=== PATIENT | male | born 1960 | race Caucasian/White ===

== ENCOUNTER 2020-05-13 15:20 | Outpatient (REF) | payer OTHER, SELFPAY ==
--- NOTE | 2020-05-13 | US_ITS ---
EXAMINATION: US RETROPERITONEAL LIMITED (RENAL ONLY) CLINICAL INFORMATION: Chronic kidney disease stage III. COMPARISON: None TECHNIQUE: Routine grayscale imaging of kidneys was performed. FINDINGS: RIGHT KIDNEY: 10.4 x 5.6 x 6.5 cm (SAG x AP x TRV). The kidney is normal in size, contour, and echogenicity. Renal cortical thickness is normal. No calculi or focal parenchymal lesions. No hydronephrosis. LEFT KIDNEY: 10.2 x 5.5 x 5.9 cm (SAG x AP x TRV). The kidney is normal in size, contour, and echogenicity. Renal cortical thickness is normal. No calculi or focal parenchymal lesions. No hydronephrosis. IMPRESSION: Unremarkable renal ultrasound exam.
== END 2020-05-13 15:21 | disposition home or self-care (01) ==
LOC: HO.US 15:20
PROVIDERS: PCP Nurse Practitioner Family; Visit Provider Internal Medicine
DX: N18.30 Chronic kidney disease, stage 3 unspecified (principal)
CPT/HCPCS: 76775

== ENCOUNTER → 2020-07-08 10:16 | Outpatient (BNVA) | payer OTHER, SELFPAY | PROVIDERS: PCP Nurse Practitioner Family; Visit Provider Internal Medicine | DX: Z13.89 Encounter for screening for other disorder (principal) ==

== ENCOUNTER → 2020-09-17 08:53 | Outpatient (BNVA) | payer OTHER, SELFPAY | PROVIDERS: PCP Nurse Practitioner Family; Visit Provider Internal Medicine Pulmonary Disease | DX: I51.89 Other ill-defined heart diseases (principal); R94.2 Abnormal results of pulmonary function studies | CPT/HCPCS: 99212 ==

== ENCOUNTER 2020-12-02 09:16 | Outpatient (REF) | payer OTHER, SELFPAY ==
[2020-12-02 10:13] LABS: Hematocrit 42.7 % (42-52); Hemoglobin 14.7 g/dl (14.0-18.0); Mean Corpuscular HGB Conc 34.4 g/dl (31.0-36.0); Mean Corpuscular Hemoglobin 31.6 pg (27.0-33.0); Mean Corpuscular Volume 91.8 fL (80-98); Mean Platelet Volume 10.4 fL (9.4-12.4); Platelet Count 164 X10*3/uL (160-400); Red Blood Count 4.65 X10*6/uL (4.60-5.80); Red Cell Distribution Width 12.9 % (11.0-16.0); White Blood Count 6.5 X10*3/uL (4.8-10.8)
[2020-12-02 10:35] LABS: Alanine Aminotransferase 24 U/L (0-40); Albumin Level 4.2 g/dL (3.5-5.0); Alkaline Phosphatase 105 U/L (39-117); Anion Gap 13 (12-20); Aspartate Amino Transferase 23 U/L (5-37); Bilirubin Direct 0.4 mg/dL (0.0-0.5); Bilirubin Total 1.3 mg/dL (0.0-1.0); Blood Urea Nitrogen 19 mg/dL (9-16); Calcium 9.3 mg/dL (8.4-10.2); Carbon Dioxide 23 mmol/L (22-29); Chloride 109 mmol/L (96-108); Estimated Glomerular Filt Rate 52; Glucose Random 120 mg/dL (60-115); Potassium 4.3 mmol/L (3.3-5.1); Sodium 141 mmol/L (135-145); Total Protein 6.6 g/dL (6.5-8.0)
[2020-12-03 08:05] LABS: ~HepC Num1 0.07 S/CO (0.00-0.79); ~Hepatitis C Antibody Nonreactive (Nonreactive)
[2020-12-03 13:38] LABS: Absolute CD3 Count 1540 cells/uL (840-3060); Absolute CD4 Count 1201 cells/uL (490-1740); Absolute CD8 Count 419 cells/uL (180-1170); Absolute Lymphocytes 2074 cells/uL (850-3900); CD4 CD8 Ratio 2.86 (0.86-5.00); Percent CD3 Cells 74 % (57-85); Percent CD4 Cells 58 % (30-61); Percent CD8 Cells 20 % (12-42)
[2020-12-04 12:57] LABS: HIV RNA PCR Qn Copies <20 NOT DETECTED copies/mL (NOT DETECTED); HIV RNA PCR Qn Log Copies <1.30 NOT DETECTED (NOT DETECTED)
== END 2020-12-02 09:17 | disposition home or self-care (01) ==
LOC: HO.LAB 09:16
PROVIDERS: PCP Nurse Practitioner Family; Visit Provider Internal Medicine
DX: B20 Human immunodeficiency virus [HIV] disease (principal)
CPT/HCPCS: 36415; 80048; 80076; 85027; 86359; 86360; 86803; 87536

== ENCOUNTER 2020-12-10 09:53 | Outpatient (REF) | payer OTHER, SELFPAY ==
[2020-12-19 18:57] LABS: Kappa, Serum 253 mg/dL (176-443); Kappa/Lambda Ratio, Serum 1.98 (1.29-2.55); Lambda, Serum 128 mg/dL (91-240)
== END 2020-12-10 09:54 | disposition home or self-care (01) ==
LOC: HO.LAB 09:53
PROVIDERS: PCP Nurse Practitioner Family; Visit Provider Internal Medicine
DX: N18.31 Chronic kidney disease, stage 3a (principal)
CPT/HCPCS: 36415; 83883

== ENCOUNTER → 2020-12-30 14:19 | Outpatient (BNVA) | payer OTHER, SELFPAY | PROVIDERS: Visit Provider Internal Medicine | DX: B20 Human immunodeficiency virus [HIV] disease (principal) ==

== ENCOUNTER 2021-05-26 08:40 | Outpatient (REF) | payer OTHER, SELFPAY ==
[2021-05-26 09:02] LABS: MANUAL DIFF FLAG NO
[2021-05-26 09:28] LABS: Basophils Absolute Auto 0.1 X10*3/uL (0.0-0.2); Basophils Percent Auto 0.8 % (0-2); Eosinophils Absolute Auto 0.2 X10*3/uL (0.0-0.4); Hematocrit 42.9 % (42.0-52.0); Imm Gran Abs Auto 0.04 X10*3/uL (0.00-0.03); Imm Gran Pct Auto 0.6 % (0.0-0.4); Lymphocytes Absolute Auto 1.6 X10*3/uL (1.2-4.9); Lymphocytes Percent Auto 24.7 % (20-40); Mean Corpuscular Hemoglobin 32.2 pg (27.0-33.0); Mean Corpuscular Volume 92.1 fL (80.0-98.0); Mean Platelet Volume 10.4 fL (9.4-12.4); Monocytes Absolute Auto 0.5 X10*3/uL (0.1-1.2); Monocytes Percent Auto 7.7 % (2-11); Neutrophils Absolute Auto 4.01 x10*3/uL (2.0-8.3); Neutrophils Percent Auto 63.2 % (45-73); Platelet Count 146 X10*3/uL (160-400); Red Blood Count 4.66 X10*6/uL (4.60-5.80); Red Cell Distribution Width 13.2 % (11.0-16.0); White Blood Count 6.4 X10*3/uL (4.8-10.8)
[2021-05-26 09:53] LABS: Appearance Urine CLEAR; Color Urine YELLOW; Glucose Urine UA NEG (NEG); Leukocyte Esterase Urine NEG (NEG); Nitrite Urine NEG (NEG); PH 6.5 (5.0-8.0); Urine Blood NEG (NEG); Urine Ketones NEG (NEG); Urine Protein NEG (NEG-TRACE)
[2021-05-26 09:58] LABS: Alanine Aminotransferase 23 U/L (0-40); Albumin Level 4.4 g/dL (3.5-5.0); Alkaline Phosphatase 116 U/L (39-117); Anion Gap 10 (12-20); Aspartate Amino Transferase 21 U/L (5-37); Bilirubin Total 1.3 mg/dL (0.0-1.0); Blood Urea Nitrogen 16 mg/dL (9-16); Calcium 9.4 mg/dL (8.4-10.2); Carbon Dioxide 28 mmol/L (22-29); Chloride 109 mmol/L (96-108); Estimated Glomerular Filt Rate 54; Glucose Random 114 mg/dL (60-115); Magnesium 2.2 mg/dL (1.6-2.6); Phosphorus 4.2 mg/dL (2.7-4.5); Potassium 4.4 mmol/L (3.3-5.1); Sodium 143 mmol/L (135-145); Total Protein 6.8 g/dL (6.5-8.0)
[2021-05-26 10:06] LABS: Creatinine Urine 91.13 mg/dL; Microalbum/Creatinine Ratio Ur 7.6 ug/mg cr
[2021-05-26 10:16] LABS: Uric Acid 4.4 mg/dL (3.4-7.0)
[2021-05-26 10:23] LABS: Vitamin D 25-OH Total 44.8 ng/mL (>30)
[2021-05-26 10:27] LABS: Mucus Urine 1+ /LPF; RBC Urine 0 /HPF (0); Squamous Epithelial Cell Urine 1+ /LPF; WBC Urine 0 /HPF (0-4)
== END 2021-05-26 08:41 | disposition home or self-care (01) ==
LOC: HO.LAB 08:40
PROVIDERS: PCP Nurse Practitioner Family; Visit Provider Internal Medicine
DX: N18.31 Chronic kidney disease, stage 3a (principal)
CPT/HCPCS: 36415; 80053; 81001; 82043; 82306; 83735; 84100; 84550; 85025

== ENCOUNTER 2021-06-22 08:10 | Outpatient (REF) | payer OTHER, SELFPAY ==
[2021-06-22 09:40] LABS: Syphilis Screen Nonreactive (Nonreactive)
[2021-06-22 10:05] LABS: CT PCR NOT DETECTED (Not Detect.); NG PCR NOT DETECTED (Not Detect.)
[2021-06-23 11:42] LABS: Absolute CD3 Count 1496 cells/uL (840-3060); Absolute CD4 Count 1187 cells/uL (490-1740); Absolute CD8 Count 378 cells/uL (180-1170); Absolute Lymphocytes 2015 cells/uL (850-3900); CD4 CD8 Ratio 3.14 (0.86-5.00); Percent CD3 Cells 74 % (57-85); Percent CD4 Cells 59 % (30-61); Percent CD8 Cells 19 % (12-42)
[2021-06-24 09:31] LABS: HIV RNA PCR Qn Copies <20 NOT DETECTED copies/mL (NOT DETECTED); HIV RNA PCR Qn Log Copies <1.30 NOT DETECTED (NOT DETECTED)
== END 2021-06-22 08:11 | disposition home or self-care (01) ==
LOC: HO.LAB 08:10
PROVIDERS: Visit Provider Internal Medicine
DX: B20 Human immunodeficiency virus [HIV] disease (principal)
CPT/HCPCS: 36415; 86359; 86360; 86780; 87491; 87536; 87591

== ENCOUNTER → 2021-06-30 13:13 | Outpatient (BNVA) | payer OTHER, SELFPAY | PROVIDERS: Visit Provider Internal Medicine | DX: B20 Human immunodeficiency virus [HIV] disease (principal); Z87.891 Personal history of nicotine dependence | CPT/HCPCS: 99212 ==

== ENCOUNTER → 2021-09-30 07:55 | Outpatient (REF) | payer OTHER, SELFPAY ==
--- NOTE | 2021-09-30 07:58 | CA_ITS ---
Transthoracic Echocardiogram Patient (Last, First, Middle): Bhupinder Rai F Gender: Male Date of : 1960 Age: 61 Procedure Date: 09/30/2021 Procedure Type: Transthoracic Echocardiogram Location: OP Height: 172.72 cm Weight: 70.31 kg BSA: 1.83 m2 Heart Rate: bpm BP: 132 / 78 mmHg Or Manager: SUZE Otero MD: Surinder Diaz MD Skate Shop Attendant: Ye Suresh MD Symptoms: I51.89 - Other ill-defined heart diseases Study Quality: Good ECG Rhythm: Sinus Conclusions: - 1. Normal LV systolic function with impaired relaxation abnormality 2. Normal cardiac valvular Dopplers 3. Normal RVSP 4. No pericardial effusion Findings Left Ventricle Normal left ventricular size, thickness, and systolic function. The visually estimated ejection fraction is between 55-60%. Spectral Doppler is indicative of an impaired relaxation filling pattern. E/E prime ratio is between 8 and 15 consistent with indeterminate filling pressures. Right Ventricle Normal right ventricular cavity size and systolic function. Atria Both atria are normal in size. There is lipomatous hypertrophy of the interatrial septum. There is no evidence of interatrial shunt. Aortic Valve There is mild calcification of the aortic valve. There is mild thickening of the aortic valve. There is no aortic valve stenosis. There is no aortic valve regurgitation. Mitral Valve There is mild anterior and posterior mitral leaflet thickening. There is mild mitral annular calcification. There is trace mitral valve regurgitation. There is no mitral valve stenosis. Pulmonic Valve The pulmonic valve was not well visualized. Tricuspid Valve Likely normal tricuspid valve structure and function. There is trace tricuspid valve regurgitation. The right ventricular systolic pressure is normal. The right ventricular systolic pressure is 18 mmHg. Normal right atrial pressure. There is no evidence of pulmonary hypertension. Great Vessels All visible segments of the aorta are normal in size. Venous The inferior vena cava is normal in size and collapses greater than 50% with inspiration. Pericardium/Pleural There is no evidence of pericardial effusion. Prior Study Comparison No significant change compared to prior study dated: 03/13/2020. Measurements 2D Linear Measurements IVSd: 0.99 0.6-0.9/0.6-1.0 cm LVIDd: 3.65 3.9-5.3/4.2-5.9 cm LVIDd Index: 1.99 2.4-3.2/2.2-3.1 cm/m2 LVIDs: 2.44 2.0-3.6 cm LVPWd: 0.94 0.7-1.1 cm LA Diam: 3.10 2.7-3.8/3.0-4.0 cm LAIDs Index: 1.69 1.5-2.3 cm/m2 LV Mass: 129.15 67-162/88-224 g LV Mass Index: 70.57 43-95/49-115 g/m2 LVOT Diam: 2.00 3.0+(-)1.3 cm 2D Systolic Function EF 4C: 56.00 >55% EF 2C: 60.00 >55% EF BiP: 57.40 >55% Mitral Valve MV Pk E: 0.66 MV PK A: 0.78 MV Decel Time: 218.00 E/A: 0.80 E'Lateral: 7.18 E'Medial: 5.87 E/E' Med: 11.20 E/E' Lat: 9.10 PHT: 64.00 MVA PHT: 3.44 Decel [place]: 3.00 Aortic Valve AoV Pk Rony: 1.26 AoV Mn Rony: 0.90 AoV VTI: 0.25 AoV Pk Grad: 6.00 Aov Mn Grad: 4.00 REYES Cont.VTI: 2.21 LVOT LVOT Pk Rony: 0.95 LVOT Mn Rony: 0.58 LVOT VTI: 0.18 LVOT Pk Grad: 4.00 LVOT Mn Grad: 2.00 LVOT Diam: 2.00 LVOT Area: 3.14 Diastolic Function MV Pk E: 0.66 MV Pk A: 0.78 E/A: 0.80 E'Medial: 5.87 E/E' Med: 11.20 E' Laterial: 7.18 E/E' Lat: 9.10 Right Ventricle TAPSE (mm): 20.30 TVS' Rony: 11.00 Tricuspid Valve TR Pk Rony: 1.94 TR Pk Grad: 15.00 RA Press: 3.00 RVSP: 18.00 Great Vessels Aorta Sinus of Valsalva: 3.37 2.0-3.[address] [place]: 2.93 1.7-3.4 cm Ao Asc: 3.00 2.1-3.4 cm Ao Arch: 2.80 Updated in Other Vendor System with Status of Final Ye Suresh MD electronically signed on 09/30/2021 9:07:49 PM with status of Final
== END ==
LOC: HO.CARD 07:55
PROVIDERS: PCP Nurse Practitioner Family; Visit Provider Internal Medicine Pulmonary Disease
DX: I51.89 Other ill-defined heart diseases (principal)
CPT/HCPCS: 93306

== ENCOUNTER 2022-01-26 12:37 | Outpatient (REF) | payer OTHER, SELFPAY ==
--- NOTE | ~2022-01-26 | XR_ITS ---
EXAMINATION: XR FOOT, LEFT CLINICAL INFORMATION: Pain left foot COMPARISON: None TECHNIQUE: AP, lateral, and oblique views of the left foot. FINDINGS: No fracture, dislocation or destructive lesion. Joint spaces appear well preserved. No erosive change. Incidental note is made of a moderate plantar spur. Subtle lucency through the base of the spur is noted. XR/XR foot LT min 3V IMPRESSION: Prominent plantar spur. If there is concern for plantar fasciitis, MRI could be done.
== END 2022-01-26 12:38 | disposition home or self-care (01) ==
LOC: HO.XRAY 12:37
PROVIDERS: PCP Nurse Practitioner Family; Visit Provider Physician Assistant
DX: M79.672 Pain in left foot (principal)
CPT/HCPCS: 73630

== ENCOUNTER 2022-06-28 06:39 | Outpatient (REF) | payer OTHER, SELFPAY ==
[2022-06-28 07:57] LABS: ~HepC Num1 0.09 S/CO (0.00-0.79); ~Hepatitis C Antibody Nonreactive (Nonreactive)
[2022-06-28 07:59] LABS: Syphilis Screen Nonreactive (Nonreactive)
[2022-06-29 15:18] LABS: Absolute CD3 Count 2060 cells/uL (840-3060); Absolute CD4 Count 1606 cells/uL (490-1740); Absolute CD8 Count 551 cells/uL (180-1170); Absolute Lymphocytes 2769 cells/uL (850-3900); CD4 CD8 Ratio 2.91 (0.86-5.00); Percent CD3 Cells 74 % (57-85); Percent CD4 Cells 58 % (30-61); Percent CD8 Cells 20 % (12-42)
[2022-06-29 16:03] LABS: HIV RNA PCR Qn Copies NOT DETECTED copies/mL (NOT DETECTED); HIV RNA PCR Qn Log Copies NOT DETECTED (NOT DETECTED)
== END 2022-06-28 06:40 | disposition home or self-care (01) ==
LOC: HO.LAB 06:39
PROVIDERS: PCP Nurse Practitioner Family; Visit Provider Internal Medicine
DX: B20 Human immunodeficiency virus [HIV] disease (principal)
CPT/HCPCS: 36415; 86359; 86360; 86780; 86803; 87536

== ENCOUNTER 2022-06-29 08:45 | Outpatient (REF) | payer OTHER, SELFPAY ==
--- NOTE | ~2022-06-29 | XR_ITS ---
EXAMINATION: XR CHEST CLINICAL INFORMATION: Cough. COMPARISON: 02/27/2020 chest radiographs. TECHNIQUE: 2 views of the chest were obtained. FINDINGS: No significant abnormality is noted involving the heart, lungs, mediastinum, bony thorax or soft tissues. XR/XR chest 2V IMPRESSION: No acute cardiopulmonary process.
== END 2022-06-29 08:46 | disposition home or self-care (01) ==
LOC: HO.HMGCX 08:45
PROVIDERS: PCP Nurse Practitioner Family; Visit Provider Nurse Practitioner Family
DX: R05.9 Cough, unspecified (principal)
CPT/HCPCS: 71046

== ENCOUNTER 2022-07-08 11:56 | Outpatient (REF) | payer OTHER, SELFPAY ==
[2022-07-08 12:58] LABS: Influenza A PCR POSITIVE (Negative); Influenza B PCR NEGATIVE (Negative); Resp Syncy Virus RNA Qual PCR NEGATIVE (Negative); SARS COV2 PCR INHOUSE NEGATIVE (Negative)
== END 2022-07-08 11:57 | disposition home or self-care (01) ==
LOC: HO.LNP 11:56
PROVIDERS: Visit Provider Internal Medicine
DX: Z20.822 Contact with and (suspected) exposure to COVID-19 (principal); R09.89 Other specified symptoms and signs involving the circulatory and respiratory systems
CPT/HCPCS: 0241U

== ENCOUNTER → 2022-07-14 11:34 | Outpatient (BNVA) | payer OTHER, SELFPAY | PROVIDERS: PCP Nurse Practitioner Family; Visit Provider Internal Medicine | DX: Z21 Asymptomatic human immunodeficiency virus [HIV] infection status (principal) ==

== ENCOUNTER 2022-10-06 01:41 | Emergency (ER) | payer OTHER, SELFPAY ==
[2022-10-06 01:52] VITALS: BP 126/83; PULSE 99; RESP 16; TEMP 36.7; O2SAT 98; BMI 23.6
--- NOTE | 2022-10-06 02:21 | ED_ITS ---
HPI - Back Pain/Injury General Chief Complaint: Back Pain/Injury Stated Complaint: Back pain Time Seen by Provider: 10/06/22 02:15 Source: patient Mode of arrival: ambulatory Limitations: no limitations History of Present Illness HPI Narrative: Patient comes to the emergency room complaining of right back spasms that started after shoveling snow. Patient states that today he shoveled his entire driveway, shortly after, patient started having back spasms. Patient tried ibuprofen, topical medication/patches. Patient states that the pain will not stop. Patient denies hematuria or dysuria, no flank pain. Related Data Home Medications Medication Instructions Recorded Confirmed allopurinol 300 mg tablet 300 mg PO DAILY 10/14/20 07/08/22 Previous Rx's Medication Instructions Recorded omeprazole 20 mg capsule,delayed 20 mg PO QAM #90 caps 03/29/22 release cholecalciferol (vitamin D3) 50 50 mcg PO DAILY #90 caps 04/16/22 mcg (2,000 unit) capsule benzonatate 100 mg capsule 100 mg PO BID PRN cough 10 days 06/29/22 #20 caps azithromycin 250 mg tablet 250 mg PO ONCE 5 days #6 tabs 07/08/22 oseltamivir 75 mg capsule (Tamiflu) 75 mg PO BID 5 days #10 caps 07/08/22 prednisone 20 mg tablet 60 mg PO DAILY #9 tabs 07/12/22 bictegravir 50 mg-emtricitabine 1 tab PO DAILY 30 days #30 tabs 07/19/22 200 mg-tenofovir alafenam 25 mg tablet (Biktarvy) atorvastatin 20 mg tablet 20 mg PO DAILY 90 days #90 tabs 08/17/22 baclofen 10 mg tablet 10 mg PO TID #10 tabs 10/06/22 ketorolac 10 mg tablet 10 mg PO BID PRN pain 5 days #7 10/06/22 tabs Allergies Allergy/AdvReac Type Severity Reaction Status Date / Time sulfacetamide Allergy Unknown Rash Verified 08/20/22 12:55 [From Sulfacet-R] sulfur [From Sulfacet-R] Allergy Unknown Rash Verified 08/20/22 12:55 Review of Systems Review of Systems: Constitutional : No Weight loss, No Fever, No Chills, No Night Sweats, No Fatigue, No Malaise ENT/Mouth : No Hearing loss, No Ear Pain, No Nasal Congestion, No Sinus Pain, No Hoarseness, No sore throat, No Rhinorrhea, No Swallowing Difficulty Eyes: No Eye Pain, No Swelling, No Redness, No Foreign Body, No Discharge, No Vision Changes Cardiovascular : No Chest Pain, No SOB, No Dyspnea on Exertion, No Orthopnea, No Edema, No Palpitations Respiratory : No Cough, No Sputum, No Wheezing, No Smoke Exposure, No Dyspnea Gastrointestinal : No Nausea, No Vomiting, No Diarrhea, No Constipation, No abdominal Pain, No Hematochezia, No Melena Genitourinary : no irregular bleeding, No Dysuria, No Urinary Frequency, No Hematuria, No Urinary Incontinence, No Urgency, No Flank Pain, No Urinary Flow Changes, No Hesitancy Musculoskeletal : Complaining of right middle and lower back pain with no radiation, No joint pain, No Myalgias, No Joint Swelling Skin : No Skin Lesions, No rash Neuro : No Weakness, No Numbness, No Paresthesias, No Loss of Consciousness, No Dizziness, No Headache Psych : No Anxiety/Panic, No Depression, No SI/HI/AH/VH, No Social Issues, Heme/Lymph: No Bruising, No Bleeding,No Lymphadenopathy Endocrine : No Polyuria, No Polydipsia, No Temperature Intolerance PMFSH Past Medical History Medical History HIV infection Social History Social History Housing: House Alcohol intake: former Patient Tobacco Use Status: Former Tobacco user Quit Date: quit 1995 e-Cigarette/Vaping Use: Never Used Second Hand Smoke Exposure: No Advance Directives: No Advance Directives Information Provided: No service: Yes Current occupational status: employed Current occupation: [employer] Current occupational exposures/hazards: No Cognitive needs: No Hearing needs: No Vision needs: No Physical Exam Vital Signs: Vital Signs: Last Vital Signs Temp 98.1 F 10/06/22 01:52 Pulse 99 10/06/22 01:52 Resp 16 10/06/22 01:52 BP 126/83 10/06/22 01:52 Pulse Ox 98 10/06/22 01:52 O2 Del Method 10/06/22 01:52 BMI result Body Mass Index 23.6 Const: Other: Appearance: Alert. Oriented X3. No acute distress. Eyes: Pupils equal, round and reactive to light. ENT: Pharynx normal. Neck: Normal inspection. Neck supple. No lymph nodes noted. No crepitus CVS: Normal heart rate and rhythm. Pulses normal. Normal S1 and S2 Respiratory: No respiratory distress. Breath sounds normal. No Wheezing. No rales Abdomen: Soft and nontender. No rigidity. No distention. Back: No CVA tenderness, present back spasms over the paraspinal muscles on the right side Skin: Skin warm and dry. Normal skin color. Normal skin turgor. Extremities: No lower extremity edema. No Lacerations. No Rash Neuro: Oriented X 3. No motor deficit. No sensory deficit. Moving all extremities. No slurred speech. CN 2 through 12 grossly intact Psych: calm, cooperative, normal affect Course Course Course Narrative: -patient actively having muscle spasms over the right paraspinal muscles. -urinalysis pending to rule out UTI/pyelonephritis, but it is unlikely -patient given 1 dose of IM Toradol and p.o. diazepam 2 mg Medications Administered Discontinued Medications Generic Name Dose Route Start Last Admin Trade Name Betoq PRN Reason Stop Dose Admin Diazepam 2 mg 10/06/22 02:21 10/06/22 02:34 Diazepam 2 Mg Tablet PO 10/06/22 02:22 2 mg ONCE ONE Administration Hydromorphone HCl 1 mg 10/06/22 04:31 10/06/22 04:44 Hydromorphone Hcl 1 Mg/Ml Syringe IM 10/06/22 04:32 1 mg ONCE ONE Administration Protocol Ketorolac Tromethamine 60 mg 10/06/22 02:21 10/06/22 02:34 Ketorolac Tromethamine 60 Mg/2 Ml Vial IM 10/06/22 02:22 60 mg ONCE ONE Administration Oxycodone HCl 5 mg 10/06/22 03:10 10/06/22 03:41 Oxycodone Hcl Immed Release 5 Mg Tablet PO 10/06/22 03:11 5 mg ONCE ONE Administration Medical Decision Making Medical Decision Making MDM Narrative: -patient's urinalysis negative for UTI, pain likely musculoskeletal, as it is worsened with movement. Kidney stones not suspected, there is no blood in the urine -patient received 1 dose of ketorolac, p.o. oxycodone, 1 dose of Dilaudid, p.o. diazepam -discussed with the patient he will need some muscle relaxants and pain medication. If the pain does not improve in the next 3-4 days, he will likely need physical therapy Differential Diagnosis Differential Diagnoses: The differential diagnosis associated with the presentation includes (Pulled muscle, muscle spasm, kidney stone) Lab Data Labs: Lab Results 10/06/22 Range/Units 02:29 Urine Color Yellow Urine Appearance Clear Urine pH 5.5 (5.0-9.0) Ur Specific [place] 1.020 (1.005-1.025) Urine Protein Trace (Neg-Trace) mg/dL Urine Glucose (UA) Negative (Negative) mg/dL Urine Ketones Negative (Negative) mg/dL Urine Blood Negative (Negative) Urine Nitrite Negative (Negative) Ur Leukocyte Esterase Negative (Negative) Discharge Plan Discharge Clinical Impression: Back strain Patient Disposition: Home, Self-Care Instructions: Low Back Strain (ED), Core Strengthening Exercises (ED) Additional Instructions: If you continue having back pain after 3-4 days, please call your primary care physician, you may need physical therapy. Please follow-up with your primary care physician tomorrow. If you have any worsening or new symptoms, please return to the emergency room or call 911 Prescriptions: New baclofen 10 mg tablet 10 mg PO TID Qty: 10 0RF ketorolac 10 mg tablet 10 mg PO BID PRN (Reason: pain) 5 Days Qty: 7 0RF Rx Instructions: Do not use this medication with ibuprofen, naproxen or any NSAIDs. If needed, use Tylenol No Action omeprazole 20 mg capsule,delayed release(DR/EC) 20 mg PO QAM Qty: 90 0RF cholecalciferol (vitamin D3) 50 mcg (2,000 unit) capsule 50 mcg PO DAILY Qty: 90 1RF oseltamivir [Tamiflu] 75 mg capsule 75 mg PO BID 5 Days Qty: 10 0RF atorvastatin 20 mg tablet 20 mg PO DAILY 90 Days Qty: 90 0RF allopurinol 300 mg tablet 300 mg PO DAILY azithromycin 250 mg tablet 250 mg PO ONCE 5 Days Qty: 6 0RF Rx Instructions: Take 2 tablets today then 1 daily benzonatate 100 mg capsule 100 mg PO BID PRN (Reason: cough) 10 Days Qty: 20 0RF prednisone 20 mg tablet 60 mg PO DAILY Qty: 9 0RF Biktarvy 50-200-25 mg tablet 1 tab PO DAILY 30 Days Qty: 30 11RF
[2022-10-06] MEDS: Ketorolac Tromethamine 60 MG/2 ML VIAL IM (02:34)
[2022-10-06] MEDS: diazePAM 2 MG TABLET PO (02:34)
[2022-10-06 02:35] LABS: Appearance Urine Clear; Color Urine Yellow; Glucose Urine UA Negative (Negative); Leukocyte Esterase Urine Negative (Negative); Nitrite Urine Negative (Negative); PH 5.5 (5.0-9.0); Urine Blood Negative (Negative); Urine Ketones Negative (Negative); Urine Protein Trace mg/dL (Neg-Trace)
[2022-10-06] MEDS: oxyCODONE HCl Immed Release 5 MG TABLET PO (03:41)
[2022-10-06] MEDS: HYDROmorphone HCl 1 MG/ML SYRINGE IM (04:44)
[2022-10-06 04:51] VITALS: BP 97/62; PULSE 76; RESP 16; TEMP 36.4; O2SAT 95
== END 2022-10-06 05:15 | disposition home or self-care (01) ==
PROVIDERS: Emergency Provider Emergency Medicine; PCP Nurse Practitioner Family
DX: M54.50 Low back pain, unspecified (principal); Z79.899 Other long term (current) drug therapy
CPT/HCPCS: 81003; 96372; 99283; 99284; J1170; J1885

== ENCOUNTER 2022-10-06 14:03 | Emergency (ER) | payer OTHER, SELFPAY ==
--- NOTE | ~2022-10-06 | XR_ITS ---
EXAMINATION: XR LUMBOSACRAL SPINE CLINICAL INFORMATION: Pain COMPARISON: 01/22/2025 TECHNIQUE: Three views of the lumbosacral spine. FINDINGS: No acute fracture or subluxation. Bilateral L5 pars defects. Grade 1 anterolisthesis of L5 on S1. Small endplate osteophytes of L1-L2. The sacroiliac joints are symmetric. The visualized sacrum is intact. Normal bowel gas pattern. XR/XR lumbar spine 2-3V IMPRESSION: Bilateral L5 pars defects with grade 1 anterolisthesis of L5 on S1. Mild degenerative change at the upper lumbar spine.
--- NOTE | 2022-10-06 14:25 | ED_ITS ---
HPI - Back Pain/Injury General Chief Complaint: Back Pain/Injury <SUSI Gardner - Last Filed: 10/06/22 14:44> Stated Complaint: Lower back pain <SUSI Gardner - Last Filed: 10/06/22 14:44> Time Seen by Provider: 10/06/22 15:02 <SUSI Gardner - Last Filed: 10/06/22 14:44> History of Present Illness HPI Narrative: Patient complains of right-sided low back pain which is intermittently shooting down his right leg, this began after shoveling snow yesterday, he did come to the emergency department last night and was given a prescription for baclofen and Toradol, he says these have not provided any relief of his pain He denies any muscle weakness no difficulty walking no changes to bowel or bladder no loss of sensation He does say the pain intermittently radiates down the back of his right leg, he does not have diabetes he does not use any IV drugs <SUSI Brown - Last Filed: 10/08/22 14:01> Related Data Home Medications: Home Medications Medication Instructions Recorded Confirmed allopurinol 300 mg tablet 300 mg PO DAILY 10/14/20 07/08/22 Previous Rx's Medication Instructions Recorded benzonatate 100 mg capsule 100 mg PO BID PRN cough 10 days 06/29/22 #20 caps azithromycin 250 mg tablet 250 mg PO ONCE 5 days #6 tabs 07/08/22 oseltamivir 75 mg capsule (Tamiflu) 75 mg PO BID 5 days #10 caps 07/08/22 prednisone 20 mg tablet 60 mg PO DAILY #9 tabs 07/12/22 bictegravir 50 mg-emtricitabine 1 tab PO DAILY 30 days #30 tabs 07/19/22 200 mg-tenofovir alafenam 25 mg tablet (Biktarvy) atorvastatin 20 mg tablet 20 mg PO DAILY 90 days #90 tabs 08/17/22 acetaminophen 500 mg capsule 1,000 mg PO Q8H PRN pain #30 caps 10/06/22 baclofen 10 mg tablet 10 mg PO TID #10 tabs 10/06/22 ketorolac 10 mg tablet 10 mg PO BID PRN pain 5 days #7 10/06/22 tabs naproxen 500 mg tablet (Naprosyn) 500 mg PO BID PRN pain #14 tabs 10/06/22 oxycodone 5 mg tablet 5 mg PO Q6H PRN pain #12 tabs 10/06/22 prednisone 20 mg tablet 60 mg PO DAILY 3 days #9 tabs 10/06/22 cholecalciferol (vitamin D3) 50 50 mcg PO DAILY #90 caps 10/08/22 mcg (2,000 unit) capsule omeprazole 20 mg capsule,delayed 20 mg PO QAM #90 caps 10/08/22 release <SUSI Gardner - Last Filed: 10/06/22 14:44> Allergies/Adverse Reactions: Allergies Allergy/AdvReac Type Severity Reaction Status Date / Time sulfacetamide Allergy Unknown Rash Verified 10/06/22 14:25 [From Sulfacet-R] sulfur [From Sulfacet-R] Allergy Unknown Rash Verified 10/06/22 14:25 <SUSI Gardner - Last Filed: 10/06/22 14:44> [facility] Past Medical History Source: nursing notes reviewed <SUSI Brown - Last Filed: 10/08/22 14:01> Medical History: Medical History HIV infection <SUSI Gardner - Last Filed: 10/06/22 14:44> Social History Social History: Social History Housing: House Alcohol intake: former Patient Tobacco Use Status: Former Tobacco user Quit Date: quit 1995 e-Cigarette/Vaping Use: Never Used Second Hand Smoke Exposure: No Advance Directives: No Advance Directives Information Provided: Yes service: Yes Current occupational status: employed Current occupation: [employer] Current occupational exposures/hazards: No Cognitive needs: No Hearing needs: No Vision needs: No <SUSI Gardner - Last Filed: 10/06/22 14:44> Physical Exam Vital Signs: Vital Signs: Last Vital Signs Temp 98.2 F 10/06/22 14:30 Pulse 68 10/06/22 14:30 Resp 16 10/06/22 14:30 BP 150/75 H 10/06/22 14:30 Pulse Ox 98 10/06/22 14:30 O2 Del Method 10/06/22 14:30 BMI result Body Mass Index 24.2 <SUSI Gardner - Last Filed: 10/06/22 14:44> Vital Signs: Last Vital Signs Temp 98.2 F 10/06/22 14:30 Pulse 68 10/06/22 14:30 Resp 16 10/06/22 14:30 BP 150/75 H 10/06/22 14:30 Pulse Ox 98 10/06/22 14:30 O2 Del Method 10/06/22 14:30 BMI result Body Mass Index 24.2 <SUSI Borwn - Last Filed: 10/08/22 14:01> General appearance no acute distress, calm and cooperative Head is normocephalic atraumatic Neck is supple Respiratory no distress Chest clear to auscultation bilateral Heart no murmur Abdomen soft nontender The back had right sided paraspinal soft tissue lower lumbar tenderness, there was no focal bony tenderness, skin of the back was normal, pain is easily reproduced with movement Extremities full range of motion x4 Neuro gait and balance are normal, patient can walk on toes walk on heels motor is 5/5 x4, sensation is intact and symmetrical <SUSI Brown - Last Filed: 10/08/22 14:01> Course Course Course Narrative: RME--62-year-old male presenting to ED complaining of continued back pain s/p shoveling yesterday. Patient was evaluated in our ED early this morning, discharge around 05:00AM, reports no symptomatic improvement. Requesting MRI Denies red flag symptoms Full eval will be performed by ED provider <SUSI Gardner - Last Filed: 10/06/22 14:44> RME--62-year-old male presenting to ED complaining of continued back pain s/p shoveling yesterday. Patient was evaluated in our ED early this morning, discharge around 05:00AM, reports no symptomatic improvement. Requesting MRI Denies red flag symptoms Full eval will be performed by ED provider Patient with no neurologic deficit no IV drug use no fever no changes to bowel or bladder with reproducible musculoskeletal back pain after shoveling is prescribed analgesics A lumbar spine x-ray was done which did not show any compression fracture, it did show arthritis but no acute injuries Well-appearing patient ambulated easily from the department, he is started on a course of several days of steroid to see if it helps with pain radiating down the right leg <SUSI Brown - Last Filed: 10/08/22 14:01> Medications Administered Discontinued Medications Generic Name Dose Route Start Last Admin Trade Name Freq PRN Reason Stop Dose Admin Acetaminophen 975 mg 10/06/22 17:11 10/06/22 17:20 Acetaminophen 325 Mg Tablet PO 10/06/22 17:12 975 mg ONCE ONE Administration Naproxen 500 mg 10/06/22 17:11 10/06/22 17:20 Naproxen 500 Mg Tablet PO 10/06/22 17:12 500 mg ONCE ONE Administration Prednisone 60 mg 10/06/22 17:11 10/06/22 17:20 Prednisone 20 Mg Tablet PO 10/06/22 17:12 60 mg ONCE ONE Administration <SUSI Gardner - Last Filed: 10/06/22 14:44> Medications Administered Discontinued Medications Generic Name Dose Route Start Last Admin Trade Name Freq PRN Reason Stop Dose Admin Acetaminophen 975 mg 10/06/22 17:11 10/06/22 17:20 Acetaminophen 325 Mg Tablet PO 10/06/22 17:12 975 mg ONCE ONE Administration Naproxen 500 mg 10/06/22 17:11 10/06/22 17:20 Naproxen 500 Mg Tablet PO 10/06/22 17:12 500 mg ONCE ONE Administration Prednisone 60 mg 10/06/22 17:11 10/06/22 17:20 Prednisone 20 Mg Tablet PO 10/06/22 17:12 60 mg ONCE ONE Administration <SUSI Brown - Last Filed: 10/08/22 14:01> Discharge Plan Discharge Clinical Impression: Back strain <SUSI Gardner - Last Filed: 10/06/22 14:44> Patient Disposition: Home, Self-Care <SUSI Gardner - Last Filed: 10/06/22 14:44> Additional Instructions: X-ray did not show any stress fracture or bony injury Use Naprosyn or Tylenol as needed, they do not sedate you If needed you can use the muscle relaxer baclofen or oxycodone at home only, they take 6-8 hours to wear off Follow with her doctor Return any time any worse condition or any concerns <SUSI Gardner - Last Filed: 10/06/22 14:44> Prescriptions: New naproxen [Naprosyn] 500 mg tablet 500 mg PO BID PRN (Reason: pain) Qty: 14 0RF acetaminophen 500 mg capsule 1,000 mg PO Q8H PRN (Reason: pain) Qty: 30 0RF prednisone 20 mg tablet 60 mg PO DAILY 3 Days Qty: 9 0RF oxycodone 5 mg tablet 5 mg PO Q6H PRN (Reason: pain) Qty: 12 0RF Rx Instructions: Partial Fill upon patient request. No Action oseltamivir [Tamiflu] 75 mg capsule 75 mg PO BID 5 Days Qty: 10 0RF atorvastatin 20 mg tablet 20 mg PO DAILY 90 Days Qty: 90 0RF cholecalciferol (vitamin D3) 50 mcg (2,000 unit) capsule 50 mcg PO DAILY Qty: 90 1RF omeprazole 20 mg capsule,delayed release(DR/EC) 20 mg PO QAM Qty: 90 0RF baclofen 10 mg tablet 10 mg PO TID Qty: 10 0RF ketorolac 10 mg tablet 10 mg PO BID PRN (Reason: pain) 5 Days Qty: 7 0RF Rx Instructions: Do not use this medication with ibuprofen, naproxen or any NSAIDs. If needed, use Tylenol allopurinol 300 mg tablet 300 mg PO DAILY azithromycin 250 mg tablet 250 mg PO ONCE 5 Days Qty: 6 0RF Rx Instructions: Take 2 tablets today then 1 daily benzonatate 100 mg capsule 100 mg PO BID PRN (Reason: cough) 10 Days Qty: 20 0RF prednisone 20 mg tablet 60 mg PO DAILY Qty: 9 0RF Biktarvy 50-200-25 mg tablet 1 tab PO DAILY 30 Days Qty: 30 11RF <SUSI Gardner - Last Filed: 10/06/22 14:44> Stand Alone Forms: Work/School Release <SUSI Gardner - Last Filed: 10/06/22 14:44> Interventions: ED Discharge Assessment Last Done: 10/06/22 17:26 <SUSI Gardner - Last Filed: 10/06/22 14:44> Discharge Date/Time: 10/06/22 17:27 <SUSI Gardner - Last Filed: 10/06/22 14:44>
[2022-10-06 14:30] VITALS: BP 150/75; PULSE 68; RESP 16; TEMP 36.8; O2SAT 98; BMI 24.2
[2022-10-06] MEDS: predniSONE 20 MG TABLET 60 MG PO (17:20)
[2022-10-06] MEDS: Acetaminophen 325 MG TABLET 975 MG PO (17:20)
[2022-10-06] MEDS: NaPROXEN 500 MG TABLET PO (17:20)
== END 2022-10-06 17:27 | disposition home or self-care (01) ==
PROVIDERS: Emergency Provider Internal Medicine; PCP Nurse Practitioner Family
DX: M54.50 Low back pain, unspecified (principal); M79.604 Pain in right leg; Z79.899 Other long term (current) drug therapy
CPT/HCPCS: 72100; 99283

== ENCOUNTER 2023-03-04 08:06 | Outpatient (AMB) | payer OTHER, SELFPAY ==
[2023-03-04 08:12] VITALS: BP 130/74; PULSE 92; TEMP 36.8; O2SAT 97
--- NOTE | 2023-03-04 08:14 | MHC.OFFWIV ---
Intake Vital Signs 03/04/23 08:12 Height 5 ft 6 in BP 130/74 Blood Pressure Location Lt brachial Position Sitting Pulse 92 Pulse Source Pulse Oximeter Temp 98.3 F Temp Source Oral Pulse Oximetry (%) 97 Oxygen Delivery Method Room Air Intake Visit Reasons: EP Wax Removal Intake Note: Pt is here for ear wax removal in both ears Patient Tobacco Use Status: Former Tobacco user Quit Date: quit 1995 Allergies sulfacetamide [From Sulfacet-R] Allergy (Unknown, Verified 03/04/23 08:15) Rash sulfur [From Sulfacet-R] Allergy (Unknown, Verified 03/04/23 08:15) Rash Do you need a note to return to daycare/school/sports/work: Yes HPI HPI Comments History of Present Illness Details 63-year-old male presents for bilateral ear cerumen impaction. No other concerns at this. [facility] Medical History HIV infection Social History Housing: House Alcohol intake: former Patient Tobacco Use Status: Former Tobacco user Quit Date: quit 1995 e-Cigarette/Vaping Use: Never Used Second Hand Smoke Exposure: No service: Yes Current occupational status: employed Current occupation: [employer] Current occupational exposures/hazards: No Cognitive needs: No Hearing needs: No Vision needs: No Review of Systems Const Details: Constitutional: No Fever, No Chills ENT/Mouth: Positive bilateral cerumen impaction, No Hoarseness, No sore throat Cardiovascular: No Chest Pain, No SOB Respiratory: No Cough, No Dyspnea Gastrointestinal: No Nausea, No Vomiting, No Diarrhea, No abdominal Pain Neuro: No Weakness, No Dizziness, No Headache All systems reviewed & are unremarkable except as noted in HPI and below Physical Exam Vital Signs: Last Vital Signs Temp 98.3 F 03/04/23 08:12 Pulse 92 03/04/23 08:12 BP 130/74 03/04/23 08:12 Pulse Ox 97 03/04/23 08:12 Oxygen Delivery Method Room Air 03/04/23 08:12 Appearance: Alert. Oriented X3. No acute distress. Eyes: Pupils equal, round and reactive to light. ENT: Positive bilateral cerumen impaction. Neck: Normal inspection. Neck supple. CVS: Normal heart rate and rhythm. Pulses normal. Respiratory: No respiratory distress. Breath sounds normal. Skin: Skin warm and dry. Normal skin color. Normal skin turgor. Extremities: Gait well balanced well coordinated Neuro: No motor deficit. No sensory deficit. Cranial nerves 2-12 intact Assessment & Plan Assessment & Plan (1) Impacted cerumen: Code(s): H61.20 - Impacted cerumen, unspecified ear Qualifiers: Laterality: bilateral Qualified Code(s): H61.23 - Impacted cerumen, bilateral Plan 63-year-old male presents for bilateral cerumen impaction. Patient is requesting lavage. Patient has no other concerns at this time. Physical exam indicates bilateral cerumen impactions. MA will irrigate both canals. Both canals irrigated successfully by MA. Tympanic membranes intact, canals intact. No further action required. Will recommend Debrox drops. Patient verbalized understanding of and agrees to plan of care discharge home. Verbalized understanding signs symptoms indicating need for emergent intervention. Patient Instructions: You were evaluated for bilateral cerumen impaction. We were able to disimpact the cerumen in your ears. Consider using Debrox drops [id number] as directed on the package to help reduce cerumen buildup. Thank you for choosing this urgent care for evaluation. Please follow-up with primary care physician as needed. Return to the emergency department for any new, concerning, or worsening symptoms. Coding Level of Care Code Est Pt Level 3 (52409) Diagnoses Impacted cerumen H61.23 Laterality: bilateral
== END 2023-03-04 09:43 | disposition home or self-care (01) ==
PROVIDERS: PCP Nurse Practitioner Family; Visit Provider Nurse Practitioner Family
DX: H61.23 Impacted cerumen, bilateral (principal)
CPT/HCPCS: 99213

== ENCOUNTER 2023-04-27 08:11 | Outpatient (AMB) | payer OTHER, SELFPAY ==
--- NOTE | 2023-04-27 08:21 | AM.OFFWIN_ITS ---
Intake Vital Signs 04/27/23 08:22 Height 5 ft 6 in Weight 75.863 kg BMI 27.0 BP 122/76 Blood Pressure Location Lt brachial Position Sitting Pulse 84 Pulse Source Pulse Oximeter Temp 97.6 F Temp Source Temporal Artery Scan Pulse Oximetry (%) 98 Intake Visit Reasons: [id number] Intake Note: pt s here for c/o cough, congestion Patient Tobacco Use Status: Former Tobacco user Quit Date: quit 1995 Allergies sulfacetamide [From Sulfacet-R] Allergy (Unknown, Verified 04/27/23 08:22) Rash sulfur [From Sulfacet-R] Allergy (Unknown, Verified 04/27/23 08:22) Rash Do you need a note to return to daycare/school/sports/work: Yes HPI HPI Comments History of Present Illness Details [id number] 63-year-old male history of HIV presents with cough x2 weeks, nonproductive, reports he is having coughing hacks, not improving. No recent sick contacts. Denies chest pain, shortness of breath, nausea, vomiting, headache, vision changes, dizziness, weakness. No history of PE or DVT. No sedentary lifestyle, not a smoker. Physical exam with faint crackles to bilateral lower lobes History and physical exam consistent with bronchitis versus viral illness. Unlikely pneumonia, ACS, no signs of acute respiratory distress Plan will discharge home doxycycline, albuterol, prednisone. [facility] Medical History HIV infection Social History Housing: House Alcohol intake: former Patient Tobacco Use Status: Former Tobacco user Quit Date: quit 1995 e-Cigarette/Vaping Use: Never Used Second Hand Smoke Exposure: No service: Yes Current occupational status: employed Current occupation: [employer] Current occupational exposures/hazards: No Cognitive needs: No Hearing needs: No Vision needs: No Review of Systems Const Details: Constitutional : No Weight loss, No Fever, No Chills, + Fatigue, + Malaise ENT/Mouth : No sore throat, No Rhinorrhea Eyes: No Eye Pain, No Swelling, No Redness Cardiovascular : No Chest Pain, No SOB, No Dyspnea on Exertion, No Orthopnea, No Edema, No Palpitations Respiratory : + Cough, + Sputum, No Wheezing Gastrointestinal : No Nausea, No Vomiting, No Diarrhea, No Constipation, No abdominal Pain, No Hematochezia, No Melena Genitourinary : No Dysuria, No Urinary Frequency, No Hematuria, Musculoskeletal : No joint pain, No Myalgias, No Joint Swelling Skin : No Skin Lesions, No rash Neuro : No Weakness, No Numbness, No Dizziness, No Headache Psych : No Anxiety/Panic, No Depression All other systems reviewed and are negative All systems reviewed & are unremarkable except as noted in HPI and below Physical Exam Vital Signs: Last Vital Signs Temp 97.6 F 04/27/23 08:22 Pulse 84 04/27/23 08:22 BP 122/76 04/27/23 08:22 Pulse Ox 98 04/27/23 08:22 BMI result Body Mass Index 27.0 Vital signs stable Appearance: Alert.? Oriented X3.? No acute distress.? Head: Normocephalic, atraumatic, no step-offs or deformities Eyes: Pupils equal, round and reactive to light.? Neck: Normal inspection.? Neck supple.? CVS: Normal heart rate and rhythm.? Pulses normal.? Respiratory: No respiratory distress.? Breath sounds crackles to bilateral lower lobes.? Abdomen: Soft and nontender.? Skin: Skin warm and dry.? Normal skin color.? Normal skin turgor.? Extremities: No lower extremity edema.? No calf ttp. 5/5 strength to bilateral upper and lower extremities Neuro: Oriented X 3.? No motor deficit.? No sensory deficit. CN 2-12 intact Assessment & Plan Assessment & Plan (1) Bronchitis: Code(s): J40 - Bronchitis, not specified as acute or chronic Plan Take your medications as prescribed. If you were prescribed antibiotics today, it is important that you take your medication to their entirety, do not skip any doses, do not finish them early. Follow-up with your primary care provider this week. Return to the emergency department with new or worsening symptoms. Such as fevers, chills, chest pain, shortness of breath, nausea, vomiting, dizziness, headache, vision changes, lethargy In case of emergency call 911 Medications: New prednisone 40 mg (2 x 20 mg) PO DAILY 10 tabs 0RF 5 days albuterol sulfate 90 mcg/actuation 2 puffs inhalation Q6H PRN 6.7 grams 0RF shortness of breath or wheezing doxycycline hyclate 100 mg PO BID 14 caps 0RF 7 days Coding Level of Care Code Est Pt Level 3 (11213) Diagnoses Bronchitis J40
[2023-04-27 08:22] VITALS: BP 122/76; PULSE 84; TEMP 36.4; O2SAT 98; BMI 27.0
== END 2023-04-27 08:46 | disposition home or self-care (01) ==
PROVIDERS: PCP Nurse Practitioner Family; Visit Provider Physician Assistant
DX: J40 Bronchitis, not specified as acute or chronic (principal)
CPT/HCPCS: 99213

== ENCOUNTER 2023-05-09 08:13 | Outpatient (AMB) | payer OTHER, SELFPAY ==
--- NOTE | 2023-05-09 08:18 | MHC.OFFWIV ---
Intake Vital Signs 05/09/23 08:29 Height 5 ft 6 in Weight 167 lb BMI 27.0 BP 116/78 Blood Pressure Location Rt brachial Position Sitting Pulse 90 Pulse Source Pulse Oximeter Temp 97.8 F Temp Source Temporal Artery Scan Pulse Oximetry (%) 98 Intake Visit Reasons: EP, cough ([phone]) Intake Note: patient is here today for cough Patient Tobacco Use Status: Former Tobacco user Quit Date: quit 1995 Allergies sulfacetamide [From Sulfacet-R] Allergy (Unknown, Verified 05/09/23 09:02) Rash sulfur [From Sulfacet-R] Allergy (Unknown, Verified 05/09/23 09:02) Rash Medication List - Last Reconciled 05/09/23 by Brandon Benitez MD albuterol sulfate 90 mcg/actuation 2 puffs inhalation Q6H PRN allopurinol 300 mg PO DAILY atorvastatin 20 mg PO DAILY 90 days dgmhcerae-lyduatwx-hsgmgki ala 50-200-25 mg (Biktarvy) 1 tab PO DAILY 30 days cholecalciferol (vitamin D3) 50 mcg PO DAILY doxycycline hyclate 100 mg PO BID 7 days omeprazole 20 mg PO QAM prednisone 40 mg (2 x 20 mg) PO DAILY 5 days Do you need a note to return to daycare/school/sports/work: No HPI EP, cough ([phone]) HPI Details 63-year-old male presents to the office for a sick visit. Patient was seen recently for a cough. He was started on antibiotics, prednisone and inhaler. Patient reports that he is feeling better but continues to a nonproductive cough. No fevers or chills. Able to function and do all activities of daily living. [facility] Medical History HIV infection Social History Housing: House Alcohol intake: former Patient Tobacco Use Status: Former Tobacco user Quit Date: quit 1995 e-Cigarette/Vaping Use: Never Used Second Hand Smoke Exposure: No service: Yes Current occupational status: employed Current occupation: [employer] Current occupational exposures/hazards: No Cognitive needs: No Hearing needs: No Vision needs: No Physical Exam Vital Signs: Last Vital Signs Temp 97.8 F 05/09/23 08:29 Pulse 90 05/09/23 08:29 BP 116/78 05/09/23 08:29 Pulse Ox 98 05/09/23 08:29 BMI result Body Mass Index 27.0 Const General: cooperative and healthy appearing Nutritional Appearance: well nourished Orientation/consciousness: patient oriented x3 Limitations: no limitations HEENT Head: Yes normal to inspection Eyes General: appearance normal, both eyes and all related structures Neck Neck: Yes normal visual inspection Chest Chest palpation & inspection: normal palpation of entire chest wall Resp Effort & Inspection: normal respiratory effort Neuro General: patient oriented x3 Assessment & Plan Assessment & Plan (1) Cough: Code(s): R05.9 - Cough, unspecified Qualifiers: Cough type: acute Qualified Code(s): R05.1 - Acute cough Plan: Chest x-ray images reviewed by me. No visible infiltrates. No abx needed. Cough medicine with codeine prescribed Orders: Orders XR chest 2V Today R05.9 - Cough, unspecified Coding Level of Care Code Est Pt Level 4 (70240) Diagnoses Acute cough R05.1 Cough type: acute
[2023-05-09 08:29] VITALS: BP 116/78; PULSE 90; TEMP 36.6; O2SAT 98; BMI 27.0
== END 2023-05-09 09:40 | disposition home or self-care (01) ==
PROVIDERS: PCP Nurse Practitioner Family; Visit Provider Internal Medicine
DX: R05.1 Acute cough (principal)
CPT/HCPCS: 99214

== ENCOUNTER 2023-05-09 08:59 | Outpatient (REF) | payer OTHER, SELFPAY ==
--- NOTE | ~2023-05-09 | XR_ITS ---
EXAMINATION: XR CHEST CLINICAL INFORMATION: Cough, unspecified COMPARISON: Chest 02/27/2020, 05/05/2017 TECHNIQUE: 2 views of the chest were obtained. FINDINGS: No significant abnormality is noted involving the heart, lungs, mediastinum or soft tissues. No change in mild anterior wedge compression of the T12 vertebral body. XR/XR chest 2V IMPRESSION: No acute cardiopulmonary disease.
== END 2023-05-09 09:00 | disposition home or self-care (01) ==
LOC: HO.HMGCX 08:59
PROVIDERS: PCP Nurse Practitioner Family; Visit Provider Internal Medicine
DX: R05.9 Cough, unspecified (principal)
CPT/HCPCS: 71046

== ENCOUNTER 2023-05-24 10:53 | Outpatient (REF) | payer OTHER, SELFPAY ==
[2023-05-24 11:12] LABS: MANUAL DIFF FLAG NO
[2023-05-24 11:54] LABS: Basophils Absolute Auto 0.1 X10*3/uL (0.0-0.2); Basophils Percent Auto 0.6 % (0-2); Eosinophils Absolute Auto 0.2 X10*3/uL (0.0-0.4); Eosinophils Percent Auto 1.7 % (0-4); Hematocrit 43.7 % (42.0-52.0); Imm Gran Abs Auto 0.03 X10*3/uL (0.00-0.03); Imm Gran Pct Auto 0.3 % (0.0-0.4); Lymphocytes Absolute Auto 1.9 X10*3/uL (1.2-4.9); Lymphocytes Percent Auto 21.4 % (20-40); Mean Corpuscular HGB Conc 34.3 g/dl (31.0-36.0); Mean Corpuscular Hemoglobin 31.6 pg (27.0-33.0); Mean Platelet Volume 10.5 fL (9.4-12.4); Monocytes Absolute Auto 0.6 X10*3/uL (0.1-1.2); Monocytes Percent Auto 7.2 % (2-11); Neutrophils Percent Auto 68.8 % (45-73); Platelet Count 155 X10*3/uL (160-400); Red Blood Count 4.75 X10*6/uL (4.60-5.80); Red Cell Distribution Width 13.6 % (11.0-16.0); White Blood Count 8.7 X10*3/uL (4.8-10.8)
[2023-05-24 11:59] LABS: Appearance Urine Clear; Color Urine Yellow; Glucose Urine UA Negative (Negative); Leukocyte Esterase Urine Negative (Negative); Nitrite Urine Negative (Negative); PH 5.5 (5.0-9.0); Urine Blood Negative (Negative); Urine Ketones Negative (Negative); Urine Protein Negative (Neg-Trace)
[2023-05-24 12:05] LABS: Bacteria Urine None Seen (None Seen); Hyaline Casts Urine 0-2 /LPF (0-2); RBC Urine 0-2 /HPF (0-2); Squamous Epithelial Cell Urine 0-2 /HPF (0-2); WBC Urine 0-5 /HPF (0-5)
[2023-05-24 12:32] LABS: Anion Gap 14 (12-20); Blood Urea Nitrogen 12 mg/dL (9-16); Calcium 9.6 mg/dL (8.4-10.2); Carbon Dioxide 22 mmol/L (22-29); Chloride 112 mmol/L (96-108); Estimated Glomerular Filt Rate 60; Potassium 3.6 mmol/L (3.3-5.1); Sodium 144 mmol/L (135-145); Uric Acid 4.8 mg/dL (3.4-7.0)
[2023-05-24 12:38] LABS: Creatinine Urine 152.43 mg/dL; Microalbum/Creatinine Ratio Ur 3.9 ug/mg cr (<30)
[2023-05-24 12:53] LABS: Vitamin D 25-OH Total 52.6 ng/mL (>30)
[2023-05-25 16:39] LABS: Calcium (PTHI) 9.2 mg/dL (8.6-10.3); PTHI 42 pg/mL (16-77)
== END 2023-05-24 10:54 | disposition home or self-care (01) ==
LOC: HO.LAB 10:53
PROVIDERS: PCP Nurse Practitioner Family; Visit Provider Internal Medicine
DX: N18.9 Chronic kidney disease, unspecified (principal); E55.9 Vitamin D deficiency, unspecified
CPT/HCPCS: 36415; 80051; 81001; 82043; 82306; 82310; 82565; 82570; 83970; 84520; 84550; 85025

== ENCOUNTER 2023-06-22 08:08 | Outpatient (REF) | payer OTHER, SELFPAY ==
[2023-06-22 08:34] LABS: MANUAL DIFF FLAG NO
[2023-06-22 08:47] LABS: Basophils Absolute Auto 0.1 X10*3/uL (0.0-0.2); Basophils Percent Auto 0.8 % (0-2); Eosinophils Absolute Auto 0.2 X10*3/uL (0.0-0.4); Eosinophils Percent Auto 3.4 % (0-4); Hematocrit 45.1 % (42.0-52.0); Hemoglobin 15.7 g/dl (14.0-18.0); Imm Gran Abs Auto 0.02 X10*3/uL (0.00-0.03); Imm Gran Pct Auto 0.3 % (0.0-0.4); Lymphocytes Absolute Auto 2.3 X10*3/uL (1.2-4.9); Lymphocytes Percent Auto 32.2 % (20-40); Mean Corpuscular HGB Conc 34.8 g/dl (31.0-36.0); Mean Corpuscular Volume 91.9 fL (80.0-98.0); Mean Platelet Volume 10.2 fL (9.4-12.4); Monocytes Absolute Auto 0.5 X10*3/uL (0.1-1.2); Monocytes Percent Auto 7.4 % (2-11); Neutrophils Percent Auto 55.9 % (45-73); Platelet Count 150 X10*3/uL (160-400); Red Blood Count 4.91 X10*6/uL (4.60-5.80); White Blood Count 7.1 X10*3/uL (4.8-10.8)
[2023-06-22 09:25] LABS: Alanine Aminotransferase 19 U/L (0-40); Albumin Level 4.3 g/dL (3.5-5.0); Alkaline Phosphatase 117 U/L (39-117); Anion Gap 11 (12-20); Aspartate Amino Transferase 20 U/L (5-37); Bilirubin Direct 0.3 mg/dL (0.0-0.5); Blood Urea Nitrogen 13 mg/dL (9-16); Calcium 9.6 mg/dL (8.4-10.2); Carbon Dioxide 24 mmol/L (22-29); Chloride 111 mmol/L (96-108); Estimated Glomerular Filt Rate 51; Glucose Random 118 mg/dL (60-115); Sodium 142 mmol/L (135-145)
[2023-06-22 09:36] LABS: Syphilis Screen Nonreactive (Nonreactive)
[2023-06-22 09:37] LABS: ~HepC Num1 0.12 S/CO (0.00-0.79); ~Hepatitis C Antibody Nonreactive (Nonreactive)
[2023-06-23 13:18] LABS: Absolute CD3 Count 1699 cells/uL (840-3060); Absolute CD4 Count 1303 cells/uL (490-1740); Absolute CD8 Count 468 cells/uL (180-1170); Absolute Lymphocytes 2324 cells/uL (850-3900); CD4 CD8 Ratio 2.78 (0.86-5.00); Percent CD3 Cells 73 % (57-85); Percent CD4 Cells 56 % (30-61); Percent CD8 Cells 20 % (12-42)
[2023-06-23 15:13] LABS: HIV RNA PCR Qn Copies <20 DETECTED copies/mL (NOT DETECTED); HIV RNA PCR Qn Log Copies <1.30 DETECTED (NOT DETECTED)
== END 2023-06-22 08:09 | disposition home or self-care (01) ==
LOC: HO.LAB 08:08
PROVIDERS: PCP Nurse Practitioner Family; Visit Provider Internal Medicine
DX: Z21 Asymptomatic human immunodeficiency virus [HIV] infection status (principal)
CPT/HCPCS: 36415; 80048; 80076; 85025; 86359; 86360; 86780; 86803; 87536

== ENCOUNTER 2023-06-29 07:15 | Day surgery (SDC) | payer OTHER, SELFPAY ==
[2023-06-27 14:24] VITALS: BMI 26.8
--- NOTE | 2023-06-28 10:13 | HO.ANESPROP2 ---
HPI - Anesthesia Eval Consult details Narrative: 63yo M for Colonoscopy [facility] Active Problems Active Problems: All Active Problems (Updated 06/27/23 @ 14:16 by Izabel Lopez RN) Low back pain radiating to both legs (Acute) Upper respiratory tract infection (Acute) Influenza A (Acute) Feeling sick (Acute) HIV positive (Acute) Nausea (Acute) Diarrhea (Acute) Acute bronchitis (Acute) Skin lesion (Acute) Cough (Acute) Screening PSA (prostate specific antigen) (Acute) Screening for colon cancer (Acute) Physical exam (Acute) Intractable left heel pain (Acute) Allergic reaction (Acute) Atopic dermatitis (Acute) Decreased diffusion capacity (Acute) Diastolic dysfunction (Acute) Impacted cerumen (Acute) HIV infection (Acute) Past Medical History Medical History (Updated 06/27/23 @ 14:16 by Izabel Lopez RN) Elevated cholesterol Gout Diverticulosis GERD (gastroesophageal reflux disease) CKD (chronic kidney disease) HIV infection Surgical History Surgical History (Updated 06/27/23 @ 14:17 by Izabel Lopez RN) History of rectal surgery History of dental surgery H/O colonoscopy Social History Social History Housing: House Alcohol intake: former Patient Tobacco Use Status: Former Tobacco user Quit Date: 1995 e-Cigarette/Vaping Use: Never Used Second Hand Smoke Exposure: No service: Yes Current occupational status: employed Current occupation: [employer] Current occupational exposures/hazards: No Cognitive needs: No Hearing needs: No Vision needs: No Meds Allergies Allergy/AdvReac Type Severity Reaction Status Date / Time sulfacetamide Allergy Unknown Rash Verified 05/09/23 09:02 [From Sulfacet-R] sulfur [From Sulfacet-R] Allergy Unknown Rash Verified 05/09/23 09:02 Home Medications Medication Instructions Recorded Confirmed Last Taken Type allopurinol 300 mg tablet 300 mg PO DAILY 10/14/20 06/27/23 Unknown History Exam Height,Weight and Vital Signs: Height 5 ft 7 in Weight 77.564 kg Pertinent Lab Results Pertinent Lab Results: Laboratory Tests 06/22/23 08:32 WBC 7.1 Hgb 15.7 Hct 45.1 Plt Count 150 L Sodium 142 Potassium 4.0 Chloride 111 H Carbon Dioxide 24 BUN 13 Creatinine 1.40 Narrative Narrative: ECHO 09/2021 Conclusions: - 1. Normal LV systolic function with impaired relaxation abnormality 2. Normal cardiac valvular Dopplers 3. Normal RVSP 4. No pericardial effusion Assessment and Plan Assessment Anesthesia Assessment: Chart Reviewed
--- NOTE | 2023-06-29 07:23 | HO.ANESPROP2 ---
[facility] Active Problems Active Problems: All Active Problems (Updated 06/27/23 @ 14:16 by Izabel Lopez RN) Low back pain radiating to both legs (Acute) Upper respiratory tract infection (Acute) Influenza A (Acute) Feeling sick (Acute) HIV positive (Acute) Nausea (Acute) Diarrhea (Acute) Acute bronchitis (Acute) Skin lesion (Acute) Cough (Acute) Screening PSA (prostate specific antigen) (Acute) Screening for colon cancer (Acute) Physical exam (Acute) Intractable left heel pain (Acute) Allergic reaction (Acute) Atopic dermatitis (Acute) Decreased diffusion capacity (Acute) Diastolic dysfunction (Acute) Impacted cerumen (Acute) HIV infection (Acute) Past Medical History Medical History Elevated cholesterol Gout Diverticulosis GERD (gastroesophageal reflux disease) CKD (chronic kidney disease) HIV infection Functional capacity: independent ambulation Family History Family history of problems with anesthesia: No Surgical History Surgical History History of rectal surgery History of dental surgery H/O colonoscopy History of Problems with Anesthesia: No Social History Social History Housing: House Alcohol intake: former Patient Tobacco Use Status: Former Tobacco user Quit Date: 1995 e-Cigarette/Vaping Use: Never Used Second Hand Smoke Exposure: No Advance Directives: No Advance Directives Information Provided: Yes service: Yes Current occupational status: employed Current occupation: [employer] Current occupational exposures/hazards: No Cognitive needs: No Hearing needs: No Vision needs: No Meds Allergies Allergy/AdvReac Type Severity Reaction Status Date / Time sulfacetamide Allergy Unknown Rash Verified 05/09/23 09:02 [From Sulfacet-R] sulfur [From Sulfacet-R] Allergy Unknown Rash Verified 05/09/23 09:02 Active Medications: Current Medications Lactated Ringer's (Lr) 1,000 mls @ 100 mls/hr IVCONT .Q10H NENA Sodium Biphosphate/Sodium Phosphate (Sodium Phosphate,Navarro-Dibasic 133 Ml Enema) 133 ml CA ONCE PRN PRN Reason: Poor Colonoscopy Prep Results Home Medications Medication Instructions Recorded Confirmed Last Taken Type allopurinol 300 mg tablet 300 mg PO DAILY 10/14/20 06/27/23 Unknown History Exam Height,Weight and Vital Signs: Height 5 ft 7 in Weight 77.564 kg Assessment and Plan Final Anesthetic Review Family History of Problems with Anesthesia: No History of Problems with Anesthesia: No
[2023-06-29 07:46] VITALS: BMI 25.7
[2023-06-29 07:53] VITALS: BP 133/76; PULSE 92; RESP 19; TEMP 36.6; O2SAT 97
[2023-06-29] MEDS: Lactated Ringers 1,000 ML 100 ML IVCONT (08:06)
[2023-06-29 09:38] VITALS: BP 91/54; PULSE 82; RESP 16; TEMP 36.3; O2SAT 96
--- NOTE | 2023-06-29 09:40 | PM.OP ---
Brief Operative Note Date of Service: 06/29/23 Pre-op diagnosis: Screening Post-op diagnosis: other (Polyp) Procedure: Colonoscopy to the cecum with bx/removal of polyp Surgeon: Kolby Benson MD Anesthesia: MAC Was an Registered Public Surveyor used for this Procedure?: No Estimated blood loss (mL): 2.0 Pathology: other (A. Cecal polyp) Condition: stable Disposition: PACU
[2023-06-29 09:53] VITALS: BP 93/65; PULSE 80; RESP 16; O2SAT 98
--- NOTE | 2023-06-29 10:04 | OP_ITS ---
DATE OF SERVICE: 06/29/2023 SURGEON: Kolby Benson MD INDICATIONS: The patient presents for evaluation of personal history of tubular adenoma of the colon, family history of colon cancer, and colorectal cancer screening. Full consent was obtained from him for this, including risks of bleeding and perforation. PREOPERATIVE DIAGNOSIS: POSTOPERATIVE DIAGNOSIS: PROCEDURE PERFORMED: Colonoscopy to the cecum with biopsy and removal of polyp. ESTIMATED BLOOD LOSS: COMPLICATIONS: ANESTHESIA: Monitored anesthesia care. ASSISTANTS: SPECIMENS: PREOPERATIVE DIAGNOSES: Colorectal cancer screening, personal history of tubular adenoma of the colon, and family history of colon cancer. POSTOPERATIVE DIAGNOSES: Colorectal cancer screening, personal history of tubular adenoma of the colon and family history of colon cancer, colon polyp, mild diverticulosis, internal hemorrhoids. DESCRIPTION OF PROCEDURE: The patient was placed in the left lateral decubitus position. The digital rectal exam revealed some external hemorrhoidal tissue. The Olympus video pediatric colonoscope was entered into the rectum and advanced easily to the cecum. Once in the cecum, I did identify cecal pouch with appendiceal orifice and a normal-appearing ileocecal valve. In the cecum, there was a flat, approximately 4 mm probable hyperplastic polyp, which was biopsied and completely removed with cold biopsy forceps. The remainder of the cecum and ileocecal valve appeared normal. There was transillumination of light deep in the lower quadrant. Scope was slowly withdrawn, assessing all mucosal surfaces carefully. Preparation was excellent. I did not visualize any other polyps, colitis, nor angiodysplasia. There was a mild amount of sigmoid diverticulosis. In the rectum, scope was retroflexed, visualizing internal hemorrhoids, but no other pathology. The rectal mucosa appeared normal. The scope was straightened and withdrawn from the patient. He tolerated the procedure well and was returned to the recovery area in stable condition. IMPRESSION: 1. Colon polyp. 2. Diverticulosis. 3. Internal and external hemorrhoids. PLAN: The results of the biopsy will be checked. I would recommend a repeat colonoscopy in 5 years for further screening. He will, otherwise, see me on a p.r.n. basis. MD RADHA Florez/ARIANNE / [phone]
[2023-06-29 10:08] VITALS: BP 114/78; PULSE 79; RESP 16; TEMP 36.6; O2SAT 98
--- NOTE | 2023-06-29 10:36 | HO.POSTANES ---
Post Anesthesia Evaluation Post Anesthesia Evaluation Date of Service: 06/29/23 Vital Signs: Vital Signs Temp Pulse Resp BP Pulse Ox O2 Del Method 06/29/23 10:08 97.8 F 79 16 114/78 98 Room Air 06/29/23 09:53 80 16 93/65 98 Room Air 06/29/23 09:38 97.4 F 82 16 91/54 L 96 Room Air 06/29/23 07:53 98 F 92 19 133/76 97 Room Air Anesthesia: Monitored Mental Status: Awake Pain Control: Satisfactory Nausea/Vomiting: None Hydration: Adequate Anesthesia-Related Issues: No Anes. Related Issues
== END 2023-06-29 10:27 | disposition home or self-care (01) ==
PROVIDERS: PCP Nurse Practitioner Family; Visit Provider Internal Medicine
PROC: 0DJD8ZZ Inspection of Lower Intestinal Tract, Via Natural or Artificial Opening Endoscopic (ICD-10-PCS; CPT 45378; principal; 2023-06-29 08:40)
DX: Z12.11 Encounter for screening for malignant neoplasm of colon (principal); K57.30 Diverticulosis of large intestine without perforation or abscess without bleeding; K64.8 Other hemorrhoids; Z86.010 Personal history of colon polyps; Z80.0 Family history of malignant neoplasm of digestive organs; B20 Human immunodeficiency virus [HIV] disease; N18.9 Chronic kidney disease, unspecified; E78.00 Pure hypercholesterolemia, unspecified; K21.9 Gastro-esophageal reflux disease without esophagitis; Z87.891 Personal history of nicotine dependence; Z79.02 Long term (current) use of antithrombotics/antiplatelets; Z79.899 Other long term (current) drug therapy
CPT/HCPCS: 45378; 88305; J2704

== ENCOUNTER 2023-07-05 10:40 | Outpatient (AMB) | payer OTHER, SELFPAY ==
--- NOTE | 2023-07-05 10:45 | A.OFFPC_ITS ---
Vital Signs 07/05/23 10:52 Weight 162 lb BP 118/76 Blood Pressure Location Rt brachial Position Sitting Pulse 84 Pulse Source Pulse Oximeter Pulse Oximetry (%) 98 Oxygen Delivery Method Room Air Intake Visit Reasons: Annual PE Intake Note: Patient here for physical exam. last colonoscopy: 06/29/23 w/. Allergies sulfacetamide [From Sulfacet-R] Allergy (Unknown, Verified 07/05/23 10:54) Rash sulfur [From Sulfacet-R] Allergy (Unknown, Verified 07/05/23 10:54) Rash Tobacco use date assessed: 12/08/22 Dental Screening Dental Screen Date: 07/05/23 Did you have a dental visit in the last 12 months?: Yes Did you have a dental problem in the last 6 months where you did not have access to dental care?: No Was dental information given to patient?: Patient has dentist HPI Annual PE HPI Details Pt is here for a PE. Will order labs. Colon screen is up to date. Due for PSA, will order. Denies dribbling with urination, weak stream, and frequent nocturia. [facility] Medical History Elevated cholesterol Gout Diverticulosis GERD (gastroesophageal reflux disease) CKD (chronic kidney disease) HIV infection Surgical History History of rectal surgery History of dental surgery H/O colonoscopy Social History Housing: House Alcohol intake: former Patient Tobacco Use Status: Former Tobacco user Quit Date: 1995 e-Cigarette/Vaping Use: Never Used Second Hand Smoke Exposure: No service: Yes Current occupational status: employed Current occupation: [employer] Current occupational exposures/hazards: No Cognitive needs: No Hearing needs: No Vision needs: No Questionnaire PHQ-9 Over the last 2 weeks, how often have you been bothered by any of the following problems? 1. Little interest or pleasure in doing things: not at all 2. Feeling down, depressed, or hopeless: not at all 3. Trouble falling or staying asleep, or sleeping too much: not at all 4. Feeling tired or having little energy: not at all 5. Poor appetite or overeating: not at all 6. Feeling bad about yourself - or that you are a failure or have let yourself or your family down: not at all 7. Trouble concentrating on things, such as reading the newspaper or watching television: not at all 8. Moving or speaking so slowly that other people could have noticed. Or the opposite - being so fidgety or restless that you have been moving around a lot more than usual: not at all 9. Thoughts that you would be better off or of hurting yourself in some way: not at all Total score: 0 Depression Screening Interpretation: Negative Depression Screening Done: Yes 50553 - PHQ-9 Billing: Yes Source: Developed by Drs. Kolby Castillo, Shanthi Hicks, Reece Kwan and colleagues, with an educational shashi from [employer]. Thrive Questionnaire Date Thrive assessed: 07/05/23 I am a: Patient What is your living situation today?: I have a steady place to live Within the past 12 months, did the food you bought not last and you didn't have the money to get more?: Never true Within the past 12 months, did you worry whether your food would run out before you got money to buy more?: Never true Do you have trouble paying for medicines?: No Do you have trouble getting transportation to medical appointments?: No Do you have trouble paying your heating and electricity bill?: No Do you have trouble taking care of your child, family member or friend?: No Do you have trouble with day-to-day activities such as bathing, preparing meals, shopping, managing finances, etc.?: No Are you currently unemployed and looking for a job?: No Are you interested in more education?: No AUDIT C Alcohol Use Questionnaire (AUDIT-C) 1. How often do you have a drink containing alcohol?: Monthly or less 2. How many drinks containing alcohol do you have on a typical day when you are drinking?: 1 or 2 3. How often do you have six or more drinks on one occasion?: Never Total Score: 1 Score Reviewed/Action Taken: No PAPITO-7 AMB Questionnaire PAPITO-7 Date PAPITO - 7 assessed: 07/05/23 Feeling nervous, anxious, or on edge: 0 = Not at all Not being able to stop or control worryin = Not at all Worrying too much about different things: 0 = Not at all Trouble relaxin = Not at all Being so restless that it is hard to sit still: 0 = Not at all Becoming easily annoyed or irritable: 0 = Not at all Feeling afraid as if something awful might happen: 0 = Not at all Total PAPITO-7 score (0-4 normal; 5-9 mild; 10-14 moderate; 15-21 severe): 0 Source: Developed by Drs. Kolby Castillo, Shanthi Hicks, Reece Kwan and colleagues, with an educational shashi from [employer]. PAPITO-7 Assessment Billing PAPITO-7 Assessment Tool: PAPITO-7 Assessment 59365 Review of Systems Const Denies chills and Denies fever(s) Eyes Denies blurry vision ENT Denies vertigo, Denies dizziness and Denies sore throat Card Denies chest pain at rest, Denies chest pain with activity, Denies diaphoresis, Denies dyspnea and Denies dyspnea on exertion Resp Denies cough, Denies dyspnea, Denies dyspnea on exertion and Denies wheezing GI Denies abdominal pain, Denies melena, Denies hematochezia, Denies constipation, Denies diarrhea and Denies loose stools Denies hematuria Musc Denies numbness and Denies tingling Skin/Breast Denies lesions Neuro Denies vertigo, Denies dizziness, Denies numbness and Denies tingling Psych Denies anxiety, Denies depression, Denies homicidal ideation, Denies suicidal ideation and Denies other (substance abuse) Aller/Immun Denies wheezing Physical exam (Primary Care) Vital Signs: Last Vital Signs Pulse 84 07/05/23 10:52 BP 118/76 07/05/23 10:52 Pulse Ox 98 07/05/23 10:52 Oxygen Delivery Method Room Air 07/05/23 10:52 Tobacco/Smoking Status: Tobacco use Status Tobacco use date assessed 12/08/22 07/05/23 10:47 Patient Tobacco Use Status Former Tobacco user 07/05/23 10:47 e-Cigarette/Vaping Use Never Used 07/05/23 10:47 PHQ-9: PHQ-9 Score PHQ-9: Total score 0 07/05/23 12:02 Depression Screening Interpretation: Negative Thrive Assessment: Date of Thrive Assessment Date Thrive assessed 07/05/23 07/05/23 12:02 Const General: cooperative Nutritional Appearance: well nourished Orientation/consciousness: patient oriented x3 HENMT Other: cerumen noted to right ear, after ear lavage Head: Yes normal to inspection, Yes normocephalic and Yes atraumatic Ears: TM normal on the left Eyes General: appearance normal, both eyes and all related structures Alignment and Position: alignment normal and position normal Neck Neck: Yes normal visual inspection and Yes no lymphadenopathy Thyroid: Thyroid normal Resp Effort & Inspection: normal respiratory effort Auscultation: clear to auscultation bilaterally Cardio Rate: regular rate Rhythm: regular rhythm Heart sounds: S1 normal heart sound present, S2 normal heart sound present and no murmurs GI Palpation (GI): Soft to palpation and nontender Auscultation: normal bowel sounds Male General Exam: Yes normal external exam Penis: normal penis Scrotum: scrotum normal, testes descended bilaterally and no inguinal hernias Testes: no testicular mass Skin Rashes: no rashes Neuro General: patient oriented x3, moves all extremities, no focal motor deficits and deep tendon reflexes 2+ bilaterally Romberg Test: Negative Psych Appearance: grossly normal Mental Status: mental status grossly normal Speech and movement: Normal speech and movement present Affect: normal affect Attitude: cooperative Thought process: Normal thought process present Thought content: Normal thought content present Insight: Good insight present (Psych) Judgement: Good judgement present (Psych) Office Procedures Cerumen Removal From which ear canal was the cerumen removed: right Removal: irrigation Notes: patient tolerated procedure well and no complications 32035-Klg Irrigation/Lavage Immunizations pneumoc 20-soniya conj-dip cr(PF) 0.5 mL IM syringe Performing Provider: MESHA Badillo Performing Location: [facility] [place] [facility] Administered by: ELTON Mann on 07/05/23 11:57 Dose Route Admin Location Dispensed Lot Number Expiration Date NDC Drapery Installer 0.5 mL IM Left Deltoid 0.5 mL [id number] 02/21/24 0670-6180-45 WYETH/PFIZER VIS Given Date VIS Provided VIS Publication Date 07/05/23 Single Vaccine 21 Eligibility Eligibility Date Funding Source Not [facility] Eligible 12/12/23 Private Assessment and Plan Assessment & Plan (1) Physical exam: Code(s): Z00.00 - Encounter for general adult medical examination without abnormal findings Plan: Labs ordered (2) Screening PSA (prostate specific antigen): Code(s): Z12.5 - Encounter for screening for malignant neoplasm of prostate Plan: PSA ordered Plan The patient agreed to the use of a medical grade shoemaker for this encounter. Scribed for MESHA Hartley by Olga Watkins medical grade shoemaker, on 07/05/2023 at 11:25 EST. Orders: Orders Complete Blood Count Auto Diff Today Z00.00 - Encounter for general adult medical examination without abnormal findings Comprehensive [place]. Panel Fast Today Z00.00 - Encounter for general adult medical examination without abnormal findings TSH reflex Free T4 Today Z00.00 - Encounter for general adult medical examination without abnormal findings Lipid Panel Today Z00.00 - Encounter for general adult medical examination without abnormal findings Prostate Specific Antigen Scr Today Z12.5 - Encounter for screening for maligna nt neoplasm of prostate UA CC w/rflx Micro + Cult Today Z00.00 - Encounter for general adult medical examination without abnormal findings Pneumococcal 20 Immunization Today Z23 - Encounter for immunization Coding Level of Care Code Est Pt Prev Care 40-64y(81426) Diagnoses Physical exam Z00.00 Screening PSA (prostate specific antigen) Z12.5 CPT Codes Office Procedure - CPT: 11030-Xcv Irrigation/Lavage ([id number]) Additional Codes PAPITO-7 Assessment Billing - PAPITO-7 Assessment Tool: PAPITO-7 Assessment 86002 ([id number])
[2023-07-05 10:52] VITALS: BP 118/76; PULSE 84; O2SAT 98
== END 2023-07-05 11:59 | disposition home or self-care (01) ==
PROVIDERS: Visit Provider Nurse Practitioner Family
DX: Z00.00 Encounter for general adult medical examination without abnormal findings (principal); Z12.5 Encounter for screening for malignant neoplasm of prostate; Z23 Encounter for immunization; H61.21 Impacted cerumen, right ear
CPT/HCPCS: 69209; 90471; 90677; 99396

== ENCOUNTER 2023-07-06 11:21 | Outpatient (AMB) | payer OTHER, SELFPAY ==
--- NOTE | 2023-07-06 11:16 | A.OFFVIS_ITS ---
Intake Vital Signs 07/06/23 11:17 Weight 166 lb BP 118/71 Blood Pressure Location Lt brachial Position Sitting Pulse 91 Pulse Source Pulse Oximeter Temp 97.4 F Temp Source Oral Pulse Oximetry (%) 98 Intake Visit Reasons: f/u 1 yr. Allergies sulfacetamide [From Sulfacet-R] Allergy (Unknown, Verified 07/06/23 11:18) Rash sulfur [From Sulfacet-R] Allergy (Unknown, Verified 07/06/23 11:18) Rash HPI f/u 1 yr. HPI Details He has CD4 count of 1303 and viral load undetectable on 06/22. He feels well and has no concerns. He is still working for [employer] and likes it very much. [facility] Medical History Elevated cholesterol Gout Diverticulosis GERD (gastroesophageal reflux disease) CKD (chronic kidney disease) HIV infection Surgical History History of rectal surgery History of dental surgery H/O colonoscopy Social History Housing: House Alcohol intake: former Patient Tobacco Use Status: Former Tobacco user Quit Date: quit 1995 e-Cigarette/Vaping Use: Never Used Second Hand Smoke Exposure: No service: Yes Current occupational status: employed Current occupation: [employer] Current occupational exposures/hazards: No Cognitive needs: No Hearing needs: No Vision needs: No Review of Systems Const All systems reviewed & are unremarkable except as noted in HPI and below Physical Exam Vital Signs: Last Vital Signs Temp 97.4 F 07/06/23 11:17 Pulse 91 07/06/23 11:17 BP 118/71 07/06/23 11:17 Pulse Ox 98 07/06/23 11:17 Const General: cooperative Orientation/consciousness: patient oriented x3 HEENT Head: Yes normal to inspection Mouth: Normal oral and palatal mucosa present Eyes General: appearance normal, both eyes and all related structures Pupils: Equal, round and reactive pupils present Resp Effort & Inspection: normal respiratory effort Cardio Rate: regular rate Rhythm: regular rhythm GI Palpation (GI): Soft to palpation and nontender General: Yes no CVA tenderness Back/Spine/Pelvis Back: no CVA tenderness Skin General skin exam: no rashes or lesions noted Neuro General: patient oriented x3 Cranial nerves: Yes CN's II-XII intact bilaterally and Yes Equal, round and reactive pupils present Extrem General: Yes normal to inspection Psych Appearance: grossly normal Assessment & Plan Assessment & Plan (1) HIV positive: Comment: He is doing well and has no concerns. He has CD4 count in great range and is undetectable viral load Code(s): Z21 - Asymptomatic human immunodeficiency virus [HIV] infection status Plan: Continue Biktarvy. See in one year. Labs put in for next year and medication as well. Orders: Orders HIV-1 RNA QN PCR Expanded 11 Months Z21 - Asymptomatic human immunodeficiency virus [HIV] infection status Basic Metabolic Panel 11 Months Z21 - Asymptomatic human immunodeficiency virus [HIV] infection status Lymphocyte Subset Panel 3 11 Months Z21 - Asymptomatic human immunodeficiency virus [HIV] infection status Liver Panel 11 Months Z21 - Asymptomatic human immunodeficiency virus [HIV] infection status Syphilis Screen 11 Months Z21 - Asymptomatic human immunodeficiency virus [HIV] infection status Hepatitis C Antibody 11 Months Z21 - Asymptomatic human immunodeficiency virus [HIV] infection status Medications: Refilled werepioij-tyjoqcuo-xtlqszj ala 50-200-25 mg (Biktarvy) 1 tab PO DAILY 30 tabs 11RF 30 days Coding Level of Care Code Est Pt Level 3 (20337) Diagnoses HIV positive Z21
[2023-07-06 11:17] VITALS: BP 118/71; PULSE 91; TEMP 36.3; O2SAT 98
== END 2023-07-06 12:06 | disposition home or self-care (01) ==
LOC: HO.HID 11:21
PROVIDERS: PCP Nurse Practitioner Family; Visit Provider Internal Medicine
DX: Z21 Asymptomatic human immunodeficiency virus [HIV] infection status (principal)
CPT/HCPCS: 99213

== ENCOUNTER → 2023-07-06 11:21 | Outpatient (BNVA) | payer OTHER, SELFPAY | PROVIDERS: PCP Nurse Practitioner Family; Visit Provider Internal Medicine | DX: Z21 Asymptomatic human immunodeficiency virus [HIV] infection status (principal) | CPT/HCPCS: 99212 ==

== ENCOUNTER 2023-08-10 09:25 | Outpatient (REF) | payer OTHER, SELFPAY ==
[2023-08-10 09:55] LABS: MANUAL DIFF FLAG NO
[2023-08-10 10:16] LABS: Appearance Urine Clear; Color Urine Yellow; Glucose Urine UA Negative (Negative); Leukocyte Esterase Urine Negative (Negative); Nitrite Urine Negative (Negative); PH 5.5 (5.0-9.0); Specific Gravity - Urine 1.025 (1.005-1.025); Urine Blood Negative (Negative); Urine Ketones Negative (Negative); Urine Protein Trace mg/dL (Neg-Trace)
[2023-08-10 10:20] LABS: Basophils Absolute Auto 0.1 X10*3/uL (0.0-0.2); Basophils Percent Auto 0.7 % (0-2); Eosinophils Absolute Auto 0.2 X10*3/uL (0.0-0.4); Eosinophils Percent Auto 2.1 % (0-4); Hematocrit 44.4 % (42.0-52.0); Hemoglobin 15.7 g/dl (14.0-18.0); Imm Gran Abs Auto 0.04 X10*3/uL (0.00-0.03); Imm Gran Pct Auto 0.5 % (0.0-0.4); Lymphocytes Absolute Auto 2.4 X10*3/uL (1.2-4.9); Lymphocytes Percent Auto 29.4 % (20-40); Mean Corpuscular HGB Conc 35.4 g/dl (31.0-36.0); Mean Corpuscular Hemoglobin 32.4 pg (27.0-33.0); Mean Corpuscular Volume 91.5 fL (80.0-98.0); Mean Platelet Volume 10.6 fL (9.4-12.4); Monocytes Absolute Auto 0.6 X10*3/uL (0.1-1.2); Monocytes Percent Auto 7.4 % (2-11); Neutrophils Absolute Auto 4.9 x10*3/uL (2.0-8.3); Neutrophils Percent Auto 59.9 % (45-73); Platelet Count 143 X10*3/uL (160-400); Red Blood Count 4.85 X10*6/uL (4.60-5.80); Red Cell Distribution Width 13.2 % (11.0-16.0); White Blood Count 8.1 X10*3/uL (4.8-10.8)
[2023-08-10 11:29] LABS: Alanine Aminotransferase 19 U/L (0-40); Albumin Level 4.2 g/dL (3.5-5.0); Alkaline Phosphatase 129 U/L (39-117); Anion Gap 12 (12-20); Aspartate Amino Transferase 20 U/L (5-37); Bilirubin Total 1.2 mg/dL (0.0-1.0); Blood Urea Nitrogen 12 mg/dL (9-16); Calcium 9.7 mg/dL (8.4-10.2); Carbon Dioxide 26 mmol/L (22-29); Chloride 107 mmol/L (96-108); Cholesterol 151 mg/dL (<200); Estimated Glomerular Filt Rate 50; Glucose Fasting 118 mg/dL (60-99); HDL Cholesterol 29 mg/dL (>40); LDL Cholesterol Calculated 88 mg/dL (<100); Sodium 141 mmol/L (135-145); Triglycerides 174 mg/dL (<150)
[2023-08-10 11:46] LABS: Prostate Specific Antigen Scr 2.48 ng/mL (<0.05-4.0)
[2023-08-10 11:50] LABS: TSH reflex Free T4 1.43 uIU/mL (0.32-4.0)
== END 2023-08-10 09:26 | disposition home or self-care (01) ==
LOC: HO.LAB 09:25
PROVIDERS: PCP Nurse Practitioner Family; Visit Provider Nurse Practitioner Family
DX: Z00.00 Encounter for general adult medical examination without abnormal findings (principal); Z20.2 Contact with and (suspected) exposure to infections with a predominantly sexual mode of transmission; Z12.5 Encounter for screening for malignant neoplasm of prostate
CPT/HCPCS: 36415; 80053; 80061; 81003; 84153; 84443; 85025

== ENCOUNTER 2023-08-20 08:30 | Outpatient (REF) | payer OTHER, SELFPAY ==
[2023-08-20 10:35] LABS: Alanine Aminotransferase 23 U/L (0-40); Albumin Level 4.1 g/dL (3.5-5.0); Alkaline Phosphatase 110 U/L (39-117); Anion Gap 14 (12-20); Aspartate Amino Transferase 25 U/L (5-37); Blood Urea Nitrogen 14 mg/dL (9-16); Calcium 9.2 mg/dL (8.4-10.2); Carbon Dioxide 22 mmol/L (22-29); Chloride 109 mmol/L (96-108); Estimated Glomerular Filt Rate 49; Glucose Random 111 mg/dL (60-115); Potassium 4.1 mmol/L (3.3-5.1); Sodium 141 mmol/L (135-145); Total Protein 6.8 g/dL (6.5-8.0)
[2023-08-20 10:54] LABS: Gamma Glutamyl Transpeptidase 32 U/L (11-51)
[2023-08-25 05:59] LABS: Alk.Phos Iso. Macrohepatic 0 % (<=0); Alk.Phos Isoenzymes Bone 35 % (28-66); Alk.Phos Isoenzymes Intest 0 % (1-24); Alk.Phos Isoenzymes Liver 65 % (25-69); Alk.Phos Isoenzymes Placental 0 % (<=0); Alk.Phos Isoenzymes Total 104 U/L (35-144)
== END 2023-08-20 08:31 | disposition home or self-care (01) ==
LOC: HO.LAB 08:30
PROVIDERS: PCP Nurse Practitioner Family; Visit Provider Nurse Practitioner Family
DX: R74.8 Abnormal levels of other serum enzymes (principal); R79.89 Other specified abnormal findings of blood chemistry
CPT/HCPCS: 36415; 80053; 82977; 84080

== ENCOUNTER 2023-10-15 09:03 | Outpatient (AMB) | payer OTHER, SELFPAY ==
[2023-10-15 09:06] VITALS: BP 126/80; PULSE 88; TEMP 37; O2SAT 98; BMI 26.3
--- NOTE | 2023-10-15 09:06 | AM.OFFWIN_ITS ---
Intake Vital Signs 10/15/23 09:06 Height 5 ft 7 in Weight 168 lb BMI 26.3 BP 126/80 Blood Pressure Location Lt brachial Position Sitting Pulse 88 Pulse Source Pulse Oximeter Temp 98.6 F Temp Source Oral Pulse Oximetry (%) 98 Oxygen Delivery Method Room Air Intake Visit Reasons: RT ear blocked Intake Note: Pt is here today c/o Rt blocked ear Patient Tobacco Use Status: Former Tobacco user Quit Date: quit 1995 Allergies sulfacetamide [From Sulfacet-R] Allergy (Unknown, Verified 10/15/23 09:07) Rash sulfur [From Sulfacet-R] Allergy (Unknown, Verified 10/15/23 09:07) Rash HPI RT ear blocked HPI Details Patient is a 63-year-old male comes to the walk-in clinic complaining of feeling blockage to the right ear for quite some time now. He states that there was some associated decreased hearing, but reports no URI symptoms, leakage from the ear, ear pressure or pain, dizziness or vertigo or tinnitus, or other associated symptoms. [facility] Medical History Elevated cholesterol Gout Diverticulosis GERD (gastroesophageal reflux disease) CKD (chronic kidney disease) HIV infection Surgical History History of rectal surgery History of dental surgery H/O colonoscopy Social History Housing: House Alcohol intake: former Patient Tobacco Use Status: Former Tobacco user Quit Date: quit 1995 e-Cigarette/Vaping Use: Never Used Second Hand Smoke Exposure: No service: Yes Current occupational status: employed Current occupation: [employer] Current occupational exposures/hazards: No Cognitive needs: No Hearing needs: No Vision needs: No Review of Systems Const All systems reviewed & are unremarkable except as noted in HPI and below Physical Exam Vital Signs: Last Vital Signs Temp 98.6 F 10/15/23 09:06 Pulse 88 10/15/23 09:06 BP 126/80 10/15/23 09:06 Pulse Ox 98 10/15/23 09:06 Oxygen Delivery Method Room Air 10/15/23 09:06 BMI result Body Mass Index 26.3 HEENT Ears: TM abnormal (Right TM with small perf at the 11 o'clock position, erythematous overall) Office Procedures Cerumen Removal From which ear canal was the cerumen removed: right Removal: irrigation Notes: patient tolerated procedure well [id number] Irrigation/Lavage Assessment & Plan Assessment & Plan (1) Tympanic membrane perforation, nontraumatic: Code(s): H72.90 - Unspecified perforation of tympanic membrane, unspecified ear Qualifiers: Laterality: right Qualified Code(s): H72.91 - Unspecified perforation of tympanic membrane, right ear Plan: Patient had routine ear lavage done by an MA, and had no pain or pressure or dizziness during the procedure, however upon evaluation by provider, he complained of feeling hissing sound in the right ear, and was found to have a small perforation at the 11 o'clock position in his tympanic membrane. He reports there had been no recent upper respiratory infection, allergies, or other symptoms leading up to this, and he had no pain as far as he could remember. He denies knowing about a perforation from an ear infection in the past, or chronic ear infections or hearing loss issues, however it is possible that this is the case, and that this is not a new perforation, but that the cerumen evacuation might have caused a shift in pressure that is allowing the ear to equilibrate, and that he might be temporarily hearing this until the pressure is equal on both sides. We discussed that he should come back in a few weeks to have the ear re-evaluated, and see if the perforation is closed and or the wheezing sensation is resolved. If not, he will need referral to an ENT at that time. In the meantime, we discussed that he should use appropriate water precautions to the ear, including no swimming or diving, and avoiding getting water in the ear when bathing or showering. I told him about using wax ball to cover the area, or using a cotton ball covered with petroleum jelly to create a barrier. He knows to follow up sooner if symptoms are worsening. Medications: New ciprofloxacin-dexamethasone 0.3-0.1 % 4 drps otic (ear) right Q12H 7.5 mL 0RF 7 days Coding Level of Care Code Est Pt Level 4 (95098) Diagnoses Nontraumatic perforation of tympanic membrane of right ear H72.91 Laterality: right CPT Codes Office Procedure - CPT: 55542-Xuv Irrigation/Lavage ([id number])
== END 2023-10-15 10:46 | disposition home or self-care (01) ==
PROVIDERS: PCP Nurse Practitioner Family; Visit Provider Physician Assistant Medical
DX: H72.91 Unspecified perforation of tympanic membrane, right ear (principal); H61.21 Impacted cerumen, right ear
CPT/HCPCS: 69209; 99051; 99214

== ENCOUNTER 2024-01-10 08:16 | Outpatient (AMB) | payer OTHER, SELFPAY ==
--- NOTE | 2024-01-10 08:19 | A.OFFPC_ITS ---
Vital Signs 01/10/24 08:21 Height 5 ft 7 in Weight 176 lb 2 oz BMI 27.6 BP 130/88 Blood Pressure Location Lt brachial Position Sitting Pulse 82 Pulse Source Pulse Oximeter Pulse Oximetry (%) 98 Oxygen Delivery Method Room Air Intake Visit Reasons: 6 month fu Intake Note: Patient here to discuss sciatica that has been very bothersome lately and would like an MRI. Allergies sulfacetamide [From Sulfacet-R] Allergy (Unknown, Verified 01/10/24 08:22) Rash sulfur [From Sulfacet-R] Allergy (Unknown, Verified 01/10/24 08:22) Rash Medication List - Last Reconciled 01/10/24 by BRUNO BadilloP- allopurinol 300 mg PO DAILY atorvastatin 20 mg PO DAILY 90 days zretqfiny-huzmigao-wplkrsk ala 50-200-25 mg (Biktarvy) 1 tab PO DAILY 30 days cholecalciferol (vitamin D3) 50 mcg PO DAILY ciprofloxacin-dexamethasone 0.3-0.1 % 4 drps otic (ear) right Q12H 7 days omeprazole 20 mg PO QAM prednisone 50 mg PO DAILY 7 days Tobacco use date assessed: 01/10/24 Dental Screening Dental Screen Date: 01/10/24 Did you have a dental visit in the last 12 months?: Yes Did you have a dental problem in the last 6 months where you did not have access to dental care?: No Was dental information given to patient?: Patient has dentist HPI 6 month fu HPI Details Pt c/o lower back pain since August of 2022. He reports radicular symptoms down his RLE. [facility] which showed [facility]. He has been to PT twice. Pt has seen a chiropractor as well. Will order MRI, at this point, and send prednisone. Denies any signs of cauda equina. [facility] Medical History Elevated cholesterol Gout Diverticulosis GERD (gastroesophageal reflux disease) CKD (chronic kidney disease) HIV infection Surgical History History of rectal surgery History of dental surgery H/O colonoscopy Social History Housing: House Alcohol intake: former Patient Tobacco Use Status: Former Tobacco user e-Cigarette/Vaping Use: Never Used Second Hand Smoke Exposure: No service: Yes Current occupational status: employed Current occupation: [employer] (formerly [employer]) Current occupational exposures/hazards: No Cognitive needs: No Hearing needs: No Vision needs: No Questionnaire Thrive Questionnaire Date Thrive assessed: 07/05/23 PAPITO-7 AMB Questionnaire PAPITO-7 Date PAPITO - 7 assessed: 07/05/23 Source: Developed by Drs. Kolby Castillo, Shanthi Hicks, Reece Kwan and colleagues, with an educational shashi from [employer]. Review of Systems Const Reports as per HPI Physical exam (Primary Care) Vital Signs: Last Vital Signs Pulse 82 01/10/24 08:21 BP 130/88 01/10/24 08:21 Pulse Ox 98 01/10/24 08:21 Oxygen Delivery Method Room Air 01/10/24 08:21 BMI result Body Mass Index 27.6 Tobacco/Smoking Status: Tobacco use Status Tobacco use date assessed 01/10/24 01/10/24 08:27 Patient Tobacco Use Status Former Tobacco user 01/10/24 08:19 e-Cigarette/Vaping Use Never Used 01/10/24 08:19 Thrive Assessment: Date of Thrive Assessment Date Thrive assessed 07/05/23 01/10/24 08:19 Const General: cooperative Orientation/consciousness: patient oriented x3 Resp Effort & Inspection: normal respiratory effort Auscultation: clear to auscultation bilaterally Cardio Rate: regular rate Rhythm: regular rhythm Heart sounds: S1 normal heart sound present and S2 normal heart sound present Back/Spine/Pelvis Other: lower back pain with radicular symptoms down RLE with right knee to chest raises and entire RLE raises, no pain with heel and toe walking Neuro General: patient oriented x3 Psych Appearance: grossly normal Mental Status: mental status grossly normal Speech and movement: Normal speech and movement present Affect: normal affect Attitude: cooperative Thought process: Normal thought process present Thought content: Normal thought content present Insight: Good insight present (Psych) Judgement: Good judgement present (Psych) Assessment and Plan Assessment & Plan (1) Lumbar back pain with radiculopathy affecting right lower extremity: Code(s): M54.16 - Radiculopathy, lumbar region Plan: MRI ordered, prednisone sent Plan The patient agreed to the use of a medical insurance biller for this encounter. Scribed for MESHA Hartley by Olga Watkins medical insurance biller, on 01/10/2024 at 08:35 EST. Orders: Orders MR lumbar spine wo con Today M54.16 - Radiculopathy, lumbar region Medications: New prednisone 50 mg PO DAILY 7 tabs 0RF 7 days Coding Level of Care Code Est Pt Level 3 (94922) Diagnoses Lumbar back pain with radiculopathy affecting right lower extremity M54.16
[2024-01-10 08:21] VITALS: BP 130/88; PULSE 82; O2SAT 98; BMI 27.6
== END 2024-01-10 08:57 | disposition home or self-care (01) ==
PROVIDERS: PCP Nurse Practitioner Family; Visit Provider Nurse Practitioner Family
DX: M54.16 Radiculopathy, lumbar region (principal)
CPT/HCPCS: 99213

== ENCOUNTER 2024-03-08 08:07 | Outpatient (AMB) | payer OTHER, SELFPAY ==
--- NOTE | 2024-03-08 08:07 | MHC.OFFWIV ---
Intake Vital Signs 03/08/24 08:09 Height 5 ft 7 in Weight 175 lb BMI 27.4 BP 130/80 Blood Pressure Location Lt brachial Position Sitting Pulse 101 H Pulse Source Pulse Oximeter Pulse Oximetry (%) 97 Oxygen Delivery Method Room Air Intake Visit Reasons: EP- Remove ear wax in both ears Intake Note: Patient here for bilat ear wax removal. Patient Tobacco Use Status: Former Tobacco user Allergies sulfacetamide [From Sulfacet-R] Allergy (Unknown, Verified 03/08/24 08:10) Rash sulfur [From Sulfacet-R] Allergy (Unknown, Verified 03/08/24 08:10) Rash Do you need a note to return to daycare/school/sports/work: No HPI HPI Comments History of Present Illness Details 64 y/o male patient who presents to the walk in clinic with c/o hearing issues due to wax build-up. Denies pain, ringing or discharge from ears. [facility]LY [facility] Medical History Elevated cholesterol Gout Diverticulosis GERD (gastroesophageal reflux disease) CKD (chronic kidney disease) HIV infection Surgical History History of rectal surgery History of dental surgery H/O colonoscopy Social History Housing: House Alcohol intake: former Patient Tobacco Use Status: Former Tobacco user e-Cigarette/Vaping Use: Never Used Second Hand Smoke Exposure: No service: Yes Current occupational status: employed Current occupation: [employer] Current occupational exposures/hazards: No Cognitive needs: No Hearing needs: No Vision needs: No Review of Systems Const All systems reviewed & are unremarkable except as noted in HPI and below Physical Exam Vital Signs: Last Vital Signs Pulse 101 H 03/08/24 08:09 BP 130/80 03/08/24 08:09 Pulse Ox 97 03/08/24 08:09 Oxygen Delivery Method Room Air 03/08/24 08:09 BMI result Body Mass Index 27.4 Const General: comfortable and no acute distress Orientation/consciousness: patient oriented x3 HEENT Head: Yes normocephalic Ears: external ears normal and TM abnormal with fluid behind the TM on the right and obstructed by cerumen on the left General nose exam: Normal external nose present Skin General skin exam: no rashes or lesions noted Neuro General: patient oriented x3, gait normal and moves all extremities Psych Speech and movement: Normal speech and movement present Office Procedures Cerumen Removal From which ear canal was the cerumen removed: bilateral Removal: irrigation Notes: patient tolerated procedure well 23736-[id number] Irrigation/Lavage Assessment & Plan Assessment & Plan (1) Impacted cerumen: Code(s): H61.20 - Impacted cerumen, unspecified ear Qualifiers: Laterality: bilateral Qualified Code(s): H61.23 - Impacted cerumen, bilateral Plan: Ear Lavage Ordered TM clear 80% after lavage Debrox Drops prescribed. Plan Advised Pt that he might benefit with hearing Testing due to Aging. Hearing loss is common after age 60. Medications: New carbamide peroxide 6.5% (Debrox) 5 drps otic (ears) BID 15 mL 1RF 7 days H61.23 - Impacted cerumen, bilateral Coding Level of Care Code Est Pt Level 3 (79585) Diagnoses Bilateral impacted cerumen H61.23 Laterality: bilateral CPT Codes Office Procedure - CPT: 68807-Aqs Irrigation/Lavage ([id number]) Time Spent (min) 20
[2024-03-08 08:09] VITALS: BP 130/80; PULSE 101; O2SAT 97; BMI 27.4
== END 2024-03-08 09:06 | disposition home or self-care (01) ==
PROVIDERS: PCP Nurse Practitioner Family; Visit Provider Nurse Practitioner Family
DX: H61.23 Impacted cerumen, bilateral (principal)
CPT/HCPCS: 69209; 99213

== ENCOUNTER 2024-06-12 08:37 | Outpatient (REF) | payer OTHER, SELFPAY ==
[2024-06-12 09:08] LABS: MANUAL DIFF FLAG NO
[2024-06-12 09:23] LABS: Basophils Absolute Auto 0.1 X10*3/uL (0.0-0.2); Basophils Percent Auto 0.7 % (0-2); Eosinophils Absolute Auto 0.2 X10*3/uL (0.0-0.4); Eosinophils Percent Auto 2.7 % (0-4); Hematocrit 44.1 % (42.0-52.0); Hemoglobin 15.9 g/dl (14.0-18.0); Imm Gran Abs Auto 0.04 X10*3/uL (0.00-0.03); Imm Gran Pct Auto 0.6 % (0.0-0.4); Lymphocytes Absolute Auto 2.2 X10*3/uL (1.2-4.9); Lymphocytes Percent Auto 32.4 % (20-40); Mean Corpuscular HGB Conc 36.1 g/dl (31.0-36.0); Mean Corpuscular Hemoglobin 32.9 pg (27.0-33.0); Mean Corpuscular Volume 91.1 fL (80.0-98.0); Mean Platelet Volume 10.3 fL (9.4-12.4); Monocytes Absolute Auto 0.5 X10*3/uL (0.1-1.2); Monocytes Percent Auto 7.6 % (2-11); Neutrophils Absolute Auto 3.8 x10*3/uL (2.0-8.3); Platelet Count 155 X10*3/uL (160-400); Red Blood Count 4.84 X10*6/uL (4.60-5.80); Red Cell Distribution Width 13.2 % (11.0-16.0); White Blood Count 6.7 X10*3/uL (4.8-10.8)
[2024-06-12 09:26] LABS: Appearance Urine Clear; Color Urine Yellow; Glucose Urine UA Negative (Negative); Leukocyte Esterase Urine Negative (Negative); Nitrite Urine Negative (Negative); Specific Gravity - Urine 1.015 (1.005-1.025); Urine Blood Negative (Negative); Urine Ketones Negative (Negative); Urine Protein Negative (Neg-Trace)
[2024-06-12 10:54] LABS: Alanine Aminotransferase 22 U/L (0-40); Albumin Level 4.1 g/dL (3.5-5.0); Alkaline Phosphatase 126 U/L (39-117); Anion Gap 10 (12-20); Aspartate Amino Transferase 27 U/L (5-37); Bilirubin Total 1.3 mg/dL (0.0-1.0); Blood Urea Nitrogen 13 mg/dL (9-16); Calcium 9.3 mg/dL (8.4-10.2); Carbon Dioxide 25 mmol/L (22-29); Chloride 110 mmol/L (96-108); Estimated Glomerular Filt Rate 55; Glucose Random 123 mg/dL (60-115); Iron 96 mcg/dL (45-160); Magnesium 2.2 mg/dL (1.6-2.6); Parathyroid Hormone Intact 102.3 pg/mL (8.7-77.1); Percent Iron Saturation 36 % (15-50); Phosphorus 2.8 mg/dL (2.7-4.5); Potassium 4.1 mmol/L (3.3-5.1); Sodium 141 mmol/L (135-145); Total Iron Binding Capacity 269 mcg/dL (228-428); Total Protein 6.7 g/dL (6.5-8.0); Unsaturated Iron Binding 173 ug/dL
[2024-06-12 10:55] LABS: Ferritin 195 ng/mL (20-250); Vitamin D 25-OH Total 43.9 ng/mL (>30)
[2024-06-12 11:26] LABS: Uric Acid 5.5 mg/dL (3.4-7.0)
[2024-06-12 11:26] LABS: Creatinine Urine 76.83 mg/dL; Microalbumin Urine < 5.0 mg/L
== END 2024-06-12 08:38 | disposition home or self-care (01) ==
LOC: HO.LAB 08:37
PROVIDERS: Absent Provider Internal Medicine; PCP Nurse Practitioner Family; Visit Provider Internal Medicine
DX: N18.31 Chronic kidney disease, stage 3a (principal)
CPT/HCPCS: 36415; 80053; 81003; 82043; 82306; 82570; 82728; 83540; 83735; 83970; 84100; 84550; 85025

== ENCOUNTER 2024-07-04 13:58 | Outpatient (REF) | payer OTHER, SELFPAY ==
[2024-07-04 17:12] LABS: Alanine Aminotransferase 24 U/L (0-40); Albumin Level 4.1 g/dL (3.5-5.0); Alkaline Phosphatase 120 U/L (39-117); Anion Gap 12 (12-20); Aspartate Amino Transferase 25 U/L (5-37); Bilirubin Direct 0.3 mg/dL (0.0-0.5); Blood Urea Nitrogen 12 mg/dL (9-16); Calcium 9.7 mg/dL (8.4-10.2); Carbon Dioxide 21 mmol/L (22-29); Chloride 115 mmol/L (96-108); Estimated Glomerular Filt Rate 56; Glucose Random 79 mg/dL (60-115); Potassium 3.9 mmol/L (3.3-5.1); Sodium 144 mmol/L (135-145); Total Protein 6.8 g/dL (6.5-8.0)
--- OUTSIDE RECORDS SUMMARY | 2024-07-05 02:56 | XMS_ITS ---
Author Name [facility] [place] Address [address] [place] [id number] Care Team Providers Care Dry Curer Name Role Phone IRAM KRISHNAMURTHY Primary Care Provider Unava ilable Insurance Providers: All historical and current Section Date Range: From patient's date of to the date document was created. This section includes the names of all active insurance providers for the patient. Insurance Provider Type of Coverage Plan Name Start of Policy Coverage End of Policy Coverage Group Number Member ID Insurance Provider's Telephone Number Policy Tran's Name Patient's Relationship to Policy Tran [facility] HIGH DEDUCTIBL E HEALTH PLAN [employer] Apr 24, 2021 PPO [id number] KIRBY DAMON [facility] PREFERRED PROVIDER ORGANIZAT ION (PPO) HNE Apr 24, 2022 [id number] KIRBY DAMON [facility] PREFERRED PROVIDER ORGANIZAT ION (PPO) [employer] Apr 24, 2022 [id number] KIRBY DAMON [facility] HIGH DEDUCTIBL E HEALTH PLAN W/HEALTH REIMBURSE MENT ARRANGEME NT [employer] AND HDHP HRA Apr 24, 2022 [id number] KIRBY DAMON [facility] HIGH DEDUCTIBL E HEALTH PLAN [employer] [facility] [employer] Apr 24, 2020 [id number] KIRBY DAMON [facility] PREFERRED PROVIDER ORGANIZAT ION (PPO) [facility] ACT[facility] E EMPLO SABRINA Jul 25, 2016 [id number] ALMAZ DAMON,JERRY [facility] PREFERRED PROVIDER ORGANIZAT ION (PPO) [place] Apr 24, 2016 [id number] KIRBY DAMON PETER PATIENT [facility] HIGH DEDUCTIBL E HEALTH PLAN [facility] Apr 24, 2016 [id number] NELSONKIRBY GREEN PATIENT MEDMETRICS PRESCRIPT ION [facility] Oct 30, 2019 [facility] [id number] [phone] NELSONKIRBY PATIENT [facility] [employer] [facility] E [facility] Apr 24, 2020 [id number] [phone] NELSONKIRBY GREEN PATIENT [facility] [employer] [facility] Apr 24, 2016 [id number] NELSONKIRBY GREEN PATIENT [employer] RX PRESCRIPT ION [address] PILGR IM [facility] Apr 24, 2021 N/A [id number] NELSONKIRBY PATIENT [employer] RX MENTAL HEALTH [facility] Apr 24, 2021 [id number] [id number] NELSONKIRBY GREEN PATIENT [employer] RX PRESCRIPT ION HEALT H [facility] HRA Oct 30, 2019 [facility] [id number] NELSONKIRBY GREEN PATIENT [employer] RX PRESCRIPT ION HEALT H [facility] HRA Oct 30, 2019 [facility] [id number] KIRBY DAMON PETER PATIENT [employer] RX PRESCRIPT ION HEALT H [facility] HRA Oct 30, 2019 [facility] [id number] NELSONKIRBY GREEN PATIENT [employer] RX PRESCRIPT ION HEALT H [facility] Apr 24, 2016 [facility] [id number] KIRBY DAMON PATIENT Selected Encounter This section includes the information on record at [place] for the Encounter. Date/Time Encounter Type Encounter Description Reason Pro vider Source Dec 26, 2023 01:23 PM Outpatient Encounter COMMUNITY CARE CONSULT IHE Encounter Template Text not used by [place] Plan of Treatment: Future Appointments (+ 6 months) and Future Tests (+/- 45 days) The Plan of Treatment section includes future care activities for the patient from all [place] treatmentfacilities. This section includes future appointments and future orders which are active, pending or scheduled. Future Appointments This section includes appointments that were scheduled to occur 6 months from the date of the Encounter, up to a maximum of 20 appointments. The data comes from all [place] treatment facilities. Appointment Date/Time Appointment Type Appointme nt Facility Name Jan 18, 2024 09:30 AM [facility]ORY [facility]ICINE [facility] Jun 06, 2024 01:30 PM AMBULATORY - MEDICINE [facility] Jun 20, 2024 09:30 AM [facility] Active, Pending, and Scheduled Orders This section includes a listing of several types of active, pending, and scheduled orders, including clinic medications orders, diagnostic test orders, procedure orders and consult orders; where the start date of the order is 45 days before the date of the Encounter or 45 days after the date of theEncounter. The data comes from all [facility]. Test Date/Time Test Type Test Details Facility Name Dec 26, 2023 09:10 PM Consult Order COMMUNITY CARE-NEPHROLOGY Cons [facility] Encounter Notes: All associated encounter notes This section contains the clinical notes associated to the Encounter. Date/Time Encounter Note(s) Provider Source Dec 26, 2023 01:23 PM ADMINISTRATIVE NOT E: LOCAL TITLE: ADMINISTRATIVE NOTE STANDARD TITLE: ADMINISTRATIVE NOTE DATE OF NOTE: DEC 26, 2023@13:23 ENTRY DATE: DEC 26, 2023@13:23:42 AUTHOR: ROBSON BUI EXP COSIGNER: URGENCY: STATUS: COMPLETED ADMINISTRATIVE NOTE Has ADDENDA Phoenix came to [facility] requesting a new consult for Nephrology, consult has in November and he is scheduled for 06/06/2204 @ 1:30. Please enter a new consult if acceptable [facility] [place] [phone] [facility]-[phone] TAX ID #[id number] /stef/ ROBSON BUI Signed: 12/26/2023 13:25 Receipt Acknowledged By: 12/26/2023 21:34 /es/ HARINI BLACKMON MD Primary Care Physician for IRAM YESSY 12/26/2023 14:08 /es/ QUINTON CASTRO 01/03/2024 11:35 /es/ KENNY BURCH LPN LPN 12/26/2023 18:25 /es/ EVELIN RAMOS,RN-BC REGISTERED NURSE (RN) 12/26/2023 ADDENDUM STATUS: COMPLETED Consult has been placed and held for provider to review and sign if appropriate. /stef/ EVELIN RAMOS,RN-BC REGISTERED NURSE (RN) Signed: 12/26/2023 18:25 ROBSON BUI CNTRL [facility]
--- OUTSIDE RECORDS SUMMARY | 2024-07-05 02:56 | XMS_ITS | Encounter Summary ---
Author Name [facility] [place] Address [address] [place] [id number] Care Team Providers Care Medical Records Secretary Name Role Phone IRAM KRISHNAMURTHY Primary Care [...] Tran's Name Patient's Relationship to Policy Tran [facility] HIGH DEDUCTIBL E HEALTH PLAN [employer] Apr 24, 2021 PPO [id number] KIRBY DAMON [facility] PREFERRED PROVIDER ORGANIZAT ION (PPO) HNE Apr 24, 2022 [id number] KIRBY DAMON [facility] PREFERRED PROVIDER ORGANIZAT ION (PPO) [employer] Apr 24, 2022 [id number] KIRBY DAMON [facility] HIGH DEDUCTIBL E HEALTH PLAN W/HEALTH REIMBURSE MENT ARRANGEME NT [employer] HRA Apr 24, 2022 [id number] KIRBY DAMON [facility] HIGH DEDUCTIBL E HEALTH PLAN [facility] [facility] Apr 24, 2020 [id number] KIRBY DAMON [facility] PREFERRED PROVIDER ORGANIZAT ION (PPO) [facility] ACTIV E EMPLO SABRINA Jul 25, 2016 [id number] ALMAZ DAMON,JERRY [facility] PREFERRED PROVIDER ORGANIZAT ION (PPO) [place] Apr 24, 2016 [id number] KIRBY DAMON PETER PATIENT [facility] HIGH DEDUCTIBL E HEALTH PLAN KRING LE CANDL E [facility] Apr 24, 2016 [id number] NELSONKIRBY GREEN PATIENT MEDMETRICS PRESCRIPT ION [facility] Oct 30, 2019 [facility] [id number] [phone] NELSONKIRBY PATIENT [facility] [employer]UR[employer] KRING LE CANDL E [facility] Apr 24, 2020 [id number] NELSONKIRBY GREEN PATIENT [facility] [employer]UR[employer] [facility] E [facility] Apr 24, 2016 [id number] NELSONKIRBY GREEN PATIENT [employer] RX PRESCRIPT ION [address] PILGR IM [facility] Apr 24, 2021 N/A [id number] NELSONKIRBY PATIENT [employer] RX MENTAL HEALTH [facility] Apr 24, 2021 [id number] NELSONKIRBY GREEN PATIENT [employer] RX PRESCRIPT ION HEALT H [facility] HRA Oct 30, 2019 [facility] [id number] NELSONKIRBY GREEN PATIENT [employer] RX PRESCRIPT ION HEALT H [facility] HRA Oct 30, 2019 [facility] [id number] KIRBY DAMON PETER PATIENT [employer] RX PRESCRIPT ION HEALT H [facility] HRA Oct 30, 2019 [facility] [id number] NELSONKIRBY GREEN PATIENT [employer] RX PRESCRIPT ION HEALT H [facility] Apr 24, 2016 [facility] [id number] [phone] KIRBY DAMON PATIENT Selected Encounter This section includes the information on record at [place] for the Encounter. Date/Time Encounter Type Encounter Description Reason Pro vider Source Jul 22, 2023 02:07 PM Outpatient Encounter PODIATRY IHE Encounter Template Text not used by [place] Plan of Treatment: Future Appointments (+ 6 months) and Future Tests (+/- 45 days) The Plan of Treatment section includes future care activities for the patient from all [place] treatmentfacilities. This section includes future appointments and future orders which are active, pending or scheduled. Future Appointments This section includes appointments that were scheduled to occur 6 months from the date of the Encounter, up to a maximum of 20 appointments. The data comes from all [place] treatment facilities. Appointment Date/Time Appointment Type Appointme nt Facility Name Aug 03, 2023 10:00 AM AM[facility]ULATORY - MEDICINE [facility] Oct 26, 2023 09:30 AM [facility]ORY - MEDICINE [facility] December 06, 2023 08:30 AM AM[place]ULATORY [place]ICINE [place] C [facility] Jan 18, 2024 09:30 AM [facility] Encounter Notes: All associated encounter notes This section contains the clinical notes associated to the Encounter. Date/Time Encounter Note(s) Provider Source Jul 22, 2023 02:07 PM ADMINISTRATIVE NOT E: LOCAL TITLE: ADMINISTRATIVE NOTE STANDARD TITLE: ADMINISTRATIVE NOTE DATE OF NOTE: JUL 22, 2023@14:07 ENTRY DATE: JUL 22, 2023@14:07:12 AUTHOR: MARIELY MIXON EXP COSIGNER: URGENCY: STATUS: COMPLETED MSA LVM for Reminding of Podiatry appt on 08/03/2023 10am. asked if unable to keep appt to call and Reschedule- [phone] Ext: [id number]- location given /stef/ MARIELY MIXON SUPERVISOR PRESS ROOM Signed: 07/22/2023 14:07 MARIELY MIXON HIMROD
--- OUTSIDE RECORDS SUMMARY | 2024-07-05 02:56 | XMS_ITS | Encounter Summary ---
Author Name [facility] [place] Address [address] [place] [address] Care Team Providers Care Material Liaison Name Role Phone IRAM KRISHNAMURTHY Primary Care [...] Tran's Name Patient's Relationship to Policy Tran [facility] HIGH DEDUCTIBL E HEALTH PLAN [employer] HDHP Apr 24, 2021 PPO [id number] KIRBY DAMON [facility] PREFERRED PROVIDER ORGANIZAT ION (PPO) HNE Apr 24, 2022 [id number] KIRBY DAMON [facility] PREFERRED PROVIDER ORGANIZAT ION (PPO) [facility] [place] Apr 24, 2022 [id number] KIRBY DAMON [facility] HIGH DEDUCTIBL E HEALTH PLAN W/HEALTH REIMBURSE MENT ARRANGEME NT KRING LE AND HDHP HRA Apr 24, 2022 [id number] KIRBY DAMON [facility] HIGH DEDUCTIBL E HEALTH PLAN KRING LE CANDL E HDHP Apr 24, 2020 [id number] KIRBY DAMON [facility] PREFERRED PROVIDER ORGANIZAT ION (PPO) C ACTIV E EMPLO SABRINA Jul 25, 2016 [id number] ALMAZ DAMON,JERRY [facility] PREFERRED PROVIDER ORGANIZAT ION (PPO) KRING LE [place]ANDL E [place] Apr 24, 2016 [id number] NELSONKIRBY GREEN PATIENT [facility] HIGH DEDUCTIBL E HEALTH PLAN KRING LE CANDL E [facility] Apr 24, 2016 [id number] NELSONKIRBY PATIENT MEDMETRICS PRESCRIPT ION [facility] Oct 30, 2019 [facility] [id number] [phone] [id number] NELSONKIRBY PATIENT [facility] KRING LE CANDL E [facility] Apr 24, 2020 [id number] NELSONKIRBY PATIENT [facility] KRING LE CANDL E [facility] Apr 24, 2016 [id number] 003-[facility] [id number] [phone] NELSONKIRBY PATIENT [facility] RX PRESCRIPT ION [address] PILGR IM [facility] Apr 24, 2021 N/A [id number] NELSONKIRBY PATIENT [facility] RX MENTAL HEALTH [facility] Apr 24, 2021 [id number] NELSONKIRBY PATIENT [facility] RX PRESCRIPT [facility]ON [facility] Oct 30, 2019 [facility] [id number] NELSONKIRBY GREEN PATIENT [facility] RX PRESCRIPT ION HEALT H NEW [facility] HRA Oct 30, 2019 [facility] [id number] NELSONKIRBY GREEN PATIENT [facility] RX PRESCRIPT ION HEALT H NEW [facility] HRA Oct 30, 2019 [facility] [id number] NELSONKIRBY PATIENT [facility] RX PRESCRIPT ION HEALT H [place] [facility] Apr 24, 2016 [facility] [id number] [phone] NELSONKIRBY PATIENT Selected Encounter This section includes the information on record at [place] for the Encounter. Date/Time Encounter Type Encounter Description Reason Provider Source Aug 03, 2023 10:00 AM OFFICE O/P EST LOW 20 MIN PODIATRY ICD-10-CM L60.3 Nail dystrophy VADIM PARRA [facility] Encounter Template Text not used by [place] Assessments - Encounter Diagnoses This section includes the primary and secondary diagnoses documented for the Encounter. Date/Time Primary/Secondary Diagnosis Diagnosis Name Provider Source Aug 03, 2023 10:27 AM PRIMARY Nail dystrophy VADIM PARRA [place] Aug 03, 2023 10:27 AM SECONDARY Pain in left toe(s) VADIM PARRA [place] Aug 03, 2023 10:27 AM SECONDARY Pain in right toe(s) VADIM PARRA [place] Aug 03, 2023 10:27 AM SECONDARY Plantar fascial fibromatosis VADIM PARAR [place] Plan of Treatment: Future Appointments (+ 6 months) and Future Tests (+/- 45 days) The Plan of Treatment section includes future care activities for the patient from all [place] treatmentfacilities. This section includes future appointments and future orders which are active, pending or scheduled. Future Appointments This section includes appointments that were scheduled to occur 6 months from the date of the Encounter, up to a maximum of 20 appointments. The data comes from all [place] treatment facilities. Appointment Date/Time Appointment Type Appointme nt Facility Name Oct 26, 2023 09:30 AM AMBULATORY - MEDICINE [facility] December 06, 2023 08:30 AM AMBULATORY - MEDICINE [facility] N[facility] Jan 18, 2024 09:30 AM AMBULATORY - MEDICINE [facility] Social History: Smoking Status (Most current) and Tobacco Use (All prior to encounter date) This section includes the most current, and the historical, smoking and tobacco- related health factors from the [place] facility where the Encounter took place. Current Smoking Status This section includes the most current smoking, or tobacco-related health factor, from the [place] facility where the Encounter took place. Date/Time Current Smoking Status Comment Facil ity Jun 07, 2023 09:30 AM VA-TOBACCO FORMER USER [place] Tobacco Use History This section includes a history of the smoking, or tobacco-related health factors, that were collected on or before the date of the Encounter. The data comes from the [place] facility where the Encounter took place. Date/Time Smoking Status/Tobacco Use Comment F acility Jun 07, 2023 09:30 AM MS-TOBACCO QUIT 15 YRS OR MORE [place] Jun 09, 2022 09:00 AM VA-TOBACCO FORMER USER [place] Jun 09, 2022 09:00 AM VA-TOBACCO QUIT 5 TO < 15 YRS [place] Jun 03, 2021 12:30 PM VA-TOBACCO FORMER USER [place] Jun 03, 2021 12:30 PM VA-TOBACCO QUIT 15 YRS OR MORE [place] Mar 12, 2020 10:30 AM VA-TOBACCO FORMER USER [place] Mar 12, 2020 10:30 AM VA-TOBACCO QUIT 15 YRS OR MORE [place] Jan 03, 2018 10:14 AM VA-TOBACCO FORMER USER [place] Jan 03, 2018 10:14 AM VA-TOBACCO QUIT 15 YRS OR MORE [place] Jul 05, 2017 10:47 AM QUIT TOBACCO USE > 7 YEARS AGO reports quitting in 1995 [place] Encounter Notes: All associated encounter notes This section contains the clinical notes associated to the Encounter. Date/Time Encounter Note(s) Provider Source Aug 03, 2023 07:44 AM PODIATRY NOTE: LOCAL TITLE: PODIATRY NOTE STANDARD TITLE: PODIATRY NOTE DATE OF NOTE: AUG 03, 2023@07:44 ENTRY DATE: AUG 03, 2023@07:44:13 AUTHOR: VADIM PARRA COSIGNER: URGENCY: STATUS: COMPLETED NOTE: HAS RECEIVED BOTH COVID VACCINE DOSES AT [facility] LAST SEEN FOR TREATMENT: 05/11/2023 S: Pt. is a 32 yo alert [facility]N [facility] MALE who presents for COPNTINUED podiatric examination & CARE for treatment of a presenting complaint of painful ingrown fungus toenails. Patient has been attempting self care and been unsuccessful. Patient has been referred by: DR. KRISHNAMURTHY Location of symptoms are: NAILS 1-2-3-4-5 BILATERAL Onset of symptoms has been several MONTHS due to this being a recurrent condition that has been exacerbating over the past few WEEKS AND HAS NOT BEEN RESPONSIVE TO A TOPICAL MEDICATION SO HE HAS CEASED USING PER PREVIOUS CONFERSATION. Duration of symptoms is daily with periods of exacerbation and remission. Description of symptoms is of an aching nature. Contributing factors are: shoes and increased activity. PMH: Active problems - Computerized Problem List is the source for the following: *NOTE: REVIEWED ABOVE NOTING Non-contributory TO THE CC *NOTE: PLEASE SEE PROBLEM LIST TEMPLATE FOR COMPLETE LIST NEEDED. Family History: Non-contributory Social History: N/A *NOTE: DENIES ANY RECENT CHANGES IN MEDS UPON QUESTIONING TODAY-SEE RECONCILIATION PERFORMED THIS DATE BELOW TOBACCO USE = NONE Allergies:SULFACETAMIDE-SULFUR Previous Surgery/Hospitalization: N/A TO CC . HEIGHT:157.9 lb [71.62 kg] (12/01/2021 09:18) WEIGHT:67 in [170.2 cm] (07/05/2017 10:56) REVIEW OF SYSTEMS: DEFERRED BEING NON-CONTRIBUTORY TO THE CC & I HAVE REVIEWED THE PCP NOTES & PMH WELL. O: DERMATOLOGICAL: Exam reveals skin color & text to be WNL. Temp is diminished warm to cool proximal to distal. There is normal distribution of hair noted. Nails are thickened yellow-brown discolored and displaying flakiness, crumbling, sub-ungual debris and rubor in the affected nail grooves. The affected nails are 1-2-3-4-5 bilat. There are no superficial painful hyperkeratotic lesions noted at this time. There are no rashes, ulcers, indurations or nodules noted. VASCULAR: Exam reveals DP & PT pulses to be +2 equal & symmetrical bilateral. CFT is <3 sec x 10. There are no superficial varices noted and there is no edema noted. MUSCULOSKELETAL: Exam reveals muscle strength and tone to be equal & symmetricalbilaterally & WNL for an individual of this age and present physical- medical condition. There is pain free ROM at all joints distal to and including the ankle. THERE ARE NO APPARENT BONY ABNORMALITIES NOTED AT THIS TIME AND HIS PLANTAR FASCIITIS IS UNDER CONTROL HE CONTINUES TO BE EXTREMELY PLEASED WITH CUSTOM ORTHOSES. NEUROLOGICAL: Exam reveals S/D, vibratory, light touch & proprioception sensations to be equal & symmetrical bilaterally & WNL for an individual of this age and present physical-medical status. Protective sensation utilizing a Corinne-Kianna lOg monofilament is 10/10 bilateral. BIOMECHANICAL: Exam is deferred at this time as BEING non-contributory to the cc . patient relates recurrent rt heel pain and i added 1/8 foam to rt heel and he may add some to the arch which may require return to community health systems for arch elevation in the future. A: Clinical Impression is painful onychocryptic clinically mycotic dystrophic nails 1-2-3-4-5 BILATERAL IN THE PRESENCE OF PAIN. P: Treatment consists of debridement-reduction of all nails via manual & electric means with excision of the offending nail borders and thinning of the nail plates to the point of imminent bleeding. All care rendered without complications & the patient is progressing well after podiatric care this date and will be scheduled for periodic podiatric care in an attempt to prevent future complications. Treatment by a non-professional could be extremely hazardous to the patient's wellbeing RTC: 12Weeks(10/25 & 01/17 @ 9:30) RECEIVED SHOES *DISCUSSED NEW PROTOCOLS AND CALLED ENIO FOR RESCHEDULING TODAY I DISCUSSED THE FINDINGS & PLAN WITH PATIENT (UNCHANGED SINCE PREVIOUS VISIT) & PATIENT AGREES AND UNDERSTANDS PLAN Medication Reconciliation: PERFORMED TODAY - SEE BELOW. Outpatient: Has the patient been taking medications as documented in the EMLR? YES: The patient has been taking medications as documented in the EMLR. Essential Medication List for Review used to complete this medication reconciliation. INCLUDED IN THIS LIST: Alphabetical list of active outpatient prescriptions dispensed from this MS (local) and dispensed from another [place] or [facility] facility (remote) as well as inpatient orders (local, pending and active), local clinic medications, locally documented non-VA medications, and local prescriptions that have or been discontinued in the past 90 days. - All changes in medications, including all non-VA/Herbal/OTC medications were entered into CPRS. - If there were any medications the patient should no longer take, they were discontinued. - The patient/caregiver was instructed to update this list, discard old lists, and take this list to the next appointment, whether with a VA or non-VA provider. JLV Link Data on this list may not be complete. Please check JLV. Allergies/ADRs (Tool #5) FACILITY ALLERGY/ADR -------- No Remote Allergy/ADR Data available for this patient [place] [facility] [place] [facility] SULFACETAMIDE/SULFUR Med Recon NoGlossary (Tool #1) INCLUDED IN THIS LIST: Alphabetical list of active outpatient prescriptions dispensed from this VA (local) and dispensed from another [place] or [facility] facility (remote) as well as inpatient orders (local pending and active), local clinic medications, locally documented non-VA medications, and local prescriptions that have or been discontinued in the past 90 days. Non-VA Meds Last Documented On: Jun 03, 2021 NOTE The display of VA prescriptions dispensed from another MS or [facility] facility (remote) is limited to active outpatient prescription entries matched to National Drug File at the originating site and may not include some items such as investigational drugs, compounds, etc. NOT INCLUDED IN THIS LIST: Medications self-entered by the patient into personal health records (i.e. [employer]) are NOT included in this list. Non-VA medications documented outside this [place], remote inpatient orders (regardless of status) and remote clinic medications are NOT included in this list. The patient and provider must always discuss medications the patient is taking, regardless of where the medication was dispensed or obtained. Non-VA ALLOPURINOL TAB TAKE BY MOUTH Patient wants to buy from Non-VA pharmacy. Non-VA ATORVASTATIN CALCIUM 40MG TAB TAKE ONE-HALF TABLET BY MOUTH EVERY DAY Patient wants to buy from Non-VA pharmacy. Medication prescribed by Non-VA provider. OUTPT BISACODYL 5MG EC TAB (Status = ) TAKE FOUR TABLETS BY MOUTH ONE TIME FOR PREP FOR BOWELS - LAXATIVE Rx# [id number] Last Released: 06/07/23 Qty/Days Supply: 10/23 Rx Expiration Date: 07/07/23 Refills Remainin Indication: FOR PREP Non-VA CHOLECALCIF 50MCG (D3-2,000UNIT) TAB TAKE ONE TABLET BY MOUTH EVERY DAY Medication prescribed by Non-VA provider. Non-VA EFAVIRENZ/EMTRICITABINE/TENOFOVIRP A-F* TAB TAKE ONE TABLET BY MOUTH EVERY DAY Patient wants to buy from Non-VA pharmacy. Medication prescribed by Non-VA provider. OUTPT GUAIFENESIN 100MG/5ML (ALC-F/SF) LIQUID (Status = Discontinued) TAKE 2 TEASPOONFULS BY MOUTH THREE TIMES DAILY NEEDED FOR COUGH Rx# [id number] Last Released: Qty/Days Supply: 240/8 Rx Expiration Date: 07/07/23 Refills Remainin Indication: FOR COUGH OUTPT GUAIFENESIN 100MG/5ML (ALC-F/SF) LIQUID (Status = ) TAKE 2 TEASPOONFULS BY MOUTH THREE TIMES DAILY NEEDED FOR COUGH Rx# [id number] Last Released: 06/08/23 Qty/Days Supply: 473/8 Rx Expiration Date: 07/08/23 Refills Remainin Indication: FOR COUGH Non-VA OMEPRAZOLE 20MG EC CAP TAKE 1 CAPSULE BY MOUTH EVERY MORNING 30 MINUTES BEFORE BREAKFAST Patient wants to buy from Non-VA pharmacy. Medication prescribed by Non-VA provider. OUTPT POLYETHYLENE GLYCOL 3350 ORAL PWDR (Status = ) TAKE CONTENTS OF BOTTLE BY MOUTH ONE TIME FOR EMPTYING OF THE BOWEL DIRECTED MIX WITH GATORADE Rx# [id number] Last Released: 06/07/23 Qty/Days Supply: 238/1 Rx Expiration Date: 07/07/23 Refills Remainin Indication: FOR EMPTYING OF THE BOWEL SUPPLIES /stef/ VADIM PARRA DPM PERSONAL ASSISTANT Signed: 08/03/2023 10:28 VADIM PARRA [place]
--- OUTSIDE RECORDS SUMMARY | 2024-07-05 02:56 | XMS_ITS | Encounter Summary ---
Author Name [facility] [place] Address [address] [place] [address] Care Team Providers Care Chalk Machine Operator Name Role Phone IRAM KRISHNAMURTHY Primary Care [...] Tran's Name Patient's Relationship to Policy Tran [facility] HIGH DEDUCTIBL E HEALTH PLAN [employer] HDHP Apr 24, 2021 PPO [id number] KIRBY DAMON [facility] PREFERRED PROVIDER ORGANIZAT ION (PPO) HNE Apr 24, 2022 [id number] KIRBY DAMON [facility] PREFERRED PROVIDER ORGANIZAT ION (PPO) [place] [place] Apr 24, 2022 [id number] KIRBY DAMON [facility] HIGH DEDUCTIBL E HEALTH PLAN W/HEALTH REIMBURSE MENT ARRANGEME NT KRING LE AND HDHP HRA Apr 24, 2022 [id number] KIRBY DAMON [facility] HIGH DEDUCTIBL E HEALTH PLAN KRING LE CANDL E [facility] Apr 24, 2020 [id number] KIRBY DAMON [facility] PREFERRED PROVIDER ORGANIZAT ION (PPO) [facility] ACTIV E EMPLO SABRINA Jul 25, 2016 [id number] ALMAZ DAMON,JERRY [facility] PREFERRED PROVIDER ORGANIZAT ION (PPO) KRING LE CANDL E [place] Apr 24, 2016 [id number] NELSONKIRBY GREEN PATIENT [facility] HIGH DEDUCTIBL E HEALTH PLAN KRING LE CANDL E [facility] Apr 24, 2016 [id number] NELSONKIRBY PATIENT MEDMETRICS PRESCRIPT ION [facility] Oct 30, 2019 [facility] [id number] NELSONKIRBY PATIENT [facility] KRING LE CANDL E [facility] Apr 24, 2020 [id number] NELSONKIRBY PATIENT [facility] KRING LE CANDL E [facility] Apr 24, 2016 [id number] 003-[facility] [id number] NELSONKIRBY PATIENT [facility] RX PRESCRIPT ION [address] PILGR IM [facility] Apr 24, 2021 N/A [id number] NELSONKIRBY PATIENT [facility] RX MENTAL HEALTH [facility] Apr 24, 2021 [id number] NELSONKIRBY PATIENT [facility] RX PRESCRIPT ION [facility] Oct 30, 2019 [facility] [id number] NELSONKIRBY GREEN PATIENT [facility] RX PRESCRIPT ION HEALT H NEW [facility] HRA Oct 30, 2019 [facility] [id number] NELSONKIRBY GREEN PATIENT [facility] RX PRESCRIPT ION HEALT H NEW [facility] HRA Oct 30, 2019 [facility] [id number] NELSONKIRBY PATIENT [facility] RX PRESCRIPT ION HEALT H [place] [facility] Apr 24, 2016 [facility] [id number] [phone] NELSONKIRBY PATIENT Selected Encounter This section includes the information on record at [place] for the Encounter. Date/Time Encounter Type Encounter Description Reason Provider Source Jan 18, 2024 09:30 AM OFFICE O/P EST LOW 20 MIN PODIATRY ICD-10-CM L60.3 Nail dystrophy VADIM PARRA [facility] Encounter Template Text not used by [place] Assessments - Encounter Diagnoses This section includes the primary and secondary diagnoses documented for the Encounter. Date/Time Primary/Secondary Diagnosis Diagnosis Name Provider Source Jan 18, 2024 09:56 AM PRIMARY Nail dystrophy VADIM PARRA [place] Jan 18, 2024 09:56 AM SECONDARY Pain in left toe(s) VADIM PARRA [place] Jan 18, 2024 09:56 AM SECONDARY Pain in right toe(s) VADIM PARRA [place] Plan of Treatment: Future Appointments (+ 6 months) and Future Tests (+/- 45 days) The Plan of Treatment section includes future care activities for the patient from all [place] [facility]. This section includes future appointments and future orders which are active, pending or scheduled. Future Appointments This section includes appointments that were scheduled to occur 6 months from the date of the Encounter, up to a maximum of 20 appointments. The data comes from all [place] treatment facilities. Appointment Date/Time Appointment Type Appointme nt Facility Name Jun 06, 2024 01:30 PM AM[place]ULATORY [place] [facility] Jun 20, 2024 09:30 AM AMBULATORY - MEDICINE [place] Active, Pending, and Scheduled Orders This section includes a listing of several types of active, pending, and scheduled orders, including clinic medications orders, diagnostic test orders, procedure orders and consult orders; where the start date of the order is 45 days before the date of the Encounter or 45 days after the date of theEncounter. The data comes from all [place] treatment facilities. Test Date/Time Test Type Test Details Facility Name Dec 26, 2023 09:10 PM Consult Order COMMUNITY CARE-NEPHROLOGY Cons Marketing Mgr's Choice [place] [facility] [place] [facility] Social History: Smoking Status (Most current) and Tobacco Use (All prior to encounter date) This section includes the most current, and the historical, smoking and tobacco- related health factors from the [place] facility where the Encounter took place. Current Smoking Status This section includes the most current smoking, or tobacco-related health factor, from the [place] facility where the Encounter took place. Date/Time Current Smoking Status Felipe hui Jun 07, 2023 09:30 AM VA-TOBACCO FORMER USER [place] Tobacco Use History This section includes a history of the smoking, or tobacco-related health factors, that were collected on or before the date of the Encounter. The data comes from the [place] facility where the Encounter took place. Date/Time Smoking Status/Tobacco Use Comment F acility Jun 07, 2023 09:30 AM VA-TOBACCO QUIT 15 YRS OR MORE [facility] Jun 09, 2022 09:00 AM VA-TOBACCO FORMER USER [facility] Jun 09, 2022 09:00 AM VA-TOBACCO QUIT 5 TO < 15 YRS [facility] Jun 03, 2021 12:30 PM VA-TOBACCO FORMER USER [facility] Jun 03, 2021 12:30 PM VA-TOBACCO QUIT 15 YRS OR MORE [place] Mar 12, 2020 10:30 AM VA-TOBACCO FORMER USER [facility] Mar 12, 2020 10:30 AM VA-TOBACCO QUIT 15 YRS OR MORE [facility] Jan 03, 2018 10:14 AM VA-TOBACCO FORMER USER [facility] Jan 03, 2018 10:14 AM VA-TOBACCO QUIT 15 YRS OR MORE [place] Jul 05, 2017 10:47 AM QUIT TOBACCO USE > 7 YEARS AGO reports quitting in 1995 [facility] Encounter Notes: All associated encounter notes This section contains the clinical notes associated to the Encounter. Date/Time Encounter Note(s) Provider Source Jan 18, 2024 07:31 AM PODIATRY NOTE: LOCAL TITLE: PODIATRY NOTE STANDARD TITLE: PODIATRY NOTE DATE OF NOTE: JAN 18, 2024@07:31 ENTRY DATE: JAN 18, 2024@07:31:14 AUTHOR: VADIM PARRA COSIGNER: URGENCY: STATUS: COMPLETED NOTE: HAS RECEIVED BOTH COVID VACCINE DOSES AT [facility] LAST SEEN FOR TREATMENT: 10/26/2023 S: Pt. is a 63 yo alert [facility]N [facility] MALE who presents for COPNTINUED podiatric [...] present physical-medical status. Protective sensation utilizing a Humphreys-Kianna lOg monofilament is 10/10 bilateral. BIOMECHANICAL: Exam is deferred at this time as BEING non-contributory to the cc . A: Clinical Impression is painful onychocryptic clinically [...] extremely hazardous to the patient's wellbeing RTC: 12Weeks(06/20 @ 9:30)-cannot do august 2024 yet. *DISCUSSED NEW PROTOCOLS AND CALLED ENIO FOR [...] of active outpatient prescriptions dispensed from this [place] (local) and dispensed from another [place] or [facility] facility (remote) as well as [...] Remote Allergy/ADR Data available for this patient [place] [facility] [place] [facility] SULFACETAMIDE/SULFUR Med Recon NoGlossary (Tool #1) INCLUDED IN THIS LIST: Alphabetical list of active outpatient prescriptions dispensed from this [place] (local) and dispensed from another [place] or [facility] facility (remote) as well as inpatient orders (local pending and active), local clinic medications, locally documented non-VA medications, and local prescriptions that have or been discontinued in the past 90 days. Non-VA Meds Last Documented On: Jun 03, 2021 NOTE The display of VA prescriptions dispensed from another [place] or [facility]D facility (remote) is limited to active outpatient prescription entries matched to National Drug File at the originating site and may not include some items such as investigational drugs, compounds, etc. NOT INCLUDED IN THIS LIST: Medications self-entered by the patient into personal health records (i.e. [employer]) are NOT included in this list. Non-VA medications documented outside this [place], remote inpatient orders (regardless of status) and [...] Non-VA pharmacy. Medication prescribed by Non-VA provider. Non-VA CHOLECALCIF 50MCG (D3-2,000UNIT) TAB TAKE ONE TABLET BY MOUTH EVERY DAY Medication prescribed by Non-VA provider. Non-VA EFAVIRENZ/EMTRICITABINE/TENOFOVIRP A-F* TAB TAKE ONE TABLET BY MOUTH EVERY DAY Patient wants to buy from Non-VA pharmacy. Medication prescribed by Non-VA provider. Non-VA OMEPRAZOLE 20MG EC CAP TAKE 1 CAPSULE BY MOUTH EVERY MORNING 30 MINUTES BEFORE BREAKFAST Patient wants to buy from Non-[place] pharmacy. Medication prescribed by Non-VA provider. SUPPLIES /stef/ VADIM PARRA DPM MANAGER EMPLOYMENT Signed: 01/18/2024 09:58 VADIM PARRA [place]
--- OUTSIDE RECORDS SUMMARY | 2024-07-05 02:56 | XMS_ITS | Encounter Summary ---
Author Name [facility] Organization [facility] [place] Address [address] [place] [address] Care Team Providers Care Lieutenant Colonel Name Role Phone IRAM KRISHNAMURTHY Primary Care [...] Tran's Name Patient's Relationship to Policy Tran [facility] HIGH DEDUCTIBL E HEALTH PLAN [employer] Apr 24, 2021 PPO [id number] KIRBY DAMON [facility] PREFERRED PROVIDER ORGANIZAT ION (PPO) [facility] [place] Apr 24, 2022 [id number] KIRBY DAMON [facility] PREFERRED PROVIDER ORGANIZAT ION (PPO) HNE Apr 24, 2022 [id number] KIRBY DAMON [facility] HIGH DEDUCTIBL E HEALTH PLAN W/HEALTH REIMBURSE MENT ARRANGEME NT KRING LE AND HDHP HRA Apr 24, 2022 [id number] KIRBY DAMON [facility] HIGH DEDUCTIBL E HEALTH PLAN KRING LE CANDL E [facility] Apr 24, 2020 [id number] KIRBY DAMON [facility] PREFERRED PROVIDER ORGANIZAT ION (PPO) [facility] ACTIV E EMPLO SABRINA Jul 25, 2016 [id number] ALMAZ DAMON,JERRY [facility] PREFERRED PROVIDER ORGANIZAT ION (PPO) KRING LE CANDL E [place] Apr 24, 2016 [id number] NELSONKIRBY GREEN PATIENT [facility] HIGH DEDUCTIBL E HEALTH PLAN KRING LE CANDL E [facility] Apr 24, 2016 [id number] NELSONKIRBY PATIENT MEDMETRICS PRESCRIPT ION [facility] Oct 30, 2019 [facility] [id number] [phone] NELSONKIRBY PATIENT [facility] KRING LE CANDL E [facility] Apr 24, 2020 [id number] NELSONKIRBY PATIENT [facility] KRING LE CANDL E [facility] Apr 24, 2016 [id number] [facility] [id number] [phone] NELSONKIRBY PATIENT [employer] RX PRESCRIPT ION [address] PILGR IM [facility] Apr 24, 2021 N/A [id number] NELSONKIRBY PATIENT [facility] RX MENTAL HEALTH [facility] Apr 24, 2021 [id number] NELSONKIRBY PATIENT [employer] RX PRESCRIPT ION HEALT H [facility] Oct 30, 2019 [facility] [id number] NELSONKIRBY GREEN PATIENT [employer] RX PRESCRIPT ION HEALT H NEW [facility] HRA Oct 30, 2019 [facility] [id number] NELSONKIRBY GREEN PATIENT [employer] RX PRESCRIPT ION HEALT H NEW [facility] HRA Oct 30, 2019 [facility] [id number] NELSONKIRBY PATIENT [employer] RX PRESCRIPT ION HEALT H NEW ENGL [facility] Apr 24, 2016 [facility] [id number] NELSONKIRBY PATIENT Selected Encounter This section includes the information on record at [place] for the Encounter. Date/Time Encounter Type Encounter Description Reason Provider Source December 06, 2023 08:30 AM OFFICE O/P EST MOD 30 MIN PRIMARY CARE/MEDICINE ICD-10-CM Z00.00 Encntr for general adult medical exam w/o abnormal findings CHEL KRISHNAMURTHY Jess Encounter Template Text not used by [place] Assessments - Encounter Diagnoses This section includes the primary and secondary diagnoses documented for the Encounter. Date/Time Primary/Secondary Diagnosis Diagnosis Name Provider Source December 06, 2023 09:09 AM PRIMARY Encntr for general adult medical exam w/o abnormal findings MILADY KRISHNAMURTHY [place] Plan of Treatment: Future Appointments (+ 6 months) and Future Tests (+/- 45 days) The Plan of Treatment section includes future care activities for the patient from all [place] [facility]. This section includes future appointments and future orders which are active, pending or scheduled. Future Appointments This section includes appointments that were scheduled to occur 6 months from the date of the Encounter, up to a maximum of 20 appointments. The data comes from all [place] treatment facilities. Appointment Date/Time Appointment Type Appointme nt Facility Name Jan 18, 2024 09:30 AM AMBULATORY - MEDICINE [facility] Jun 06, 2024 01:30 PM AM[facility]ATORY - MEDICINE [facility] Active, Pending, and Scheduled Orders This section includes a listing of several types of active, pending, and scheduled orders, including clinic medications orders, diagnostic test orders, procedure orders and consult orders; where the start date of the order is 45 days before the date of the Encounter or 45 days after the date of theEncounter. The data comes from all [place] treatment facilities. Test Date/Time Test Type Test Details Facility Name Dec 26, 2023 09:10 PM Consult Order COMMUNITY CARE-NEPHROLOGY Cons Radiagraph Operator's Choice [facility] [place] [facility] Social History: Smoking Status (Most current) and Tobacco Use (All prior to encounter date) This section includes the most current, and the historical, smoking and tobacco- related health factors from the [place] facility where the Encounter took place. Current Smoking Status This section includes the most current smoking, or tobacco-related health factor, from the [place] facility where the Encounter took place. Date/Time Current Smoking Status Felipe hui Jun 07, 2023 09:30 [facility] [place] Tobacco Use History This section includes a history of the smoking, or tobacco-related health factors, that were collected on or before the date of the Encounter. The data comes from the [place] facility where the Encounter took place. Date/Time Smoking Status/Tobacco Use Comment F acility Jun 07, 2023 09:30 AM VA-TOBACCO QUIT 15 YRS OR MORE [place] Jun 09, 2022 09:00 AM VA-TOBACCO FORMER USER [place] Jun 09, 2022 09:00 AM VA-TOBACCO QUIT 5 TO < 15 YRS [place] Jun 03, 2021 12:30 PM VA-TOBACCO FORMER USER [place] Jun 03, 2021 12:30 PM VA-TOBACCO QUIT 15 YRS OR MORE [place] Mar 12, 2020 10:30 AM VA-TOBACCO FORMER USER [place] Mar 12, 2020 10:30 AM VA-TOBACCO QUIT 15 YRS OR MORE [place] Jan 03, 2018 10:14 AM VA-TOBACCO FORMER USER [place] Jan 03, 2018 10:14 AM VA-TOBACCO QUIT 15 YRS OR MORE [place] Jul 05, 2017 10:47 AM QUIT TOBACCO USE > 7 YEARS AGO reports quitting in 1995 [place] Encounter Notes: All associated encounter notes This section contains the clinical notes associated to the Encounter. Date/Time Encounter Note(s) Provider Source December 06, 2023 08:56 AM PREVENTIVE MEDICIN E NURSING NOTE: LOCAL TITLE: CLINICAL REMINDERS/NURSING STANDARD TITLE: PREVENTIVE MEDICINE NURSING NOTE DATE OF NOTE: DECEMBER 06, 2023@08:56 ENTRY DATE: DECEMBER 06, 2023@08:56:51 AUTHOR: KENNY BURCH EXP COSIGNER: URGENCY: STATUS: COMPLETED Suicide Screen: C-SSRS Screening [place] Suicide Severity Rating Scale (C-SSRS) screener 1. Over the past month, have you wished you were or wished you could go to sleep and not wake up? No 2. Over the past month, have you had any actual thoughts of killing yourself? No 3. Over the past month, have you been thinking about how you might do this? Response not required due to responses to other questions. 4. Over the past month, have you had these thoughts and had some intention of acting on them? Response not required due to responses to other questions. 5. Over the past month, have you started to work out or worked out the details of how to kill yourself? Response not required due to responses to other questions. 6. If yes, at any time in the past month did you intend to carry out this plan? Response not required due to responses to other questions. 7. In your lifetime, have you ever done anything, started to do anything, or prepared to do anything to end your life (for example, collected pills, obtained a gun, gave away valuables, went to the roof but didn't jump)? No 8. If YES, was this within the past 3 months? Response not required due to responses to other questions. BMI>30/>24.99 High Risk: Patient declines to discuss weight management. Patient declined weight discussion. Discussed revisiting at a future visit. Depression Screening: Perform PHQ-2 A PHQ-2 screen was performed. The score was 0 which is a negative screen for depression. Over the past two weeks, how often have you been bothered by the following problems? 1. Little interest or pleasure in doing things Not at all 2. Feeling down, depressed, or hopeless Not at all Pneumococcal PPSV23 (Pneumovax): The patient declines to receive the recommended dose of PPSV23 vaccine. Immunization: PNEUMOCOCCAL POLYSACCHARIDE PPV23 Refusal Reason: PATIENT DECISION Patient refuses the PNEUMOCOCCAL POLYSACCHARIDE PPV23 immunization Date Documented: 12/06/23 08:58 Influenza Immunization: The patient declines to receive the recommended dose of seasonal influenza vaccine. Immunization: INFLUENZA, UNSPECIFIED FORMULATION Refusal Reason: PATIENT DECISION Patient refuses all immunization(s) in the FLU group Date Documented: 12/06/23 08:58 Alcohol Use Screen (AUDIT-C): Alcohol Screen: SCREEN FOR ALCOHOL (AUDIT-C) An alcohol screening test (AUDIT-C) was negative (score=0). 1. How often did you have a drink containing alcohol in the past year? Consider a drink to be a 12 ounce can or bottle of regular beer, 8 ounces of malt liquor, a 5 ounce glass of table wine, or a 1.5 ounce shot of liquor (like scotch, gin, or vodka). Never 2. How many drinks containing alcohol did you have on a typical day when you were drinking in the past year? Response not required due to responses to other questions. 3. How often did you have six or more drinks on one occasion in the past year? Response not required due to responses to other questions. COVID-19 Immunization: Refused Moderna Monovalent COVID-19 vaccine Immunization: COVID-19 (MODERNA), MRNA, LNP-S, PF, 50 MCG/0.5 ML (AGES 12+ YEARS) Refusal Reason: PATIENT DECISION Patient refuses all immunization(s) in the COVID-19 group Date Documented: 12/06/23 08:58 Sexual Orientation: The patient thinks of their sexual orientation as: Lesbian or Valdez RHS Screen: RHS Screen Session Format: Face to Face Environmental Check Upon inquiry, the individual reports that the environment is safe to proceed. Informed Consent to Screen and Document The individual consents to proceed with screening. The individual consents to documentation of responses. PRIMARY SCREEN: In the past 12 months, how often did a current or former intimate partner (e.g., boyfriend, girlfriend, , , sexual partner): 1. Scream or curse at you Never 2. Insult or talk down to you Never 3. Threaten you with harm Never 4. Physically hurt you Never 5. Force or pressure you to have sexual contact against your will, or when you were unable to say no Never ?? The HITS tool (items 1-4 above) is [place] copyright protected by Bhupinder Marte MD, and the user has full rights to use it throughout the [place] system. PRIMARY SCREEN RESULT: The Primary Screen is NEGATIVE. The individual answered never to all forms of IPV above (i.e., answered never to all 5 items) The individual accepts education and/or resources: No EDUCATION: The individual indicated readiness to learn. Education offered during this session as noted above. The individual indicated understanding by asking relevant questions and making appropriate comments. No barriers to learning were observed or identified. Hepatitis A Vaccine for High Risk: Patient declines/refuses Hepatitis A immunization Immunization: HEP A, UNSPECIFIED FORMULATION Refusal Reason: PATIENT DECISION Patient refuses all immunization(s) in the HepA group Date Documented: 12/06/23 08:59 MED REC COMPLETED BY PROVIDER DURING VISIT. /stef/ KENNY BURCH LPN LPN Signed: 12/06/2023 09:00 KENNY BURCH December 06, 2023 07:52 AM PHYSICIAN NOTE: LOCAL TITLE: NOTE STANDARD TITLE: PHYSICIAN NOTE DATE OF NOTE: DECEMBER 06, 2023@07:52 ENTRY DATE: DECEMBER 06, 2023@07:52:59 AUTHOR: YESSY,IRAM EXP COSIGNER: URGENCY: STATUS: COMPLETED CC: 63 year old WHITE MALE SERVICE CONNECTED % - NONE FOUND HPI: Patient is seeing outside PCP in one month. Folowed by [facility] Nephrology, ID Podiatry every 6mo Lives alone, home, no pets. No smoking/alcohol. No rec drugs. No partner/celibate. Adopted a family - helping out including a 6yo gandchild Exercises regularly per patient but does not do any regular cardio Homosexual sexual orientation Problem list and medications reviewed. Last Labs: May 2023 Active problems - Computerized Problem List is the source for the followin. Nephrolithiasis on allopurinol followed by Dr. Barnes 2. Non-[place] Providers Primary Care--Buddy Jennings and with [facility] 3. HIV positive (SNOMED CT [id number]) non detectable viral load, asymptomatic ID: Dr. Joanie Sanchez 4. Hyperlipidemia 5. Plantar fasciitis used to receive injections, now treated by OTC insoles 6. Meralgia paresthetica 7. Impaired fasting glycaemia 8. History of polyp of colon Colonoscopy done 04/2017, f/u recomm for [address] Chaudhry PHYSICAL EXAMINATION/DIRECTED EXAM: BP:128/83 (12/06/2023 08:52) Resp:20 (12/06/2023 08:52) Temp:97.1 F [36.2 C] (12/06/2023 08:52) Pulse:91 (12/06/2023 08:52) WEIGHT 12/06/2023 08:52 170(77.11)[26] 06/07/2023 09:57 159(72.12)[25] 11/30/2022 13:45 172(78.02)[27] Comfortable S1S2 RRR lungs CTA Benign abdomen No edema ASSESSMENT & PLAN: 63 year old MALE SERVICE CONNECTED % - NONE FOUND presents for annual VA. Doing well at this point. Recommend annual visits moving forward. HIV Plan of care discussed with patient who articulates understanding. Chronic issues reviewed briefly; no changes to management unless specified above. RTC annually as needed TIME ATTESTATION: Time spent directly with the patient was ( x ) 30 minutes More than 50% of the time spent with the patient included counselling regarding the admission Medical Review, History and Physical Examination, discussion of the findings, both remote and local data in the medical record, management, and patient education for the annotated medical conditions above. Discussed with patient and agrees to plan. VA and Non VA meds were reconciled. Today's documentation was made using voice recognition software. This note may contain spelling/grammatical errors secondary to this software. Patient provided copies of labs/studies and medication list. Upcoming Appointments: 12/06/2023 08:30 CWM/SO/PACT 9 01/18/2024 09:30 CWM/SO/PODIATRY/ROSS 06/20/2024 09:30 CWM/SO/PODIATRY/ROSS Med Reconciliation: Active Outpatient Medications (including Supplies): Active Non-VA Medications Status 1) Non-VA ALLOPURINOL TAB BY MOUTH ACTIVE 2) Non-VA ATORVASTATIN CALCIUM 40MG TAB 20MG BY MOUTH ACTIVE EVERY DAY 3) Non-VA CHOLECALCIF 50MCG (D3-2,000UNIT) TAB 2000UNIT ACTIVE BY MOUTH EVERY DAY 4) Non-VA EFAVIRENZ/EMTRICITABINE/TENOFOV IRPA-F* TAB 1 ACTIVE TABLET BY MOUTH EVERY DAY 5) Non-VA OMEPRAZOLE 20MG EC CAP 20MG BY MOUTH EVERY ACTIVE MORNING 30 MINUTES BEFORE BREAKFAST Medication (Local) Status No local medications found. Medication (Remote) Status No remote medications found. /stef/ IRAM KRISHNAMURTHY MD PHYSICIAN Signed: 12/06/2023 09:11 IRAM KRISHNAMURTHY [place]
--- OUTSIDE RECORDS SUMMARY | 2024-07-05 02:56 | XMS_ITS | Encounter Summary ---
Author Name [facility] [place] [facility] [place] [facility] [facility] [place] Address [address] [place] [address] Care Team Providers Care Program Officer Name Role Phone IRAM KRISHNAMURTHY Primary Care [...] [employer] Apr 24, 2021 PPO [id number] KIRBY DAMON [facility] PREFERRED PROVIDER ORGANIZAT ION (PPO) HNE Apr 24, 2022 [id number] KIRBY DAMON [facility] PREFERRED PROVIDER ORGANIZAT ION (PPO) [place] Apr 24, 2022 [id number] KIRBY DAMON [facility] HIGH DEDUCTIBL E HEALTH PLAN W/HEALTH REIMBURSE MENT ARRANGEME NT KRING LE AND HDHP HRA Apr 24, 2022 [id number] KIRBY DAMON [facility] HIGH DEDUCTIBL E HEALTH PLAN KRING LE CANDL E [facility] Apr 24, 2020 [id number] KIRBY DAMON [facility] PREFERRED PROVIDER ORGANIZAT ION (PPO) [facility] [place] Jul 25, 2016 [id number] ALMAZ DAMON,JERRY [facility] PREFERRED PROVIDER ORGANIZAT ION (PPO) [place] Apr 24, 2016 [id number] NELSONKIRBY GREEN PATIENT [facility] HIGH DEDUCTIBL E HEALTH PLAN KRING LE CANDL E [facility] Apr 24, 2016 [id number] NELSONKIRBY PATIENT MEDMETRICS PRESCRIPT ION [facility] Oct 30, 2019 [facility] [id number] NELSONKIRBY PATIENT [facility] KRING LE CANDL E [facility] Apr 24, 2020 [id number] [phone] NELSONKIRBY PATIENT [facility] KRING LE CANDL E [facility] Apr 24, 2016 [id number] [id number] NELSONKIRBY PATIENT [employer] RX PRESCRIPT ION [address] PILGR IM [facility] Apr 24, 2021 N/A [id number] NELSONKIRBY PATIENT [facility] RX MENTAL HEALTH [facility] Apr 24, 2021 [id number] NELSONKIRBY PATIENT [facility] RX PRESCRIPT ION [facility] Oct 30, 2019 [facility] [id number] [id number] NELSONKIRBY GREEN PATIENT [employer] RX PRESCRIPT ION HEALT H NEW [facility] HRA Oct 30, 2019 [facility] [id number] NELSONKIRBY GREEN PATIENT [employer] RX PRESCRIPT ION HEALT H NEW [facility] HRA Oct 30, 2019 [facility] [id number] NELSONKIRBY PATIENT [employer] RX PRESCRIPT ION HEALT H NEW [facility] Apr 24, 2016 [facility] [id number] [phone] NELSONKIRBY PATIENT Selected Encounter This section includes the information on record at CT for the Encounter. Date/Time Encounter Type Encounter Description Reason Provider Source Jun 20, 2024 09:30 AM OFFICE O/P EST LOW 20 MIN PODIATRY ICD-10-CM L60.3 Nail dystrophy VADIM PARRA [facility] Encounter Template Text not used by [facility] Assessments - Encounter Diagnoses This section includes the primary and secondary diagnoses documented for the Encounter. Date/Time Primary/Secondary Diagnosis Diagnosis Name Provider Source Jun 20, 2024 10:02 AM PRIMARY Nail dystrophy VADIM PARRA [facility] Jun 20, 2024 10:02 AM SECONDARY Corns and callosities VADIM PARRA [facility] Jun 20, 2024 10:02 AM SECONDARY Pain in left foot VADIM PARRA [facility] Jun 20, 2024 10:02 AM SECONDARY Pain in left toe(s) VADIM PARRA [facility] Jun 20, 2024 10:02 AM SECONDARY Pain in right foot VADIM PARRA [facility] Jun 20, 2024 10:02 AM SECONDARY Pain in right toe(s) VADIM PARRA [place] Plan of Treatment: Future Appointments (+ 6 months) and Future Tests (+/- 45 days) The Plan of Treatment section includes future care activities for the patient from all CT treatmentfacilities. This section includes future appointments and future orders which are active, pending or scheduled. Future Appointments This section includes appointments that were scheduled to occur 6 months from the date of the Encounter, up to a maximum of 20 appointments. The data comes from all [place] treatment facilities. Appointment Date/Time Appointment Type Appointme nt Facility Name Oct 17, 2024 08:30 AM AMBULATORY - MEDICINE [facility] December 05, 2024 08:30 AM [facility] Social History: Smoking Status (Most current) and Tobacco Use (All prior to encounter date) This section includes the most current, and the historical, smoking and tobacco- related health factors from the CT facility where the Encounter took place. Current Smoking Status This section includes the most current smoking, or tobacco-related health factor, from the [place] facility where the Encounter took place. Date/Time Current Smoking Status Comment Facil [facility] Jun 07, 2023 09:30 AM VA-TOBACCO FORMER USER [facility] Tobacco Use History This section includes a history of the smoking, or tobacco-related health factors, that were collected on or before the date of the Encounter. The data comes from the [place] facility where the Encounter took place. Date/Time Smoking Status/Tobacco Use Comment F acility Jun 07, 2023 09:30 AM VA-TOBACCO QUIT 15 YRS OR MORE [facility] Jun 09, 2022 09:00 AM VA-TOBACCO FORMER USER [facility] Jun 09, 2022 09:00 AM VA-TOBACCO QUIT 5 TO < 15 YRS [facility] Jun 03, 2021 12:30 PM VA-TOBACCO FORMER USER [facility] Jun 03, 2021 12:30 PM VA-TOBACCO QUIT 15 YRS OR MORE [facility] Mar 12, 2020 10:30 AM VA-TOBACCO FORMER USER [facility] Mar 12, 2020 10:30 AM VA-TOBACCO QUIT 15 YRS OR MORE [facility] Jan 03, 2018 10:14 AM VA-TOBACCO FORMER USER [facility] Jan 03, 2018 10:14 AM VA-TOBACCO QUIT 15 YRS OR MORE [facility] Jul 05, 2017 10:47 AM QUIT TOBACCO USE > 7 YEARS AGO reports quitting in 1995 [facility] Encounter Notes: All associated encounter notes This section contains the clinical notes associated to the Encounter. Date/Time Encounter Note(s) Provider Source Jun 20, 2024 07:33 AM PODIATRY NOTE: LOCAL TITLE: PODIATRY NOTE STANDARD TITLE: PODIATRY NOTE DATE OF NOTE: JUN 20, 2024@07:33 ENTRY DATE: JUN 20, 2024@07:33:07 AUTHOR: VADIM PARRA EXP COSIGNER: URGENCY: STATUS: COMPLETED NOTE: HAS RECEIVED BOTH COVID VACCINE DOSES AT [facility] LAST SEEN FOR TREATMENT: 01/18/2024 S: Pt. is a 64 yo alert WDWN CAUC MALE who presents for COPNTINUED podiatric examination [...] affected nails are 1-2-3-4-5 bilat. There are MULTIPLE PLANTAR HYPERKERATOSIS-IPK'S (17) superficial painful hyperkeratotic lesions noted at this [...] present physical-medical status. Protective sensation utilizing a [place] lOg monofilament is 10/10 bilateral. BIOMECHANICAL: Exam is deferred at this time as BEING non-contributory to the cc . A: Clinical Impression is painful onychocryptic clinically mycotic dystrophic nails 1-2-3-4-5 BILATERAL IN THE PRESENCE OF PAIN AND PLANTAR HYPERKERATOSIS. P: Treatment consists of debridement-reduction of all nails via manual & electric means with excision of the offending nail borders and thinning of the nail plates to the point of imminent bleeding. ADITIONAL TREATMENT CONSIST OF PARING-DEBRIDEMENT OF MULTIPLE HYPERKERATOSIS PLANTAR BILATERAL (17 LESIONS). All care rendered without complications & the patient is progressing well after podiatric care this date and will be scheduled for periodic podiatric care in an attempt to prevent future complications. Treatment by a non-professional could be extremely hazardous to the patient's wellbeing RTC: 20Weeks(10/17 @ 8:30)- *DISCUSSED NEW PROTOCOLS AND CALLED ENIO FOR [...] of active outpatient prescriptions dispensed from this CT (local) and dispensed from another CT or [facility] facility (remote) as well as [...] Remote Allergy/ADR Data available for this patient [facility] SULFACETAMIDE/SULFUR Med Recon NoGlossary (Tool #1) INCLUDED IN THIS LIST: Alphabetical list of active outpatient prescriptions dispensed from this CT (local) and dispensed from another [place] or [facility] facility (remote) as well as inpatient orders (local pending and active), local clinic medications, locally documented non-VA medications, and local prescriptions that have or been discontinued in the past 90 days. Non-VA Meds Last Documented On: Jun 03, 2021 NOTE The display of VA prescriptions dispensed from another [place] or [facility] facility (remote) is limited to active outpatient prescription entries matched to National Drug File at the originating site and may not include some items such as investigational drugs, compounds, etc. NOT INCLUDED IN THIS LIST: Medications self-entered by the patient into personal health records (i.e. [employer]) are NOT included in this list. Non-VA medications documented outside this CT, remote inpatient orders (regardless of status) and [...] Non-VA pharmacy. Medication prescribed by Non-VA provider. SUPPLIES /stef/ VADIM PARRA DPM HABITAT MANAGEMENT COORDINATOR Signed: 06/20/2024 10:03 VADIM PARRA
--- OUTSIDE RECORDS SUMMARY | 2024-07-05 02:56 | XMS_ITS | Continuity of Care Document ---
Author Name [facility] Organization [facility] Care Team Providers Care Air Conditioning Service Technician Name Role Phone [facility] Unavailable Unavailable Problems Combined list of problems from Department of Defense and Veterans Affairs facilities. It does not include entries that were removed or entered in error. Problem Status Onset Date Problem Type Date of Resolution Comments Source History of polyp of colon Active Condition Jul 05, 2017 Entered By: KEELEY WESTFALL Comment: Colonoscopy done 04/2017, f/u recomm for 2020 Entered By: VASHTI KRISHNAMURTHY Comment: followed by Dr. Chaudhry [facility] HIV positive (SNOMED CT [id number]) Active Condition Jul 05, 2017 Entered By: KEELEY WESTFALL Comment: non detectable viral load, asymptomaticDec 2016 Entered By: KEELEY WESTFALL Comment: ID: Dr. Joanie Sanchez [facility] Hyperlipidemia Active Condition [facility] Impaired fasting glycaemia Active Condition [facility] Meralgia paresthetica Active Condition [facility] Nephrolithiasis Active Condition Jun 03, 2021 Entered By: VASHTI KRISHNAMURTHY Comment: on allopurinolNov 2020 Entered By: VASHTI KRISHNAMURTHY Comment: followed by Dr. Barnes [facility] Non-[facility] Providers Active Condition Aug 06, 2020 Entered By: VASHTI KRISHNAMURTHY Comment: Primary Care--Buddy Jennings and with [facility] Plantar fasciitis Active Condition De c 2016 Entered By: KEELEY WESTFALL Comment: used to receive injections, now treated 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 [place] Diagnosis: ICD-10-CM M54.9 Dorsalgia, unspecified Active Diagnosis [facility] Diagnosis: ICD-10-CM M47.816 Spondylosis w/o myelopathy or radiculopathy, lumbar region Active Diagnosis [facility] Medications Combined list of outpatient medications from Department of Defense and Veterans Affairs facilities.Medications provided include 1) outpatient medications from the last 15 months, and 2) patient-reported medications. Medication Details Route Status Patient Instructions Prescription Expires Prescription Number Last Dispense Date Ordering Provider Order Date Order Qty Source ALLOPURINOL TAB TAKE BY MOUTH ORAL ACTIVE YESSY, APOLINARI O 2020 [facility] [place] [facility] [facility] ATORVASTATI N CA 40MG TAB TAKE ONE-HALF TABLET BY MOUTH EVERY DAY ORAL ACTIVE KARLEY -KEELEY EMERY M 2016 [facility] [employer] [facility] BISACODYL 5MG TAB,EC TAKE FOUR TABLETS BY MOUTH ONE TIME FOR PREP FOR BOWELS - LAXATIVE ORAL 07/07/2023 [id number] YESSY APOLINARI O 2022 4 [place] CHOLECALCIF CONNOR 50MCG (2,000UNIT) TAB TAKE ONE TABLET BY MOUTH EVERY DAY ORAL ACTIVE KARLEY -KEELEY EMERY M 2016 [facility] [employer] EFAVIRENZ/E MTRICITABIN E/TENOFOVIR PA-F* TAB TAKE ONE TABLET BY MOUTH EVERY DAY ORAL ACTIVE KARLEY -KEELEY EMERY M 2016 [facility] [employer] GUAIFENESIN 100MG/5ML (SF & AF) LIQUID TAKE 2 TEASPOON FULS BY MOUTH THREE TIMES DAILY NEEDED FOR COUGH ORAL DISCONT INUED 07/07/2023 [id number] YESSYJUVENALLINARI O 2022 240 [place] GUAIFENESIN 100MG/5ML (SF & AF) LIQUID TAKE 2 TEASPOON FULS BY MOUTH THREE TIMES DAILY NEEDED FOR COUGH ORAL 07/08/2023 [id number] 3 YESSY, APOLINARI O 2022 [address] [place] OMEPRAZOLE 20MG CAP,EC TAKE 1 CAPSULE BY MOUTH EVERY MORNING 30 MINUTES BEFORE BREAKFAS T ORAL ACTIVE KARLEY -KEELEY EMERY 2016 [facility] POLYETHYLEN E GLYCOL 3350 PWDR,ORAL TAKE CONTENTS OF BOTTLE BY MOUTH ONE TIME FOR EMPTYING OF THE BOWEL DIRECTED MIX WITH GATORADE ORAL 07/07/2023 [id number] 3 YESSYJUVENALLINARI O 2022 238 [place] Allergies, Adverse Reactions, Alerts Combined list of allergies from Department of Defense and Veterans Affairs facilities. It does not include entries that were removed or entered in error. Substance Category Reaction Severity Reaction type Status Date Reported Comments Source SULFACETAM ELVIRA/SULFUR Propensity to adverse reactions to drug (finding) Urticaria active 7 [facility] [place] [facility] Immunizations Combined list of available immunizations from the Department of Defense and Veterans Affairs facilities. Immunization Series Date Given Administered By Site Reaction Lot Number CVX Code Drug Maint Mechanic Status Comments Source COVID-19 (Lexplique), MRNA, LNP-S, PF, 30 MCG/0.3 ML DOSE 2 2020 208 complet ed PFR; [id number]; 1 [facility] [employer] COVID-19 (PFIZER), MRNA, LNP-S, PF, 30 MCG/0.3 ML DOSE 1 2020 208 complet ed PFR; [id number]; 1 [facility] TDAP 2019 115 complet ed Site: Left Deltoid [place] INFLUENZA, SEASONAL, INJECTABLE 2018 141 [phone] ZOSTER RECOMBINANT 2 2018 187 complet ed [facility] ZOSTER RECOMBINANT 1 2018 187 complet ed [facility] INFLUENZA, INJECTABLE, QUADRIVALENT 2017 158 complet ed Site: Left Deltoid [place] PNEUMOCOCCAL CONJUGATE PCV 13 2017 133 complet ed PATIENT PORTAL [facility] ZOSTER RECOMBINANT 2 2017 187 complet ed pATIENT PORT[facility] ZOSTER RECOMBINANT 1 2017 187 complet ed PATIENT [facility] PNEUMOCOCCAL POLYSACCHARID E PPV23 2016 33 complet ed [facility] INFLUENZA, SEASONAL, INJECTABLE 2016 141 complet ed [facility] TDAP 2011 115 complet ed [facility] [place] Results Combined list of recent chemistry, hematology and other laboratory results from Department of Defense and Veterans Affairs, ranging from 15 months to all on record, depending upon the facility. Order Name Results Value Reference Range Date Interpretation Specimen Comments Source MICROALBU MIN CREATININ E RATIO PANEL MICROALBUMI N/CREATININ E [MASS RATIO] IN URINE cancmg /g 0 - 29.9 05/31 Specimen Type: URINE No comment entered. Ordering Provider: DENILSON KRISHNAMURTHY Report Released Date/Time: May 26, 2023 02:37 PM Reporting Lab: [facility] [facility] [address] [address] Performing Lab: [place] [facility] [facility] [address] [phone] [facility] [place] [facility] MICROALBU MIN CREATININ E RATIO PANEL MICROALBUMI N [MASS/VOLUM E] IN URINE < 0.5mg/ dL 05/31 Specimen Type: URINE No comment entered. Ordering Provider: DENILSON KRISHNAMURTHY Report Released Date/Time: May 26, 2023 02:37 PM Reporting Lab: [facility] [place] [facility] [address] [address] Performing Lab: [facility] [place] [facility] [address] [address] [facility] [place] [facility] MICROALBU MIN CREATININ E RATIO PANEL CREATININE [MASS/VOLUM E] IN URINE 113.52 mg/dL 05/31 Specimen Type: URINE No comment entered. Ordering Provider: DENILSON KRISHNAMURTHY Report Released Date/Time: May 26, 2023 02:37 PM Reporting Lab: [facility] [place] [facility] [address] [address] Performing Lab: [place] [facility] [place] [address] [address] [facility] [facility] BASIC METABOLIC PANEL (fasting) UREA NITROGEN [MASS/VOLUM E] IN SERUM OR PLASMA 14 mg/dL 7 - 25 05/31 Specimen Type: SERUM No comment entered. Ordering Provider: DENILSON KRISHNAMURTHY Report Released Date/Time: Jun 09, 2022 09:39 AM Reporting Lab: [facility] [place] [facility] [address] [address] Performing Lab: [place] [facility] [place] [place] [address] [address] [address] [place] [facility] BASIC METABOLIC PANEL (fasting) GLUCOSE [MASS/VOLUM E] IN SERUM OR PLASMA 110 mg/dL 65 - 100 05/31 H Specimen Type: SERUM No comment entered. Ordering Provider: DENILSON KRISHNAMURTHY Report Released Date/Time: Jun 09, 2022 09:39 AM Reporting Lab: [facility] [place] [facility] [address] [address] Performing Lab: [place] [facility] [place] [place] [address] [address] [address] [facility] [place] [facility] BASIC METABOLIC PANEL (fasting) SODIUM [MOLES/VOLU ME] IN SERUM OR PLASMA 139 mmol/L 135 - 145 05/31 Specimen Type: SERUM No comment entered. Ordering Provider: DENILSON KRISHNAMURTHY Report Released Date/Time: Jun 09, 2022 09:39 AM Reporting Lab: [facility] [place] [facility] [address] [address] Performing Lab: [facility] [address] [address] [facility]PITALRRIVERVIEW REGIONAL MEDICAL CENTERTRN [facility] BASIC METABOLIC PANEL (fasting) POTASSIUM [MOLES/VOLU ME] IN SERUM OR PLASMA 3.8 mmol/L 3.5 - 5.0 05/31 Specimen Type: SERUM No comment entered. Ordering Provider: DENILSON KRISHNAMURTHY Report Released Date/Time: Jun 09, 2022 09:39 AM Reporting Lab: [facility]ITALRRIVERVIEW REGION[facility] MEDICAL CENTERTRN [facility]ITALUSE[address] [address] Performing Lab: [facility]ITALRL TRN [facility]ITALUSETS [address] [address] [facility]PITALRSHOALS HOSPITALN [facility] BASIC METABOLIC PANEL (fasting) CHLORIDE [MOLES/VOLU ME] IN SERUM OR PLASMA 109 mmol/L 100 - 110 05/31 Specimen Type: SERUM No comment entered. Ordering Provider: DENILSON KRISHNAMURTHY Report Released Date/Time: Jun 09, 2022 09:39 AM Reporting Lab: [facility]ITALRRIVERVIEW REGION[facility] MEDICAL CENTERTRN [facility]USE[address] [address] Performing Lab: [facility]ITALRL W[facility]ITALUSETS [address] [address] [facility]PITALRRIVERVIEW REGIONAL MEDICAL CENTERTRN [facility] BASIC METABOLIC PANEL (fasting) CARBON DIOXIDE, TOTAL [MOLES/VOLU ME] IN SERUM OR PLASMA 22 meq/L 20 - 30 05/31 Specimen Type: SERUM No comment entered. Ordering Provider: DENILSON KRISHNAMURTHY Report Released Date/Time: Jun 09, 2022 09:39 AM Reporting Lab: [facility]PITALRRIVERVIEW REGIONAL MEDICAL CENTERTRN [facility]USE[address] [address] Performing Lab: [facility]ITALRL [facility]N [place] [address] [place] [address] [facility] BASIC METABOLIC PANEL (fasting) CREATININE [MASS/VOLUM E] IN SERUM OR PLASMA 1.37 mg/dL 0.50 - 1.40 05/31 Specimen Type: SERUM No comment entered. Ordering Provider: DENILSON KRISHNAMURTHY Report Released Date/Time: Jun 09, 2022 09:39 AM Reporting Lab: [facility] [address] [address] Performing Lab: [facility]PITALRSHOALS HOSPITALN [address] [address] [facility] BASIC METABOLIC PANEL (fasting) GLOMERULAR FILTRATION RATE/1.73 SQ M.PREDICTED [VOLUME RATE/AREA] IN SERUM, PLASMA OR BLOOD BY CREATININE- BASED FORMULA (CKD-EPI 2020) 58 mL/min 60 05/31 L Specimen Type: SERUM No comment entered. Ordering Provider: DENILSON KRISHNAMURTHY Report Released Date/Time: Jun 09, 2022 09:39 AM Reporting Lab: [facility] [address] [address] Performing Lab: [address] [address] [facility] CBC AND DIFF (AUTO) LEUKOCYTES [#/VOLUME] IN BLOOD BY AUTOMATED COUNT 7.59 10*3/u L 4.50 - 11.00 05/31 Specimen Type: BLOOD No comment entered. Ordering Provider: DENILSON KRISHNAMURTHY Report Released Date/Time: Jun 09, 2022 09:39 AM Reporting Lab: [address] [address] Performing Lab: [address] [address] [facility] CBC AND DIFF (AUTO) ERYTHROCYTE S [#/VOLUME] IN BLOOD BY AUTOMATED COUNT 4.73 10*6/u L 4.23 - 5.66 05/31 Specimen Type: BLOOD No comment entered. Ordering Provider: DENILSON KRISHNAMURTHY Report Released Date/Time: Jun 09, 2022 09:39 AM Reporting Lab: [facility] [place] [facility] [address] [address] Performing Lab: [facility] [facility] [address] [address] [facility] [place] [facility] CBC AND DIFF (AUTO) HEMOGLOBIN [MASS/VOLUM E] IN BLOOD 14.8 g/dL 12.8 - 17 05/31 Specimen Type: BLOOD No comment entered. Ordering Provider: DENILSON KRISHNAMURTHY Report Released Date/Time: Jun 09, 2022 09:39 AM Reporting Lab: [facility] [place] [facility] [address] [address] Performing Lab: [facility] [place] [facility] [address] [address] [facility] [place] [facility] CBC AND DIFF (AUTO) HEMATOCRIT [VOLUME FRACTION] OF BLOOD BY AUTOMATED COUNT 43.1 39.2 - 50.4 05/31 Specimen Type: BLOOD No comment entered. Ordering Provider: DENILSON KRISHNAMURTHY Report Released Date/Time: Jun 09, 2022 09:39 AM Reporting Lab: [facility] [place] [facility] [address] [address] Performing Lab: [facility] [place] [facility] [address] [address] [facility] [place] [facility] CBC AND DIFF (AUTO) MCV [ENTITIC VOLUME] BY AUTOMATED COUNT 91.1 fL 82 - 99 05/31 Specimen Type: BLOOD No comment entered. Ordering Provider: DENILSON KRISHNAMURTHY Report Released Date/Time: Jun 09, 2022 09:39 AM Reporting Lab: [facility] [place] [facility] [address] [address] Performing Lab: [facility] [place] [facility] [address] [address] [facility] [place] [facility] CBC AND DIFF (AUTO) MCHC [MASS/VOLUM E] BY AUTOMATED COUNT 34.3 g/dL 30.8 - 35.1 05/31 Specimen Type: BLOOD No comment entered. Ordering Provider: DENILSON KRISHNAMURTHY Report Released Date/Time: Jun 09, 2022 09:39 AM Reporting Lab: [facility] [place] [facility] [address] [address] Performing Lab: [place] [facility] [place] [facility] [address] [address] [facility] [place] [facility] CBC AND DIFF (AUTO) PLATELETS [#/VOLUME] IN BLOOD BY AUTOMATED COUNT 174 10*3/u L 140 - 360 05/31 Specimen Type: BLOOD No comment entered. Ordering Provider: DENILSON KRISHNAMURTHY Report Released Date/Time: Jun 09, 2022 09:39 AM Reporting Lab: [facility] [place] [address] [address] Performing Lab: [place] [facility] [place] [address] [address] [facility] [place] [facility] CBC AND DIFF (AUTO) ERYTHROCYTE DISTRIBUTIO N WIDTH [RATIO] BY AUTOMATED COUNT 13.2 12.0 - 16.0 05/31 Specimen Type: BLOOD No comment entered. Ordering Provider: DENILSON KRISHNAMURTHY Report Released Date/Time: Jun 09, 2022 09:39 AM Reporting Lab: [facility] [place] [address] [address] Performing Lab: [facility] [place] [address] [address] [facility] [place] [facility] CBC AND DIFF (AUTO) MONOCYTES [#/VOLUME] IN BLOOD BY AUTOMATED COUNT 0.57 10*3/u L 0.30 - 1.10 05/31 Specimen Type: BLOOD No comment entered. Ordering Provider: DENILSON KRISHNAMURTHY Report Released Date/Time: Jun 09, 2022 09:39 AM Reporting Lab: [facility] [place] [address] [address] Performing Lab: [facility] [place] [facility] [address] [address] [facility] [place] [facility] CBC AND DIFF (AUTO) MCH [ENTITIC MASS] BY AUTOMATED COUNT 31.3 pg 26.2 - 32.6 05/31 Specimen Type: BLOOD No comment entered. Ordering Provider: DENILSON KRISHNAMURTHY Report Released Date/Time: Jun 09, 2022 09:39 AM Reporting Lab: [facility] [place] [facility] [address] [address] Performing Lab: [facility] [place] [facility] [address] [address] [facility] [place] [facility] CBC AND DIFF (AUTO) NEUTROPHILS /100 LEUKOCYTES IN BLOOD BY AUTOMATED COUNT 62.5 43.7 - 75.8 05/31 Specimen Type: BLOOD No comment entered. Ordering Provider: DENILSON KRISHNAMURTHY Report Released Date/Time: Jun 09, 2022 09:39 AM Reporting Lab: [facility] [place] [facility] [address] [place] [address] Performing Lab: [facility] [place] [facility] [address] [place] [address] [facility] [place] [facility] CBC AND DIFF (AUTO) LYMPHOCYTES /100 LEUKOCYTES IN BLOOD BY AUTOMATED COUNT 26.4 14.0 - 42.3 05/31 Specimen Type: BLOOD No comment entered. Ordering Provider: DENILSON KRISHNAMURTHY Report Released Date/Time: Jun 09, 2022 09:39 AM Reporting Lab: [facility] [place] [facility] [address] [address] Performing Lab: [facility] [place] [facility] [address] [place] [address] [facility] [place] [facility] CBC AND DIFF (AUTO) MONOCYTES/1 00 LEUKOCYTES IN BLOOD BY AUTOMATED COUNT 7.5 5.1 - 13.7 05/31 Specimen Type: BLOOD No comment entered. Ordering Provider: DENILSON KRISHNAMURTHY Report Released Date/Time: Jun 09, 2022 09:39 AM Reporting Lab: [facility] [place] [facility] [address] [address] Performing Lab: [facility] [place] [facility] [address] [address] [facility] [place] [facility] CBC AND DIFF (AUTO) EOSINOPHILS /100 LEUKOCYTES IN BLOOD BY AUTOMATED COUNT 2.4 0.4 - 6.8 05/31 Specimen Type: BLOOD No comment entered. Ordering Provider: DENILSON KRISHNAMURTHY Report Released Date/Time: Jun 09, 2022 09:39 AM Reporting Lab: [facility] [place] [facility] [address] [address] Performing Lab: [place] [facility] [place] [facility] [address] [address] [place] [facility] [place] [facility] CBC AND DIFF (AUTO) BASOPHILS/1 00 LEUKOCYTES IN BLOOD BY AUTOMATED COUNT 0.8 0.1 - 2.0 05/31 Specimen Type: BLOOD No comment entered. Ordering Provider: DENILSON KRISHNAMURTHY Report Released Date/Time: Jun 09, 2022 09:39 AM Reporting Lab: [facility] [place] [facility] [address] [address] Performing Lab: [facility] [place] [facility] [address] [address] [facility] [place] [facility] CBC AND DIFF (AUTO) NEUTROPHILS [#/VOLUME] IN BLOOD BY AUTOMATED COUNT 4.75 10*3/u L 2.20 - 7.60 05/31 Specimen Type: BLOOD No comment entered. Ordering Provider: DENILSON KRISHNAMURTHY Report Released Date/Time: Jun 09, 2022 09:39 AM Reporting Lab: [facility] [place] [facility] [address] [address] Performing Lab: [facility] [place] [facility] [address] [address] [place] [facility] [place] [facility] CBC AND DIFF (AUTO) LYMPHOCYTES [#/VOLUME] IN BLOOD BY AUTOMATED COUNT 2.00 10*3/u L 1.00 - 3.20 05/31 Specimen Type: BLOOD No comment entered. Ordering Provider: DENILSON KRISHNAMURTHY Report Released Date/Time: Jun 09, 2022 09:39 AM Reporting Lab: [facility] [place] [facility] [address] [address] Performing Lab: [facility] [place] [facility] [address] [address] [facility] [place] [facility] CBC AND DIFF (AUTO) EOSINOPHILS [#/VOLUME] IN BLOOD BY AUTOMATED COUNT 0.18 10*3/u L 0.03 - 0.44 05/31 Specimen Type: BLOOD No comment entered. Ordering Provider: DENILSON KRISHNAMURTHY Report Released Date/Time: Jun 09, 2022 09:39 AM Reporting Lab: [facility] [place] [facility] [address] [address] Performing Lab: [facility] [place] [facility] [address] [address] [facility] [place] [facility] CBC AND DIFF (AUTO) BASOPHILS [#/VOLUME] IN BLOOD BY AUTOMATED COUNT 0.06 10*3/u L 0.01 - 0.13 05/31 Specimen Type: BLOOD No comment entered. Ordering Provider: DENILSON KRISHNAMURTHY Report Released Date/Time: Jun 09, 2022 09:39 AM Reporting Lab: [facility] [place] [facility] [address] [address] Performing Lab: [facility] [place] [facility] [address] [address] [facility] [place] [facility] CBC AND DIFF (AUTO) IMMATURE GRANULOCYTE S/100 LEUKOCYTES IN BLOOD BY AUTOMATED COUNT 0.4 0.0 - 0.7 05/31 Specimen Type: BLOOD No comment entered. Ordering Provider: DENILSON KRISHNAMURTHY Report Released Date/Time: Jun 09, 2022 09:39 AM Reporting Lab: [facility] [place] [facility] [address] [address] Performing Lab: [facility] [place] [facility] [address] [address] [facility] [place] [facility] CBC AND DIFF (AUTO) IMMATURE GRANULOCYTE S [#/VOLUME] IN BLOOD 0.03 10*3/u L 0.00 - 0.06 05/31 Specimen Type: BLOOD No comment entered. Ordering Provider: DENILSON KRISHNAMURTHY Report Released Date/Time: Jun 09, 2022 09:39 AM Reporting Lab: [facility] [address] [address] Performing Lab: [address] [address] [facility] HEMOGLOBI N A1C PANEL HEMOGLOBIN A1C/HEMOGLO BIN.TOTAL IN BLOOD BY HPLC 5.1 4.0 - 5.6 05/31 Specimen Type: BLOOD Comment: Values obtained from A1C measurement s can vary. For atypical A1C assays, a reported value of 7.0 could actually be between 6.72 and 7.28 if measured by a reference method. A reported value of 9.0 could actually be between 8.73 and 9.27. Ref: http://www. ngsp.org/[place] Pdata.asp Ordering Provider: DENILSON KRISHNAMURTHY Report Released Date/Time: Jun 09, 2022 09:39 AM Reporting Lab: [address] [address] Performing Lab: [address] [address] [facility] LIPID PANEL FASTING CHOLESTEROL [MASS/VOLUM E] IN SERUM OR PLASMA 139 mg/dL 05/31 Specimen Type: SERUM No comment entered. Ordering Provider: DENILSON KRISHNAMURTHY Report Released Date/Time: Jun 09, 2022 09:39 AM Reporting Lab: [facility] [address] [address] Performing Lab: [address] [address] [facility] LIPID PANEL FASTING TRIGLYCERID E [MASS/VOLUM E] IN SERUM OR PLASMA 124 mg/dL 0 - 150 05/31 Specimen Type: SERUM No comment entered. Ordering Provider: DENILSON KRISHNAMURTHY Report Released Date/Time: Jun 09, 2022 09:39 AM Reporting Lab: [facility] [place] [facility] [address] [address] Performing Lab: [facility] [place] [facility] [address] [phone] [facility] [place] [facility] LIPID PANEL FASTING CHOLESTEROL IN LDL [MASS/VOLUM E] IN SERUM OR PLASMA BY CALCULATION 87 mg/dL 0 - 129 05/31 Specimen Type: SERUM No comment entered. Ordering Provider: DENILSON KRISHNAMURTHY Report Released Date/Time: Jun 09, 2022 09:39 AM Reporting Lab: [facility] [place] [facility] [address] [address] Performing Lab: [facility] [place] [facility] [address] [address] [address] [facility] [place] [facility] LIPID PANEL FASTING CHOLESTEROL .TOTAL/CHOL ESTEROL IN HDL [MASS RATIO] IN SERUM OR PLASMA 5.1 05/31 Specimen Type: SERUM No comment entered. Ordering Provider: DENILSON KRISHNAMURTHY Report Released Date/Time: Jun 09, 2022 09:39 AM Reporting Lab: [facility] [place] [facility] [address] [address] Performing Lab: [facility] [facility] [address] [address] [address] [facility] [place] [facility] LIPID PANEL FASTING CHOLESTEROL IN HDL [MASS/VOLUM E] IN SERUM OR PLASMA 27 mg/dL 40 - 60 05/31 L Specimen Type: SERUM No comment entered. Ordering Provider: DENILSON KRISHNAMURTHY Report Released Date/Time: Jun 09, 2022 09:39 AM Reporting Lab: [facility] [place] [facility] [address] [address] Performing Lab: [facility] [place] [facility] [address] [address] [facility] [place] [facility] LIVER FUNCTION PROTEIN [MASS/VOLUM E] IN SERUM OR PLASMA 6.7 g/dL 6.0 - 8.3 05/31 Specimen Type: SERUM No comment entered. Ordering Provider: DENILSON KRISHNAMURTHY Report Released Date/Time: Jun 09, 2022 09:39 AM Reporting Lab: [facility] [place] [facility] [address] [address] Performing Lab: [facility] [address] [address] [facility] LIVER FUNCTION ALBUMIN [MASS/VOLUM E] IN SERUM OR PLASMA 4.0 g/dL 3.5 - 5.0 05/31 Specimen Type: SERUM No comment entered. Ordering Provider: DENILSON KRISHNAMURTHY Report Released Date/Time: Jun 09, 2022 09:39 AM Reporting Lab: [facility] [address] Performing Lab: [facility] [address] [address] [facility] LIVER FUNCTION ALKALINE PHOSPHATASE [ENZYMATIC ACTIVITY/VO LUME] IN SERUM OR PLASMA 118 U/L 40 - 150 05/31 Specimen Type: SERUM No comment entered. Ordering Provider: DENILSON KRISHNAMURTHY Report Released Date/Time: Jun 09, 2022 09:39 AM Reporting Lab: [facility] [place] [address] [address] Performing Lab: [place] [facility] [place] [address] [address] [facility] LIVER FUNCTION ASPARTATE AMINOTRANSF ERASE [ENZYMATIC ACTIVITY/VO LUME] IN SERUM OR PLASMA 17 U/L 5 - 34 05/31 Specimen Type: SERUM No comment entered. Ordering Provider: DENILSON KRISHNAMURTHY Report Released Date/Time: Jun 09, 2022 09:39 AM Reporting Lab: [facility] [address] [address] Performing Lab: [facility] [address] [address] [place] [facility] [place] [facility] LIVER FUNCTION ALANINE AMINOTRANSF ERASE [ENZYMATIC ACTIVITY/VO LUME] IN SERUM OR PLASMA 16 U/L 05/31 Specimen Type: SERUM No comment entered. Ordering Provider: DENILSON KRISHNAMURTHY Report Released Date/Time: Jun 09, 2022 09:39 AM Reporting Lab: [place] [facility] [place] [address] [address] Performing Lab: [facility] [place] [facility] [address] [address] [address] [place] [facility] LIVER FUNCTION BILIRUBIN.T OTAL [MASS/VOLUM E] IN SERUM OR PLASMA 1.2 mg/dL 0.2 - 1.2 05/31 Specimen Type: SERUM No comment entered. Ordering Provider: DENILSON KRISHNAMURTHY Report Released Date/Time: Jun 09, 2022 09:39 AM Reporting Lab: [facility] [place] [address] [address] Performing Lab: [facility] [place] [address] [address] [facility] LIVER FUNCTION BILIRUBIN.D IRECT [MASS/VOLUM E] IN SERUM OR PLASMA 0.4 mg/dL 0 - 0.5 05/31 Specimen Type: SERUM No comment entered. Ordering Provider: DENILSON KRISHNAMURTHY Report Released Date/Time: Jun 09, 2022 09:39 AM Reporting Lab: [facility] [place] [address] [address] Performing Lab: [facility] [place] [address] [address] [address] [facility] [place] [facility] PSA PROSTATE SPECIFIC AG [MASS/VOLUM E] IN SERUM OR PLASMA 2.05 ng/mL 0.00 - 4.00 05/31 Specimen Type: SERUM No comment entered. Ordering Provider: DENILSON KRISHNAMURTHY Report Released Date/Time: Jun 09, 2022 09:39 AM Reporting Lab: [facility] [place] [facility] [address] [address] Performing Lab: [facility] [place] [facility] [address] [address] [facility] TSH THYROTROPIN [UNITS/VOLU ME] IN SERUM OR PLASMA 1.84 u[IU]/ mL 0.35 - 5.00 05/31 Specimen Type: SERUM No comment entered. Ordering Provider: DENILSON KRISHNAMURTHY Report Released Date/Time: Jun 09, 2022 09:39 AM Reporting Lab: [facility] [place] [facility] [address] [address] Performing Lab: [facility] [place] [facility] [address] [address] [facility] [place] [facility] VITAMIN D (25-OH) 25-HYDROXYV ITAMIN D3 [MASS/VOLUM E] IN SERUM OR PLASMA 50 ng/mL 20 - 50 05/31 Specimen Type: SERUM No comment entered. Ordering Provider: DENILSON KRISHNAMURTHY Report Released Date/Time: Jun 09, 2022 09:39 AM Reporting Lab: [facility] [place] [facility] [address] [address] Performing Lab: [facility] [place] [facility] [address] [address] [place] [facility] [place] [facility] Vital Signs Combined list of inpatient and outpatient Vital Signs from Department of Defense and Veterans Affairs, ranging from 12 months to all on record, depending upon the facility. Vital Sign Value Date Comments Source SYSTOLIC BLOOD PRESSURE 128 12/06/19 24 08:52:31 [facility] [place] [facility] DIASTOLIC BLOOD PRESSURE 83 024 08:52:31 [facility] [place] [facility] PULSE OXIMETRY 97 12/06/2023 08:52:31 [facility] [place] [facility] WEIGHT 170 12/06/2023 08:52:31 [facility] [place] [facility] BMI 26kg/m2 12/06/2023 08:52:31 [facility] [place] [facility] PAIN 0 12/06/2023 08:52:31 [facility] [place] [facility] HEIGHT 68 12/06/2023 08:52:31 [facility] [place] [facility] TEMPERATURE 97.1 12/06/2023 08:52:31 [facility] [place] [facility] PULSE 91 12/06/2023 08:52:31 [facility] [place] [facility] RESPIRATION 20 12/06/2023 08:52:31 [facility] [place] [facility] Encounters Combined list of: 1) Encounters from Department of Veterans Affairs facilities going back up to thelast 18 months. 2) Encounters from the Department of Defense facilities going back up to 280 months. Location Location Details Encounter Type Encounter Number Reason For Visit Attending Provider ADM Date DC Date Status Disposition Source [place] [facility]ISES [id number] Diagnos is: ICD-10- CM M54.9 [place], unspeci fied
GREGORY MILLER 01/06 [place] [id number] Diagnos is: ICD-10- CM M54.9 [place], unspeci fied
GREGORY MILLER 01/17 [place] [facility] FOOT LONGITUD/M ETATARSAL SUP [id number] Diagnos is: ICD-10- CM M72.2 Plantar fascial fibroma tosis<b r/> TATA PARRA ES F 01/27 [facility] [place] En[place] [id number] 02/01 [place] TH[place] EXERCISES [id number] Diagnos is: ICD-10- CM M54.9 Dorsalg [place], unspeci fied
GREGORY MILLER 02/14 [place] TH[place]ERCISES [id number] Diagnos is: ICD-10- CM M54.9 Dorsalg ia, unspeci fied
GREGORY MILLER 02/21 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
GREGORY MILLER 03/07 [facility] SELF CARE MNGMENT TRAINING [id number] Diagnos is: ICD-10- CM M54.9 Dorsalg [place], unspeci fied
GREGORY MILLER 03/[address] [facility] [place] [facility] [place] [facility] Outpatient Encounter [id number] 05/02 [facility] [place] [facility] OFFICE O/P EST LOW 20-29 MIN [id number] Diagnos is: ICD-10- CM 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
TATA PARRA F 05/11 [place] [facility] En[facility] [id number] 05/19 [facility] [place] [facility] En[facility] [id number] TATA PARRA F 05/20 [facility] [place] Encounter [id number] TATA PARRA F 05/23 [facility] [place] Encounter [id number] 06/07 [facility] [place] [facility] OFFICE O/P EST MOD 30-39 MIN [id number] Diagnos is: ICD-10- CM Z00.01 Encount er for general adult medical exam w abnorma l finding s
Sandro KRISHNAMURTHY POLINARIO 06/07 [place] [facility] Encounter [id number] 06/08 [facility] [place] Encounter [id number] 06/14 [facility] [place] Encounter [id number] NEGRO PARRAJessa ES F 06/24 [facility] [place] Encounter [id number] 06/29 [facility] [place] [facility] DIABETIC CUSTOM MOLDED SHOE [id number] Diagnos is: ICD-10- CM M72.2 Plantar fascial fibroma tosis<b r/> CHRISSY ASHFORD 07/04 [place] [facility] Out[facility] Encounter [id number] 07/22 [facility] [place] Encounter [id number] 07/27 [facility] [place] Encounter [id number] 07/30 [facility] [place] [facility] [place] [facility] Outpatient Encounter [id number] 07/30 [facility] [place] [facility] [place] OFFICE O/P EST LOW 20 MIN [id number] Diagnos is: ICD-10- CM 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
TATA PARRA ES F 08/03 [place] OFFICE O/P EST LOW 20 MIN [id number] Diagnos is: ICD-10- CM 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
TATA PARRA ES F 10/25 [facility] [place] OFFICE O/P EST MOD 30 MIN [id number] Diagnos is: ICD-10- CM Z00.00 Encntr for general adult medical exam w/o abnorma l finding s
YESSY,A POLINARIO 12/05 [place] [facility] [place] Outpatient Encounter [id number] 12/25 [facility] [place] [facility] [place] OFFICE O/P EST LOW 20 MIN [id number] Diagnos is: ICD-10- CM 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
TATA PARRA ES F 01/17 [place] [facility] [place] [facility] Outpatient Encounter [id number] TATA PARRA ES F 02/09 [facility] [place] [facility] [place] OFFICE O/P EST LOW 20 MIN [id number] Diagnos is: ICD-10- CM 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
TATA PARRA ES F 06/20 [place] [facility] [place] Outpatient Encounter [id number] 07/04 [place] [facility] [place] [facility] Social History Combined list of available smoking, tobacco, and other social history from Department of Defense and Veterans Affairs facilities. Social History Type Response Date Comment Sourc e Tobacco smoking status NHIS VA-TOBACCO QUIT 15 YRS OR MORE 06/07/2023 [place] History of tobacco use VA-TOBACCO FORMER USER 06/07/2023 [facility] History of tobacco use VA-TOBACCO FORMER USER 06/09/2022 [place] History of tobacco use VA-TOBACCO FORMER USER 06/03/2021 [place] History of tobacco use VA-TOBACCO FORMER USER 03/12/2020 [facility] History of tobacco use VA-TOBACCO QUIT 15 YRS OR MORE 01/03/2018 [facility] History of tobacco use QUIT TOBACCO USE > 7 YEARS AGO 07/05/2017 reports quitting in 1996 [facility] Plan of Care List of future care activities from Department of Veterans Affairs facilities. Additional future care activities may be listed in the Assessment and Plan section. Date/Time Care Activity Care Activity Detail Facili ty 10/17/2024 AMBULATORY - MEDICINE AMBULATORY - MEDICI [facility] 12/05/2024 AMBULATORY - MEDICINE AMBULATORY - MEDICI [facility] [place] [place] [facility]
--- OUTSIDE RECORDS SUMMARY | 2024-07-05 02:56 | XMS_ITS | Encounter Summary ---
Author Name [place] Address [address] [place] [address] Care Team Providers Care Lamp Shade Sewer Name Role Phone IRAM KRISHNAMURTHY Primary Care [...] Tran's Name Patient's Relationship to Policy Tran [facility] HIGH DEDUCTIBL E HEALTH PLAN [employer] Apr 24, 2021 PPO [id number] KIRBY DAMON [facility] PREFERRED PROVIDER ORGANIZAT ION (PPO) [facility] Apr 24, 2022 [id number] KIRBY DAMON [facility] PREFERRED PROVIDER ORGANIZAT ION (PPO) HNE Apr 24, 2022 [id number] KIRBY DAMON [facility] HIGH DEDUCTIBL E HEALTH PLAN W/HEALTH REIMBURSE MENT ARRANGEME NT KRING LE AND HDHP HRA Apr 24, 2022 [id number] KIRBY DAMON [facility] HIGH DEDUCTIBL E HEALTH PLAN KRING CONSUELO CANDL E HDHP Apr 24, 2020 [id number] KIRBY DAMON PATIENT [facility] ER PREFERRED PROVIDER ORGANIZAT ION (PPO) [facility] ACTIV E EMPLO SABRINA Jul 25, 2016 [id number] ALMAZ DAMON,JERRY [facility] PREFERRED PROVIDER ORGANIZAT ION (PPO) [place] Apr 24, 2016 [id number] KIRBY DAMON PETER PATIENT [facility] ER HIGH DEDUCTIBL E HEALTH PLAN KRING LE CANDL E [facility] Apr 24, 2016 [id number] KIRBY DAMON PETER PATIENT MEDMETRICS PRESCRIPT ION [facility] Oct 30, [address] [facility] [id number] NELSONKIRBY GREEN PATIENT [facility] KRING LE CANDL E [facility] Apr 24, 2020 [id number] NELSONKIRBY GREEN PATIENT [facility] KRING LE CANDL E [facility] Apr 24, 2016 [id number] [phone] NELSONKIRBY GREEN PATIENT [facility] RX PRESCRIPT ION [address] PILGR IM [facility] Apr 24, 2021 N/A [id number] NELSONKIBRY PATIENT [facility] RX MENTAL HEALTH [facility] Apr 24, 2021 [id number] KIRBY DAMON PETER PATIENT [facility] RX PRESCRIPT ION HEALT H NEW [facility] HRA Oct 30, [address] [facility] [id number] NELSONKIRBY GREEN PATIENT [facility] RX PRESCRIPT ION HEALT H NEW [facility] HRA Oct 30, [address] [facility] [id number] KIRBY DAMON PETER PATIENT [facility] RX PRESCRIPT ION HEALT H NEW [facility] HRA Oct 30, [address] [facility] [id number] NELSONKIRBY GREEN PATIENT [facility] RX PRESCRIPT ION HEALT H NEW ENGL [facility] Apr 24, [address] [facility] [id number] KIRBY DAMON PATIENT Selected Encounter This section includes the information on record at [place] for the Encounter. Date/Time Encounter Type Encounter Description Reason Pro vider Source Jul 30, 2023 02:47 PM Outpatient Encounter PRIMARY CARE/MEDICINE IHE Encounter Template Text not used by [place] Plan of Treatment: Future Appointments (+ 6 months) and Future Tests (+/- 45 days) The Plan of Treatment section includes future care activities for the patient from all [place] treatmentfacilities. This section includes future appointments and future orders which are active, pending or scheduled. Future Appointments This section includes appointments that were scheduled to occur 6 months from the date of the Encounter, up to a maximum of 20 appointments. The data comes from all [place] treatment facilities. Appointment Date/Time Appointment Type Appointme nt Facility Name Aug 03, 2023 10:00 AM AM[facility]ULATORY [facility] MEDICINE [facility] Oct 26, 2023 09:30 AM AMBULATORY - MEDICINE [facility] December 06, 2023 08:30 AM [place] [facility] [place] [facility] Jan 18, 2024 09:30 AM AM[facility]ULATORY - MEDICINE [facility] Encounter Notes: All associated encounter notes This section contains the clinical notes associated to the Encounter. Date/Time Encounter Note(s) Provider Source Jul 30, 2023 02:47 PM PREVENTIVE MEDICIN E NURSING NOTE: LOCAL TITLE: CLINICAL REMINDERS/NURSING STANDARD TITLE: PREVENTIVE MEDICINE NURSING NOTE DATE OF NOTE: JUL 30, 2023@14:47 ENTRY DATE: JUL 30, 2023@14:47:11 AUTHOR: FORREST ESQUIVEL EXP COSIGNER: URGENCY: STATUS: COMPLETED Colonoscopy GAP Reminder: Recommendations are needed in the clinical reminder system following the patient's most recent colorectal cancer screening/surveillance test (Colonoscopy, Sigmoidoscopy or CT Colonography) Colonoscopy reminder set 5 years from JUL 30, 2023. Comments (optional): Due 06/29/2028 [facility] IMPRESSION: I. Colon polyp. 2. Diverticulosis. 3. Internal and external hemorrhoids: PLAN: Ihe results of ihe biopsy will be checked. I would recommend a repeat colonoscopy in 5 years for further screening. He wiH; otherwise, see me on a p.r.n. basis. /stef/ EVELIN RAMOS,RN-BC REGISTERED NURSE (RN) Signed: 07/30/2023 14:49 [facility] ESQUIVEL [facility]
--- OUTSIDE RECORDS SUMMARY | 2024-07-05 02:56 | XMS_ITS | Encounter Summary ---
Author Name [facility] [place] Address [address] [place] [address] Care Team Providers Care Corner Trimmer Operator Name Role Phone IRAM KRISHNAMURTHY Primary [...] Tran's Name Patient's Relationship to Policy Tran [facility] HIGH DEDUCTIBL E HEALTH PLAN [employer] Apr 24, 2021 PPO [id number] KIRBY DAMON [facility] PREFERRED PROVIDER ORGANIZAT ION (PPO) HNE Apr 24, 2022 [id number] KIRBY DAMON [facility] PREFERRED PROVIDER ORGANIZAT ION (PPO) [facility] [place] Apr 24, 2022 [id number] KIRBY DAMON [facility] HIGH DEDUCTIBL E HEALTH PLAN W/HEALTH REIMBURSE MENT ARRANGEME NT KRING LE AND HDHP HRA Apr 24, 2022 [id number] KIRBY DAMON [facility] HIGH DEDUCTIBL E HEALTH PLAN KRING LE CANDL E [facility] Apr 24, 2020 [id number] KIRBY DAMON PATIENT [facility] PREFERRED PROVIDER ORGANIZAT ION (PPO) [facility] ACTIV E EMPLO SABRINA Jul 25, 2016 [id number] ALMAZ DAMON,JERRY [facility] PREFERRED PROVIDER ORGANIZAT ION (PPO) [place] Apr 24, 2016 [id number] KIRBY DAMON PETER PATIENT [facility] HIGH DEDUCTIBL E HEALTH PLAN KRING LE CANDL E [facility] Apr 24, 2016 [id number] KIRBY DAMON PETER PATIENT MEDMETRICS PRESCRIPT ION [facility] Oct 30, 2019 [facility] [id number] NELSONKIRBY GREEN PATIENT [facility] KRING LE CANDL E [facility] Apr 24, 2020 [id number] [phone] NELSONKIRBY GREEN PATIENT [facility] KRING LE CANDL E [facility] Apr 24, 2016 [id number] [phone] KIRBY DAMON PETER PATIENT [facility] RX PRESCRIPT ION [address] PILGR IM [facility] Apr 24, 2021 N/A [id number] NELSONKIRBY PATIENT [facility] RX MENTAL HEALTH [facility] Apr 24, 2021 [id number] KIRBY DAMON PETER PATIENT [facility] RX PRESCRIPT ION HEALT H NEW [facility] HRA Oct 30, 2019 [facility] [id number] [id number] NELSONKIRBY GREEN PATIENT [facility] RX PRESCRIPT ION HEALT H NEW [facility] HRA Oct 30, 2019 [facility] [id number] KIRBY DAMON PETER PATIENT [facility] RX PRESCRIPT ION HEALT H NEW [facility] HRA Oct 30, 2019 [facility] [id number] NELSONKIRBY GREEN PATIENT [facility] RX PRESCRIPT ION HEALT H NEW [place] [facility] Apr 24, 2016 [facility] [id number] KIRBY DAMON PATIENT Selected Encounter This section includes the information on record at [place] for the Encounter. Date/Time Encounter Type Encounter Description Reason Pro vider Source Jul 30, 2023 12:00 AM Outpatient Encounter EVENT (HISTORICAL) IHE Encounter Template Text not used by [place] Plan of Treatment: Future Appointments (+ 6 months) and Future Tests (+/- 45 days) The Plan of Treatment section includes future care activities for the patient from all [place] treatmentfacilities. This section includes future appointments and future orders which are active, pending or scheduled. Future Appointments This section includes appointments that were scheduled to occur 6 months from the date of the Encounter, up to a maximum of 20 appointments. The data comes from all [place] treatment facilities. Appointment Date/Time Appointment Type Appointme nt Facility Name Aug 03, 2023 10:00 AM AMBULATORY - MEDICINE [facility]NOTE 3[facility]I [facility] Oct 26, 2023 09:30 AM AMBULATORY - MEDICINE [facility] December 06, 2023 08:30 AM [place] [facility] Jan 18, 2024 09:30 AM AMBULATORY - MEDICINE [facility]
--- OUTSIDE RECORDS SUMMARY | 2024-07-05 02:56 | XMS_ITS | Encounter Summary ---
Author Name [place] Address [address] [place] [id number] Care Team Providers Care Record Center Coordinator Name Role Phone IRAM KRISHNAMURTHY Primary Care [...] Tran's Name Patient's Relationship to Policy Tran [facility] HIGH DEDUCTIBL E HEALTH PLAN [employer] HD[employer] Apr 24, 2021 PPO [id number] KIRBY DAMON [facility] PREFERRED PROVIDER ORGANIZAT ION (PPO) HNE Apr 24, 2022 [id number] KIRBY DAMON [facility] PREFERRED PROVIDER ORGANIZAT ION (PPO) [facility] [place] Apr 24, 2022 [id number] KIRBY DAMON [facility] HIGH DEDUCTIBL E HEALTH PLAN W/HEALTH REIMBURSE MENT ARRANGEME NT KR[facility] AND HDHP HRA Apr 24, 2022 [id number] KIRBY DAMON [facility] HIGH DEDUCTIBL E HEALTH PLAN [facility] [place] [facility] HDHP Apr 24, 2020 [id number] KIRBY DAMON PATIENT [facility] PREFERRED PROVIDER ORGANIZAT ION (PPO) [facility] EMPLO SABRINA Jul 25, 2016 [id number] ALMAZ DAMON,JERRY [facility] PREFERRED PROVIDER ORGANIZAT ION (PPO) [place] Apr 24, 2016 [id number] KIRBY DAMON PETER PATIENT [facility] HIGH DEDUCTIBL E HEALTH PLAN KR[facility] CAND[facility] E [facility] Apr 24, 2016 [id number] KIRBY DAMON PETER PATIENT MEDMETRICS PRESCRIPT ION [facility] Oct 30, 2019 [facility] [id number] NELSONKIRBY GREEN PATIENT [facility] LE CANDL E [facility] Apr 24, 2020 [id number] NELSONKIRBY GREEN PATIENT [facility] Apr 24, 2016 [id number] NELSONKIRBY GREEN PATIENT [facility] RX PRESCRIPT ION [address] PILGR IM [facility] Apr 24, 2021 N/A [id number] NELSONKIRBY PATIENT [facility] RX MENTAL HEALTH [facility] Apr 24, 2021 [id number] KIRBY DAMON PETER PATIENT [facility] RX PRESCRIPT ION HEALT H NEW [facility] HRA Oct 30, 2019 [facility] [id number] NELSONKIRBY GREEN PATIENT OPTUM RX PRESCRIPT ION HEALT H NEW [facility] HRA Oct 30, 2019 [facility] [id number] KIRBY DAMON PETER PATIENT OPTUM RX PRESCRIPT ION HEALT H NEW [facility] HRA Oct 30, 2019 [facility] [id number] NELSONKIRBY GREEN PATIENT OPTUM RX PRESCRIPT ION HEALT H [facility] Apr 24, 2016 [facility] [id number] KIRBY DAMON PATIENT Selected Encounter This section includes the information on [place] at [place] for the Encounter. Date/Time Encounter Type Encounter Description Reason Pro vider Source Jul 04, 2024 03:45 PM Outpatient Encounter PRIMARY CARE/MEDICINE IHE Encounter [...] 17, 2024 08:30 AM AMBULATORY - MEDICINE [facility] [place] December 05, 2024 08:30 AM [facility] [place] [facility] Encounter Notes: All associated encounter notes This section contains the clinical notes associated to the Encounter. Date/Time Encounter Note(s) Provider Source Jul 04, 2024 03:45 PM PRIMARY CARE NOTE: LOCAL TITLE: WALK-IN NOTE PRIMARY CARE (T) STANDARD TITLE: PRIMARY CARE NOTE DATE OF NOTE: JUL 04, 2024@15:45 ENTRY DATE: JUL 04, 2024@15:46:01 AUTHOR: ANGELES ALFONSO EXP COSIGNER: URGENCY: STATUS: COMPLETED <====Click to Start Advanced Medical Support presents to the Primary Care clinic with the following request: [ ]Medication Renewal/Refill [ ]Consultation with Team RN [ ]Symptoms [ X ]Other The Sarita states they are: [ ]Waiting [ X ]Not Waiting No Walk in visit scheduled with PACT Nurse [ X ] At this encounter the 's demographics were verified. [ X ] At this encounter the 's Insurance information was verified. [ X ] At this encounter the below scheduled visits for the Sarita were discussed and appointment reminder card was offered. Future appointments: 10/17/2024 08:30 CWM/SO/PODIATRY/AIDA 12/05/2024 08:30 CWM/SO/PACT 9 referral renewal request for ID Dr Sanchez [address] [address] P [phone] FAX [phone] NEXT APPT 07/11/24. /stef/ ANGELES CASTRO Signed: 07/04/2024 15:47 Receipt Acknowledged By: * AWAITING SIGNATURE * KENNY BURCH * AWAITING SIGNATURE * FORREST ESQUIVEL CASSANDRA M [place]
--- OUTSIDE RECORDS SUMMARY | 2024-07-05 02:56 | XMS_ITS | Encounter Summary ---
Author Name [place] Address [address] [place] [address] Care Team Providers Care Receiving Associate Name Role Phone IRAM KRISHNAMURTHY Primary Care [...] Tran's Name Patient's Relationship to Policy Tran [facility] HIGH DEDUCTIBL E HEALTH PLAN [employer] HDHP Apr 24, 2021 PPO [id number] KIRBY DAMON [facility] PREFERRED PROVIDER ORGANIZAT ION (PPO) HNE Apr 24, 2022 [id number] KIRBY DAMON [facility] PREFERRED PROVIDER ORGANIZAT ION (PPO) [facility] [place] Apr 24, 2022 [id number] KIRBY DAMON [facility] HIGH DEDUCTIBL E HEALTH PLAN W/HEALTH REIMBURSE MENT ARRANGEME NT KRING LE AND HDHP HRA Apr 24, 2022 [id number] KIRBY DAMON [facility] HIGH DEDUCTIBL E HEALTH PLAN [facility] [facility] Apr 24, 2020 [id number] KIRBY DAMON PETER [facility] PREFERRED PROVIDER ORGANIZAT ION (PPO) [facility] ACTIV E EMPLO YEES Jul 25, 2016 [id number] ALMAZ DAMON,JERRY [facility] PREFERRED PROVIDER ORGANIZAT ION (PPO) [place] Apr 24, 2016 [id number] KIRBY DAMON PETER PATIENT [facility] HIGH DEDUCTIBL E HEALTH PLAN KRING LE CANDL E [facility] Apr 24, 2016 [id number] NELSONKIRBY GREEN PATIENT MEDMETRICS PRESCRIPT ION [facility] Oct 30, 2019 [facility] [id number] [phone] [id number] NELSONKIRBY GREEN PATIENT [facility] LE CAND[facility] E [facility] Apr 24, 2020 [id number] NELSONKIRBY GREEN PATIENT [facility] Apr 24, 2016 [id number] NELSONKIRBY PATIENT [facility] RX PRESCRIPT ION [address] PILGR IM [facility] Apr 24, 2021 N/A [id number] NELSONKIRBY PATIENT [facility] RX MENTAL HEALTH [facility] Apr 24, 2021 [id number] KIRBY DAMON PETER PATIENT [facility] RX PRESCRIPT ION HEALT H NEW [facility] HRA Oct 30, 2019 [facility] [id number] NELSONKIRBY GREEN PATIENT OPTUM RX PRESCRIPT ION HEALT H [facility] HRA Oct 30, 2019 [facility] [id number] KIRBY DAMON PETER PATIENT OPTUM RX PRESCRIPT ION HEALT H NEW [facility] HRA Oct 30, 2019 [facility] [id number] NELSONKIRBY PATIENT [facility] RX PRESCRIPT ION HEALT H [facility] [place] Apr 24, 2016 [facility] [id number] [phone] KIRBY DAMON PATIENT Selected Encounter This section includes the information on record at [place] for the Encounter. Date/Time Encounter Type Encounter Description Reason Provider Source Feb 10, 2024 03:11 PM Outpatient Encounter PROSTHETICS/ORTHOTI VADIM ALVAREZ Encounter Template Text not used by [place] Plan of Treatment: Future Appointments (+ 6 months) and Future Tests (+/- 45 days) The Plan of Treatment section includes future care activities for the patient from all [place] treatmentfacilities. This section includes future appointments and future orders which are active, pending or scheduled. Future Appointments This section includes appointments that were scheduled to occur 6 months from the date of the Encounter, up to a maximum of 20 appointments. The data comes from all [place] treatment facilities. Appointment Date/Time Appointment Type Appointme nt Facility Name Jun 06, 2024 01:30 PM AM[place]ATORY [place]ICINE [place] [facility] Jun 20, 2024 09:30 AM AMBULATORY - MEDICINE [facility] AG[facility]
--- OUTSIDE RECORDS SUMMARY | 2024-07-05 02:56 | XMS_ITS | Encounter Summary ---
Author Name [place] Address [address] [place] [address] Care Team Providers Care Stone Paver Name Role Phone IRAM KRISHNAMURTHY Primary Care [...] Tran's Name Patient's Relationship to Policy Tran [facility] HIGH DEDUCTIBL E HEALTH PLAN [employer] HDHP Apr 24, 2021 PPO [id number] KIRBY DAMON [facility] PREFERRED PROVIDER ORGANIZAT ION (PPO) HNE Apr 24, 2022 [id number] KIRBY DAMON [facility] PREFERRED PROVIDER ORGANIZAT ION (PPO) [facility] [place] Apr 24, 2022 [id number] KIRBY DAMON [facility] HIGH DEDUCTIBL E HEALTH PLAN W/HEALTH REIMBURSE MENT ARRANGEME NT KRING LE AND HDHP HRA Apr 24, 2022 [id number] KIRBY DAMON [facility] HIGH DEDUCTIBL E HEALTH PLAN [facility] Apr 24, 2020 [id number] KIRBY DAMON PATIENT [facility] PREFERRED PROVIDER ORGANIZAT ION (PPO) [facility] ACTIV E EMPLO SABRINA Jul 25, 2016 [id number] ALMAZ DAMON,JERRY [facility] PREFERRED PROVIDER ORGANIZAT ION (PPO) [place] Apr 24, 2016 [id number] KIRBY DAMON PETER PATIENT [facility] HIGH DEDUCTIBL E HEALTH PLAN KRING LE CANDL E [facility] Apr 24, 2016 [id number] KIRBY DAMON PETER PATIENT MEDMETRICS PRESCRIPT ION [facility] Oct 30, [address] [facility] [id number] NELSONKIRBY GREEN PATIENT [facility] KRING LE CANDL E [facility] Apr 24, 2020 [id number] NELSONKIRYB GREEN PATIENT [facility] KR[facility] LE CANDL E [facility] Apr 24, 2016 [id number] NELSONKIRBY GREEN PATIENT [facility] RX PRESCRIPT ION [address] RD PILGR IM [facility] Apr 24, 2021 N/A [id number] NELSONKIRBY PATIENT [facility] RX MENTAL HEALTH [facility] Apr 24, 2021 [id number] KIRBY DAMON PETER PATIENT OPTUM RX PRESCRIPT ION HEALT H NEW [facility] HRA Oct 30, [address] [facility] [id number] NELSONKIRBY GREEN PATIENT OPTUM RX PRESCRIPT ION HEALT H NEW [facility] HRA Oct 30, [address] [facility] [id number] KIRBY DAMON PETER PATIENT OPTUM RX PRESCRIPT ION HEALT H NEW [facility] HRA Oct 30, [address] [facility] [id number] NELSONKIRBY GREEN PATIENT OPTUM RX PRESCRIPT ION HEALT H [place] Apr 24, [address] [facility] [id number] KIRBY DAMON PATIENT Selected Encounter This section includes the information on record at [place] for the Encounter. Date/Time Encounter Type Encounter Description Reason Pro vider Source Jul 27, 2023 01:53 PM Outpatient Encounter PRIMARY CARE/MEDICINE IHE Encounter Template Text not used by [place] Plan of Treatment: Future Appointments (+ 6 months) and Future Tests (+/- 45 days) The Plan of Treatment section includes future care activities for the patient from all [place] treatmentfacilities. This section includes future appointments and future orders which are active, pending or scheduled. Future Appointments This section includes appointments that were scheduled to occur 6 months from the date of the Encounter, up to a maximum of 20 appointments. The data comes from all [place] treatment facilities. Appointment Date/Time Appointment Type Appointme nt Facility Name Aug 03, 2023 10:00 AM [facility]ATORY - MEDICINE [facility] Oct 26, 2023 09:30 AM AMBULATORY - MEDICINE [facility] December 06, 2023 08:30 AM AMBULATORY [place]ICINE [place] [facility] Jan 18, 2024 09:30 AM AMBULATORY - MEDICINE [facility] Encounter Notes: All associated encounter notes This section contains the clinical notes associated to the Encounter. Date/Time Encounter Note(s) Provider Source Jul 27, 2023 01:53 PM ADMINISTRATIVE NOT E: LOCAL TITLE: ADMINISTRATIVE NOTE STANDARD TITLE: ADMINISTRATIVE NOTE DATE OF NOTE: JUL 27, 2023@13:53 ENTRY DATE: JUL 27, 2023@13:53:59 AUTHOR: FORREST ESQUIVEL EXP COSIGNER: URGENCY: STATUS: COMPLETED ADMINISTRATIVE NOTE Has ADDENDA Please request colonoscopy and pathology results from [facility] /stef/ EVELIN RAMOS,RN-BC REGISTERED NURSE (RN) Signed: 07/27/2023 13:54 Receipt Acknowledged By: 07/27/2023 14:17 /katlin CASTRO 07/27/2023 ADDENDUM STATUS: COMPLETED Engineer First Assistant requested colonoscopy & pathology reports from [facility]. /stef/ ULYSSES CASTRO Signed: 07/27/2023 14:17 FORREST ESQUIVEL
--- OUTSIDE RECORDS SUMMARY | 2024-07-05 02:56 | XMS_ITS | Encounter Summary ---
Author Name [place] Address [address] [place] [address] Care Team Providers Care Supervisor Advice Name Role Phone IRAM KRISHNAMURTHY Primary Care [...] Name Patient's Relationship to Policy Tran [facility] HIGH DEDUCTIBL E HEALTH PLAN [employer] HDHP Apr 24, 2021 PPO [id number] KIRBY DAMON [facility] PREFERRED PROVIDER ORGANIZAT ION (PPO) [facility] Apr 24, 2022 [id number] KIRBY DAMON [facility] PREFERRED PROVIDER ORGANIZAT ION (PPO) HNE Apr 24, 2022 [id number] KIRBY DAMON [facility] HIGH DEDUCTIBL E HEALTH PLAN W/HEALTH REIMBURSE MENT ARRANGEME NT KRING LE AND HDHP HRA Apr 24, 2022 [id number] KIRBY DAMON [facility] HIGH DEDUCTIBL E HEALTH PLAN KR[facility] CAND[facility] E [facility] Apr 24, 2020 [id number] KIRBY DAMON [facility] PREFERRED PROVIDER ORGANIZAT ION (PPO) [facility] ACTIV E EMPLO SABRINA Jul 25, 2016 [id number] ALMAZ DAMON,JERRY [facility] PREFERRED PROVIDER ORGANIZAT ION (PPO) [place] Apr 24, 2016 [id number] NELSONKIRBY GREEN PATIENT [facility] HIGH DEDUCTIBL E HEALTH PLAN KRING LE CANDL E [facility] Apr 24, 2016 [id number] NELSONKIRBY PATIENT MEDMETRICS PRESCRIPT ION [facility] Oct 30, 2019 [facility] [id number] NELSONKIRBY PATIENT [facility] KRING LE CANDL E [facility] Apr 24, 2020 [id number] NELSONKIRBY PATIENT [facility]URANCE KRING LE CANDL E [facility] Apr 24, 2016 [id number] [id number] [id number] NELSONKIRBY PATIENT [facility] RX PRESCRIPT ION [address] RD PILGR IM [facility] Apr 24, 2021 N/A [id number] NELSONKIRBY PATIENT OPTUM RX MENTAL HEALTH [facility] Apr 24, 2021 [id number] NELSONKIRBY PATIENT OPTUM RX PRESCRIPT ION [facility] Oct 30, 2019 [facility] [id number] NELSONKIRBY GREEN PATIENT OPTUM RX PRESCRIPT ION HEALT H [facility] HRA Oct 30, 2019 [facility] [id number] NELSONKIRBY GREEN PATIENT OPTUM RX PRESCRIPT ION HEALT H [facility] HRA Oct 30, 2019 [facility] [id number] NELSONKIRBY PATIENT OPTUM RX PRESCRIPT ION HEALT H [place] Apr 24, 2016 [facility] [id number] NELSONKIRBY PATIENT Selected Encounter This section includes the information on record at [place] for the Encounter. Date/Time Encounter Type Encounter Description Reason Provider Source Oct 26, 2023 09:30 AM OFFICE O/P EST LOW 20 MIN PODIATRY ICD-10-CM L60.3 Nail dystrophy VDAIM PARRA [facility] Encounter Template Text not used by [place] Assessments - Encounter Diagnoses This section includes the primary and secondary diagnoses documented for the Encounter. Date/Time Primary/Secondary Diagnosis Diagnosis Name Provider Source Oct 26, 2023 09:50 AM PRIMARY Nail dystrophy VADIM PARRA [facility] Oct 26, 2023 09:50 AM SECONDARY Pain in left toe(s) AIDAVADIM Earnestine ANGELO Oct 26, 2023 09:50 AM SECONDARY Pain in right toe(s) VADIM PARRA Plan of Treatment: Future Appointments (+ 6 months) and Future Tests (+/- 45 days) The Plan of Treatment section includes future care activities for the patient from all [place] treatmentfacilities. This section includes future appointments and future orders which are active, pending or scheduled. Future Appointments This section includes appointments that were scheduled to occur 6 months from the date of the Encounter, up to a maximum of 20 appointments. The data comes from all [place] treatment facilities. Appointment Date/Time Appointment Type Appointme nt Facility Name December 06, 2023 08:30 AM [facility] [place] [facility] Jan 18, 2024 09:30 AM AMBULATORY - MEDICINE [facility] Social History: Smoking Status (Most current) and Tobacco Use (All prior to encounter date) This section includes the most current, and the historical, smoking and tobacco- related health factors from the [place] facility where the Encounter took place. Current Smoking Status This section includes the most current smoking, or tobacco-related health factor, from the [place] facility where the Encounter took place. Date/Time Current Smoking Status Comment Facil ity Jun 07, 2023 09:30 AM [place]-TOBACCO QUIT 15 YRS OR MORE [facility] Tobacco Use History This section includes a history of the smoking, or tobacco-related health factors, that were collected on or before the date of the Encounter. The data comes from the [place] facility where the Encounter took place. Date/Time Smoking Status/Tobacco Use Comment F acility Jun 07, 2023 09:30 AM VA-TOBACCO QUIT 15 YRS OR MORE [facility] Jun 09, 2022 09:00 AM RI-TOBACCO FORMER USER [facility] Jun 09, 2022 09:00 AM RI-TOBACCO QUIT 5 TO < 15 YRS [facility] Jun 03, 2021 12:30 PM VA-TOBACCO FORMER USER [facility] Jun 03, 2021 12:30 PM VA-TOBACCO QUIT 15 YRS OR MORE [facility] Mar 12, 2020 10:30 AM VA-TOBACCO FORMER USER [facility] Mar 12, 2020 10:30 AM VA-TOBACCO QUIT 15 YRS OR MORE [facility] Jan 03, 2018 10:14 AM VA-TOBACCO FORMER USER [facility] Jan 03, 2018 10:14 AM VA-TOBACCO QUIT 15 YRS OR MORE [facility] Jul 05, 2017 10:47 AM QUIT TOBACCO USE > 7 YEARS AGO reports quitting in 1995 [facility] Encounter Notes: All associated encounter notes This section contains the clinical notes associated to the Encounter. Date/Time Encounter Note(s) Provider Source Oct 26, 2023 07:31 AM PODIATRY NOTE: LOCAL TITLE: PODIATRY NOTE STANDARD TITLE: PODIATRY NOTE DATE OF NOTE: OCT 26, 2023@07:31 ENTRY DATE: OCT 26, 2023@07:31:13 AUTHOR: VADIM PARRA COSIGNER: URGENCY: STATUS: COMPLETED NOTE: HAS RECEIVED BOTH COVID VACCINE DOSES AT [facility] LAST SEEN FOR TREATMENT: 08/03/2023 S: Pt. is a 63 yo alert WDWN CAUC MALE who presents [...] present physical-medical status. Protective sensation utilizing a Hulen-Kianna lOg monofilament is 10/10 bilateral. BIOMECHANICAL: Exam [...] extremely hazardous to the patient's wellbeing RTC: 12Weeks(01/17 @ 9:30) *DISCUSSED NEW PROTOCOLS AND CALLED ENIO FOR RESCHEDULING TODAY I DISCUSSED THE FINDINGS & PLAN WITH PATIENT (UNCHANGED SINCE PREVIOUS VISIT) & PATIENT AGREES AND UNDERSTANDS PLAN discussed the women's basketball and he provided a car fresheneer Medication Reconciliation: PERFORMED TODAY - SEE BELOW. Outpatient: Has the patient been taking medications as documented in the EMLR? YES: The patient has been taking medications as documented in the EMLR. Essential Medication List for Review used to complete this medication reconciliation. INCLUDED IN THIS LIST: Alphabetical list of active outpatient prescriptions dispensed from this [facility] (local) and dispensed from another [place] or [facility] facility (remote) as well as [...] list may not be complete. Please check [employer]. Allergies/ADRs (Tool #5) FACILITY ALLERGY/ADR -------- No Remote Allergy/ADR Data available for this patient [place] [facility] SULFACETAMIDE/SULFUR Med Recon NoGlossary (Tool #1) INCLUDED IN THIS LIST: Alphabetical list of active outpatient prescriptions dispensed from this [facility] (local) and dispensed from another [place] or [facility] facility (remote) as well as inpatient orders (local pending and active), local clinic medications, locally documented non-VA medications, and local prescriptions that have or been discontinued in the past 90 days. Non-VA Meds Last Documented On: Jun 03, 2021 NOTE The display of VA prescriptions dispensed from another [place] or [facility] facility (remote) is limited to active outpatient prescription entries matched to National Drug File at the originating site and may not include some items such as investigational drugs, compounds, etc. NOT INCLUDED IN THIS LIST: Medications self-entered by the patient into personal health records (i.e. [employer]) are NOT included in this list. Non-VA medications documented outside this [place], remote inpatient orders (regardless of status) and [...] Non-VA provider. SUPPLIES /stef/ VADIM PARRA DPM PROP CUTTER Signed: 10/26/2023 09:50 VADIM PARRAFIELD
--- OUTSIDE RECORDS SUMMARY | 2024-07-05 02:57 | XMS_ITS ---
Author Organization [facility] Address [address] [place] [phone] Care Team Providers Care Director Insurance Name Role Phone JONRehanFELY Primary Care Provider Kolby Whitman [phone] Encounters Encounter Location Date Provider Diagnosis [facility] [address] [place] [id number] 03/29/2023 Kolby Benson PLAN OF TREATMENT No Information
--- OUTSIDE RECORDS SUMMARY | 2024-07-05 02:57 | XMS_ITS ---
Author Organization [facility] Address [address] [place] [address] Care Team Providers Care Tar Man Name Role Phone FELY CEBALLOS Primary Care Provider Kolby Whitman [phone] REASON FOR VISIT screening,hx polyps,fam hx colon ca PROBLEMS Problem Type ICD Code Onset Dates Problem Status W/U Status Risk SNOMED Code Notes Problem Diverticulosis of large intestine without perforation or abscess without bleeding (K57.30) Active confirmed Diverticul ar disease of colon (180488732) Encounters Encounter Location Date Provider Diagnosis [facility] [facility] [address] [place], [place] [id number] 06/29/2023 Kolby Benson Encounter for scre ening colonoscopy Z12.11 ; Colon polyps K63.5 ; Family history of colon cancer Z80.0 ; Diverticulosis of large intestine without perforation or abscess without bleeding K57.30 and Other hemorrhoids K64.8 ASSESSMENTS Encounter Date Diagnosis Assessment Notes Treatment Notes Treatment Clinical Notes 06/29/2023 Encounter for screening colonoscopy (ICD-10 - Z12.11) 06/29/2023 Colon polyps (ICD-10 - K63.5) 06/29/2023 Family history of colon cancer (ICD-10 - Z80.0) 06/29/2023 Diverticulosis of large intestine without perforation or abscess without bleeding (ICD-10 - K57.30) 06/29/2023 Other hemorrhoids (ICD-10 - K64.8) PLAN OF TREATMENT No Information
--- OUTSIDE RECORDS SUMMARY | 2024-07-05 02:57 | XMS_ITS | Patient Health Record ---
Author Organization [facility] Address [address] [place] [address] Care Team Providers Care Senior Manager Mmcoe Name Role Phone EVERTONRUBENFELY Primary Care Provider Kolby Whitman [phone] ALLERGIES Allergen (clinical drug ingredient) Drug/Non Drug Allergy documented on EMR Reaction Allergy Type Onset Date Status Sulfa Unknown Drug Allergy Active REASON FOR REFERRAL No Information MEDICATIONS Medication SIG (Take, Route, Frequency, Duration) Notes Start Date End Date Status Vitamin D3 50 MCG (1999) TAKE 1 CAPSU LE BY MOUTH EVERY DAY Oral for 90 Active Biktarvy 50-200-25 MG TAKE 1 TABLET BY M OUTH DAILY Oral for 30 Active Allopurinol 300 MG Oral for 30 Active Atorvastatin Calcium 20 MG 1 tablet Oral ly Once a day Active Omeprazole 20 MG 1 capsule Orally Onc e a day Active SOCIAL HISTORY Tobacco Use: Social History Observation Description Date Details (start date - stop date) Former Smoker NA - NA Sex Assigned At : Social History Observation Description Sex Assigned At Unknown Tobacco Use/Smoking Question Answer Notes Patient is a former smoker When did you stop smoking? 1996 How long has it been since you last smoked? > 10 years Alcohol Screen Question Answer Notes Did you have a drink contain ing alcohol in the past year? Yes How often did you have a dri nk containing alcohol in the past year? Monthly or less (1 point) How many drinks did you have on a typical day when you were drinking in the past year? 1 or 2 drinks (0 point) How often did you have 6 or more drinks on one occasion in the past year? Never (0 point) Points 1 Interpretation Negative PROBLEMS Problem Type ICD Code Onset Dates Problem Status W/U Status Risk SNOMED Code Notes Problem History of adenomatous polyp of colon (Z86.010) Active confirmed 893813241 Problem Preprocedural examination (Z01.818) Active confirmed 792198561 Problem Encounter for screening for malignant neoplasm of colon (Z12.11) Active confirmed 815941274 Problem Gastroesophageal reflux disease without esophagitis (K21.9) Active confirmed 714164783 Problem Family history of colon cancer (Z80.0) Active confirmed 491667515 Problem Diverticulosis of large intestine without perforation or abscess without bleeding (K57.30) Active confirmed Diverticul ar disease of colon (349569885) PLAN OF TREATMENT Pending Test Test Name Order Date Pathology 06/29/2023 Future Test Test Name Order Date COLONOSCOPY 01/18/2017 COLONOSCOPY 03/29/2023 Insurance Providers Payer Name Payer Address Payer Phone Subscriber Number Group Number Insured Name Patient Relationship to Insured Coverage Start Date Coverage End Date [facility] [address] [place] [phone] [id number] SHEELA RAI Self - patient is the insured [facility] [address] [place] [phone] [id number] SHEELA RAI Self - patient is the insured MEDICAL (GENERAL) HISTORY Medical History History ICD Code Denies [place],DM,CVA,Lung disease,renal dise ase HIV since 08/1995--Dr. Sanchez GERD--EGD in 07/2010-small HH, no Brewer 's, no esophagitis Screening colonoscopy in 07/26 011--small tubular adenomas, diverticulosis, internal hemorrhoids Colonoscopy in 04/2017 with removal of a tubular adenoma, lipomatous Ileocecal valve Hyperlipidemia Gout Surgical History Surgery Date(Month/Year) Extensive dental surgery Anorectal surgery with Dr. Libra arnold in 2019 for anal conylomata. Path was negative for high grade dysplasia.
--- OUTSIDE RECORDS SUMMARY | 2024-07-05 02:57 | XMS_ITS ---
Author Organization [facility] Address [address] [place] [address] Care Team Providers Care Accounting Lecturer Name Role Phone FELY CEBALLOS Primary Care Provider Kloby Whitman [phone] ALLERGIES Allergen (clinical drug ingredient) Drug/Non Drug Allergy documented on EMR Reaction Allergy Type Onset Date Status Sulfa Unknown Drug Allergy Active REASON FOR VISIT Patient presents today for a COLON SCREENING MEDICATIONS Medication SIG (Take, Route, Frequency, Duration) Notes Start Date End Date Status Vitamin D3 50 MCG (1999) TAKE 1 CAPSU LE BY MOUTH EVERY DAY Oral for 90 Active Allopurinol 300 MG Oral for 30 Active Atorvastatin Calcium 20 MG 1 tablet Oral ly Once a day Active Omeprazole 20 MG 1 capsule Orally Onc e a day Active Biktarvy 50-200-25 MG TAKE 1 TABLET BY M OUTH DAILY Oral for 30 Active SOCIAL HISTORY Tobacco Use: Social History Observation Description Date Details (start date - stop date) Former Smoker NA - NA Sex Assigned At : Social History Observation Description Sex Assigned At Unknown Tobacco Use/Smoking Question Answer Notes Patient is a former smoker When did you stop smoking? 1995 How long has it been since you [...] W/U Status Risk SNOMED Code Notes Problem Family history of colon cancer (Z80.0) Active confirmed [id number] VITAL SIGNS BMI 26.78 kg/m2 03/29/2023 Blood pressure systolic 000 mm Hg 03/29/20 23 Blood pressure diastolic 00 mm Hg 023 Height 67 in 03/29/2023 Weight 171 lbs 03/29/2023 Encounters Encounter Location Date Provider Diagnosis [facility] [address] [place] [address] 03/29/2023 Kolby Benson History of adenomato us polyp of colon Z86.010 ; Preprocedural examination Z01.818 ; Encounter for screening for malignant neoplasm of colon Z12.11 and Family history of colon cancer Z80.0 ASSESSMENTS Encounter Date Diagnosis Assessment Notes Treatment Notes Treatment Clinical Notes 03/29/2023 History of adenomatous polyp of colon (ICD-10 - Z86.010) 03/29/2023 Preprocedural examination (ICD-10 - Z01.818) 03/29/2023 Encounter for screening for malignant neoplasm of colon (ICD-10 - Z12.11) 03/29/2023 Family history of colon cancer (ICD-10 - Z80.0) PLAN OF TREATMENT Future Test Test Name Order Date COLONOSCOPY 03/29/2023 Next Appt Details Follow Up: prn, Reason: Progress Notes * Examination Category Sub-Category Detail Notes General Examination GENERAL APPEARANCE: pleasant , well nourished, well developed, in no acute distress HEAD: EYES: sclera non-icteric EARS: NOSE: THROAT: NECK/THYROID: no cervical lymphade nopathy, neck supple HEART: S1, S2 normal CHEST: LUNGS: clear to auscultatio n bilaterally ABDOMEN: normal bowel sounds, no guarding or rigidity, no guarding or rigidity, no masses palpable, soft, nontender, nondistended NEUROLOGIC: alert and oriented SKIN: nonjaundiced, no spi jay angiomata EXTREMITIES: no edema PERIPHERAL PULSES: BACK: BREASTS: MUSCULOSKELETAL: MALE GENITOURINARY: LYMPH NODES: RECTAL EXAM: FEMALE GENITOURINARY: ORAL CAVITY: mucosa moist
[2024-07-05 08:06] LABS: ~HepC Num1 0.12 S/CO (0.00-0.79); ~Hepatitis C Antibody Nonreactive (Nonreactive)
[2024-07-05 08:31] LABS: Syphilis Screen Nonreactive (Nonreactive)
[2024-07-06 19:14] LABS: HIV RNA PCR Qn Copies NOT DETECTED copies/mL (NOT DETECTED); HIV RNA PCR Qn Log Copies NOT DETECTED (NOT DETECTED)
[2024-07-10 15:27] LABS: Absolute CD3 Count 1583 cells/uL (840-3060); Absolute CD4 Count 1221 cells/uL (490-1740); Absolute CD8 Count 334 cells/uL (180-1170); Absolute Lymphocytes 1997 cells/uL (850-3900); CD4 CD8 Ratio 3.65 (0.86-5.00); Percent CD3 Cells 79 % (57-85); Percent CD4 Cells 61 % (30-61); Percent CD8 Cells 17 % (12-42)
== END 2024-07-04 13:59 | disposition home or self-care (01) ==
LOC: HO.LAB 13:58
PROVIDERS: PCP Nurse Practitioner Family; Visit Provider Internal Medicine
DX: Z21 Asymptomatic human immunodeficiency virus [HIV] infection status (principal)
CPT/HCPCS: 36415; 80048; 80076; 86359; 86360; 86780; 86803; 87491; 87536; 87591

== ENCOUNTER 2024-07-11 13:13 | Outpatient (AMB) | payer OTHER, SELFPAY ==
--- OUTSIDE RECORDS SUMMARY | 2024-07-11 13:16 | XMS_ITS | Continuity of Care Document ---
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 Chaudhry [facility] [place] [facility] HIV positive (SNOMED CT [id number]) Active Condition Jul 05, 2017 Entered By: KEELEY WESTFALL Comment: non detectable viral load, asymptomaticDec 2016 Entered By: KEELEY WESTFALL Comment: ID: Dr. Joanie Sanchez [facility] [place] [facility] Hyperlipidemia Active Condition [facility] Impaired fasting glycaemia Active Condition [facility] Meralgia paresthetica Active Condition [facility] Nephrolithiasis Active Condition Jun 03, 2021 Entered By: VASHTI KRISHNAMURTHY Comment: on allopurinolNov 2020 Entered By: VASHTI KRISHNAMURTHY Comment: followed by Dr. Barnes [facility] [place] [facility] Non-[facility] Providers Active Condition Aug 06, 2020 Entered By: VASHTI KRISHNAMURTHY Comment: Primary Care--Buddy Jennings and with [facility] [place] [facility] Plantar fasciitis Active Condition De c 2016 Entered By: KEELEY WESTFALL Comment: used to receive injections, now treated by OTC insoles [facility] Diagnosis: ICD-10-CM L60.3 Nail dystrophy [facility] Diagnosis: ICD-10-CM Z00.00 Encntr for general adult medical exam w/o abnormal findings Active Diagnosis [facility] Diagnosis: ICD-10-CM M72.2 Plantar fascial fibromatosis Active Diagnosis [facility] Diagnosis: ICD-10-CM Z00.01 Encounter for general adult medical exam w abnormal findings Active Diagnosis [facility] [place] Diagnosis: ICD-10-CM M54.9 Dorsalgia, unspecified Active Diagnosis [facility] Diagnosis: ICD-10-CM M47.816 Spondylosis w/o myelopathy or radiculopathy, lumbar region Active Diagnosis [facility] Medications Combined list of outpatient medications from Department of Defense and Veterans Affairs facilities.Medications provided include 1) outpatient medications from the last 15 months, and 2) patient-reported medications. Medication Details Route Status Patient Instructions Prescription Expires Prescription Number Last Dispense Date Ordering Provider Order Date Order Qty Source ALLOPURINOL TAB TAKE BY MOUTH ORAL ACTIVE YESSY, APOLINARI O 2020 [facility] [place] [facility] ATORVASTATI N CA 40MG TAB TAKE ONE-HALF TABLET BY MOUTH EVERY DAY ORAL ACTIVE KARLEY -KEELEY EMERY M 2016 [facility] [place] [facility] BISACODYL 5MG TAB,EC TAKE FOUR TABLETS BY MOUTH ONE TIME FOR PREP FOR BOWELS - LAXATIVE ORAL 07/07/2023 [id number] YESSY APOLINARI O 2022 4 [place] CHOLECALCIF CONNOR 50MCG (2,000UNIT) TAB TAKE ONE TABLET BY MOUTH EVERY DAY ORAL ACTIVE KARLEY -KEELEY EMERY M [facility] [place] [facility] EFAVIRENZ/E MTRICITABIN E/TENOFOVIR PA-F* TAB TAKE ONE TABLET BY MOUTH EVERY DAY ORAL ACTIVE KARLEY -KEELEY EMERY M 2016 [facility] [place] [facility] GUAIFENESIN 100MG/5ML (SF & AF) LIQUID TAKE 2 TEASPOON FULS BY MOUTH THREE TIMES DAILY NEEDED FOR COUGH ORAL DISCONT INUED 07/07/2023 [id number] YESSYJUVENALLINARI O 2022 [address] [place] GUAIFENESIN 100MG/5ML (SF & AF) LIQUID TAKE 2 TEASPOON FULS BY MOUTH THREE TIMES DAILY NEEDED FOR COUGH ORAL 07/08/2023 [id number] 3 YESSY, APOLINARI O 2022 [address] [place] OMEPRAZOLE 20MG CAP,EC TAKE 1 CAPSULE BY MOUTH EVERY MORNING 30 MINUTES BEFORE BREAKFAS T ORAL ACTIVE KARLEY -KEELEY EMERY 2016 [facility] [facility] POLYETHYLEN E GLYCOL 3350 PWDR,ORAL TAKE CONTENTS OF BOTTLE BY MOUTH ONE TIME FOR EMPTYING OF THE BOWEL DIRECTED MIX WITH GATORADE ORAL 07/07/2023 [id number] YESSYJUVENALLINARI O 2022 [address] [place] Allergies, Adverse Reactions, Alerts Combined list of allergies from Department of Defense and Veterans Affairs facilities. It does not include entries that were removed or entered in error. Substance Category Reaction Severity Reaction type Status Date Reported Comments Source SULFACETAM ELVIRA/SULFUR Propensity to adverse reactions to drug (finding) Urticaria active 7 [facility] [employer] [facility] [place] [facility] Immunizations Combined list of available immunizations from the Department of Defense and Veterans Affairs facilities. Immunization Series Date Given Administered By Site Reaction Lot Number CVX Code Drug Consolidator Status Comments Source COVID-19 (Prixel), MRNA, LNP-S, PF, 30 MCG/0.3 ML DOSE 2 2020 208 complet ed PFR; [id number]; 1 [facility] [employer] [facility] [facility] COVID-19 (PFIZER), MRNA, LNP-S, PF, 30 MCG/0.3 ML DOSE 1 2020 208 complet ed PFR; [id number]; 1 [facility] [employer] [facility] [facility] TDAP 2019 115 complet ed Site: Left Deltoid [place] INFLUENZA, SEASONAL, INJECTABLE 2018 141 complet ed [phone] ZOSTER RECOMBINANT 2 2018 187 complet ed [facility] [place] ZOSTER RECOMBINANT 1 2018 187 complet ed [facility] [place] INFLUENZA, [...] [facility] TDAP 2011 115 complet ed [facility] [place] Results [...] May 26, 2023 02:37 PM Reporting Lab: [facility] [place] [facility] [address] [facility] [address] Performing Lab: [place] [facility] [place] [facility] [address] [facility] [address] [facility] [place] [facility] MICROALBU MIN CREATININ E RATIO PANEL MICROALBUMI N [MASS/VOLUM E] IN URINE < 0.5mg/ dL 05/31 Specimen Type: URINE No comment entered. Ordering Provider: DENILSON KRISHNAMURTHY Report Released Date/Time: May 26, 2023 02:37 PM Reporting Lab: [facility] [place] [facility] [address] [facility] [address] Performing Lab: [facility] [place] [facility] [address] [facility] [address] [facility] [place] [facility] MICROALBU MIN CREATININ E RATIO PANEL CREATININE [MASS/VOLUM E] IN URINE 113.52 mg/dL 05/31 Specimen Type: URINE No comment entered. Ordering Provider: DENILSON KRISHNAMURTHY Report Released Date/Time: May 26, 2023 02:37 PM Reporting Lab: [facility] [place] [facility] [address] [facility] [address] Performing Lab: [facility] [place] [facility] [address] [facility] [address] [facility] [place] [facility] LIPID PANEL FASTING CHOLESTEROL [MASS/VOLUM E] IN SERUM OR PLASMA 139 mg/dL 05/31 Specimen Type: SERUM No comment entered. Ordering Provider: DENILSON KRISHNAMURTHY Report Released Date/Time: Jun 09, 2022 09:39 AM Reporting Lab: [facility] [place] [facility] [address] [facility] [address] Performing Lab: [facility] [place] [facility] [address] [facility] [address] [facility] [place] [facility] LIPID PANEL FASTING TRIGLYCERID E [MASS/VOLUM E] IN SERUM OR PLASMA 124 mg/dL 0 - 150 05/31 Specimen Type: SERUM No comment entered. Ordering Provider: DENILSON KRISHNAMURTHY Report Released Date/Time: Jun 09, 2022 09:39 AM Reporting Lab: [facility] [place] [facility] [address] [facility] [address] Performing Lab: [facility] [place] [address] [address] [facility] [place] [facility] LIPID PANEL FASTING CHOLESTEROL IN LDL [MASS/VOLUM E] IN SERUM OR PLASMA BY CALCULATION 87 mg/dL 0 - 129 05/31 Specimen Type: SERUM No comment entered. Ordering Provider: DENILSON KRISHNAMURTHY Report Released Date/Time: Jun 09, 2022 09:39 AM Reporting Lab: [facility] [place] [facility] [address] [facility] [address] Performing Lab: [facility] [place] [facility] [address] [facility] [address] [facility] [place] [facility] LIPID PANEL FASTING CHOLESTEROL .TOTAL/CHOL ESTEROL IN HDL [MASS RATIO] IN SERUM OR PLASMA 5.1 05/31 Specimen Type: SERUM No comment entered. Ordering Provider: DENILSON KRISHNAMURTHY Report Released Date/Time: Jun 09, 2022 09:39 AM Reporting Lab: [facility] [place] [facility] [address] [facility] [address] Performing Lab: [facility] [place] [address] [address] [facility] W[facility]N [facility] LIPID PANEL FASTING CHOLESTEROL IN HDL [MASS/VOLUM E] IN SERUM OR PLASMA 27 mg/dL 40 - 60 05/31 L Specimen Type: SERUM No comment entered. Ordering Provider: DENILSON KRISHNAMURTHY Report Released Date/Time: Jun 09, 2022 09:39 AM Reporting Lab: [facility] [place] [facility] [address] [facility] [address] Performing Lab: [facility] [place] [address] [address] [facility] [place] [facility] BASIC METABOLIC PANEL (fasting) UREA NITROGEN [MASS/VOLUM E] IN SERUM OR PLASMA 14 mg/dL 7 - 25 05/31 Specimen Type: SERUM No comment entered. Ordering Provider: DENILSON KRISHNAMURTHY Report Released Date/Time: Jun 09, 2022 09:39 AM Reporting Lab: [facility] [place] [facility] [address] [facility] [address] Performing Lab: [facility] [place] [address] [address] [facility] [place] [facility] BASIC METABOLIC PANEL (fasting) GLUCOSE [MASS/VOLUM E] IN SERUM OR PLASMA 110 mg/dL 65 - 100 05/31 H Specimen Type: SERUM No comment entered. Ordering Provider: DENILSON KRISHNAMURTHY Report Released Date/Time: Jun 09, 2022 09:39 AM Reporting Lab: [facility] [address] [facility] [address] Performing Lab: [facility]ITAL[facility] [address] [facility] [address] [facility] BASIC METABOLIC PANEL (fasting) SODIUM [MOLES/VOLU ME] IN SERUM OR PLASMA 139 mmol/L 135 - 145 05/31 Specimen Type: SERUM No comment entered. Ordering Provider: DENILSON KRISHNAMURTHY Report Released Date/Time: Jun 09, 2022 09:39 AM Reporting Lab: [facility] [address] [address] Performing Lab: [facility]PITALRUAB [facility] WESTN [facility]ENTERUSE[address] [address] [facility] BASIC METABOLIC PANEL (fasting) POTASSIUM [MOLES/VOLU ME] IN SERUM OR PLASMA 3.8 mmol/L 3.5 - 5.0 05/31 Specimen Type: SERUM No comment entered. Ordering Provider: DENILSON KRISHNAMURTHY Report Released Date/Time: Jun 09, 2022 09:39 AM Reporting Lab: [facility]ITALRST[facility]TRN [facility]ENTERUSE[address] [address] Performing Lab: [facility]ITALRL TRN [facility]ENTERUSE[address] [address] [facility]ITALRU[facility]STN [facility] BASIC METABOLIC PANEL (fasting) CHLORIDE [MOLES/VOLU ME] IN SERUM OR PLASMA 109 mmol/L 100 - 110 05/31 Specimen Type: SERUM No comment entered. Ordering Provider: DENILSON KRISHNAMURTHY Report Released Date/Time: Jun 09, 2022 09:39 AM Reporting Lab: [facility]ALTHCARETRN [facility]ENTERUSE[address] [address] Performing Lab: [facility]PITALRST. [facility]INC[facility]TRN [facility] [address] [facility] [address] [facility]N [facility]ENTERUSE [facility] BASIC METABOLIC PANEL (fasting) CARBON DIOXIDE, TOTAL [MOLES/VOLU ME] IN SERUM OR PLASMA 22 meq/L 20 - 30 05/31 Specimen Type: SERUM No comment entered. Ordering Provider: DENILSON KRISHNAMURTHY Report Released Date/Time: Jun 09, 2022 09:39 AM Reporting Lab: [facility]PITALRST[facility]TRN [facility] [address] [facility] [address] Performing Lab: [facility]OSPITALRST. VINCENT'[facility] EASTTRN [facility] CENTERUSESAMARITAN [facility]OSP[facility] [address] [facility] [address] [facility] BASIC METABOLIC PANEL (fasting) CREATININE [MASS/VOLUM E] IN SERUM OR PLASMA 1.37 mg/dL 0.50 - 1.40 05/31 Specimen Type: SERUM No comment entered. Ordering Provider: DENILSON KRISHNAMURTHY Report Released Date/Time: Jun 09, 2022 09:39 AM Reporting Lab: [facility]OSPITALRST[facility] VINCENT'[facility] EASTTRN [facility] CENTERUSES[facility] [address] [facility] [address] Performing Lab: [facility]ITALRST[facility]INCENT'[facility] EASTTRN [facility] CENTERUSESAMARITAN [facility] [address] [facility] [address] [facility]N [facility]ENTERUSE [facility] BASIC METABOLIC PANEL (fasting) GLOMERULAR FILTRATION RATE/1.73 SQ M.PREDICTED [VOLUME RATE/AREA] IN SERUM, PLASMA OR BLOOD BY CREATININE- BASED FORMULA (CKD-EPI 2020) 58 mL/min 60 05/31 L Specimen Type: SERUM No comment entered. Ordering Provider: DENILSON KRISHNAMURTHY Report Released Date/Time: Jun 09, 2022 09:39 AM Reporting Lab: [facility]PITALRST[facility] VINCENT'[facility] EASTTRN [facility] CENTERUSESAM[facility]IT[facility] [address] [facility] [address] Performing Lab: [facility]OSPITALRUAB MEDICAL WESTN [facility] CENTERUSE[address] [address] [facility] LIVER FUNCTION PROTEIN [MASS/VOLUM E] IN SERUM OR PLASMA 6.7 g/dL 6.0 - 8.3 05/31 Specimen Type: SERUM No comment entered. Ordering Provider: DENILSON KRISHNAMURTHY Report Released Date/Time: Jun 09, 2022 09:39 AM Reporting Lab: [facility] [place] [facility] [address] [facility] [address] Performing Lab: [facility] [place] [facility] [address] [facility] [address] [facility] [place] [facility] LIVER FUNCTION ALBUMIN [MASS/VOLUM E] IN SERUM OR PLASMA 4.0 g/dL 3.5 - 5.0 05/31 Specimen Type: SERUM No comment entered. Ordering Provider: DENILSON KRISHNAMURTHY Report Released Date/Time: Jun 09, 2022 09:39 AM Reporting Lab: [facility] [place] [facility] [address] [facility] [address] Performing Lab: [facility] [place] [facility] [address] [facility] [address] [facility] [place] [place] [facility] LIVER FUNCTION ALKALINE PHOSPHATASE [ENZYMATIC ACTIVITY/VO LUME] IN SERUM OR PLASMA 118 U/L 40 - 150 05/31 Specimen Type: SERUM No comment entered. Ordering Provider: DENILSON KRISHNAMURTHY Report Released Date/Time: Jun 09, 2022 09:39 AM Reporting Lab: [facility] [place] [facility] [address] [facility] [address] Performing Lab: [facility] [place] [facility] [address] [facility] [address] [facility] [place] [facility] LIVER FUNCTION ASPARTATE AMINOTRANSF ERASE [ENZYMATIC ACTIVITY/VO LUME] IN SERUM OR PLASMA 17 U/L 5 - 34 05/31 Specimen Type: SERUM No comment entered. Ordering Provider: DENILSON KRISHNAMURTHY Report Released Date/Time: Jun 09, 2022 09:39 AM Reporting Lab: [facility] [place] [facility] [address] [facility] [address] Performing Lab: [facility] [place] [facility] [address] [facility] [address] [facility] [place] [facility] LIVER FUNCTION ALANINE AMINOTRANSF ERASE [ENZYMATIC ACTIVITY/VO LUME] IN SERUM OR PLASMA 16 U/L 05/31 Specimen Type: SERUM No comment entered. Ordering Provider: DENILSON KRISHNAMURTHY Report Released Date/Time: Jun 09, 2022 09:39 AM Reporting Lab: [facility] TRN [address] [address] Performing Lab: [facility] [address] [address] [facility] LIVER FUNCTION BILIRUBIN.T OTAL [MASS/VOLUM E] IN SERUM OR PLASMA 1.2 mg/dL 0.2 - 1.2 05/31 Specimen Type: SERUM No comment entered. Ordering Provider: DENILSON KRISHNAMURTHY Report Released Date/Time: Jun 09, 2022 09:39 AM Reporting Lab: [facility] TR[facility] [address] [address] Performing Lab: [facility] TRN [address] [address] [facility] LIVER FUNCTION BILIRUBIN.D IRECT [MASS/VOLUM E] IN SERUM OR PLASMA 0.4 mg/dL 0 - 0.5 05/31 Specimen Type: SERUM No comment entered. Ordering Provider: DENILSON KRISHNAMURTHY Report Released Date/Time: Jun 09, 2022 09:39 AM Reporting Lab: [facility] TR[facility] [address] [address] Performing Lab: [facility] CN[facility] [address] [address] [facility] HEMOGLOBI N A1C PANEL HEMOGLOBIN A1C/HEMOGLO [...] AM Reporting Lab: [facility] [place] [facility] [address] [facility] [address] Performing Lab: [facility] [place] [facility] [address] [facility] [address] [facility] [place] [facility] TSH THYROTROPIN [UNITS/VOLU ME] IN SERUM OR PLASMA 1.84 u[IU]/ mL 0.35 - 5.00 05/31 Specimen Type: SERUM No comment entered. Ordering Provider: DENILSON KRISHNAMURTHY Report Released Date/Time: Jun 09, 2022 09:39 AM Reporting Lab: [facility] [place] [facility] [address] [facility] [address] Performing Lab: [facility] [place] [facility] [address] [facility] [address] [facility] [place] [facility] VITAMIN D (25-OH) 25-HYDROXYV ITAMIN D3 [MASS/VOLUM E] IN SERUM OR PLASMA 50 ng/mL 20 - 50 05/31 Specimen Type: SERUM No comment entered. Ordering Provider: DENILSON KRISHNAMURTHY Report Released Date/Time: Jun 09, 2022 09:39 AM Reporting Lab: [facility] [place] [facility] [address] [facility] [address] Performing Lab: [facility] [place] [facility] [address] [facility] [address] [facility] [place] [place] [facility] PSA PROSTATE SPECIFIC AG [MASS/VOLUM E] IN SERUM OR PLASMA 2.05 ng/mL 0.00 - 4.00 05/31 Specimen Type: SERUM No comment entered. Ordering Provider: DENILSON KRISHNAMURTHY Report Released Date/Time: Jun 09, 2022 09:39 AM Reporting Lab: [facility] [place] [facility] [address] [facility] [address] Performing Lab: [facility] [place] [facility] [address] [facility] [address] [facility] [place] [facility] CBC AND DIFF (AUTO) LEUKOCYTES [#/VOLUME] IN BLOOD BY AUTOMATED COUNT 7.59 10*3/u L 4.50 - 11.00 05/31 Specimen Type: BLOOD No comment entered. Ordering Provider: DENILSON KRISHNAMURTHY Report Released Date/Time: Jun 09, 2022 09:39 AM Reporting Lab: [facility] [place] [address] [address] Performing Lab: [facility] [place] [facility] [address] [facility] [address] [facility] [place] [place] [facility] CBC AND DIFF (AUTO) ERYTHROCYTE S [#/VOLUME] IN BLOOD BY AUTOMATED COUNT 4.73 10*6/u L 4.23 - 5.66 05/31 Specimen Type: BLOOD No comment entered. Ordering Provider: DENILSON KRISHNAMURTHY Report Released Date/Time: Jun 09, 2022 09:39 AM Reporting Lab: [facility] [place] [address] [address] Performing Lab: [facility] [place] [address] [address] [facility]ITALRUAB [facility]STN [place] [facility] CBC AND DIFF (AUTO) HEMOGLOBIN [MASS/VOLUM E] IN BLOOD 14.8 g/dL 12.8 - 17 05/31 Specimen Type: BLOOD No comment entered. Ordering Provider: DENILSON KRISHNAMURTHY Report Released Date/Time: Jun 09, 2022 09:39 AM Reporting Lab: [facility] [place] [address] [address] Performing Lab: [facility] [place] [address] [address] [facility]ITALRUAB [facility]STN [place] [facility] CBC AND DIFF (AUTO) HEMATOCRIT [VOLUME FRACTION] OF BLOOD BY AUTOMATED COUNT 43.1 39.2 - 50.4 05/31 Specimen Type: BLOOD No comment entered. Ordering Provider: DENILSON KRISHNAMURTHY Report Released Date/Time: Jun 09, 2022 09:39 AM Reporting Lab: [facility] [place] [address] [address] Performing Lab: [facility] [place] [facility] [address] [facility] [address] [facility] [place] [place] [facility] CBC AND DIFF (AUTO) MCV [ENTITIC VOLUME] BY AUTOMATED COUNT 91.1 fL 82 - 99 05/31 Specimen Type: BLOOD No comment entered. Ordering Provider: DENILSON KRISHNAMURTHY Report Released Date/Time: Jun 09, 2022 09:39 AM Reporting Lab: [facility] [place] [facility] [address] [facility] [address] Performing Lab: [facility] [place] [facility] [address] [facility] [address] [facility] [place] [place] [facility] CBC AND DIFF (AUTO) MCHC [MASS/VOLUM E] BY AUTOMATED COUNT 34.3 g/dL 30.8 - 35.1 05/31 Specimen Type: BLOOD No comment entered. Ordering Provider: DENILSON KRISHNAMURTHY Report Released Date/Time: Jun 09, 2022 09:39 AM Reporting Lab: [facility] [place] [facility] [address] [facility] [address] Performing Lab: [facility] [place] [facility] [address] [facility] [address] [facility] [place] [facility] CBC AND DIFF (AUTO) PLATELETS [#/VOLUME] IN BLOOD BY AUTOMATED COUNT 174 10*3/u L 140 - 360 05/31 Specimen Type: BLOOD No comment entered. Ordering Provider: DENILSON KRISHNAMURTHY Report Released Date/Time: Jun 09, 2022 09:39 AM Reporting Lab: [facility] [place] [facility] [address] [facility] [address] Performing Lab: [facility] [place] [facility] [address] [facility] [address] [facility] [place] [facility] CBC AND DIFF (AUTO) ERYTHROCYTE DISTRIBUTIO N WIDTH [RATIO] BY AUTOMATED COUNT 13.2 12.0 - 16.0 05/31 Specimen Type: BLOOD No comment entered. Ordering Provider: DENILSON KRISHNAMURTHY Report Released Date/Time: Jun 09, 2022 09:39 AM Reporting Lab: [facility] [place] [facility] [address] [facility] [address] Performing Lab: [facility] [place] [facility] [address] [facility] [address] [facility] [facility] CBC AND DIFF (AUTO) MONOCYTES [#/VOLUME] IN BLOOD BY AUTOMATED COUNT 0.57 10*3/u L 0.30 - 1.10 05/31 Specimen Type: BLOOD No comment entered. Ordering Provider: DENILSON KRISHNAMURTHY Report Released Date/Time: Jun 09, 2022 09:39 AM Reporting Lab: [facility] [address] [facility] [address] Performing Lab: [facility] [address] [facility] [address] [facility] CBC AND DIFF (AUTO) MCH [ENTITIC MASS] BY AUTOMATED COUNT 31.3 pg 26.2 - 32.6 05/31 Specimen Type: BLOOD No comment entered. Ordering Provider: DENILSON KRISHNAMURTHY Report Released Date/Time: Jun 09, 2022 09:39 AM Reporting Lab: [facility] [address] [facility] [address] Performing Lab: [facility] [address] [facility] [address] [facility] CBC AND DIFF (AUTO) NEUTROPHILS /100 LEUKOCYTES IN BLOOD BY AUTOMATED COUNT 62.5 43.7 - 75.8 05/31 Specimen Type: BLOOD No comment entered. Ordering Provider: DENILSON KRISHNAMURTHY Report Released Date/Time: Jun 09, 2022 09:39 AM Reporting Lab: [facility] [facility] [address] [facility] [address] Performing Lab: [facility] [facility] [address] [facility] [address] [facility] CBC AND DIFF (AUTO) LYMPHOCYTES /100 LEUKOCYTES IN BLOOD BY AUTOMATED COUNT 26.4 14.0 - 42.3 05/31 Specimen Type: BLOOD No comment entered. Ordering Provider: DENILSON KRISHNAMURTHY Report Released Date/Time: Jun 09, 2022 09:39 AM Reporting Lab: [facility] [address] [facility] [address] Performing Lab: [facility] [address] [facility] [address] [facility] CBC AND DIFF (AUTO) MONOCYTES/1 00 LEUKOCYTES IN BLOOD BY AUTOMATED COUNT 7.5 5.1 - 13.7 05/31 Specimen Type: BLOOD No comment entered. Ordering Provider: DENILSON KRISHNAMURTHY Report Released Date/Time: Jun 09, 2022 09:39 AM Reporting Lab: [facility] [address] [facility] [address] Performing Lab: [facility] [address] [facility] [address] [facility] CBC AND DIFF (AUTO) EOSINOPHILS /100 LEUKOCYTES IN BLOOD BY AUTOMATED COUNT 2.4 0.4 - 6.8 05/31 Specimen Type: BLOOD No comment entered. Ordering Provider: DENILSON KRISHNAMURTHY Report Released Date/Time: Jun 09, 2022 09:39 AM Reporting Lab: [facility] [address] [facility] [address] Performing Lab: [facility] [address] [facility] [address] [facility] CBC AND DIFF (AUTO) BASOPHILS/1 00 LEUKOCYTES IN BLOOD BY AUTOMATED COUNT 0.8 0.1 - 2.0 05/31 Specimen Type: BLOOD No comment entered. Ordering Provider: DENILSON KRISHNAMURTHY Report Released Date/Time: Jun 09, 2022 09:39 AM Reporting Lab: [facility] [address] [facility] [address] Performing Lab: [facility] [address] [facility] [address] [facility] CBC AND DIFF (AUTO) NEUTROPHILS [#/VOLUME] IN BLOOD BY AUTOMATED COUNT 4.75 10*3/u L 2.20 - 7.60 05/31 Specimen Type: BLOOD No comment entered. Ordering Provider: DENILSON KRISHNAMURTHY Report Released Date/Time: Jun 09, 2022 09:39 AM Reporting Lab: [facility] [address] [address] Performing Lab: [facility] [facility] [address] [facility] [address] [facility] CBC AND DIFF (AUTO) LYMPHOCYTES [#/VOLUME] IN BLOOD BY AUTOMATED COUNT 2.00 10*3/u L 1.00 - 3.20 05/31 Specimen Type: BLOOD No comment entered. Ordering Provider: DENILSON KRISHNAMURTHY Report Released Date/Time: Jun 09, 2022 09:39 AM Reporting Lab: [facility] [address] [address] Performing Lab: [facility] [address] [address] [facility] CBC AND DIFF (AUTO) EOSINOPHILS [#/VOLUME] IN BLOOD BY AUTOMATED COUNT 0.18 10*3/u L 0.03 - 0.44 05/31 Specimen Type: BLOOD No comment entered. Ordering Provider: DENILSON KRISHNAMURTHY Report Released Date/Time: Jun 09, 2022 09:39 AM Reporting Lab: [facility] [address] [address] Performing Lab: [facility] [address] [address] [facility] CBC AND DIFF (AUTO) BASOPHILS [#/VOLUME] IN BLOOD BY AUTOMATED COUNT 0.06 10*3/u L 0.01 - 0.13 05/31 Specimen Type: BLOOD No comment entered. Ordering Provider: DENILSON KRISHNAMURTHY Report Released Date/Time: Jun 09, 2022 09:39 AM Reporting Lab: [facility] [address] [facility] [address] Performing Lab: [facility] [place] [facility] [address] [facility] [address] [facility] CBC AND DIFF (AUTO) IMMATURE GRANULOCYTE S/100 LEUKOCYTES IN BLOOD BY AUTOMATED COUNT 0.4 0.0 - 0.7 05/31 Specimen Type: BLOOD No comment entered. Ordering Provider: DENILSON KRISHNAMURTHY Report Released Date/Time: Jun 09, 2022 09:39 AM Reporting Lab: [facility] [place] [facility] [address] [facility] [address] Performing Lab: [facility] [place] [facility] [address] [facility] [address] [facility] CBC AND DIFF (AUTO) IMMATURE GRANULOCYTE S [#/VOLUME] IN BLOOD 0.03 10*3/u L 0.00 - 0.06 05/31 Specimen Type: BLOOD No comment entered. Ordering Provider: DENILSON KRISHNAMURTHY Report Released Date/Time: Jun 09, 2022 09:39 AM Reporting Lab: [facility] [place] [facility] [address] [facility] [address] Performing Lab: [facility] [place] [facility] [address] [facility] [address] [facility] Vital Signs Combined list of inpatient and outpatient Vital Signs from Department of Defense and Veterans Affairs, ranging from 12 months to all on record, depending upon the facility. Vital Sign Value Date Comments Source SYSTOLIC BLOOD PRESSURE 128 12/06/19 24 08:52:31 [facility] DIASTOLIC BLOOD PRESSURE 83 024 08:52:31 [facility] PULSE OXIMETRY 97 12/06/2023 08:52:31 [facility] WEIGHT 170 12/06/2023 08:52:31 [facility] BMI 26kg/m2 12/06/2023 08:52:31 [facility] [...] Disposition Source [place] THERAPEUTI C EXERCISES [id number] Diagnos is: ICD-10- CM M54.9 Dorsalg ia, unspeci fied
GREGORY MILLER 01/17 [place] [facility] FOOT LONGITUD/M ETATARSAL SUP [id number] Diagnos is: ICD-10- CM M72.2 Plantar fascial fibroma tosis<b r/> TATA PARRA ES F 01/27 [facility] [place] Outpatient Encounter [id number] 02/01 [place] THERAPEUTI [place] EXERCISES [id number] Diagnos is: ICD-10- CM M54.9 Dorsalg ia, unspeci fied
GREGORY MILLER 02/14 [place] THERAPEUT[place] EXERCISES [id number] Diagnos is: ICD-10- CM M54.9 Dorsalg ia, unspeci fied
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
GREGORY MILLER 03/07 [facility] SELF CARE MNGMENT TRAINING [id number] Diagnos is: ICD-10- CM M54.9 Dorsalg ia, unspeci fied
GREGORY MILLER 03/21 [place] [facility] En[facility] [id number] 05/02 [facility] OFFICE O/P EST LOW 20-29 MIN [id number] Diagnos is: ICD-10- CM 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
TATA PARRA ES F 05/11 [place] [facility] [id number] 05/19 [facility] En[facility] [id number] TATA PARRA ES F 05/20 [facility] Encounter [id number] TATA PARRA ES F 05/23 [facility] Encounter [id number] 06/07 [facility] [place] OFFICE O/P EST MOD 30-39 MIN [id number] Diagnos is: ICD-10- CM Z00.01 Encount er for general adult medical exam w abnorma l finding s
Sandro KRISHNAMURTHY KENYETTASHAYNEWILI 06/07 [facility] [place] [facility] Encounter [id number] 06/08 [facility] Encounter [id number] 06/14 [facility] Encounter [id number] TATA PARRA F 06/24 [facility] Out[facility] Encounter [id number] 06/29 [facility] DIABETIC CUSTOM MOLDED SHOE [id number] Diagnos is: ICD-10- CM M72.2 Plantar fascial fibroma tosis<b r/> CHRISSY ASHFORD 07/04 [facility] [place] [facility] Encounter [id number] 07/22 [facility] Encounter [id number] 07/27 [facility] Encounter [id number] 07/30 [facility] Encounter [id number] 07/30 [facility] [place] [place] OFFICE O/P EST LOW 20 MIN [id number] Diagnos is: ICD-10- CM 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
TATA PARRA ES F 08[facility] EST LOW 20 MIN [id number] Diagnos is: ICD-10- CM 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
TATA PARRA ES F 10/25 [facility] LD OFFICE O/P EST MOD 30 MIN [id number] Diagnos is: ICD-10- CM Z00.00 Encntr for general adult medical exam w/o abnorma l finding s
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
AIDATATA ES F 06/20 [facility] [place] Outpatient Encounter [id number] 07/04 [place] [facility] [place] [facility] Social History Combined list of available smoking, tobacco, and other social history from Department of Defense and Veterans Affairs facilities. Social History Type Response Date Comment [facility] e Tobacco smoking status NHIS VA-TOBACCO FORMER USER 06/07/2023 [facility] History of tobacco use VA-TOBACCO QUIT 15 YRS OR MORE 06/07/2023 [facility] History of tobacco use VA-TOBACCO FORMER USER 06/09/2022 [facility] History of tobacco use VA-TOBACCO QUIT 15 YRS OR MORE 06/03/2021 [facility] History of tobacco use VA-TOBACCO FORMER USER 03/12/2020 [facility] History of tobacco use VA-TOBACCO FORMER USER 01/03/2018 [facility] History of tobacco use QUIT TOBACCO USE > 7 YEARS AGO 07/05/2017 reports quitting in 1995 [facility] Plan of Care List of future care activities from Department of Veterans Affairs facilities. Additional future care activities may be listed in the Assessment and Plan section. Date/Time Care Activity Care Activity Detail Facili ty 10/17/2024 AMBULATORY - MEDICINE AMBULATORY - MEDICI NE [facility] 12/05/2024 AMBULATORY - MEDICINE [facility] 07/07/2024 Consult Order COMMUNITY CARE-I NFECTIOUS DISEASE Cons Real Estate Lawyer's Choice [facility]
--- OUTSIDE RECORDS SUMMARY | 2024-07-11 13:16 | XMS_ITS | Encounter Summary ---
Author Name [facility] [place] Organization [facility] [place] [facility] [place] Address [address] [place] [id number] Care Team Providers Care Family Centered Specialist Name Role Phone IRAM KRISHNAMURTHY Primary Care [...] Tran's Name Patient's Relationship to Policy Tran [facility]IGH DEDUCTIBL E HEALTH PLAN [employer] Apr 24, 2021 PPO [id number] [facility] PREFERRED PROVIDER ORGANIZAT ION (PPO) HNE Apr 24, 2022 [id number] [facility] PREFERRED PROVIDER ORGANIZAT ION (PPO) [place] Apr 24, 2022 [id number] [facility] HIGH DEDUCTIBL E HEALTH PLAN W/HEALTH REIMBURSE MENT ARRANGEME NT [facility] AND HDHP HRA Apr 24, 2022 [id number] [facility] HIGH DEDUCTIBL E HEALTH PLAN [place] [facility] Apr 24, 2020 [id number] KIRBY DAMON PATIENT [facility] PREFERRED PROVIDER ORGANIZAT ION (PPO) [facility] ACTIV E EMPLO YEES Jul 25, 2016 [id number] JERRY [facility] HIGH DEDUCTIBL E HEALTH PLAN [place] [facility] Apr 24, 2016 [id number] KIRBY DAMON PETER PATIENT [facility] PREFERRED PROVIDER ORGANIZAT ION (PPO) [place] Apr 24, 2016 [id number] KIRBY DAMON PETER PATIENT MEDMETRICS PRESCRIPT ION [facility] Oct 30, 2019 [facility] [id number] NELSONIKRBY GREEN PATIENT [facility] [place] [facility] Apr 24, 2020 [id number] NELSONKIRBY GREEN PATIENT [facility] [place] [facility] Apr 24, 2016 [id number] [phone] KIRBY DAMON PETER PATIENT [facility] RX PRESCRIPT ION [address] PILGR IM [facility] Apr 24, 2021 N/A [id number] NELSONKIRBY PATIENT [facility] MENTAL HEALTH [facility] Apr 24, 2021 [id number] KIRBY DAMON PETER PATIENT [facility] RX PRESCRIPT ION HEALT H NEW [facility] HRA Oct 30, 2019 [facility] [id number] [id number] NELSONKIRBY GREEN PATIENT [facility] RX PRESCRIPT ION HEALT H NEW [facility] HRA Oct 30, 2019 [facility] [id number] KIRBY DAMON PETER PATIENT [facility] RX PRESCRIPT ION HEALT H NEW [facility] HRA Oct 30, 2019 [facility] [id number] NELSONKIRBY GREEN PATIENT [facility] RX PRESCRIPT ION HEALT H [facility] [facility] Apr 24, 2016 [facility] [id number] [phone] KIRBY DAMON PATIENT Selected Encounter This section includes the information on record at OR for the Encounter. Date/Time Encounter Type Encounter Description Reason Pro vider Source Jul 27, 2023 01:53 PM Outpatient Encounter PRIMARY CARE/MEDICINE IHE Encounter Template Text not used by OR Plan of Treatment: Future Appointments (+ 6 months) and Future Tests (+/- 45 days) The Plan of Treatment section includes future care activities for the patient from all [place] treatmentfacilities. This section includes future appointments and future orders which are active, pending or scheduled. Future Appointments This section includes appointments that were scheduled to occur 6 months from the date of the Encounter, up to a maximum of 20 appointments. The data comes from all [place] treatment facilities. Appointment Date/Time Appointment Type Appointme nt Facility Name Aug 03, 2023 10:00 AM AM[facility]ATORY [facility] MEDICINE [facility] Oct 26, 2023 09:30 AM AMBULATORY - MEDICINE [facility] December 06, 2023 08:30 AM [facility] Jan 18, 2024 09:30 AM [facility] - MEDIC[facility] Encounter Notes: All associated encounter notes [...] Please request colonoscopy and pathology results from [facility] /stef/ EVELIN RAMOS,RN-BC REGISTERED NURSE (RN) Signed: 07/27/2023 13:54 Receipt Acknowledged By: 07/27/2023 14:17 /katlin CASTRO 07/27/2023 ADDENDUM STATUS: COMPLETED Ict Security Specialist requested colonoscopy & pathology reports from [facility] GI. /stef/ ULYSSES CASTRO Signed: 07/27/2023 14:17 FORREST ESQUIVEL
--- OUTSIDE RECORDS SUMMARY | 2024-07-11 13:16 | XMS_ITS | Encounter Summary ---
Author Name [facility] [place] Address [address] [place] [address] Care Team Providers Care Boiler Inspector Name Role Phone IRMA KRISHNAMURTHY Primary Care Provider Unava ilable Insurance [...] Relationship to Policy Tran [facility] HIGH DEDUCTIBL E HEALTH PLAN [employer] HDHP Apr 24, 2021 PPO [id number] KIRBY DAMON [facility] PREFERRED PROVIDER ORGANIZAT ION (PPO) HNE Apr 24, 2022 [id number] KIRBY DAMON [facility] HIGH DEDUCTIBL E HEALTH PLAN W/HEALTH REIMBURSE MENT ARRANGEME NT KRING LE AND HDHP HRA Apr 24, 2022 [id number] KIRBY DAMON [facility] PREFERRED PROVIDER ORGANIZAT ION (PPO) [place] Apr 24, 2022 [id number] KIRBY DAMON [facility] HIGH DEDUCTIBL E HEALTH PLAN KRING LE CANDL E HDHP Apr 24, 2020 [id number] KIRBY DAMON [facility] PREFERRED PROVIDER ORGANIZAT ION (PPO) [facility] EMPLO SABIRNA Jul 25, 2016 [id number] ALMAZ DAMON,JERRY [facility] PREFERRED PROVIDER ORGANIZAT ION (PPO) KRING LE [place]ANDL E [place] Apr 24, 2016 [id number] NELSONKIRBY GREEN PATIENT [facility] HIGH DEDUCTIBL E HEALTH PLAN KRING LE CANDL E [facility] Apr 24, 2016 [id number] NELSONKIRBY PATIENT MEDMETRICS PRESCRIPT ION [facility] Oct 30, 2019 [facility] [id number] NELSONKIRBY PATIENT [facility] INSURANCE KRING LE CANDL E [facility] Apr 24, 2020 [id number] NELSONKIRBY PATIENT [facility] INSURANCE KRING LE CANDL E [facility] Apr 24, 2016 [id number] 003-[id number] [id number] NELSONKIRBY PATIENT [employer] RX PRESCRIPT ION [address] PILGR IM [facility] Apr 24, 2021 N/A [id number] NELSONKIRBY PATIENT [facility] RX MENTAL HEALTH [facility] Apr 24, 2021 [id number] NELSONKIRBY PATIENT [facility] RX PRESCRIPT ION [facility]ALT [facility] Oct 30, 2019 [facility] [id number] NELSONKIRBY GREEN PATIENT OPTUM RX PRESCRIPT ION HEALT H NEW [facility] HRA Oct 30, 2019 [facility] [id number] NELSNOKIRBY GREEN PATIENT OPTUM RX PRESCRIPT ION HEALT H NEW [facility] HRA Oct 30, 2019 [facility] [id number] NELSONKIRBY PATIENT OPTUM RX PRESCRIPT ION HEALT H [place] [facility] Apr 24, 2016 [facility] [id number] [phone] NELSONKIRBY PATIENT Selected Encounter This section includes the information on record at [place] for the Encounter. Date/Time Encounter Type Encounter Description Reason Provider Source Oct 26, 2023 09:30 AM OFFICE O/P EST LOW 20 MIN PODIATRY ICD-10-CM L60.3 Nail dystrophy VADIM PARRA [facility] Encounter Template Text not used by [place] Assessments - Encounter Diagnoses This section includes the primary and secondary diagnoses documented for the Encounter. Date/Time Primary/Secondary Diagnosis Diagnosis Name Provider Source Oct 26, 2023 09:50 AM PRIMARY Nail dystrophy VADIM APRRA [facility] Oct 26, 2023 09:50 AM SECONDARY Pain in left toe(s) AIDAVADIM Earnestine [facility] Oct 26, 2023 09:50 AM SECONDARY Pain in right toe(s) VADIM PARRA Plan of Treatment: Future Appointments (+ 6 months) and Future Tests (+/- 45 days) The Plan of Treatment section includes future care activities for the patient from all [place] treatmentfacilities. This section includes future appointments and future orders which are active, pending or scheduled. Future Appointments This section includes appointments that were scheduled to occur 6 months from the date of the Encounter, up to a maximum of 20 appointments. The data comes from all [place] treatment facilities. Appointment Date/Time Appointment Type Appointme nt Facility Name December 06, 2023 08:30 AM [facility]UL[facility] Jan 18, 2024 09:30 AM AMBULATORY - MEDICINE [facility] Social History: Smoking Status (Most current) and Tobacco Use (All prior to encounter date) This section includes the most current, and the historical, smoking and tobacco- related health factors from the [place] facility where the Encounter took place. Current Smoking Status This section includes the most current smoking, or tobacco-related health factor, from the [place] facility where the Encounter took place. Date/Time Current Smoking Status Comment Facil ity Jun 07, 2023 09:30 AM PA-TOBACCO QUIT 15 YRS OR MORE [facility] Tobacco Use History This section includes a history of the smoking, or tobacco-related health factors, that were collected on or before the date of the Encounter. The data comes from the [place] facility where the Encounter took place. Date/Time Smoking Status/Tobacco Use Comment F acility Jun 07, 2023 09:30 AM VA-TOBACCO QUIT 15 YRS OR MORE [facility] Jun 09, 2022 09:00 AM PA-TOBACCO FORMER USER [facility] Jun 09, 2022 09:00 AM PA-TOBACCO QUIT 5 TO < 15 YRS [facility] Jun 03, 2021 12:30 PM VA-TOBACCO FORMER USER [facility] Jun 03, 2021 12:30 PM VA-TOBACCO QUIT 15 YRS OR MORE [facility] Mar 12, 2020 10:30 AM VA-TOBACCO FORMER USER [facility] Mar 12, 2020 10:30 AM VA-TOBACCO QUIT 15 YRS OR MORE [facility] Jan 03, 2018 10:14 AM VA-TOBACCO FORMER USER [facility] Jan 03, 2018 10:14 AM VA-TOBACCO QUIT 15 YRS OR MORE [facility] Jul 05, 2017 10:47 AM QUIT TOBACCO USE > 7 YEARS AGO reports quitting in 1995 [facility] Encounter Notes: All associated encounter notes This section contains the clinical notes associated to the Encounter. Date/Time Encounter Note(s) Provider Source Oct 26, 2023 07:31 AM PODIATRY NOTE: LOCAL TITLE: PODIATRY NOTE STANDARD TITLE: PODIATRY NOTE DATE OF NOTE: OCT 26, 2023@07:31 ENTRY DATE: OCT 26, 2023@07:31:13 AUTHOR: VADIM PARRA COSIGNER: URGENCY: STATUS: COMPLETED NOTE: HAS RECEIVED BOTH COVID VACCINE DOSES AT [facility] LAST SEEN FOR TREATMENT: 08/03/2023 S: Pt. [...] present physical-medical status. Protective sensation utilizing a [place] lOg monofilament is 10/10 bilateral. BIOMECHANICAL: Exam [...] this VA (local) and dispensed from another [place] or [facility]D facility (remote) as well as [...] list may not be complete. Please check Funambol. Allergies/ADRs (Tool #5) FACILITY ALLERGY/ADR -------- No Remote Allergy/ADR Data available for this patient [place] [facility] SULFACETAMIDE/SULFUR Med Recon NoGlossary (Tool #1) INCLUDED IN THIS LIST: Alphabetical list of active outpatient prescriptions dispensed from this VA (local) and dispensed from another [place] or [facility] facility (remote) as well as inpatient orders (local pending and active), local clinic medications, locally documented non-VA medications, and local prescriptions that have or been discontinued in the past 90 days. Non-VA Meds Last Documented On: Jun 03, 2021 NOTE The display of VA prescriptions dispensed from another [facility] or [facility] facility (remote) is limited to active outpatient prescription entries matched to National Drug File at the originating site and may not include some items such as investigational drugs, compounds, etc. NOT INCLUDED IN THIS LIST: Medications self-entered by the patient into personal health records (i.e. [employer]) are NOT included in this list. Non-VA medications documented outside this [place], remote inpatient orders (regardless of status) and [...] Non-VA provider. SUPPLIES /stef/ VADIM PARRA DPM RN OR LVN Signed: 10/26/2023 09:50 VADIM PARRAFIELD
--- OUTSIDE RECORDS SUMMARY | 2024-07-11 13:16 | XMS_ITS | Encounter Summary ---
Author Name [facility] [place] [facility] [place] Address [address] [place] [address] Care Team Providers Care Cash Application Clerk Name Role Phone IRAM KRISHNAMURTHY Primary Care [...] [employer] HDHP Apr 24, 2021 PPO [id number] KIRBY DAMON [facility] PREFERRED PROVIDER ORGANIZAT ION (PPO) [place] Apr 24, 2022 [id number] KIRBY DAMON [facility] PREFERRED PROVIDER ORGANIZAT ION (PPO) HNE Apr 24, 2022 [id number] KIRBY DAMON [facility] HIGH DEDUCTIBL E HEALTH PLAN W/HEALTH REIMBURSE MENT ARRANGEME NT KRING LE AND HDHP HRA Apr 24, 2022 [id number] KIRBY DAMON [facility] HIGH DEDUCTIBL E HEALTH PLAN KRING CONSUELO CANDL E HDHP Apr 24, 2020 [id number] KIRBY DAMON PATIENT [facility] PREFERRED PROVIDER ORGANIZAT ION (PPO) [facility] ACTIV E EMPLO SABRINA Jul 25, 2016 [id number] ALMAZ DAMON,JERRY [facility] PREFERRED PROVIDER ORGANIZAT ION (PPO) KRING LE [place]ANDL [place] Apr 24, 2016 [id number] KIRBY DAMON [place] PATIENT [facility] HIGH DEDUCTIBL E HEALTH PLAN KRING LE CANDL E [facility] Apr 24, 2016 [id number] KIRBY DAMON PET[place] PATIENT MEDMETRICS PRESCRIPT ION [facility] Oct 30, 2019 [facility] [id number] [phone] [id number] NELSONKIRBY GREEN PATIENT [facility] INSURANCE KRING LE CANDL E [facility] Apr 24, 2020 [id number] NELSONKIRBY GREEN PATIENT [facility] INSURANCE KRING LE CANDL E [facility] Apr 24, 2016 [id number] NELSONKIRBY GREEN PATIENT [employer] RX PRESCRIPT ION [address] PILGR IM [facility] Apr 24, 2021 N/A [id number] NELSONKIRBY PATIENT [facility] RX MENTAL HEALTH [facility] Apr 24, 2021 [id number] KIRBY DAMON PETER PATIENT OPTUM RX PRESCRIPT ION HEALT H [facility] HRA Oct 30, 2019 [facility] [id number] NELSONKIRBY GREEN PATIENT OPTUM RX PRESCRIPT ION HEALT H [facility] HRA Oct 30, 2019 [facility] [id number] KIRBY DAMON PETER PATIENT [facility]UM RX PRESCRIPT ION HEALT H [facility] HRA Oct 30, 2019 [facility] [id number] NELSONKIRBY GREEN PATIENT OPTUM RX PRESCRIPT ION HEALT H [facility] [place] Apr 24, 2016 [facility] [id number] KIRBY DAMON PATIENT Selected Encounter This section includes the information on record at [place] for the Encounter. Date/Time Encounter Type Encounter Description Reason Pro vider Source Jul 30, 2023 02:47 PM Outpatient Encounter PRIMARY CARE/MEDICINE IHE Encounter Template Text not used by [place] Plan of Treatment: Future Appointments (+ 6 months) and Future Tests (+/- 45 days) The Plan of Treatment section includes future care activities for the patient from all [place] treatmentfacilities. This section includes future appointments and future orders which are active, pending or scheduled. Future Appointments This section includes appointments that were scheduled to occur 6 months from the date of the Encounter, up to a maximum of 20 appointments. The data comes from all [place] treatment facilities. Appointment Date/Time Appointment Type Appointme nt Facility Name Aug 03, 2023 10:00 AM AMBULATORY - MEDICINE [facility] Oct 26, 2023 09:30 AM AMBULATORY - MEDICINE [facility] December 06, 2023 08:30 AM AMBULATORY - MEDICINE [place] [facility] [place] [facility] Jan 18, 2024 09:30 AM AMBULATORY [...] JUL 30, 2023. Comments (optional): Due 06/29/2028 [facility] IMPRESSION: I. Colon polyp. 2. Diverticulosis. 3. Internal and external hemorrhoids: PLAN: Ihe results of ihe biopsy will be checked. I would recommend a repeat colonoscopy in 5 years for further screening. He wiH; otherwise, see me on a p.r.n. basis. /stef/ EVELIN RAMOS,RN-BC REGISTERED NURSE (RN) Signed: 07/30/2023 14:49 FORREST ESQUIVEL SOUTHOLD
--- OUTSIDE RECORDS SUMMARY | 2024-07-11 13:16 | XMS_ITS | Encounter Summary ---
Author Name [facility] [place] Address [address] [place] [address] Care Team Providers Care Intelligence Analyst Name Role Phone IRAM KRISHNAMURTHY Primary Care [...] Tran's Name Patient's Relationship to Policy Tran [facility] HIGH DEDUCTIBL E HEALTH PLAN [employer] HDHP Apr 24, 2021 PPO [id number] KIRBY DAMON [facility] PREFERRED PROVIDER ORGANIZAT ION (PPO) HNE Apr 24, 2022 [id number] KIRBY DAMON [facility] PREFERRED PROVIDER ORGANIZAT ION (PPO) [facility] [place] Apr 24, 2022 [id number] KIRBY DAMON [facility] HIGH DEDUCTIBL E HEALTH PLAN W/HEALTH REIMBURSE MENT ARRANGEME NT KRING LE AND HDHP HRA Apr 24, 2022 [id number] KIRBY DAMON [facility] HIGH DEDUCTIBL E HEALTH PLAN KRING LE CANDL E HDHP Apr 24, 2020 [id number] KIRBY DAMON [facility] PREFERRED PROVIDER ORGANIZAT ION (PPO) [facility] EMPLO SHANEES Jul 25, 2016 [id number] JERRY [facility] HIGH DEDUCTIBL E HEALTH PLAN KRING LE CANDL E [facility] Apr 24, 2016 [id number] NELSONKIRBY GREEN PATIENT [facility] PREFERRED PROVIDER ORGANIZAT ION (PPO) KRING LE CANDL E [place] Apr 24, 2016 [id number] NELSONKIRBY GREEN PATIENT MEDMETRICS PRESCRIPT ION [facility] Oct 30, 2019 [facility] [id number] NELSONKIRBY PATIENT [facility] INSURANCE KRING LE CANDL E [facility] Apr 24, 2020 [id number] NELSONKIRBY PATIENT [facility] CLASS INSURANCE KRING LE CANDL E [facility] Apr 24, 2016 [id number] [phone] NELSONKIRBY PATIENT [employer] RX PRESCRIPT ION [address] PILGR IM [facility] Apr 24, 2021 N/A [id number] NELSONKIRBY PATIENT [facility] RX MENTAL HEALTH [facility] Apr 24, 2021 [id number] NELSONKIRBY PATIENT [facility] RX PRESCRIPT ION [facility] Oct 30, 2019 [facility] [id number] NELSONKIRBY GREEN PATIENT OPTUM RX PRESCRIPT ION HEALT H [facility] HRA Oct 30, 2019 [facility] [id number] NELSONKIRBY GREEN PATIENT OPTUM RX PRESCRIPT ION HEALT H [facility] HRA Oct 30, 2019 [facility] [id number] NELSONKIRBY PATIENT OPTUM RX PRESCRIPT ION HEALT H [place] [facility] Apr 24, 2016 [facility] [id number] NELSONKIRBY GREEN PATIENT Selected Encounter This section includes the information on record at [place] for the Encounter. Date/Time Encounter Type Encounter Description Reason Provider Source Aug 03, 2023 10:00 AM OFFICE O/P EST LOW 20 MIN PODIATRY ICD-10-CM L60.3 Nail dystrophy VADIM PARRA [facility] Encounter Template Text not used by [place] Assessments - Encounter Diagnoses This section includes the primary and secondary diagnoses documented for the Encounter. Date/Time Primary/Secondary Diagnosis Diagnosis Name Provider Source Aug 03, 2023 10:27 AM PRIMARY Nail dystrophy VADIM PARRA [place] Aug 03, 2023 10:27 AM SECONDARY Pain in left toe(s) VADIM PARRA [place] Aug 03, 2023 10:27 AM SECONDARY Pain in right toe(s) VADIM PARRA [place] Aug 03, 2023 10:27 AM SECONDARY Plantar fascial fibromatosis VADIM PARRA [place] Plan of Treatment: Future Appointments (+ 6 months) and Future Tests (+/- 45 days) The Plan of Treatment section includes future care activities for the patient from all [place] treatmentfacilities. This section includes future appointments and future orders which are active, pending or scheduled. Future Appointments This section includes appointments that were scheduled to occur 6 months from the date of the Encounter, up to a maximum of 20 appointments. The data comes from all [place] treatment facilities. Appointment Date/Time Appointment Type Appointme nt Facility Name Oct 26, 2023 09:30 AM AMBULATORY - MEDICINE [facility] December 06, 2023 08:30 AM AMBULATORY - MEDICINE [facility] NTRL [facility] Jan 18, 2024 09:30 AM AMBULATORY - MEDICINE [facility] Social History: Smoking Status (Most current) and Tobacco Use (All prior to encounter date) This section includes the most current, and the historical, smoking and tobacco- related health factors from the [place] facility where the Encounter took place. Current Smoking Status This section includes the most current smoking, or tobacco-related health factor, from the [place] facility where the Encounter took place. Date/Time Current Smoking Status Comment Facil ity Jun 07, 2023 09:30 AM VA-TOBACCO FORMER USER [place] Tobacco Use History This section includes a history of the smoking, or tobacco-related health factors, that were collected on or before the date of the Encounter. The data comes from the [place] facility where the Encounter took place. Date/Time Smoking Status/Tobacco Use Comment F acility Jun 07, 2023 09:30 AM CA-TOBACCO QUIT 15 YRS OR MORE [place] Jun 09, 2022 09:00 AM VA-TOBACCO FORMER USER [facility] Jun 09, 2022 09:00 AM VA-TOBACCO QUIT 5 TO < 15 YRS [place] Jun 03, 2021 12:30 PM VA-TOBACCO FORMER USER [facility] Jun 03, 2021 12:30 PM VA-TOBACCO QUIT 15 YRS OR MORE [place] Mar 12, 2020 10:30 AM VA-TOBACCO FORMER USER [facility] Mar 12, 2020 10:30 AM VA-TOBACCO QUIT 15 YRS OR MORE [place] Jan 03, 2018 10:14 AM VA-TOBACCO FORMER USER [facility] Jan 03, 2018 10:14 AM VA-TOBACCO QUIT 15 YRS OR MORE [place] Jul 05, 2017 10:47 AM QUIT TOBACCO USE > 7 YEARS AGO reports quitting in 1995 [place] Encounter Notes: All associated encounter notes This section contains the clinical notes associated to the Encounter. Date/Time Encounter Note(s) Provider Source Aug 03, 2023 07:44 AM PODIATRY NOTE: LOCAL TITLE: PODIATRY NOTE STANDARD TITLE: PODIATRY NOTE DATE OF NOTE: AUG 03, 2023@07:44 ENTRY DATE: AUG 03, 2023@07:44:13 AUTHOR: VADIM PARRA COSIGNER: URGENCY: STATUS: COMPLETED NOTE: HAS RECEIVED BOTH COVID VACCINE DOSES AT [facility] LAST SEEN FOR TREATMENT: 05/11/2023 S: Pt. is a 32 yo alert [facility] who presents for COPNTINUED podiatric [...] present physical-medical status. Protective sensation utilizing a [place] lOg monofilament is 10/10 bilateral. BIOMECHANICAL: Exam is deferred at this time as BEING non-contributory to the cc . patient relates recurrent rt heel pain and i added 1/8 foam to rt heel and he may add some to the arch which may [facility] in the future. A: [...] of active outpatient prescriptions dispensed from this [place] (local) and dispensed from another [place] or [facility] facility (remote) as well [...] Remote Allergy/ADR Data available for this patient [place] [facility] SULFACETAMIDE/SULFUR Med Recon NoGlossary (Tool #1) INCLUDED IN THIS LIST: Alphabetical list of active outpatient prescriptions dispensed from this VA (local) and dispensed from another [place] or [facility] facility (remote) as well as inpatient orders (local pending and active), local clinic medications, locally documented non-VA medications, and local prescriptions that have or been discontinued in the past 90 days. Non-VA Meds Last Documented On: Jun 03, 2021 NOTE The display of VA prescriptions dispensed from another [place] or [facility] facility (remote) is limited to active outpatient prescription entries matched to National Drug File at the originating site and may not include some items such as investigational drugs, compounds, etc. NOT INCLUDED IN THIS LIST: Medications self-entered by the patient into personal health records (i.e. niiu) are NOT included in this list. Non-VA medications documented outside this [place], remote inpatient orders (regardless of status) and [...] FOR PREP FOR BOWELS - LAXATIVE Rx# [id number] Last Released: 06/07/23 Qty/Days Supply: 10/23 Rx [...] THREE TIMES DAILY NEEDED FOR COUGH Rx# [id number] Last Released: Qty/Days Supply: 240/8 Rx Expiration Date: 07/07/23 Refills Remainin Indication: FOR COUGH OUTPT GUAIFENESIN 100MG/5ML (ALC-F/SF) LIQUID (Status = ) TAKE 2 TEASPOONFULS BY MOUTH THREE TIMES DAILY NEEDED FOR COUGH Rx# [id number] Last Released: 06/08/23 Qty/Days Supply: 473/8 Rx [...] THE BOWEL DIRECTED MIX WITH GATORADE Rx# [id number] Last Released: 06/07/23 Qty/Days Supply: 238/1 Rx Expiration Date: 07/07/23 Refills Remainin Indication: FOR EMPTYING OF THE BOWEL SUPPLIES /stef/ VADIM PARRA DPM SOLID PROPELLANT PROCESSOR Signed: 08/03/2023 10:28 VADIM PARRA [place]
--- OUTSIDE RECORDS SUMMARY | 2024-07-11 13:16 | XMS_ITS | Encounter Summary ---
Author Name [place] Address [address] [place] [id number] Care Team Providers Care Area Development Consultant Name Role Phone IRAM KRISHNAMURTHY Primary Care [...] Tran's Name Patient's Relationship to Policy Tran [facility] HIGH DEDUCTIBL E HEALTH PLAN [employer] [facility] Apr 24, 2021 PPO [id number] KIRBY DAMON [facility] PREFERRED PROVIDER ORGANIZAT ION (PPO) [facility] Apr 24, 2022 [id number] KIRBY DAMON [facility] PREFERRED PROVIDER ORGANIZAT ION (PPO) HNE Apr 24, 2022 [id number] KIRBY DAMON [facility] HIGH DEDUCTIBL E HEALTH PLAN W/HEALTH REIMBURSE MENT ARRANGEME NT KRING LE AND HDHP HRA Apr 24, 2022 [id number] KIRBY DAMON [facility] HIGH DEDUCTIBL E HEALTH PLAN KRING CONSUELO CANDL E HDHP Apr 24, 2020 [id number] KIRBY DAMON [facility] PREFERRED PROVIDER ORGANIZAT ION (PPO) [facility] ACTIV E EMPLO SABRINA Jul 25, 2016 [id number] ALMAZ DAMON,JERRY [facility] PREFERRED PROVIDER ORGANIZAT ION (PPO) [place] LE [place] Apr 24, 2016 [id number] KIRBY DAMON PETER PATIENT [facility] HIGH DEDUCTIBL E HEALTH PLAN KRING LE CANDL E [facility] Apr 24, 2016 [id number] NELSONKIRBY GREEN PATIENT MEDMETRICS PRESCRIPT ION [facility] Oct 30, 2019 [facility] [id number] NELSONKIRBY PATIENT [facility] KRING LE CANDL E [facility] Apr 24, 2020 [id number] NELSONKIRBY GREEN PATIENT [facility] KRING LE CANDL E [facility] Apr 24, 2016 [id number] NELSONKIRBY GREEN PATIENT [facility] RX PRESCRIPT ION [address] PILGR IM [facility] Apr 24, 2021 N/A [id number] NELSONKIRBY PATIENT [facility] RX [facility] Apr 24, 2021 [id number] NELSONKIRBY GREEN PATIENT [facility] RX PRESCRIPT ION [facility] HRA Oct 30, 2019 [facility] [id number] NELSONKIRBY GREEN PATIENT [facility] RX PRESCRIPT ION [facility] H[facility] Oct 30, 2019 [facility] [id number] KIRBY DAMON PETER PATIENT [facility] RX PRESCRIPT ION [facility] Oct 30, 2019 [facility] [id number] NELSONKIRBY GREEN PATIENT [facility] RX PRESCRIPT ION [facility]ALT [facility] Apr 24, 2016 [facility] [id number] KIRBY DAMON PATIENT Selected Encounter This section includes the information on record at [place] for the Encounter. Date/Time Encounter Type Encounter Description Reason Pro vider Source Jul 22, 2023 02:07 PM Outpatient Encounter PODIATRY IHE Encounter Template Text not used by [place] Plan of Treatment: Future Appointments (+ 6 [...] 2023 10:00 AM [facility]ORY [facility] Oct 26, 2023 09:30 AM [facility]IC[facility] December 06, 2023 08:30 AM AMBULATORY - MEDICINE [place] C [facility] Jan 18, 2024 09:30 AM [facility] Encounter Notes: All associated encounter notes [...] to keep appt to call and Reschedule- [phone] Ext: [phone]- location given /stef/ MARIELY MIXON ARBORICULTURE INSTRUCTOR Signed: 07/22/2023 14:07 MARIELY MIXON [place]
--- OUTSIDE RECORDS SUMMARY | 2024-07-11 13:16 | XMS_ITS | Encounter Summary ---
Author Name Department of [place] Organization Department of [place] Address [address] [place] [address] Care Team Providers Care Behavioral Pediatrician Name Role Phone IRAM KRISHNAMURTHY Primary Care [...] Name Patient's Relationship to Policy Tran [facility] HIGH DEDUCTIBL E HEALTH PLAN [employer] [facility] Apr 24, 2021 PPO [id number] KIRBY DAMON [facility] PREFERRED PROVIDER ORGANIZAT ION (PPO) [facility] [place] Apr 24, 2022 [id number] KIRBY DAMON [facility] PREFERRED PROVIDER ORGANIZAT ION (PPO) HNE Apr 24, 2022 [id number] KIRBY DAMON [facility] HIGH DEDUCTIBL E HEALTH PLAN W/HEALTH REIMBURSE MENT ARRANGEME NT KRING LE AND HDHP HRA Apr 24, 2022 [id number] KIRBY DAMON [facility] HIGH DEDUCTIBL E HEALTH PLAN KRBAKARI CORDERO CANDL E HDHP Apr 24, 2020 [id number] KIRBY DAMON PATIENT [facility] PREFERRED PROVIDER ORGANIZAT ION (PPO) [facility] ACTIV E EMPLO SABRINA Jul 25, 2016 [id number] ALMAZ DAMON,JERRY [facility] PREFERRED PROVIDER ORGANIZAT ION (PPO) [place] Apr 24, 2016 [id number] KIRBY DAMON PETER PATIENT [facility] HIGH DEDUCTIBL E HEALTH PLAN KRING LE CANDL E [facility] Apr 24, 2016 [id number] KIRBY DAMON PETER PATIENT MEDMETRICS PRESCRIPT ION [facility] Oct 30, 2019 [facility] [id number] [phone] [id number] NELSONKIRBY GREEN PATIENT [facility] KRING LE CANDL E [facility] Apr 24, 2020 [id number] NELSONKIRBY GREEN PATIENT [facility] KRING LE CANDL E [facility] Apr 24, 2016 [id number] NELSONKIRBY GREEN PATIENT [facility] RX PRESCRIPT ION [address] PILGR IM [facility] Apr 24, 2021 N/A [id number] NELSONKIRBY PATIENT [facility] RX [facility] Apr 24, 2021 [id number] KIRBY DAMON PETER PATIENT [facility] RX PRESCRIPT ION [facility]ALT [facility] HRA Oct 30, 2019 [facility] [id number] NELSONKIRBY GREEN PATIENT [facility] RX PRESCRIPT ION HEALT H [facility] HRA Oct 30, 2019 [facility] [id number] KIRBY DAMON PETER PATIENT [facility] RX PRESCRIPT ION HEALT H [facility] HRA Oct 30, 2019 [facility] [id number] NELSONKIRBY GREEN PATIENT [facility] RX PRESCRIPT ION [facility]ALT [facility] Apr 24, 2016 [facility] [id number] KIRBY DAMON PATIENT Selected Encounter This section includes the information on record at [place] for the Encounter. Date/Time Encounter Type Encounter Description Reason Pro vider Source Jul 30, 2023 12:00 AM Outpatient Encounter EVENT (HISTORICAL) IHE Encounter Template Text not used by [place] Plan of Treatment: Future Appointments (+ 6 months) and Future Tests (+/- 45 days) The Plan of Treatment section includes future care activities for the patient from all [place] treatmentfacilities. This section includes future appointments and future orders which are active, pending or scheduled. Future Appointments This section includes appointments that were scheduled to occur 6 months from the date of the Encounter, up to a maximum of 20 appointments. The data comes from all [place] treatment facilities. Appointment Date/Time Appointment Type Appointme nt Facility Name Aug 03, 2023 10:00 [facility] Oct 26, 2023 09:30 AM AMBULATORY - MEDICINE [facility] December 06, 2023 08:30 AM AMBULATORY - MEDICINE [place] C [facility]E [facility] Jan 18, 2024 09:30 AM AMBULATORY - MEDICINE [facility]
--- OUTSIDE RECORDS SUMMARY | 2024-07-11 13:17 | XMS_ITS | Encounter Summary ---
Author Name [place] Address [address] [place] [address] Care Team Providers Care Wastewater Treatment Engineer Name Role Phone IRAM KRISHNAMURTHY Primary Care [...] Name Patient's Relationship to Policy Tran [facility] HIGH DEDUCTIBL E HEALTH PLAN [employer] [facility] Apr 24, 2021 PPO [id number] KIRBY DAMON [facility] PREFERRED PROVIDER ORGANIZAT ION (PPO) HNE Apr 24, 2022 [id number] KIRBY DAMON [facility] PREFERRED PROVIDER ORGANIZAT ION (PPO) [facility] Apr 24, 2022 [id number] KIRBY DAMON [facility] HIGH DEDUCTIBL E HEALTH PLAN W/HEALTH REIMBURSE MENT ARRANGEME NT KRING LE AND HDHP HRA Apr 24, 2022 [id number] KIRBY DAMON [facility] HIGH DEDUCTIBL E HEALTH PLAN KRING LE CANDL E [facility] Apr 24, 2020 [id number] KIRBY DAMON PATIENT [facility] PREFERRED PROVIDER ORGANIZAT ION (PPO) [facility] ACTIV E EMPLO SABRINA Jul 25, 2016 [id number] ALMAZ DAMON,JERRY [facility] PREFERRED PROVIDER ORGANIZAT ION (PPO) [place] Apr 24, 2016 [id number] KIRBY DAMON PETER PATIENT [facility] HIGH DEDUCTIBL E HEALTH PLAN KRING LE CANDL E [facility] Apr 24, 2016 [id number] KIRBY DAMON PETER PATIENT MEDMETRICS PRESCRIPT ION [facility] Oct 30, 2019 [facility] [id number] NELSONKIRBY GREEN PATIENT [facility]URANCE KRING LE CANDL E [facility] Apr 24, 2020 [id number] NELSONKIRBY GREEN PATIENT [facility] KRING LE CANDL E [facility] Apr 24, 2016 [id number] NELSONKIRBY GREEN PATIENT [facility] RX PRESCRIPT ION [address] PILGR IM [facility] Apr 24, 2021 N/A [id number] NELSONKIRBY PATIENT [facility] RX [facility]ENTAL [facility] Apr 24, 2021 [id number] KIRBY DAMON PETER PATIENT [facility] RX PRESCRIPT ION HEALT H [facility] HRA Oct 30, 2019 [facility] [id number] NELSONKIRBY GREEN PATIENT [facility] RX PRESCRIPT ION HEALT H [facility] HRA Oct 30, 2019 [facility] [id number] KIRBY DAMON PETER PATIENT [facility] RX PRESCRIPT ION HEALT H [facility] HRA Oct 30, 2019 [facility] [id number] NELSONKIRBY GREEN PATIENT [facility] RX PRESCRIPT ION HEALT [facility] Apr 24, 2016 [facility] [id number] KIRBY DAMON PATIENT Selected Encounter This section includes the information on record at [place] for the Encounter. Date/Time Encounter Type Encounter Description Reason Pro vider Source Jul 04, 2024 03:45 PM Outpatient Encounter PRIMARY CARE/MEDICINE IHE Encounter Template Text not used by [place] Plan of Treatment: Future Appointments (+ 6 months) and Future Tests (+/- 45 days) The Plan of Treatment section includes future care activities for the patient from all [place] treatmentfacilities. This section includes future appointments and future orders which are active, pending or scheduled. Future Appointments This section includes appointments that were scheduled to occur 6 months from the date of the Encounter, up to a maximum of 20 appointments. The data comes from all [place] treatment facilities. Appointment Date/Time Appointment Type Appointme nt Facility Name Oct 17, 2024 08:30 AM AMBULATORY - MEDICINE [facility] [place] December 05, 2024 08:30 AM AMBULATORY - [place]ICINE [place] [facility] [place] [facility] Active, Pending, and Scheduled Orders This section includes a listing of several types of active, pending, and scheduled orders, including clinic medications orders, diagnostic test orders, procedure orders and consult orders; where the start date of the order is 45 days before the date of the Encounter or 45 days after the date of theEncounter. The data comes from all [place] treatment facilities. Test Date/Time Test Type Test Details Facility Name Jul 07, 2024 06:37 PM Consult Order COMMUNITY CARE-INFECTIOUS DISEASE Cons Livestock Inspector's Choice [place] Encounter Notes: All associated encounter notes This section contains the clinical notes associated to the Encounter. Date/Time Encounter Note(s) Provider Source Jul 04, 2024 03:45 PM PRIMARY CARE NOTE: LOCAL TITLE: WALK-IN NOTE PRIMARY CARE (T) STANDARD TITLE: PRIMARY CARE NOTE DATE OF NOTE: JUL 04, 2024@15:45 ENTRY DATE: JUL 04, 2024@15:46:01 AUTHOR: ANGELES ALFONSO EXP COSIGNER: URGENCY: STATUS: COMPLETED WALK-IN NOTE PRIMARY CARE (T) Has ADDENDA <====Click to Start Advanced Medical Support Hopewell presents to the Primary Care clinic with the following request: [ ]Medication Renewal/Refill [ ]Consultation with Team RN [ ]Symptoms [ X ]Other The states they are: [ ]Waiting [ X ]Not Waiting No Walk in visit scheduled with PACT Nurse [ X ] At this encounter the Hopewell's demographics were verified. [ X ] At this encounter the Hopewell's Insurance information was verified. [ X ] At this encounter the below scheduled visits for the Hopewell were discussed and appointment reminder card was offered. Future appointments: 10/17/2024 08:30 CWM/SO/PODIATRY/AIDA 12/05/2024 08:30 CWM/SO/PACT 9 referral renewal [facility] [address] P [phone] FAX [phone] NEXT APPT 07/11/24. /stef/ ANGELES CASTRO Signed: 07/04/2024 15:47 Receipt Acknowledged By: 07/09/2024 13:53 /es/ KENNY BURCH LPN LPN 07/06/2024 16:43 /stef/ EVELIN PALMER RN-BC REGISTERED NURSE for FORREST ESQUIVEL 07/06/2024 ADDENDUM STATUS: COMPLETED Placed CC infectious disease continuation of care consult as requested and held for provider review. /stef/ EVELIN PALMER RN-BC REGISTERED NURSE Signed: 07/06/2024 16:44 ANGELES ALFONSO [place]
--- OUTSIDE RECORDS SUMMARY | 2024-07-11 13:17 | XMS_ITS | Encounter Summary ---
Author Name [place] Address [address] [place] [address] Care Team Providers Care Commissioned Fire Officer Name Role Phone IRAM KRISHNAMURTHY Primary [...] Name Patient's Relationship to Policy Tran [facility] HIGH DEDUCTIBL E HEALTH PLAN [employer] [facility] Apr 24, 2021 PPO [id number] KIRBY DAMON [facility] PREFERRED PROVIDER ORGANIZAT ION (PPO) HNE Apr 24, 2022 [id number] IKRBY DAMON [facility] PREFERRED PROVIDER ORGANIZAT ION (PPO) [facility] Apr 24, 2022 [id number] KIRBY DAMON [facility] HIGH DEDUCTIBL E HEALTH PLAN W/HEALTH REIMBURSE MENT ARRANGEME NT KRING LE AND HDHP HRA Apr 24, 2022 [id number] KIRBY DAMON [facility] HIGH DEDUCTIBL E HEALTH PLAN KRING LE CANDL E [facility] Apr 24, 2020 [id number] KIRBY DAMON [facility] PREFERRED PROVIDER ORGANIZAT ION (PPO) [facility] ACTIV E EMPLO SABRINA Jul 25, 2016 [id number] ALMAZ DAMON,JERRY [facility] PREFERRED PROVIDER ORGANIZAT ION (PPO) [place] Apr 24, 2016 [id number] NELSONKIRBY GREEN PATIENT [facility] HIGH DEDUCTIBL E HEALTH PLAN KRING LE CANDL E [facility] Apr 24, 2016 [id number] NELSONKIRBY PATIENT MEDMETRICS PRESCRIPT ION [facility] Oct 30, 2019 [facility] [id number] NELSONKIRBY PATIENT [facility] KRING LE CANDL E [facility] Apr 24, 2020 [id number] NELSONKIRBY PATIENT [facility] KRING LE CANDL E [facility] Apr 24, 2016 [id number] [id number] NELSONKIRBY PATIENT [facility] RX PRESCRIPT ION [address] PILGR IM [facility] Apr 24, 2021 N/A [id number] NELSONKIRBY PATIENT [facility] RX MENTAL HEALTH [facility] Apr 24, 2021 [id number] NELSONKIRBY PATIENT [facility] RX PRESCRIPT ION [facility] Oct 30, 2019 [facility] [id number] NELSONKIRBY PATIENT [facility] RX PRESCRIPT ION HEALT H [facility] HRA Oct 30, 2019 [facility] [id number] NELSONKIRBY PATIENT [facility] RX PRESCRIPT ION HEALT H [facility] HRA Oct 30, 2019 [facility] [id number] NELSONKIRBY PATIENT [facility] RX PRESCRIPT ION [facility]ALT [facility] [place] Apr 24, 2016 [facility] [id number] NELSONKIBRY PATIENT Selected Encounter This section includes the information on record at [place] for the Encounter. Date/Time Encounter Type Encounter Description Reason Provider Source Jun 20, 2024 09:30 AM OFFICE O/P EST LOW 20 MIN PODIATRY ICD-10-CM L60.3 Nail dystrophy VADIM PARRA [facility] Encounter Template Text not used by [facility] Assessments - Encounter Diagnoses This section includes the primary and secondary diagnoses documented for the Encounter. Date/Time Primary/Secondary Diagnosis Diagnosis Name Provider Source Jun 20, 2024 10:02 AM PRIMARY Nail dystrophy VADIM PARRA [facility] Jun 20, 2024 10:02 AM SECONDARY Corns and callosities VADIM PARRA [facility] Jun 20, 2024 10:02 AM SECONDARY Pain in left foot VADIM PARRA [facility] Jun 20, 2024 10:02 AM SECONDARY Pain in left toe(s) VADIM PARRA [facility] Jun 20, 2024 10:02 AM SECONDARY Pain in right foot VADIM PARRA [place] Jun 20, 2024 10:02 AM SECONDARY Pain in right toe(s) VADIM PARRA [place] Plan of Treatment: Future Appointments (+ 6 months) and Future Tests (+/- 45 days) The Plan of Treatment section includes future care activities for the patient from all [place] [facility] This section includes future appointments and future orders which are active, pending or scheduled. Future Appointments This section includes appointments that were scheduled to occur 6 months from the date of the Encounter, up to a maximum of 20 appointments. The data comes from all [place] treatment facilities. Appointment Date/Time Appointment Type Appointme nt Facility Name Oct 17, 2024 08:30 AM AMBULATORY - MEDICINE [facility] December 05, 2024 08:30 AM [place] - [place]ICINE [place] [facility] Active, Pending, [...] of theEncounter. The data comes from all [place] treatment facilities. Test Date/Time Test Type Test Details Facility Name Jul 07, 2024 06:37 PM Consult Order COMMUNITY CARE-INFECTIOUS DISEASE Cons Dope Dry House Operator's Jodi [facility] Social History: Smoking Status (Most current) and Tobacco Use (All prior to encounter date) This section includes the most current, and the historical, smoking and tobacco- related health factors from the [place] facility where the Encounter took place. Current Smoking Status This section includes the most current smoking, or tobacco-related health factor, from the [place] facility where the Encounter took place. Date/Time Current Smoking Status Comment Gabrielle ity Jun 07, 2023 09:30 AM VA-TOBACCO FORMER USER [facility] Tobacco Use History This section includes a history of the smoking, or tobacco-related health factors, that were collected on or before the date of the Encounter. The data comes from the [place] facility where the Encounter took place. Date/Time Smoking Status/Tobacco Use Comment F acility Jun 07, 2023 09:30 AM VA-TOBACCO QUIT 15 YRS OR MORE [facility] Jun 09, 2022 09:00 AM VA-TOBACCO FORMER USER [facility] Jun 09, 2022 09:00 AM VA-TOBACCO QUIT 5 TO < 15 YRS [facility] Jun 03, 2021 12:30 PM VA-TOBACCO FORMER USER [facility] Jun 03, 2021 12:30 PM VA-TOBACCO QUIT 15 YRS OR MORE [facility] Mar 12, 2020 10:30 AM VA-TOBACCO FORMER USER [facility] Mar 12, 2020 10:30 AM VA-TOBACCO QUIT 15 YRS OR MORE [facility] Jan 03, 2018 10:14 AM VA-TOBACCO FORMER USER [facility] Jan 03, 2018 10:14 AM VA-TOBACCO QUIT 15 YRS OR MORE [facility] Jul 05, 2017 10:47 AM QUIT TOBACCO USE > 7 YEARS AGO reports quitting in 1995 [facility] Encounter Notes: All associated encounter notes This section contains the clinical notes associated to the Encounter. Date/Time Encounter Note(s) Provider Source Jul 11, 2024 09:11 AM LETTERS: LOCAL TITLE: PATIENT LETTER (B) STANDARD TITLE: LETTERS DATE OF NOTE: JUL 11, 2024@09:11 ENTRY DATE: JUL 11, 2024@09:11:51 AUTHOR: JIMMY ASHFORD EXP COSIGNER: URGENCY: STATUS: COMPLETED [facility] [address] [place] [phone] * SHEELA Colby DAMON [address] [place], [place] [address] Date: JUL 11, 2024 Dear [place]: This is a reminder letter that your SHOES are ready for pick at the [facility] [place] located at [address] [place] [address]. You may package pick up your shoes and or orthotics at your convenience any day, Tuesday through Tuesday between 8:30am and 3:30pm. You do not need an appointment. BUT WE DO REQUEST THAT YOU CALL BEFORE ARRIVING TO MAKE SURE THE PODIATRY HEALTH MINIATURE SET BUILDER IS AVAILABLE ON THAT DAY. Call [phone] for Jimmy if you have any questions. We hope to see you soon, Sincerely, Office Staff for:MILADY KRISHNAMURTHYARIOPrimary Care Provider Upcoming Appointments: 10/17/2024 08:30 CWM/SO/PODIATRY/AIDA 12/05/2024 08:30 CWM/SO/PACT 9 JIMMY ASHFORD [facility] Jun 20, 2024 07:33 AM PODIATRY NOTE: LOCAL TITLE: PODIATRY NOTE STANDARD TITLE: PODIATRY NOTE DATE OF NOTE: JUN 20, 2024@07:33 ENTRY DATE: JUN 20, 2024@07:33:07 AUTHOR: VADIM PARRA EXP COSIGNER: URGENCY: STATUS: COMPLETED NOTE: HAS RECEIVED BOTH COVID VACCINE DOSES AT [facility] LAST SEEN FOR TREATMENT: 01/18/2024 S: Pt. [...] present physical-medical status. Protective sensation utilizing a Merced-Kianna lOg monofilament is 10/10 bilateral. BIOMECHANICAL: Exam [...] this [facility] (local) and dispensed from another [place] or Do[place] facility (remote) as well as [...] Remote Allergy/ADR Data available for this patient [place] [facility] SULFACETAMIDE/SULFUR Med Recon [facility] (Tool #1) INCLUDED IN THIS LIST: Alphabetical list of active outpatient prescriptions dispensed from this [place] (local) and dispensed from another [place] or [facility] facility (remote) as well as inpatient orders (local pending and active), local clinic medications, locally documented non-VA medications, and local prescriptions that have or been discontinued in the past 90 days. Non-VA Meds Last Documented On: Jun 03, 2021 NOTE The display of VA prescriptions dispensed from another [place] or DoD facility (remote) is limited to active outpatient prescription entries matched to National Drug File at the originating site and may not include some items such as investigational drugs, compounds, etc. NOT INCLUDED IN THIS LIST: Medications self-entered by the patient into personal health records (i.e. Docitt) are NOT included in this list. Non-VA medications documented outside this [place], remote inpatient orders (regardless of status) and [...] EVERY DAY Patient wants to buy from Non-[place] pharmacy. Medication prescribed by Non-VA provider. Non-VA OMEPRAZOLE 20MG EC CAP TAKE 1 CAPSULE BY MOUTH EVERY MORNING 30 MINUTES BEFORE BREAKFAST Patient wants to buy from Non-[place] pharmacy. Medication prescribed by Non-VA provider. SUPPLIES /stef/ VADIM PARRA DPM SPRING CLIPPER Signed: 06/20/2024 10:03 VADIM PARRA [facility]
--- OUTSIDE RECORDS SUMMARY | 2024-07-11 13:17 | XMS_ITS | Encounter Summary ---
Author Name [facility] [place] Address [address] [place] [address] Care Team Providers Care Mission Manager Name Role Phone IRAM KRISHNAMURTHY Primary Care [...] Tran's Name Patient's Relationship to Policy Tran [facility] HIGH DEDUCTIBL E HEALTH PLAN [facility] Apr 24, 2021 PPO [id number] KIRBY DAMON [facility] PREFERRED PROVIDER ORGANIZAT ION (PPO) HNE Apr 24, 2022 [id number] KIRBY DAMON [facility] HIGH DEDUCTIBL E HEALTH PLAN W/HEALTH REIMBURSE MENT ARRANGEME NT KRING [facility] AND HDHP HRA Apr 24, 2022 [id number] KIRBY DAMON [facility] PREFERRED PROVIDER ORGANIZAT ION (PPO) [facility] [place] Apr 24, 2022 [id number] KIRBY DAMON [facility] HIGH DEDUCTIBL E HEALTH PLAN KRING LE CANDL E HDHP Apr 24, 2020 [id number] KIRBY DAMON [facility] PREFERRED PROVIDER ORGANIZAT ION (PPO) [facility] ACTIV E EMPLO SABRINA Jul 25, 2016 [id number] ALMAZ DAMON,JERRY [facility] PREFERRED PROVIDER ORGANIZAT ION (PPO) [place] Apr 24, 2016 [id number] NELSONKIRBY GREEN PATIENT [facility] HIGH DEDUCTIBL E HEALTH PLAN KRING LE CANDL E [facility] Apr 24, 2016 [id number] NELSONKIRBY PATIENT MEDMETRICS PRESCRIPT ION [facility] Oct 30, 2019 [facility] [id number] NELSONKIRBY PATIENT [facility]URANCE KRING LE CANDL E [facility] Apr 24, 2020 [id number] NELSONKIRBY PATIENT [facility] KRING LE CANDL E [facility] Apr 24, 2016 [id number] 003-[facility] [id number] NELSONKIRBY PATIENT [facility] RX PRESCRIPT ION [address] PILGR IM [facility] Apr 24, 2021 N/A [id number] NELSONKIRBY PATIENT [facility] RX MENTAL HEALTH [facility] Apr 24, 2021 [id number] NELSONKIRBY PATIENT OPT[facility] RX PRESCRIPT ION [facility] Oct 30, 2019 [facility] [id number] NELSONKIRBY GREEN PATIENT OPTUM RX PRESCRIPT ION HEALT H NEW [facility] HRA Oct 30, 2019 [facility] [id number] NELSONKIRBY GREEN PATIENT OPTUM RX PRESCRIPT ION HEALT H NEW [facility] HRA Oct 30, 2019 [facility] [id number] NELSONKIRBY PATIENT OPTUM RX PRESCRIPT ION HEALT H NEW [place] [facility] Apr 24, 2016 [facility] [id number] NELSONKIRBY PATIENT Selected Encounter This section includes the information on record at [place] for the Encounter. Date/Time Encounter Type Encounter Description Reason Provider Source Jan 18, 2024 09:30 AM OFFICE O/P EST LOW 20 MIN PODIATRY ICD-10-CM L60.3 Nail dystrophy VADIM PARRA [facility] Encounter Template Text not used by [place] Assessments - Encounter Diagnoses This section includes the primary and secondary diagnoses documented for the Encounter. Date/Time Primary/Secondary Diagnosis Diagnosis Name Provider Source Jan 18, 2024 09:56 AM PRIMARY Nail dystrophy VADIM PARRAFIELD Jan 18, 2024 09:56 AM SECONDARY Pain in left toe(s) VADIM PARRA ANGELO Jan 18, 2024 09:56 AM SECONDARY Pain in right toe(s) VADIM PARRA ANGELO Plan of Treatment: Future Appointments (+ 6 months) and Future Tests (+/- 45 days) The Plan of Treatment section includes future care activities for the patient from all [place] [facility]. This section includes future appointments and future orders which are active, pending or scheduled. Future Appointments This section includes appointments that were scheduled to occur 6 months from the date of the Encounter, up to a maximum of 20 appointments. The data comes from all [place] treatment facilities. Appointment Date/Time Appointment Type Appointme nt Facility Name Jun 06, 2024 01:30 PM [facility]UL[facility] [place] [facility] Jun 20, 2024 09:30 AM AMBULATORY [...] of theEncounter. The data comes from all [place] treatment facilities. Test Date/Time Test Type Test Details Facility Name Dec 26, 2023 09:10 PM Consult Order COMMUNITY CARE-NEPHROLOGY Cons Fish Tender's Choice [place] [facility] [place] [facility] Social History: Smoking Status (Most current) and Tobacco Use (All prior to encounter date) This section includes the most current, and the historical, smoking and tobacco- related health factors from the [place] facility where the Encounter took place. Current Smoking Status This section includes the most current smoking, or tobacco-related health factor, from the [place] facility where the Encounter took place. Date/Time Current Smoking Status Felipe hui Jun 07, 2023 09:30 AM VA-TOBACCO QUIT 15 YRS OR MORE [place] Tobacco Use History This section includes a history of the smoking, or tobacco-related health factors, that were collected on or before the date of the Encounter. The data comes from the [place] facility where the Encounter took place. Date/Time Smoking Status/Tobacco Use Comment F acility Jun 07, 2023 09:30 AM VA-TOBACCO QUIT 15 YRS OR MORE [place] Jun 09, 2022 09:00 AM VA-TOBACCO FORMER USER [place] Jun 09, 2022 09:00 AM VA-TOBACCO QUIT 5 TO < 15 YRS [place] Jun 03, 2021 12:30 PM VA-TOBACCO FORMER USER [place] Jun 03, 2021 12:30 PM VA-TOBACCO QUIT 15 YRS OR MORE [place] Mar 12, 2020 10:30 AM VA-TOBACCO FORMER USER [place] Mar 12, 2020 10:30 AM VA-TOBACCO QUIT 15 YRS OR MORE [place] Jan 03, 2018 10:14 AM VA-TOBACCO FORMER USER [place] Jan 03, 2018 10:14 AM VA-TOBACCO QUIT 15 YRS OR MORE [place] Jul 05, 2017 10:47 AM QUIT TOBACCO USE > 7 YEARS AGO reports quitting in 1995 [place] Encounter Notes: All associated encounter notes This section contains the clinical notes associated to the Encounter. Date/Time Encounter Note(s) Provider Source Jan 18, 2024 07:31 AM PODIATRY NOTE: LOCAL TITLE: PODIATRY NOTE STANDARD TITLE: PODIATRY NOTE DATE OF NOTE: JAN 18, 2024@07:31 ENTRY DATE: JAN 18, 2024@07:31:14 AUTHOR: VADIM PARRA COSIGNER: URGENCY: STATUS: COMPLETED NOTE: HAS RECEIVED BOTH COVID VACCINE DOSES AT [facility] LAST SEEN FOR TREATMENT: 10/26/2023 S: Pt. is a 63 yo alert [facility] MALE who presents for COPNTINUED podiatric examination [...] present physical-medical status. Protective sensation utilizing a [place]-Kianna lOg monofilament is 10/10 bilateral. BIOMECHANICAL: Exam [...] of active outpatient prescriptions dispensed from this MA (local) and dispensed from another [place] or DoD facility (remote) as well as [...] Remote Allergy/ADR Data available for this patient [place] [facility] [place] [facility] SULFACETAMIDE/SULFUR Med Recon NoGlossary (Tool #1) INCLUDED IN THIS LIST: Alphabetical list of active outpatient prescriptions dispensed from this MA (local) and dispensed from another [place] or DoD facility (remote) as well as inpatient orders (local pending and active), local clinic medications, locally documented non-VA medications, and local prescriptions that have or been discontinued in the past 90 days. Non-VA Meds Last Documented On: Jun 03, 2021 NOTE The display of VA prescriptions dispensed from another VA or DoD facility (remote) is limited to active outpatient prescription entries matched to National Drug File at the originating site and may not include some items such as investigational drugs, compounds, etc. NOT INCLUDED IN THIS LIST: Medications self-entered by the patient into personal health records (i.e. [employer]) are NOT included in this list. Non-VA medications documented outside this MA, remote inpatient orders (regardless of status) and [...] BEFORE BREAKFAST Patient wants to buy from Non-MA pharmacy. Medication prescribed by Non-VA provider. SUPPLIES /stef/ VADIM PARRA DPM JUNIOR ENGINEER Signed: 01/18/2024 09:58 VADIM PARRA [place]
--- OUTSIDE RECORDS SUMMARY | 2024-07-11 13:17 | XMS_ITS ---
Author Organization [facility] Address [address] [place] [phone] Care Team Providers Care Applications Programmer Name Role Phone JONRehanFELY Primary Care Provider Kolby Whitman [phone] Encounters Encounter Location Date Provider Diagnosis [facility] [address] [place] [phone] 03/29/2023 Kolby Benson PLAN OF TREATMENT No Information
--- OUTSIDE RECORDS SUMMARY | 2024-07-11 13:17 | XMS_ITS | Encounter Summary ---
Author Name [facility] [place] Address [address] [place] [id number] Care Team Providers Care Machine Feed Operator Name Role Phone IRAM KRISHNAMURTHY Primary [...] Tran's Name Patient's Relationship to Policy Tran [facility] HIGH DEDUCTIBL E HEALTH PLAN [employer] HD[facility] Apr 24, 2021 PPO [id number] KIRBY DAMON [facility] PREFERRED PROVIDER ORGANIZAT ION (PPO) HNE Apr 24, 2022 [id number] KIRBY DAMON [facility] PREFERRED PROVIDER ORGANIZAT ION (PPO) [facility] [place] Apr 24, 2022 [id number] KIRBY DAMON [facility] HIGH DEDUCTIBL E HEALTH PLAN W/HEALTH REIMBURSE MENT ARRANGEME NT KRING LE AND HDHP HRA Apr 24, 2022 [id number] KIRBY DAMON [facility] HIGH DEDUCTIBL E HEALTH PLAN KRING LE CANDL E [facility] Apr 24, 2020 [id number] KIRBY DAMON PETER [facility] PREFERRED PROVIDER ORGANIZAT ION (PPO) [facility] ACTIV E EMPLO YEES Jul 25, 2016 [id number] ALMAZ DAMON,JERRY [facility] PREFERRED PROVIDER ORGANIZAT ION (PPO) [place] Apr 24, 2016 [id number] KIRBY DAMON PETER PATIENT [facility] HIGH DEDUCTIBL E HEALTH PLAN KRING LE CANDL E [facility] Apr 24, 2016 [id number] NELSONKIRBY GREEN PATIENT MEDMETRICS PRESCRIPT ION [facility] Oct 30, 2019 [facility] [id number] NELSONKIRBY GREEN PATIENT [facility]UR[facility] KRING LE CANDL E [facility] Apr 24, 2020 [id number] [id number] NELSONKIRBY GREEN PATIENT [facility] KRING LE CANDL E [facility] Apr 24, 2016 [id number] NELSONKIRBY PATIENT [facility] RX PRESCRIPT ION [address] PILGR IM [facility] Apr 24, 2021 N/A [id number] NELSONKIRBY PATIENT [facility] RX MENTAL HEALTH [facility] Apr 24, 2021 [id number] KIRBY DAMON PETER PATIENT OPTUM RX PRESCRIPT ION HEALT H NEW [facility] HRA Oct 30, 2019 [facility] [id number] NELSONKIRBY GREEN PATIENT OPTUM RX PRESCRIPT ION HEALT H NEW [facility] HRA Oct 30, 2019 [facility] [id number] KIRBY DAMON PETER PATIENT OPTUM RX PRESCRIPT ION HEALT H NEW [facility] HRA Oct 30, 2019 [facility] [id number] NELSONKIRBY PATIENT OPTUM RX PRESCRIPT ION HEALT H NEW [place]GL [facility] Apr 24, 2016 [facility] [id number] KIRBY DAMON PATIENT Selected Encounter This section includes the information on record at [place] for the Encounter. Date/Time Encounter Type Encounter Description Reason Provider Source Feb 10, 2024 03:11 PM Outpatient Encounter PROSTHETICS/ORTHOTI VADIM ALVAREZ Encounter Template Text not used by [place] Plan of Treatment: Future Appointments (+ 6 [...] 06, 2024 01:30 PM AMBULATORY - MEDICINE [place] C [facility] Jun 20, 2024 09:30 AM AMBULATORY - MEDICINE [facility] AGUSTINA
--- OUTSIDE RECORDS SUMMARY | 2024-07-11 13:17 | XMS_ITS | Encounter Summary ---
Author Name [facility] [place] Address [address] [place] [address] Care Team Providers Care Telecom Engineer Name Role Phone IRAM KRISHNAMURTHY Primary [...] Tran's Name Patient's Relationship to Policy Tran [facility] HIGH DEDUCTIBL E HEALTH PLAN [employer] [facility] Apr 24, 2021 PPO [id number] KIRBY DAMON [facility] PREFERRED PROVIDER ORGANIZAT ION (PPO) HNE Apr 24, 2022 [id number] KIRBY DAMON [facility] PREFERRED PROVIDER ORGANIZAT ION (PPO) [facility] [place] Apr 24, 2022 [id number] KIRBY DAMON [facility] HIGH DEDUCTIBL E HEALTH PLAN W/HEALTH REIMBURSE MENT ARRANGEME NT KRING LE AND HDHP HRA Apr 24, 2022 [id number] KIRBY DAMON [facility] HIGH DEDUCTIBL E HEALTH PLAN KRING LE CANDL E HD[facility] Apr 24, 2020 [id number] KIRBY DAMON [facility] PREFERRED PROVIDER ORGANIZAT ION (PPO) [facility] ACTIV E EMPLO SHANEES Jul 25, 2016 [id number] JERRY LARRY [facility] HIGH DEDUCTIBL E HEALTH PLAN KRING LE CANDL E [facility] Apr 24, 2016 [id number] NELSONKIRBY GREEN PATIENT [facility] PREFERRED PROVIDER ORGANIZAT ION (PPO) KRING LE [place] Apr 24, 2016 [id number] NELSONKIRBY PATIENT MEDMETRICS PRESCRIPT ION [facility] Oct 30, 2019 [facility] [id number] NELSONKIRBY PATIENT [facility] INSURANCE KRING LE CANDL E [facility] Apr 24, 2020 [id number] NELSONKIRBY PATIENT [facility] INSURANCE KRING LE CANDL E [facility] Apr 24, 2016 [id number] NELSONKIRBY PATIENT [facility] RX PRESCRIPT ION [address] PILGR IM [facility] Apr 24, 2021 N/A [id number] NELSONKIRBY PATIENT OPTUM RX MENTAL HEALTH [facility] Apr 24, 2021 [id number] NELSONKIRBY PATIENT OPTUM RX PRESCRIPT ION [facility]ALT [facility] Oct 30, 2019 [facility] [id number] NELSONKIRBY GREEN PATIENT OPTUM RX PRESCRIPT ION HEALT H [facility] HRA Oct 30, 2019 [facility] [id number] NELSONKIRBY GREEN PATIENT OPTUM RX PRESCRIPT ION HEALT H [facility] HRA Oct 30, 2019 [facility] [id number] NELSONKIRBY PATIENT OPTUM RX PRESCRIPT ION HEALT H [place] [facility] Apr 24, 2016 [facility] [id number] [phone] NELSONKIRBY GREEN PATIENT Selected Encounter This section includes the information on record at [place] for the Encounter. Date/Time Encounter Type Encounter Description Reason Provider Source December 06, 2023 08:30 AM OFFICE O/P EST MOD 30 MIN PRIMARY CARE/MEDICINE ICD-10-CM Z00.00 Encntr for general adult medical exam w/o abnormal findings CHEL KRISHNAMURTHY Jess Encounter Template Text not used by [place] Assessments - Encounter Diagnoses This section includes the primary and secondary diagnoses documented for the Encounter. Date/Time Primary/Secondary Diagnosis Diagnosis Name Provider Source December 06, 2023 09:09 AM PRIMARY Encntr for general adult medical exam w/o abnormal findings MILADY KRISHNAMURTHY [place] Plan of Treatment: Future Appointments (+ 6 months) and Future Tests (+/- 45 days) The Plan of Treatment section includes future care activities for the patient [facility] [place] [facility] This section includes future appointments and future orders which are active, pending or scheduled. Future Appointments This section includes appointments that were scheduled to occur 6 months from the date of the Encounter, up to a maximum of 20 appointments. The data comes from all [place] treatment facilities. Appointment Date/Time Appointment Type Appointme nt Facility Name Jan 18, 2024 09:30 AM AMBULATORY - MEDICINE [facility] Jun 06, 2024 01:30 PM AMBULATORY - MEDICINE [place] [facility] Active, Pending, and Scheduled Orders This section includes a listing of several types of active, pending, and scheduled orders, including clinic medications orders, diagnostic test orders, procedure orders and consult orders; where the start date of the order is 45 days before the date of the Encounter or 45 days after the date of theEncounter. The data comes from all [place] treatment [facility]. Test Date/Time Test Type Test Details Facility Name Dec 26, 2023 09:10 PM Consult Order COMMUNITY CARE-NEPHROLOGY Cons Robotic Machine Tender Production's Choice [place] [facility] [place] [facility] Social History: Smoking Status (Most current) and Tobacco Use (All prior to encounter date) This section includes the most current, and the historical, smoking and tobacco- related health factors from the [place] facility where the Encounter took place. Current Smoking Status This section includes the most current smoking, or tobacco-related health factor, from the [place] facility where the Encounter took place. Date/Time Current Smoking Status Felipe hui Jun 07, 2023 09:30 AM [place]-TOBACCO FORMER USER [place] Tobacco Use History This section includes a history of the smoking, or tobacco-related health factors, that were collected on or before the date of the Encounter. The data comes from the [place] facility where the Encounter took place. Date/Time Smoking Status/Tobacco Use Comment F acility Jun 07, 2023 09:30 AM VA-TOBACCO QUIT 15 YRS OR MORE [place] Jun 09, 2022 09:00 AM VA-TOBACCO FORMER USER [place] Jun 09, 2022 09:00 AM VA-TOBACCO QUIT 5 TO < 15 YRS [place] Jun 03, 2021 12:30 PM VA-TOBACCO FORMER USER [place] Jun 03, 2021 12:30 PM VA-TOBACCO QUIT 15 YRS OR MORE [place] Mar 12, 2020 10:30 AM VA-TOBACCO FORMER USER [place] Mar 12, 2020 10:30 AM VA-TOBACCO QUIT 15 YRS OR MORE [place] Jan 03, 2018 10:14 AM VA-TOBACCO FORMER USER [place] Jan 03, 2018 10:14 AM VA-TOBACCO QUIT 15 YRS OR MORE [place] Jul 05, 2017 10:47 AM QUIT TOBACCO USE > 7 YEARS AGO reports quitting in 1995 [place] Encounter Notes: All associated encounter notes This section contains the clinical notes associated to the Encounter. Date/Time Encounter Note(s) Provider Source December 06, 2023 08:56 AM PREVENTIVE MEDICIN E NURSING NOTE: LOCAL TITLE: CLINICAL REMINDERS/NURSING STANDARD TITLE: PREVENTIVE MEDICINE NURSING NOTE DATE OF NOTE: DECEMBER 06, 2023@08:56 ENTRY DATE: DECEMBER 06, 2023@08:56:51 AUTHOR: KENNY BURCH COSIGNER: URGENCY: STATUS: COMPLETED Suicide Screen: C-SSRS Screening Ferdinand Suicide Severity Rating Scale (C-SSRS) screener 1. [...] 1-4 above) is [place] copyright protected by Sheela Marte MD, and the user has full rights to use it throughout the [place] system. PRIMARY SCREEN RESULT: The Primary Screen [...] outside PCP in one month. Folowed by [facility] Nephrology, ID Podiatry every 6mo Lives [...] on allopurinol followed by Dr. Barnes 2. Non-VA Providers Primary Care--Buddy Jennings and with [facility] 3. HIV positive (SNOMED CT [id number]) non detectable viral load, asymptomatic ID: Dr. [...] MALE SERVICE CONNECTED % - NONE FOUND Mar Lin presents for annual VA. Doing well at [...] MD PHYSICIAN Signed: 12/06/2023 09:11 IRAM KRISHNAMURTHY [place]
--- OUTSIDE RECORDS SUMMARY | 2024-07-11 13:17 | XMS_ITS ---
Author Organization [facility] Address [address] [place] [address] Care Team Providers Care Web Content Executive Name Role Phone FELY CEBALLOS Primary Care Provider Kolby Whitman [phone] REASON FOR VISIT screening,hx polyps,fam hx colon ca PROBLEMS Problem Type ICD Code Onset Dates Problem Status W/U Status Risk SNOMED Code Notes Problem Diverticulosis of large intestine without perforation or abscess without bleeding (K57.30) Active confirmed Diverticul ar disease of colon ([id number]) Encounters Encounter Location Date Provider Diagnosis [facility] [address] [place], [place] [id number] 06/29/2023 Kolby Benson Encounter for scre ening [...]
--- OUTSIDE RECORDS SUMMARY | 2024-07-11 13:17 | XMS_ITS | Encounter Summary ---
Author Name [facility] [facility] [place] Organization [facility] [place] Address [address] [place] [address] Care Team Providers Care Chemistry Technical Officer Name Role Phone IRAM KRISHNAMURTHY Primary [...] Name Patient's Relationship to Policy Tran [facility] HIGH DEDUCTIBL E HEALTH PLAN BEST BUY HD Apr 24, 2021 PPO [id number] [facility] PREFERRED PROVIDER ORGANIZAT ION (PPO) HNE Apr 24, 2022 [id number] [facility] HIGH DEDUCTIBL E HEALTH PLAN W/HEALTH REIMBURSE MENT ARRANGEME NT KRING LE AND HDHP HRA Apr 24, 2022 [id number] [facility] PREFERRED PROVIDER ORGANIZAT ION (PPO) [facility] Apr 24, 2022 [id number] [facility] HIGH DEDUCTIBL E HEALTH PLAN KRING LE CANDL E HDHP Apr 24, 2020 [id number] KIRBY DAMON [facility] PREFERRED PROVIDER ORGANIZAT ION (PPO) [facility] EMPLO SABRINA Jul 25, 2016 [id number] ALMAZ DAMON,JERRY [facility] PREFERRED PROVIDER ORGANIZAT ION (PPO) KRING LE [place]ANDL E [place] Apr 24, 2016 [id number] KIRBY DAMON [place] PATIENT [facility] HIGH DEDUCTIBL E HEALTH PLAN KRING LE CANDL E [facility] Apr 24, 2016 [id number] NELSONKIRBY GREEN PATIENT MEDMETRICS PRESCRIPT ION [facility] Oct 30, 2019 [facility] [id number] NELSONKIRBY PATIENT [facility] INSURANCE KRING LE CANDL E [facility] Apr 24, 2020 [id number] NELSONKIRBY GREEN PATIENT [facility] INSURANCE KRING LE CANDL E [facility] Apr 24, 2016 [id number] NELSONKIRBY GREEN PATIENT OPT[facility] RX PRESCRIPT ION [address] PILGR IM [facility] Apr 24, 2021 N/A [id number] NELSONKIRBY PATIENT [facility] RX MENTAL HEALTH [facility] Apr 24, 2021 [id number] NELSONKIRBY GREEN PATIENT OPT[facility] RX PRESCRIPT ION HEALT H NEW [facility] HRA Oct 30, 2019 [facility] [id number] NELSONKIRBY GREEN PATIENT OPTUM RX PRESCRIPT ION HEALT H NEW [facility] HRA Oct 30, 2019 [facility] [id number] KIRBY DAMON [place] PATIENT OPTUM RX PRESCRIPT ION HEALT H NEW [facility] HRA Oct 30, 2019 [facility] [id number] NELSONKIRBY GREEN PATIENT OPTUM RX PRESCRIPT ION HEALT H NEW [facility] Apr 24, 2016 [facility] [id number] KIRBY DAMON PATIENT Selected Encounter This section includes the information on record at [place] for the Encounter. Date/Time Encounter Type Encounter Description Reason Pro vider Source Dec 26, 2023 01:23 PM Outpatient Encounter COMMUNITY CARE CONSULT IHE Encounter Template Text not used by [place] Plan of Treatment: Future Appointments (+ 6 months) and Future Tests (+/- 45 days) The Plan of Treatment section includes future care activities for the patient from all [place] treatmentfacilities. This section includes future appointments and [...] 2024 09:30 AM AMBULATORY - MEDICINE [facility] Jun 06, 2024 01:30 PM AMBULATORY [facility] MEDICINE [facility] Jun 20, 2024 09:30 AM [facility] Active, Pending, and Scheduled Orders This section includes a listing of several types of active, pending, and scheduled orders, including clinic medications orders, diagnostic test orders, procedure orders and consult orders; where the start date of the order is 45 days before the date of the Encounter or 45 days after the date of theEncounter. The data comes from all [facility]. Test Date/Time Test Type Test Details Facility Name Dec 26, 2023 09:10 PM Consult Order COMMUNITY CARE-NEPHROLOGY Cons Doll Eye Setter's [facility] Encounter Notes: All associated encounter notes This section contains the clinical notes associated to the Encounter. Date/Time Encounter Note(s) Provider Source Dec 26, 2023 01:23 PM ADMINISTRATIVE NOT E: LOCAL TITLE: ADMINISTRATIVE NOTE STANDARD TITLE: ADMINISTRATIVE NOTE DATE OF NOTE: DEC 26, 2023@13:23 ENTRY DATE: DEC 26, 2023@13:23:42 AUTHOR: ROBSON BUI EXP COSIGNER: URGENCY: STATUS: COMPLETED ADMINISTRATIVE NOTE Has ADDENDA [place] came to [facility] requesting a new consult for Nephrology, consult has in November and he is scheduled for 06/06/2204 @ 1:30. Please enter a new consult if acceptable [facility] [place] [phone] [facility]-[id number] TAX ID #[id number] /stef/ ROBSON BUI Signed: 12/26/2023 13:25 Receipt [...] Signed: 12/26/2023 18:25 ROBSON BUI CNTRL WSN [facility]
--- OUTSIDE RECORDS SUMMARY | 2024-07-11 13:18 | XMS_ITS | Patient Health Record ---
Author Organization [facility] Address [address] [place] [address] Care Team Providers Care Marine Gear Keeper Name Role Phone EVERTONRUBENFELY Primary Care Provider Kolby Whitman [phone] ALLERGIES Allergen (clinical drug ingredient) Drug/Non Drug [...] adenomatous polyp of colon (Z86.010) Active confirmed 936993497 Problem Preprocedural examination (Z01.818) Active confirmed 942211501 Problem Encounter for screening for malignant neoplasm of colon (Z12.11) Active confirmed 767451321 Problem Gastroesophageal reflux disease without esophagitis (K21.9) Active confirmed 841033997 Problem Family history of colon cancer (Z80.0) Active confirmed 232536135 Problem Diverticulosis of large intestine without perforation or abscess without bleeding (K57.30) Active confirmed Diverticul ar disease of colon (921623454) PLAN OF TREATMENT Pending Test Test Name Order Date Pathology 06/29/2023 Future Test Test Name Order Date COLONOSCOPY 01/18/2017 COLONOSCOPY 03/29/2023 Insurance Providers Payer Name Payer Address Payer Phone Subscriber Number Group Number Insured Name Patient Relationship to Insured Coverage Start Date Coverage End Date [facility] [address] [place] [address] [id number] SHEELA RAI Self - patient is the insured [facility] [address] [place] [address] [id number] SHEELA RAI Self - patient is the insured MEDICAL (GENERAL) HISTORY Medical History History ICD Code Denies SD,DM,CVA,Lung disease,renal dise ase HIV since 08/1995--Dr. Sanchez [...]
--- OUTSIDE RECORDS SUMMARY | 2024-07-11 13:18 | XMS_ITS ---
Author Organization [facility] Address [address] [place] [address] Care Team Providers Care Studio Engineer Name Role Phone FELY CEBALLOS Primary Care Provider Kolby Whitman [phone] ALLERGIES Allergen (clinical drug ingredient) Drug/Non Drug [...] history of colon cancer (Z80.0) Active confirmed 153213384 VITAL SIGNS BMI 26.78 kg/m2 03/29/2023 Blood pressure systolic 000 mm Hg 03/29/20 23 Blood pressure diastolic 00 mm Hg 023 Height 67 in 03/29/2023 Weight 171 lbs 03/29/2023 Encounters Encounter Location Date Provider Diagnosis [facility] [address] [place] [address] 03/29/2023 Kolby Benson History of adenomato us [...]
[2024-07-11 13:34] VITALS: PULSE 98; O2SAT 98; BMI 28.2
--- NOTE | 2024-07-11 13:34 | MHC.OFFVIS ---
Vital Signs 07/11/24 13:34 Height 5 ft 7 in Weight 180 lb BMI 28.2 Pulse 98 Pulse Source Pulse Oximeter Pulse Oximetry (%) 98 Intake Visit Reasons: lab follow up hiv Allergies sulfacetamide [From Sulfacet-R] Allergy (Unknown, Verified 07/11/24 13:35) Rash sulfur [From Sulfacet-R] Allergy (Unknown, Verified 07/11/24 13:35) Rash HPI HPI lab follow up hiv: Details: He has CD4 count 1221 and viral load undetectable on 07/04. He has no complaints. He takes Biktarvy. [facility] Medical History Elevated cholesterol Gout Diverticulosis GERD (gastroesophageal reflux disease) CKD (chronic kidney disease) HIV infection Surgical History History of rectal surgery History of dental surgery H/O colonoscopy Social History Housing: House Alcohol intake: former Patient Tobacco Use Status: Former Tobacco user e-Cigarette/Vaping Use: Never Used Second Hand Smoke Exposure: No service: Yes Current occupational status: employed Current occupation: [employer] Current occupational exposures/hazards: No Cognitive needs: No Hearing needs: No Vision needs: No Review of Systems Const All systems reviewed & are unremarkable except as noted in HPI and below Physical Exam Vital Signs: Last Vital Signs Pulse 98 07/11/24 13:34 Pulse Ox 98 07/11/24 13:34 BMI result Body Mass Index 28.2 Const General: cooperative Orientation/consciousness: patient oriented x3 HEENT Head: Yes normal to inspection Mouth: Normal oral and palatal mucosa present Eyes General: appearance normal, both eyes and all related structures Pupils: Equal, round and reactive pupils present Resp Effort & Inspection: normal respiratory effort Cardio Rate: regular rate Rhythm: regular rhythm GI Palpation (GI): Soft to palpation and nontender General: Yes no CVA tenderness Back/Spine/Pelvis Back: no CVA tenderness Skin General skin exam: no rashes or lesions noted Neuro General: patient oriented x3 Cranial nerves: Yes CN's II-XII intact bilaterally and Yes Equal, round and reactive pupils present Extrem General: Yes normal to inspection Psych Appearance: grossly normal Assessment & Plan Assessment & Plan (1) HIV positive: Comment: He is doing well and has no concerns. He has CD4 count in great range and is undetectable viral load Code(s): Z21 - Asymptomatic human immunodeficiency virus [HIV] infection status Category: Medical Plan: See in six months with labs before. Continue health care maintenance and rectal Paps per Colorectal ( has seen) (2) HIV infection: Code(s): B20 - Human immunodeficiency virus [HIV] disease Category: Medical Plan: n/a Orders: Orders HIV-1 RNA QN PCR Expanded 6 Months Z21 - Asymptomatic human immunodeficiency virus [HIV] infection status Lymphocyte Subset Panel 3 6 Months B20 - Human immunodeficiency virus [HIV] disease Medications: Refilled apizzetkv-ctnqpuqx-pqqmwbl ala 50-200-25 mg (Biktarvy) 1 tab PO DAILY 30 days 30 tabs 11RF Coding Level of Care Code Est Pt Level 4 (49082) Diagnoses HIV positive Z21 HIV infection B20
== END 2024-07-11 14:14 | disposition home or self-care (01) ==
PROVIDERS: PCP Nurse Practitioner Family; Visit Provider Internal Medicine
DX: Z21 Asymptomatic human immunodeficiency virus [HIV] infection status (principal); B20 Human immunodeficiency virus [HIV] disease
CPT/HCPCS: 99214

== ENCOUNTER → 2024-07-11 13:13 | Outpatient (BNVA) | payer OTHER, SELFPAY | PROVIDERS: PCP Nurse Practitioner Family; Visit Provider Internal Medicine | DX: Z21 Asymptomatic human immunodeficiency virus [HIV] infection status (principal) | CPT/HCPCS: 99212 ==

== ENCOUNTER 2024-07-17 11:03 | Outpatient (AMB) | payer OTHER, SELFPAY ==
[2024-07-17 11:06] VITALS: BP 130/76; PULSE 84; O2SAT 97; BMI 27.1
--- NOTE | 2024-07-17 11:06 | MHC.PC.OV ---
Vital Signs 07/17/24 11:06 Height 5 ft 7 in Weight 173 lb BMI 27.1 BP 130/76 Blood Pressure Location Lt brachial Position Sitting Pulse 84 Pulse Source Pulse Oximeter Pulse Oximetry (%) 97 Intake Visit Reasons: PE Intake Note: pt is here for PE [place] Stained Glass Required: No Accompanied by: Self / Same As Patient Allergies sulfacetamide [From Sulfacet-R] Allergy (Unknown, Verified 07/17/24 11:07) Rash sulfur [From Sulfacet-R] Allergy (Unknown, Verified 07/17/24 11:07) Rash Tobacco use date assessed: 01/10/24 Fall risk assessment: No Falls in past year Last assessed Fall Risk: 07/17/24 Dental Screening Dental Screen Date: 01/10/24 HPI PE HPI Details History of Present Illness The patient is a 64-year-old male presenting for a routine physical examination. He denies experiencing shortness of breath, chest pain, recent anxiety, or depression. There are no suicidal or homicidal thoughts reported. The patient has not noted any blood in his stool, nor has he experienced constipation or diarrhea. The patient states that he does not have any urinary symptoms, including incomplete bladder emptying, weak stream, or nocturia. He reports that his colonoscopy is up to date. Refuses vaccinations today Health Maintenance - Colonoscopy is up to date. - A Prostate-Specific Antigen (PSA) test will be ordered. Social History Review of Systems - Respiratory: Denies shortness of breath. - Cardiovascular: Denies chest pain. - Gastrointestinal: Denies blood in stool, constipation, diarrhea. - Genitourinary: Denies urinary symptoms, including incomplete bladder emptying, weak stream, nocturia. - Psychiatric: Denies recent anxiety, depression, suicidal or homicidal ideation. Physical Exam General: Cooperative, healthy appearing, comfortable, no acute distress and well developed Orientation: Patient oriented x3 Limitations: No limitations Head: Normal to inspection Ears: Hearing grossly normal bilaterally, TM is easily seen Nose: Normal external nose present Face and sinus: Normal facial exam Eyes: Appearance normal, both eyes and all related structures Neck: Normal visual inspection and Yes full ROM Respiratory: Normal respiratory effort and able to speak in complete sentences. Clear to auscultation bilaterally Cardiovascular: Regular rate and rhythm. Normal S1 and S2 GI: Normal to inspection. Soft to palpation and nontender Skin: No rashes or lesions noted Neuro: Patient oriented x3 Extremities: Normal to inspection Results - Tests to be done: Prostate-Specific Antigen (PSA). Plan - Order Prostate-Specific Antigen PSA) test. - Conduct regular health maintenance screenings as per guidelines. - Ensure completion of recommended immunizations if not already up to date. Patient was informed and verbally consented to the use of an ambient scribe for clinic note documentation during this visit. Discussion Notes I explained to the patient that his prostate exam was normal with no nodules and a smooth central groove. We discussed the importance of continuing routine health maintenance checks, including a PSA test, which I have ordered. I reinforced the importance of keeping his colonoscopy screenings up to date and advised that he should continue to monitor for any gastrointestinal or urinary symptoms and report any changes. Patient Instructions - Schedule and complete the PSA test. - Continue regular health maintenance and screening tests as advised. - Monitor for any changes in bowel or urinary habits and report any new symptoms. [facility] Medical History Elevated cholesterol Gout Diverticulosis GERD (gastroesophageal reflux disease) CKD (chronic kidney disease) HIV infection Surgical History History of rectal surgery History of dental surgery H/O colonoscopy Social History Housing: House Alcohol intake: former Patient Tobacco Use Status: Former Tobacco user e-Cigarette/Vaping Use: Never Used Second Hand Smoke Exposure: No service: Yes Current occupational status: employed Current occupation: [employer] Current occupational exposures/hazards: No Cognitive needs: No Hearing needs: No Vision needs: No Questionnaire PHQ-9 Over the last 2 weeks, how often have you been bothered by any of the following problems? 1. Little interest or pleasure in doing things: not at all 2. Feeling down, depressed, or hopeless: not at all 3. Trouble falling or staying asleep, or sleeping too much: not at all 4. Feeling tired or having little energy: not at all 5. Poor appetite or overeating: not at all 6. Feeling bad about yourself - or that you are a failure or have let yourself or your family down: not at all 7. Trouble concentrating on things, such as reading the newspaper or watching television: not at all 8. Moving or speaking so slowly that other people could have noticed. Or the opposite - being so fidgety or restless that you have been moving around a lot more than usual: not at all 9. Thoughts that you would be better off or of hurting yourself in some way: not at all Total score: 0 Depression Screening Interpretation: Negative Depression Screening Done: Yes 33697 - PHQ-9 Billing: Yes Source: Developed by Drs. Kolby Castillo, Shanthi Hicks, Reece Kwan and colleagues, with an educational shashi from [employer]. Thrive Questionnaire Date Thrive assessed: 07/17/24 I am a: Patient What is your living situation today?: I choose not to answer this question Within the past 12 months, did the food you bought not last and you didn't have the money to get more?: I choose not to answer this question Within the past 12 months, did you worry whether your food would run out before you got money to buy more?: I choose not to answer this question Do you have trouble paying for medicines?: I choose not to answer this question Do you have trouble getting transportation to medical appointments?: I choose not to answer this question Do you have trouble paying your heating and electricity bill?: I choose not to answer this question Do you have trouble taking care of your child, family member or friend?: I choose not to answer this question Do you have trouble with day-to-day activities such as bathing, preparing meals, shopping, managing finances, etc.?: I choose not to answer this question Are you currently unemployed and looking for a job?: I choose not to answer this question Are you interested in more education?: I choose not to answer this question Please select the resources that you would like help with: None Currently or been in a relationship where the following occur: I choose not to answer THRIVE Score: 0 AUDIT C Alcohol Use Questionnaire (AUDIT-C) 1. How often do you have a drink containing alcohol?: Never 3. How often do you have six or more drinks on one occasion?: Never Total Score: 0 Score Reviewed/Action Taken: Yes PAPITO-7 AMB Questionnaire PAPITO-7 Date PAPITO - 7 assessed: 07/17/24 Feeling nervous, anxious, or on edge: 0 = Not at all Not being able to stop or control worryin = Not at all Worrying too much about different things: 0 = Not at all Trouble relaxin = Not at all Being so restless that it is hard to sit still: 0 = Not at all Becoming easily annoyed or irritable: 0 = Not at all Feeling afraid as if something awful might happen: 0 = Not at all Total PAPITO-7 score (0-4 normal; 5-9 mild; 10-14 moderate; 15-21 severe): 0 Source: Developed by Drs. Kolby Castillo, Shanthi Hicks, Reece Kwan and colleagues, with an educational shashi from [employer]. PAPITO-7 Assessment Billing PAPITO-7 Assessment Tool: PAPITO-7 Assessment 19149 Physical exam (Primary Care) Vital Signs: Last Vital Signs Pulse 84 07/17/24 11:06 BP 130/76 07/17/24 11:06 Pulse Ox 97 07/17/24 11:06 BMI result Body Mass Index 27.1 Tobacco/Smoking Status: Tobacco use Status Tobacco use date assessed 01/10/24 07/17/24 11:07 Patient Tobacco Use Status Former Tobacco user 07/17/24 11:07 e-Cigarette/Vaping Use Never Used 07/17/24 11:07 PHQ-9: PHQ-9 Score PHQ-9: Total score 0 07/17/24 11:07 Depression Screening Interpretation: Negative Thrive Assessment: Date of Thrive Assessment Date Thrive assessed 07/17/24 07/17/24 11:07 Currently or been in a relationship where the following occur: I choose not to answer Coding Level of Care Code Est Pt Prev Care 40-64y(01909) Diagnoses Screening PSA (prostate specific antigen) Z12.5 Elevated alkaline phosphatase level R74.8 Additional Codes PAPITO-7 Assessment Billing - PAPITO-7 Assessment Tool: PAPITO-7 Assessment 78324 ([id number]) PHQ-9 - 84950 - PHQ-9 Billing: Yes ([id number]) Assessment & Plan Assessment & Plan (1) Screening PSA (prostate specific antigen): Code(s): Z12.5 - Encounter for screening for malignant neoplasm of prostate Category: Medical (2) Elevated alkaline phosphatase level: Code(s): R74.8 - Abnormal levels of other serum enzymes Category: Medical Plan . Orders: Orders Prostate Specific Antigen Scr Today Z12.5 - Encounter for screening for malignant neoplasm of prostate Alkaline Phosphatase Isoenzyme Today R74.8 - Abnormal levels of other serum enzymes
--- OUTSIDE RECORDS SUMMARY | 2024-07-17 11:06 | XMS_ITS ---
Author Organization [facility] Address [address] [place] [address] Care Team Providers Care Nurse Transitional Name Role Phone VILMAANGELLAFELY Primary Care Provider Kolby Whitman [phone] Encounters Encounter Location Date Provider Diagnosis [facility] [address] [place] [address] 03/29/2023 Kolby Benson PLAN OF TREATMENT No Information
--- OUTSIDE RECORDS SUMMARY | 2024-07-17 11:06 | XMS_ITS | Encounter Summary ---
Author Name [facility] [place] Organization [facility] [place] [facility] [place] Address [address] [place] [address] Care Team Providers Care Lease Broker Name Role Phone IRAM KRISHNAMURTHY Primary Care [...] Name Patient's Relationship to Policy Tran [facility] HIGH DEDUCTIBL E HEALTH PLAN BEST [employer] HDHP Apr 24, 2021 PPO [id number] KIRBY DAMON [facility] PREFERRED PROVIDER ORGANIZAT ION (PPO) HNE Apr 24, 2022 [id number] KIRBY DAMON [facility] PREFERRED PROVIDER ORGANIZAT ION (PPO) [facility] [place] Apr 24, 2022 [id number] KIRBY DAMON [facility] HIGH DEDUCTIBL E HEALTH PLAN W/HEALTH REIMBURSE MENT ARRANGEME NT KRING LE AND HDHP HRA Apr 24, 2022 [id number] KIRBY DAMON [facility] HIGH DEDUCTIBL E HEALTH PLAN KRING LE CANDL E HDHP Apr 24, 2020 [id number] KIRBY DAMON [facility] PREFERRED PROVIDER ORGANIZAT ION (PPO) [facility] EMPLO SABRINA Jul 25, 2016 [id number] ALMAZ DAMON,JERRY [facility] PREFERRED PROVIDER ORGANIZAT ION (PPO) [place] Apr 24, 2016 [id number] NELSONKIRBY GREEN PATIENT [facility] HIGH DEDUCTIBL E HEALTH PLAN KRING LE CANDL E [facility] Apr 24, 2016 [id number] NELSONKIRBY PATIENT MEDMETRICS PRESCRIPT ION [facility] Oct 30, 2019 [facility] [id number] [phone] NELSONKIRBY PATIENT [facility] CLASS INSURANCE KRING LE CANDL E [facility] Apr 24, 2020 [id number] NELSONKIRBY PATIENT [facility] CLASS INSURANCE KRING LE CANDL E [facility] Apr 24, 2016 [id number] [id number] [phone] NELSONKIRBY PATIENT OPT[facility] RX PRESCRIPT ION [address] PILGR IM [facility] Apr 24, 2021 N/A [id number] NELSONKIRBY PATIENT OPT[facility] RX MENTAL HEALTH [facility] Apr 24, 2021 [id number] NELSONKIRBY PATIENT [facility] RX PRESCRIPT ION [facility] Oct 30, 2019 [facility] [id number] NELSONKIRBY GREEN PATIENT OPTUM RX PRESCRIPT ION HEALT H NEW [facility] HRA Oct 30, 2019 [facility] [id number] NELSONKIRBY GREEN PATIENT OPTUM RX PRESCRIPT ION HEALT H NEW [facility] HRA Oct 30, 2019 [facility] [id number] NELSONKIRBY PATIENT OPTUM RX PRESCRIPT ION HEALT H [facility] Apr 24, 2016 [facility] [id number] NELSONKIRBY PATIENT Selected Encounter This section includes the information on record at [place] for the Encounter. Date/Time Encounter Type Encounter Description Reason Provider Source Jun 20, 2024 09:30 AM OFFICE O/P EST LOW 20 MIN PODIATRY ICD-10-CM L60.3 Nail dystrophy VADIM PARRA [facility] Encounter Template Text not used by [place] Assessments - Encounter Diagnoses This section includes the primary and secondary diagnoses documented for the Encounter. Date/Time Primary/Secondary Diagnosis Diagnosis Name Provider Source Jun 20, 2024 10:02 AM PRIMARY Nail dystrophy VADIM PARRA [facility] Jun 20, 2024 10:02 AM SECONDARY Corns and callosities VADIM PARRA [facility] Jun 20, 2024 10:02 AM SECONDARY Pain in left foot VADIM PARRA [facility] Jun 20, 2024 10:02 AM SECONDARY Pain in left toe(s) VADIM PARRA [facility] Jun 20, 2024 10:02 AM SECONDARY Pain in right foot VADIM PARRA [place] Jun 20, 2024 10:02 AM SECONDARY Pain in right toe(s) VADMI PARRA [facility] Plan of Treatment: Future Appointments (+ 6 months) and Future Tests (+/- 45 days) The Plan of Treatment section includes future care activities for the patient from all [place] treatmentshc specialty hospital. This section includes future appointments and future orders which are active, pending or scheduled. Future Appointments This section includes appointments that were scheduled to occur 6 months from the date of the Encounter, up to a maximum of 20 appointments. The data comes from all [place] treatment facilities. Appointment Date/Time Appointment Type Appointme nt Facility Name Jul 11, 2024 01:15 PM AMBULATORY - MEDICINE [facility] Oct 17, 2024 08:30 AM AMBULATORY - MEDICINE [facility] December 05, 2024 08:30 AM AMBULATORY MEDICINE [facility] Active, Pending, and Scheduled Orders This section includes a listing of several types of active, pending, and scheduled orders, including clinic medications orders, diagnostic test orders, procedure orders and consult orders; where the start date of the order is 45 days before the date of the Encounter or 45 days after the date of theEncounter. The data comes from all [facility] facilities. Test Date/Time Test Type Test Details Facility Name Jul 07, 2024 06:37 PM Consult Order COMMUNITY CARE-INFECTIOUS DISEASE Cons Placement Specialist's Jodi [facility] Social History: Smoking Status (Most current) and Tobacco Use (All prior to encounter date) This section includes the most current, and the historical, smoking and tobacco- related health factors from the [facility] where the Encounter took place. Current Smoking Status This section includes the most current smoking, or tobacco-related health factor, from the [place] facility where the Encounter took place. Date/Time Current Smoking Status Comment Gabrielle ity Jun 07, 2023 09:30 AM VA-TOBACCO FORMER USER [facility] Tobacco Use History This section includes a history of the smoking, or tobacco-related health factors, that were collected on or before the date of the Encounter. The data comes from the [facility] where the Encounter took place. Date/Time Smoking Status/Tobacco Use Comment F acility Jun 07, 2023 09:30 AM VA-TOBACCO QUIT 15 YRS OR MORE [facility] Jun 09, 2022 09:00 AM VA-TOBACCO FORMER USER [facility] Jun 09, 2022 09:00 AM VA-TOBACCO QUIT 5 TO < 15 YRS [facility] Jun 03, 2021 12:30 PM VA-TOBACCO FORMER USER [facility] Jun 03, 2021 12:30 PM VA-TOBACCO QUIT 15 YRS OR MORE [facility] Mar 12, 2020 10:30 AM VA-TOBACCO FORMER USER [facility] Mar 12, 2020 10:30 AM VA-TOBACCO QUIT 15 YRS OR MORE [facility] Jan 03, 2018 10:14 AM VA-TOBACCO FORMER USER [facility] Jan 03, 2018 10:14 AM VA-TOBACCO QUIT 15 YRS OR MORE [facility] Jul 05, 2017 10:47 AM QUIT TOBACCO USE > 7 YEARS AGO reports quitting in 1995 [facility] Encounter Notes: All associated encounter notes This section contains the clinical notes associated to the Encounter. Date/Time Encounter Note(s) Provider Source Jul 11, 2024 09:11 AM LETTERS: LOCAL TITLE: PATIENT LETTER (B) STANDARD TITLE: LETTERS DATE OF NOTE: JUL 11, 2024@09:11 ENTRY DATE: JUL 11, 2024@09:11:51 AUTHOR: JIMMY ASHFORD EXP COSIGNER: URGENCY: STATUS: COMPLETED [facility] [address] [place] [address] [phone] * [phone] * SHEELA DAMON [address] [place], [place] [address] Date: JUL 11, 2024 Dear : This is a reminder letter that your SHOES are ready for pick at [facility] located at [address] [place] [address]. You may scrap picker your shoes and or orthotics at your convenience any day, Tuesday through Tuesday between 8:30am and 3:30pm. You do not need an appointment. BUT WE DO REQUEST THAT YOU CALL BEFORE ARRIVING TO MAKE SURE THE PODIATRY HEALTH GREEN MARKETING ANALYST IS AVAILABLE ON THAT DAY. Call [phone] for Jimmy if you have any questions. We hope to see you soon, Sincerely, Office Staff for:JUVENAL KRISHNAMURTHYLINARIOPrimary Care Provider Upcoming Appointments: 10/17/2024 08:30 CWM/SO/PODIATRY/AIDA 12/05/2024 08:30 CWM/SO/PACT 9 JIMMY ASHFORD [facility] Jun 20, 2024 07:33 AM PODIATRY NOTE: LOCAL TITLE: PODIATRY NOTE STANDARD TITLE: PODIATRY NOTE DATE OF NOTE: JUN 20, 2024@07:33 ENTRY DATE: JUN 20, 2024@07:33:07 AUTHOR: VADIM PARRA COSIGNER: URGENCY: STATUS: COMPLETED NOTE: HAS RECEIVED BOTH COVID VACCINE DOSES AT [facility] LAST SEEN FOR TREATMENT: 01/18/2024 S: [...] present physical-medical status. Protective sensation utilizing a Richardson-Kianna lOg monofilament is 10/10 bilateral. BIOMECHANICAL: Exam [...] of active outpatient prescriptions dispensed from this [place] (local) and dispensed from another [place] or [facility]D facility (remote) as well as [...] Remote Allergy/ADR Data available for this patient [place] [facility] [place] [facility] SULFACETAMIDE/SULFUR Med Recon [facility] (Tool #1) INCLUDED IN THIS LIST: Alphabetical list of active outpatient prescriptions dispensed from this [place] (local) and dispensed from another [place] or [facility] facility (remote) as well [...] the patient into personal health records (i.e. [facility]) are NOT included in this list. Non-VA medications documented outside this [place], remote inpatient orders (regardless of status) and [...] EVERY DAY Patient wants to buy from Non-IA pharmacy. Medication prescribed by Non-VA provider. Non-VA OMEPRAZOLE 20MG EC CAP TAKE 1 CAPSULE BY MOUTH EVERY MORNING 30 MINUTES BEFORE BREAKFAST Patient wants to buy from Non-[place] pharmacy. Medication prescribed by Non-VA provider. SUPPLIES /stef/ VADIM PARRA DPM OPHTHALMIC MEDICAL TECHNOLOGIST Signed: 06/20/2024 10:03 VADIM PARRA [place]
--- OUTSIDE RECORDS SUMMARY | 2024-07-17 11:06 | XMS_ITS ---
Author Organization [facility] Address [address] [place] [address] Care Team Providers Care School Social Worker Name Role Phone FELY CEBALLOS Primary Care Provider Kolby Whitman [phone] ALLERGIES Allergen (clinical drug ingredient) Drug/Non Drug [...] history of colon cancer (Z80.0) Active confirmed 852379943 VITAL SIGNS BMI 26.78 kg/m2 03/29/2023 Blood pressure systolic 000 mm Hg 03/29/20 23 Blood pressure diastolic 00 mm Hg 023 Height 67 in 03/29/2023 Weight 171 lbs 03/29/2023 Encounters Encounter Location Date Provider Diagnosis [facility] [address] [place] [address] 03/29/2023 Kolby Benson History of adenomato us [...]
--- OUTSIDE RECORDS SUMMARY | 2024-07-17 11:06 | XMS_ITS ---
Author Organization [facility] Address [address] [place] [address] Care Team Providers Care Inside Wireman Name Role Phone FELY CEBALLOS Primary Care Provider Kolby Whitman [phone] REASON FOR VISIT screening,hx polyps,fam hx colon ca PROBLEMS Problem Type ICD Code Onset Dates Problem Status W/U Status Risk SNOMED Code Notes Problem Diverticulosis of large intestine without perforation or abscess without bleeding (K57.30) Active confirmed Diverticul ar disease of colon (021434330) Encounters Encounter Location Date Provider Diagnosis [facility] [address] [place], [place] [id number] 06/29/2023 Kolby Benson Encounter for scre ening [...]
--- OUTSIDE RECORDS SUMMARY | 2024-07-17 11:06 | XMS_ITS | Patient Health Record ---
Author Organization [facility] Address [address] [place] [address] Care Team Providers Care Food Stylist Name Role Phone EVERTONRUBENFELY Primary Care Provider Kolby Whitman [phone] ALLERGIES Allergen (clinical drug ingredient) Drug/Non Drug [...] adenomatous polyp of colon (Z86.010) Active confirmed 590895172 Problem Preprocedural examination (Z01.818) Active confirmed 913885636 Problem Encounter for screening for malignant neoplasm of colon (Z12.11) Active confirmed 806213097 Problem Gastroesophageal reflux disease without esophagitis (K21.9) Active confirmed 816701890 Problem Family history of colon cancer (Z80.0) Active confirmed 688728159 Problem Diverticulosis of large intestine without perforation or abscess without bleeding (K57.30) Active confirmed Diverticul ar disease of colon (637784488) PLAN OF TREATMENT Pending Test Test Name Order Date Pathology 06/29/2023 Future Test Test Name Order Date COLONOSCOPY 01/18/2017 COLONOSCOPY 03/29/2023 Insurance Providers Payer Name Payer Address Payer Phone Subscriber Number Group Number Insured Name Patient Relationship to Insured Coverage Start Date Coverage End Date [facility] [address] [place] [phone] [id number] SHEELA RAI Self - patient is the insured [facility] [address] [place] [id number] SHEELA RAI Self - patient is the insured MEDICAL (GENERAL) HISTORY Medical History History ICD Code Denies [place],DM,CVA,Lung disease,renal dise ase HIV since 08/1995--Dr. Sanchez [...]
== END 2024-07-17 12:02 | disposition home or self-care (01) ==
PROVIDERS: PCP Nurse Practitioner Family; Visit Provider Nurse Practitioner Family
DX: Z00.00 Encounter for general adult medical examination without abnormal findings (principal); R74.8 Abnormal levels of other serum enzymes; Z12.5 Encounter for screening for malignant neoplasm of prostate

== ENCOUNTER → 2024-07-17 11:03 | Outpatient (BNVA) | payer OTHER, SELFPAY | PROVIDERS: PCP Nurse Practitioner Family; Visit Provider Nurse Practitioner Family | DX: Z00.00 Encounter for general adult medical examination without abnormal findings (principal); R74.8 Abnormal levels of other serum enzymes | CPT/HCPCS: 96127 ==

== ENCOUNTER 2024-07-31 09:26 | Outpatient (REF) | payer OTHER, SELFPAY ==
[2024-07-31 14:15] LABS: Prostate Specific Antigen Scr 2.03 ng/mL (<0.05-4.0)
[2024-08-04 21:24] LABS: Alk.Phos Iso. Macrohepatic 0 % (<=0); Alk.Phos Isoenzymes Bone 36 % (28-66); Alk.Phos Isoenzymes Intest 0 % (1-24); Alk.Phos Isoenzymes Liver 64 % (25-69); Alk.Phos Isoenzymes Placental 0 % (<=0); Alk.Phos Isoenzymes Total 115 U/L (35-144)
== END 2024-07-31 09:27 | disposition home or self-care (01) ==
LOC: HO.HMGCLDS 09:26
PROVIDERS: PCP Nurse Practitioner Family; Visit Provider Nurse Practitioner Family
DX: R74.8 Abnormal levels of other serum enzymes (principal); Z12.5 Encounter for screening for malignant neoplasm of prostate
CPT/HCPCS: 36415; 84080; 84153

== ENCOUNTER 2024-12-25 10:48 | Outpatient (REF) | payer OTHER, SELFPAY ==
--- OUTSIDE RECORDS SUMMARY | 2024-12-25 12:26 | XMS_ITS | Encounter Summary ---
Author Name [facility] [facility] [place] [facility] [place] [facility] [place] Address [address] [place] [address] Care Team Providers Care Animal Laboratory Technician Name Role Phone BRENDA CALDERON Primary Care Provider Unavailabl e Insurance Providers: All historical and current Section Date Range: From patient's date of to the date document was created. This section includes the names of all active insurance providers for the patient. Insurance Provider Type of Coverage Plan Name Start of Policy Coverage End of Policy Coverage Group Number Member ID Insurance Provider's Telephone Number Policy Tran's Name Patient's Relationship to Policy Tran [facility] HIGH DEDUCTIBL E HEALTH PLAN [employer] Apr 24, 2021 PPO [id number] KIRBY DAMON [facility] PREFERRED PROVIDER ORGANIZAT ION (PPO) HNE Apr 24, 2022 [id number] KIRBY DAMON [facility] PREFERRED PROVIDER ORGANIZAT ION (PPO) [place] Apr 24, 2022 [id number] KIRBY DAMON [facility] HIGH DEDUCTIBL E HEALTH PLAN W/HEALTH REIMBURSE MENT ARRANGEME NT KOSTAS CORDERO AND HDHP HRA Apr 24, 2022 [id number] KIRBY DAMON [facility] PREFERRED PROVIDER ORGANIZAT ION (PPO) [facility] ACTIV E EMPLO YESTEF Jul 25, 2016 [id number] LAFERRIER E DAMON,DI [facility] PREFERRED PROVIDER ORGANIZAT ION (PPO) KRBAKARI GARVEYL E [place] Apr 24, 2016 [id number] KIRBY DAMON PATIENT MEDMETRICS PRESCRIPT ION [facility] Oct 30, 2019 [facility] [id number] KIRBY DAMON PATIENT [employer] [facility] SPECIAL CLASS INSURANCE KRBAKARI GARVEYL E [facility] Apr 24, 2016 [id number] [id number] KIRBY DAMON PATIENT [employer] RX PRESCRIPT ION [place]IA ALEJANRDA [place] Apr 24, 2021 [id number] DAMONKIRBY PATIENT [employer] RX MENTAL HEALTH [facility] Apr 24, 2021 [id number] KIRBY DAMON PATIENT [facility] RX PRESCRIPT ION [facility] Oct 30, 2019 [facility] [id number] NELSONKIRBY PATIENT [employer] RX PRESCRIPT ION HEALT H [facility] HRA Oct 30, 2019 [facility] [id number] DAMONKIRBY PATIENT [employer] RX PRESCRIPT ION [facility] Oct 30, 2019 [facility] [id number] KIRBY DAMON PATIENT [employer] RX PRESCRIPT ION HEALT H [place] [facility] Apr 24, 2016 [facility] [id number] KIRBY DAMON PATIENT Selected Encounter This section includes the information on record at [place] for the Encounter. Date/Time Encounter Type Encounter Description Reason Provider Source Jun 20, 2024 09:30 AM OFFICE O/P EST LOW 20 MIN PODIATRY ICD-10-CM L60.3 Nail dystrophy VADIM PARRA [facility] Encounter Template Text not used by [place] Assessments - Encounter Diagnoses This section includes the primary and secondary diagnoses documented for the Encounter. Date/Time Primary/Secondary Diagnosis Diagnosis Name Provider Source Jun 20, 2024 10:02 AM PRIMARY Nail dystrophy VADIM PARRA [place] Jun 20, 2024 10:02 AM SECONDARY Corns and callosities VADIM PARRA [place] Jun 20, 2024 10:02 AM SECONDARY Pain in left foot VADIM PARRA [place] Jun 20, 2024 10:02 AM SECONDARY Pain in left toe(s) VADIM PARRA [place] Jun 20, 2024 10:02 AM SECONDARY Pain in right foot VADIM PARRA [place] Jun 20, 2024 10:02 AM SECONDARY Pain in right toe(s) VADIM PARRA [place] Plan of Treatment: Future Appointments (+ 6 months) and Future Tests (+/- 45 days) The Plan of Treatment section includes future care activities for the patient from all [place] [facility]. This section includes future appointments and future orders which are active, pending or scheduled. Future Appointments This section includes appointments that were scheduled to occur 6 months from the date of the Encounter, up to a maximum of 20 appointments. The data comes from all [place] treatment facilities. Appointment Date/Time Appointment Type Appointme nt Facility Name Jul 11, 2024 01:15 PM AMBULATORY - MEDICINE [facility] Sep 13, 2024 09:00 AM AMBULATORY MEDICINE [facility] Oct 17, 2024 08:30 AM AMBULATORY - MEDICINE [facility] December 03, 2024 10:30 AM AMBULATORY - MEDICINE [facility] Social History: Smoking Status (Most current) and Tobacco Use (All prior to encounter date) This section includes the most current, and the historical, smoking and tobacco- related health factors from the [place] facility where the Encounter took place. Current Smoking Status This section includes the most current smoking, or tobacco-related health factor, from the [place] facility where the Encounter took place. Date/Time Current Smoking Status Comment Gabrielle hui Jun 07, 2023 09:30 AM VA-TOBACCO FORMER USER [place] Tobacco Use History This section includes a history of the smoking, or tobacco-related health factors, that were collected on or before the date of the Encounter. The data comes from the [place] facility where the Encounter took place. Date/Time Smoking Status/Tobacco Use Comment F [place] Jun 07, 2023 09:30 AM VA-TOBACCO QUIT 15 YRS OR MORE [place] Jun 09, 2022 09:00 AM VA-TOBACCO FORMER USER [place] Jun 09, 2022 09:00 AM VA-TOBACCO QUIT 5 TO < 15 YRS [place] Jun 03, 2021 12:30 PM VA-TOBACCO FORMER USER [place] Jun 03, 2021 12:30 PM [place]-TO[place] QU[place] 15 YRS OR MORE [place] Mar 12, 2020 10:30 AM VA-TOBACCO FORMER USER [place] Mar 12, 2020 10:30 AM VA-TOBACCO QUIT 15 YRS OR MORE [place] Jan 03, 2018 10:14 AM VA-TOBACCO FORMER USER [place] Jan 03, 2018 10:14 AM VA-TOBACCO QUIT 15 YRS OR MORE [place] Jul 05, 2017 10:47 AM QUIT TOBACCO USE > 7 YEARS AGO reports quitting in 1995 [place] Encounter Notes: All associated encounter notes This section contains the clinical notes associated to the Encounter. Date/Time Encounter Note(s) Provider Source Aug 29, 2024 08:49 AM LETTERS: LOCAL TITLE: PATIENT LETTER (B) STANDARD TITLE: LETTERS DATE OF NOTE: AUG 29, 2024@08:49 ENTRY DATE: AUG 29, 2024@08:49:07 AUTHOR: JIMMY ASHFORD COSIGNER: URGENCY: STATUS: COMPLETED [facility] [address] [place] [address] [phone] * [phone] * SHEELA DAMON [address] [place] [id number] Date: AUG 29, 2024 Dear : This is a reminder letter that your SHOES are ready for pick at the [facility] in [place] located at [address] [place] [address]. You may bead picker your shoes and or orthotics at your convenience any day, Tuesday through Tuesday between 8:30am and 3:30pm. You do not need an appointment. BUT WE DO REQUEST THAT YOU CALL BEFORE ARRIVING TO MAKE SURE THE PODIATRY HEALTH DRY WALL FINISHER IS AVAILABLE ON THAT DAY. Call [phone] for Jimmy if you have any questions. We hope to see you soon, Sincerely, Office Staff for:[facility] Care Provider Upcoming Appointments: 10/17/2024 08:30 SPR PODIATRY 1 12/05/2024 08:30 CWM/SO/PACT 9 JIMMY ASHFORD [place] Jul 27, 2024 02:27 PM PODIATRY NOTE: LOCAL TITLE: PODIATRY NOTE STANDARD TITLE: PODIATRY NOTE DATE OF NOTE: JUL 27, 2024@14:27 ENTRY DATE: JUL 27, 2024@14:27:52 AUTHOR: JIMMY ASHFORD EXP COSIGNER: URGENCY: STATUS: COMPLETED S: Pt presents for pickup of new therapeutic shoes. O: No new foot health issues at this time. A:Plantar fascial fibromatosis P: Dispensed Dr. Bernadette Bernardo [id number] size 9 wide. They were checked for fit by palpating the length, width and height in the toe box area. They were very comfortable and was instructed to wear them around the house to make sure they fit properly. Pt was informed that if he elected to wear them out on the street that they will not be able to returned within 30 days of dispensing of shoes. Pt was Instructed to make a follow up appt. in the event the shoes do not fit properly-and to bring shoes to that visit. /stef/ JIMMY ASHFORD HEALTH DRY WALL FINISHER Signed: 07/27/2024 14:28 JIMMY ASHFORD [place] Jul 11, 2024 09:11 AM LETTERS: LOCAL TITLE: PATIENT LETTER (B) STANDARD TITLE: LETTERS DATE OF NOTE: JUL 11, 2024@09:11 ENTRY DATE: JUL 11, 2024@09:11:51 AUTHOR: JIMMY ASHFORD EXP COSIGNER: URGENCY: STATUS: COMPLETED [facility] [address] [place] [address] [phone] * [phone] * SHEELA DAMON [address] [place], [place] [address] Date: JUL 11, 2024 Dear [place]: This is a reminder letter that your SHOES are ready for pick at the [facility] in [place] located at [address] [place] [address]. You may bead picker your shoes and or orthotics at your convenience any day, Tuesday through Tuesday between 8:30am and 3:30pm. You do not need an appointment. BUT WE DO REQUEST THAT YOU CALL BEFORE ARRIVING TO MAKE SURE THE PODIATRY HEALTH DRY WALL FINISHER IS AVAILABLE ON THAT DAY. Call [phone] for Jimmy if you have any questions. We hope to see you soon, Sincerely, Office Staff for:JUVENAL KRISHNAMURTHYLINARIOPrimary Care Provider Upcoming Appointments: 10/17/2024 08:30 CWM/SO/PODIATRY/AIDA 12/05/2024 08:30 CWM/SO/PACT 9 JIMMY ASHFORD [place] Jun 20, 2024 07:33 AM PODIATRY NOTE: [...] present physical-medical status. Protective sensation utilizing a [place]ianna lOg monofilament is 10/10 bilateral. BIOMECHANICAL: Exam [...] this [facility] (local[facility] and dispensed from another [place] or [facility] facility (remote) as well as [...] Remote Allergy/ADR Data available for this patient [facility] [place] SULFACETAMIDE/SULFUR Med Recon [facility] (Tool #1) INCLUDED IN THIS LIST: Alphabetical list of active outpatient prescriptions dispensed from this [place] (local) and dispensed from another [place] or [facility] facility (remote) as well as inpatient orders [...] the patient into personal health records (i.e. [place]) are NOT included in this list. Non-VA medications documented outside this [place], remote inpatient orders (regardless of status) and [...] BEFORE BREAKFAST Patient wants to buy from Non-[place] pharmacy. Medication prescribed by Non-VA provider. SUPPLIES /stef/ VADIM PARRA DPM DESTINATION SIGN REPAIRER Signed: 06/20/2024 10:03 VADIM PARRA [place]
[2024-12-27 13:48] LABS: HIV RNA PCR Qn Copies NOT DETECTED copies/mL (NOT DETECTED); HIV RNA PCR Qn Log Copies NOT DETECTED (NOT DETECTED)
[2025-01-01 15:44] LABS: Absolute CD3 Count 1773 cells/uL (840-3060); Absolute CD4 Count 1322 cells/uL (490-1740); Absolute CD8 Count 529 cells/uL (180-1170); Absolute Lymphocytes 2507 cells/uL (850-3900); Percent CD3 Cells 71 % (57-85); Percent CD4 Cells 53 % (30-61); Percent CD8 Cells 21 % (12-42)
== END 2024-12-25 10:49 | disposition home or self-care (01) ==
LOC: HO.LAB 10:48
PROVIDERS: PCP Nurse Practitioner Family; Visit Provider Internal Medicine
DX: B20 Human immunodeficiency virus [HIV] disease (principal)
CPT/HCPCS: 36415; 86359; 86360; 87536

== ENCOUNTER 2025-01-08 14:03 | Outpatient (AMB) | payer OTHER, MEDICAID, SELFPAY ==
--- NOTE | 2025-01-08 14:28 | A.OFFPC_ITS ---
Vital Signs 01/08/25 14:30 Height 5 ft 7 in Weight 167 lb BMI 26.2 BP 126/76 Blood Pressure Location Rt brachial Position Sitting Pulse 74 Pulse Source Pulse Oximeter Temp 98.8 F Temp Source Oral Pulse Oximetry (%) 96 Oxygen Delivery Method Room Air Intake Visit Reasons: 6 months f/up Accompanied by: Self / Same As Patient Allergies sulfacetamide [From Sulfacet-R] Allergy (Unknown, Verified 01/08/25 15:44) Rash sulfur [From Sulfacet-R] Allergy (Unknown, Verified 01/08/25 15:44) Rash Medication List - Last Reconciled 01/08/25 by Buddy Deleon, FOREIGN SERVICE OFFICER- allopurinol 300 mg PO DAILY atorvastatin 20 mg PO DAILY 90 days fftnohsls-qoficrpf-zuccvgq ala 50-200-25 mg (Biktarvy) 1 tab PO DAILY 30 days cholecalciferol (vitamin D3) 50 mcg PO DAILY hydrocortisone 1% 1 appl topical DAILY PRN mupirocin calcium 2% 1 appl topical BID omeprazole 20 mg PO QAM Tobacco use date assessed: 01/08/25 Fall risk assessment: No Falls in past year Last assessed Fall Risk: 01/08/25 Dental Screening Dental Screen Date: 01/08/25 Did you have a dental visit in the last 12 months?: Yes Did you have a dental problem in the last 6 months where you did not have access to dental care?: No Was dental information given to patient?: Patient has dentist HPI 6 months f/up HPI Details Chief Complaint The patient reports a clogged feeling in the left ear and itching with tenderne ss. History of Present Illness The patient is a 64-year-old male presenting with a general wellness visit and evaluation of ear symptoms. He reports a clogged feeling in his left ear, with a history of cerumen impaction. There is cerumen present in the left ear and some residual in the right ear. Additionally, the patient describes itching and tenderness in the left ear lobe, with visible dry skin and cracks on the inferior aspect of the ear lobe. No signs of infection were noted. The patient also reports faint macular, papular bumps on his cheek, which appear to be an allergic reaction. He denies any shortness of breath, abdominal pain, blood in stool, constipation, diarrhea, chest pain, headaches, or blurred vision. Overall, the patient reports feeling fair to good. Social History Health Maintenance Review of Systems - Ears: Reports clogged feeling in left ear, itching, and tenderness - Dermatological: Reports faint macular, papular bumps on cheek - General: Denies shortness of breath, a bdominal pain, blood in stool, constipation, diarrhea, chest pain, headaches, blurred vision Physical Exam General: Cooperative, healthy appearing, comfortable, no acute distress and well developed Orientation: Patient oriented x3 Limitations: No limitations Head: Normal to inspection Ears: Hearing grossly normal bilaterally, cerumen present in the left ear, residual cerumen in the right ear, after ear lavage, TMs easily seen. tenderness and dry skin with splits on the left ear lobe (lower) Nose: Normal external nose present Face and sinus: Normal facial exam, very faint macular, papular bumps on the cheek, likely allergic reaction Eyes: Appearance normal, both eyes and all related structures Neck: Normal visual inspection and Yes full ROM Respiratory: Normal respiratory effort and able to speak in complete sentences. Clear to auscultation bilaterally Cardiovascular: Regular rate and rhythm. Normal S1 and S2 GI: Normal to inspection. Soft to palpation and nontender Skin: No rashes or lesions noted, except for dry skin on the left ear lobe and faint bumps on the cheek Neuro: Patient oriented x3 Extremities: Normal to inspection Results Plan The patient will be advised to use zdmi-der-bbwwrsi cetirizine for the allergic reaction presenting as faint macular, papular bumps on the cheek. He is instructed to follow up or seek medical treatment if symptoms worsen. Basic laboratory tests, including cholesterol levels, will be obtained to assess overall health status. Discussion Notes I discussed with the patient the likely allergic reaction causing the bumps on his cheek and recommended cetirizine as an xwmr-vys-qhcahti treatment. I advised him to monitor his symptoms and to contact me or seek medical attention if they worsen. We also planned to conduct basic laboratory tests, including cholesterol levels, to monitor his overall health. Patient Instructions - Take cetirizine as directed for allerg ic reaction/hydrocortizone cream. - Follow up or seek medical attention if symptoms worsen. - Complete the recommended laboratory te sts, including cholesterol levels. [facility] Medical History Elevated cholesterol Gout Diverticulosis GERD (gastroesophageal reflux disease) CKD (chronic kidney disease) HIV infection Surgical History History of rectal surgery History of dental surgery H/O colonoscopy Social History Housing: House Alcohol intake: former Patient Tobacco Use Status: Former Tobacco user e-Cigarette/Vaping Use: Never Used Second Hand Smoke Exposure: No service: Yes Current occupational status: employed Current occupation: [employer] Current occupational exposures/hazards: No Cognitive needs: No Hearing needs: No Vision needs: No Questionnaire PHQ-9 Over the last 2 weeks, how often have you been bothered by any of the following problems? 1. Little interest or pleasure in doing things: not at all 2. Feeling down, depressed, or hopeless: not at all 3. Trouble falling or staying asleep, or sleeping too much: not at all 4. Feeling tired or having little energy: not at all 5. Poor appetite or overeating: not at all 6. Feeling bad about yourself - or that you are a failure or have let yourself or your family down: not at all 7. Trouble concentrating on things, such as reading the newspaper or watching television: not at all 8. Moving or speaking so slowly that other people could have noticed. Or the opposite - being so fidgety or restless that you have been moving around a lot more than usual: not at all 9. Thoughts that you would be better off or of hurting yourself in some way: not at all Total score: 0 Depression Screening Interpretation: Negative Depression Screening Done: Yes 44640 - PHQ-9 Billing: Yes Source: Developed by Drs. Kolby Castillo, Shanthi Hicks, Reece Kwan and colleagues, with an educational shashi from [employer]. Thrive Questionnaire Date Thrive assessed: 01/08/25 I am a: Patient What is your living situation today?: I have a steady place to live Within the past 12 months, did the food you bought not last and you didn't have the money to get more?: Never true Within the past 12 months, did you worry whether your food would run out before you got money to buy more?: Never true Do you have trouble paying for medicines?: No Do you have trouble getting transportation to medical appointments?: No Do you have trouble paying your heating and electricity bill?: No Do you have trouble taking care of your child, family member or friend?: No Do you have trouble with day-to-day activities such as bathing, preparing meals, shopping, managing finances, etc.?: No Are you currently unemployed and looking for a job?: No Are you interested in more education?: No Please select the resources that you would like help with: None Currently or been in a relationship where the following occur: No concerns reported THRIVE Score: 0 AUDIT C Alcohol Use Questionnaire (AUDIT-C) 1. How often do you have a drink containing alcohol?: Never 3. How often do you have six or more drinks on one occasion?: Never Total Score: 0 Score Reviewed/Action Taken: Yes PAPITO-7 AMB Questionnaire PAPITO-7 Date PAPITO - 7 assessed: 01/08/25 Feeling nervous, anxious, or on edge: 0 = Not at all Not being able to stop or control worryin = Not at all Worrying too much about different things: 0 = Not at all Trouble relaxin = Not at all Being so restless that it is hard to sit still: 0 = Not at all Becoming easily annoyed or irritable: 0 = Not at all Feeling afraid as if something awful might happen: 0 = Not at all Total PAPITO-7 score (0-4 normal; 5-9 mild; 10-14 moderate; 15-21 severe): 0 Source: Developed by Drs. Kolby Castillo, Shanthi Hicks, Reece Kwan and colleagues, with an educational shashi from [employer]. PAPITO-7 Assessment Billing PAPITO-7 Assessment Tool: PAPITO-7 Assessment 34164 Physical exam (Primary Care) Vital Signs: Last Vital Signs Temp 98.8 F 01/08/25 14:30 Pulse 74 01/08/25 14:30 BP 126/76 01/08/25 14:30 Pulse Ox 96 01/08/25 14:30 Oxygen Delivery Method Room Air 01/08/25 14:30 BMI result Body Mass Index 26.2 Tobacco/Smoking Status: Tobacco use Status Tobacco use date assessed 01/08/25 01/08/25 14:34 Patient Tobacco Use Status Former Tobacco user 01/08/25 14:30 e-Cigarette/Vaping Use Never Used 01/08/25 14:30 PHQ-9: PHQ-9 Score PHQ-9: Total score 0 01/08/25 14:34 Depression Screening Interpretation: Negative Thrive Assessment: Date of Thrive Assessment Date Thrive assessed 01/08/25 01/08/25 14:34 Currently or been in a relationship where the following occur: No concerns reported Office Procedures Cerumen Removal From which ear canal was the cerumen removed: bilateral Removal: irrigation Notes: patient tolerated procedure well, no complications and ear canal clear 07125-Ihh Irrigation/Lavage Coding Level of Care Code Est Pt Level 3 (21795) Diagnoses Elevated cholesterol E78.00 Facial abrasion S00.81XA Bilateral impacted cerumen H61.23 Laterality: bilateral Allergic reaction T78.40XA Gout M10.9 CPT Codes Office Procedure - CPT: 60803-Luk Irrigation/Lavage ([id number]) Additional Codes PAPITO-7 Assessment Billing - PAPITO-7 Assessment Tool: PAPITO-7 Assessment 42810 ([id number]) PHQ-9 - 36185 - PHQ-9 Billing: Yes ([id number]) Assessment & Plan Assessment & Plan (1) Elevated cholesterol: Code(s): E78.00 - Pure hypercholesterolemia, unspecified Category: Medical (2) Facial abrasion: Code(s): S00.81XA - Abrasion of other part of head, initial encounter Category: Medical (3) Impacted cerumen: Code(s): H61.20 - Impacted cerumen, unspecified ear Category: Medical Qualifiers: Laterality: bilateral Qualified Code(s): H61.23 - Impacted cerumen, bilateral (4) Allergic reaction: Code(s): T78.40XA - Allergy, unspecified, initial encounter Category: Medical (5) Gout: Code(s): M10.9 - Gout, unspecified Category: Medical Plan . Orders: Orders Complete Blood Count Auto Diff Today E78.00 - Pure hypercholesterolemia, unspecified Comprehensive [place]. Panel Fast Today E78.00 - Pure hypercholesterolemia, unspecified TSH reflex Free T4 Today E78.00 - Pure hypercholesterolemia, unspecified UA CC w/rflx Micro + Cult Today E78.00 - Pure hypercholesterolemia, unspecified Lipid Panel Today E78.00 - Pure hypercholesterolemia, unspecified Uric Acid Today M10.9 - Gout, unspecified Medications: New mupirocin calcium 2% for ear lobe 1 appl topical BID 30 grams 0RF hydrocortisone 1% for face 1 appl topical DAILY PRN 28.4 grams 0RF skin irritation
[2025-01-08 14:30] VITALS: BP 126/76; PULSE 74; TEMP 37.1; O2SAT 96; BMI 26.2
== END 2025-01-08 15:40 | disposition home or self-care (01) ==
LOC: HO.HMCC 14:04
PROVIDERS: PCP Nurse Practitioner Family; Visit Provider Nurse Practitioner Family
DX: E78.00 Pure hypercholesterolemia, unspecified (principal); S00.81XA Abrasion of other part of head, initial encounter; H61.23 Impacted cerumen, bilateral; T78.40XA Allergy, unspecified, initial encounter; M10.9 Gout, unspecified

== ENCOUNTER → 2025-01-08 14:03 | Outpatient (BNVA) | payer OTHER, SELFPAY | PROVIDERS: PCP Nurse Practitioner Family; Visit Provider Nurse Practitioner Family | DX: H61.23 Impacted cerumen, bilateral (principal); E78.00 Pure hypercholesterolemia, unspecified; S00.81XA Abrasion of other part of head, initial encounter; M10.9 Gout, unspecified | CPT/HCPCS: 69209; 96127 ==

== ENCOUNTER 2025-01-14 15:13 | Outpatient (AMB) | payer OTHER, MEDICAID, SELFPAY ==
--- NOTE | 2025-01-14 15:31 | A.OFFVIS_ITS ---
Vital Signs 01/14/25 15:37 Height 5 ft 7 in Pulse 90 Pulse Source Pulse Oximeter Pulse Oximetry (%) 96 Intake Visit Reasons: 6 month hiv follow up lab Allergies sulfacetamide (From Sulfacet-R) Allergy (Unknown, Verified 01/14/25 15:37) Rash sulfur (From Sulfacet-R) Allergy (Unknown, Verified 01/14/25 15:37) Rash HPI HPI 6 month hiv follow up lab: Details: He has CD4 count of 1773 on 12/25 and viral load undetectable. He has no complaints. ON LICENSE OF [facility] Medical History Elevated cholesterol Gout Diverticulosis GERD (gastroesophageal reflux disease) CKD (chronic kidney disease) HIV infection Surgical History History of rectal surgery History of dental surgery H/O colonoscopy Social History Housing: House Alcohol intake: former Patient Tobacco Use Status: Former Tobacco user e-Cigarette/Vaping Use: Never Used Second Hand Smoke Exposure: No service: Yes Current occupational status: employed Current occupation: [employer] Current occupational exposures/hazards: No Cognitive needs: No Hearing needs: No Vision needs: No Review of Systems Const All systems reviewed & are unremarkable except as noted in HPI and below Physical Exam Vital Signs: Last Vital Signs Pulse 90 01/14/25 15:37 Pulse Ox 96 01/14/25 15:37 Const General: cooperative Assessment & Plan Assessment & Plan (1) HIV infection: Comment: He is doing well Code(s): B20 - Human immunodeficiency virus [HIV] disease Category: Medical Plan: Continue Biktarvy See in six months Orders: Orders HIV-1 RNA QN PCR Expanded 6 Months B20 - Human immunodeficiency virus [HIV] disease Lymphocyte Subset Panel 3 6 Months B20 - Human immunodeficiency virus [HIV] disease Syphilis Screen 6 Months B20 - Human immunodeficiency virus [HIV] disease Medications: Refilled irxudknas-wzgiuzcf-djjrryi ala 50-200-25 mg (Biktarvy) 1 tab PO DAILY 30 tabs 5RF 30 days Coding Level of Care Code Est Pt Level 3 (04779) Diagnoses HIV infection B20
[2025-01-14 15:37] VITALS: PULSE 90; O2SAT 96
== END 2025-01-14 16:11 | disposition home or self-care (01) ==
LOC: HO.HID 15:13
PROVIDERS: PCP Nurse Practitioner Family; Visit Provider Internal Medicine
DX: B20 Human immunodeficiency virus [HIV] disease (principal)
CPT/HCPCS: 99213

== ENCOUNTER 2025-02-25 09:34 | Outpatient (REF) | payer OTHER, MEDICAID, SELFPAY ==
--- OUTSIDE RECORDS SUMMARY | 2025-02-20 04:30 | XMS_ITS | Encounter Summary ---
Author Name [facility] [place] [facility] [place] [facility] [place] Address [address] [place] [address] Care Team Providers Care Home Maker Name Role Phone ANEESH OLIVEIRA Primary Care Provider Unavailabl e Insurance Providers: [...] BEST BUY HDHP Apr 24, 2021 PPO [id number] [facility] PREFERRED PROVIDER ORGANIZAT ION (PPO) HNE Apr 24, 2022 [id number] [facility] PREFERRED PROVIDER ORGANIZAT ION (PPO) [place] Apr 24, 2022 [id number] KIR[address] DAMON [facility] HIGH DEDUCTIBL E HEALTH PLAN W/HEALTH REIMBURSE MENT ARRANGEME NT KOSTAS CORDERO AND HDHP HRA Apr 24, 2022 [id number] [facility] PREFERRED PROVIDER ORGANIZAT ION (PPO) [facility] ACTIV E EMPLO YEES Jul 25, 2016 [id number] LAFERRIER E DAMON[facility] PREFERRED PROVIDER ORGANIZAT ION (PPO) KOSTAS GARVEYL E [place] Apr 24, 2016 [id number] KIRBY DAMON PATIENT MEDMETRICS PRESCRIPT ION [facility] Oct 30, 2019 [facility] [id number] KIRBY DAMON PATIENT [facility] SPECIAL CLASS INSURANCE KRBAKARI GARVEYL E [facility] Apr 24, 2016 [id number]-[id number] [id number] KIRBY DAMON PATIENT [facility] RX PRESCRIPT ION [place] Apr 24, 2021 [id number] DAMONKIRBY PATIENT [facility] [facility] MENTAL HEALTH [facility] Apr 24, 2021 [id number] [id number] KIRBY DAMON PATIENT [facility] PRESCRIPT ION [facility] Oct 30, 2019 [facility] [id number] NELSONKIRBY PATIENT [employer] RX PRESCRIPT ION HEALT H NEW [facility] HRA Oct 30, 2019 [facility] [id number] DAMONKIRBY PATIENT [facility] RX PRESCRIPT ION [facility] Oct 30, 2019 [facility] [id number] DAMONKIRBY PATIENT [employer] RX PRESCRIPT ION HEALT H [facility] [place] [facility] Apr 24, 2016 [facility] [id number] KIRBY DAMON PATIENT Selected Encounter This section includes the information on record at [place] for the Encounter. Date/Time Encounter Type Encounter Description Reason Provider Source Feb 20, 2025 08:30 AM OFFICE O/P EST LOW 20 MIN PODIATRY ICD-10-CM L60.3 Nail dystrophy VADIM PARRA [facility] Encounter Template Text not used by [place] Assessments - Encounter Diagnoses This section includes the primary and secondary diagnoses documented for the Encounter. Date/Time Primary/Secondary Diagnosis Diagnosis Name Provider Source Feb 20, 2025 09:01 AM PRIMARY Nail dystrophy VADIM PARRA [place] Feb 20, 2025 09:01 AM SECONDARY Corns and callosities VADIM PARRA [place] Feb 20, 2025 09:01 AM SECONDARY Pain in left foot VADIM PARRA [place] Feb 20, 2025 09:01 AM SECONDARY Pain in left toe(s) VADIM PARRA [place] Feb 20, 2025 09:01 AM SECONDARY Pain in right foot VADIM PARRA [place] Feb 20, 2025 09:01 AM SECONDARY Pain in right toe(s) VADIM PARRA Feb 20, 2025 09:01 AM SECONDARY Peripheral vascular disease, unspecified VADIM PARRA Plan of Treatment: Future Appointments [...] Appointment Type Appointme nt Facility Name Jun 10, 2025 01:00 PM AMBULATORY - MEDICINE [facility] Jul 03, 2025 08:30 AM AMBULATORY - MEDICINE [facility] Lab Results: +/- 30 days of the encounter This section includes the Chemistry and Hematology Lab Results on record with [place] for the patient. Radiology Reports and Pathology Reports are provided separately, in subsequent sections. Lab Results This section contains the Chemistry/Hematology Results that were resulted 30 days before or 30 daysafter the date of the Encounter. Date/Time Source Result Type Result - Unit Interpretation Reference Range Specimen Type Comment Feb 08, 2025 08:49 AM [facility] VITAMIN D (25-OH) SERUM Specimen Type: SERUM No comment entered. Ordering Provider: ANEESH OLIVEIRA Report Released Date/Time: Feb 07, 2025 08:54 AM Reporting Lab: [facility] [address] [id number] Performing Lab: [facility] [address] [id number] VITAMIN D (25-OH) 49.2 ng/mL 20-50 Social History: Smoking Status (Most current) and Tobacco Use (All prior to encounter date) This section includes the most current, and the historical, smoking and tobacco- related health factors from the [place] facility where the Encounter took place. Current Smoking Status This section includes the most current smoking, or tobacco-related health factor, from the [place] facility where the Encounter took place. Date/Time Current Smoking Status Comment Facil ity December 03, 2024 10:30 AM VA-TOBACCO NEVER USED OTHER TYPE [place] Tobacco Use History This section includes a history of the smoking, or tobacco-related health factors, that were collected on or before the date of the Encounter. The data comes from the [place] facility where the Encounter took place. Date/Time Smoking Status/Tobacco Use Comment F acility December 03, 2024 10:30 AM VA-TOBACCO USE FOR FENG CIGARETTES [place] Jun 07, 2023 09:30 AM VA-TOBACCO FORMER USER [place] Jun 07, 2023 09:30 AM VA-TOBACCO QUIT 15 YRS OR MORE [place] Jun 09, 2022 09:00 AM VA-TOBACCO FORMER USER [place] Jun 09, 2022 09:00 AM VA-TOBACCO QUIT 5 TO < 15 YRS [place] Jun 03, 2021 12:30 PM VA-TOBACCO FORMER USER [place] Jun 03, 2021 12:30 PM VA-TOBACCO QUIT 15 YRS OR MORE [place] Mar 12, 2020 10:30 AM VA-TOBACCO FORMER USER [place] Mar 12, 2020 10:30 AM VA-TOBACCO QUIT 15 YRS OR MORE [place] Jan 03, 2018 10:14 AM VA-TOBACCO FORMER USER [place] Jan 03, 2018 10:14 AM VA-TOBACCO QUIT 15 YRS OR MORE [place] Jul 05, 2017 10:47 AM QUIT TOBACCO USE > 7 YEARS AGO reports quitting in 1995 [place] Encounter Notes: All associated encounter notes This section contains the clinical notes associated to the Encounter. Date/Time Encounter Note(s) Provider Source Feb 20, 2025 07:34 AM PODIATRY NOTE: LOCAL TITLE: PODIATRY NOTE STANDARD TITLE: PODIATRY NOTE DATE OF NOTE: FEB 20, 2025@07:34 ENTRY DATE: FEB 20, 2025@07:34:36 AUTHOR: VADIM PARRA EXP COSIGNER: URGENCY: STATUS: COMPLETED NOTE: HAS RECEIVED BOTH COVID VACCINE DOSES AT [facility] LAST SEEN FOR TREATMENT: 10/17/2024 S: Pt. is a 65 yo alert WDWN CAUC MALE who presents [...] present physical-medical status. Protective sensation utilizing a [place] lOg monofilament is 10/10 bilateral. BIOMECHANICAL: Exam is deferred at this time as BEING non-contributory to the cc . A: Clinical Impression is painful onychocryptic clinically mycotic dystrophic nails 1-2-3-4-5 BILATERAL IN THE PRESENCE OF PAIN AND PLANTAR HYPERKERATOSIS(17). P: Treatment consists of debridement-reduction of all nails via manual & electric means with excision of the offending nail borders and thinning of the nail plates to the point of imminent bleeding. ADDITIONAL TREATMENT CONSIST OF PARING-DEBRIDEMENT OF MULTIPLE HYPERKERATOSIS PLANTAR BILATERAL (17 LESIONS). All care rendered without complications & the patient is progressing well after podiatric care this date and will be scheduled for periodic podiatric care in an attempt to prevent future complications. Treatment by a non-professional could be extremely hazardous to the patient's wellbeing RTC: 16 Weeks(07/03 @ 8:30)- DISCUSSED A VARIETY OF SOCIAL AND WORK ISSUES WITH THE PUBLIC *DISCUSSED NEW PROTOCOLS AND CALLED ENIO FOR RESCHEDULING TODAY I DISCUSSED THE FINDINGS & PLAN WITH PATIENT (UNCHANGED SINCE PREVIOUS VISIT) & PATIENT AGREES AND UNDERSTANDS PLAN DISCUSSED A VARIETY OF TOPICS INCLUDING MOVING [place] AFTER HE WORKS 2 MORE YEARS Medication Reconciliation: PERFORMED TODAY - SEE BELOW. [...] Allergy/ADR Data available for this patient [place] [facility] SULFACETAMIDE/SULFUR Med Recon NoGlossary (Tool #1) INCLUDED [...] the patient into personal health records (i.e. [employer]) are NOT included in this list. Non-VA medications documented outside this [place], remote inpatient orders (regardless of status) and remote clinic medications are NOT included in this list. The patient and provider must always discuss medications the patient is taking, regardless of where the medication was dispensed or obtained. Non-VA ALLOPURINOL TAB TAKE BY MOUTH Patient wants to buy from Non-[place] pharmacy. OUTPT ATORVASTATIN CALCIUM 40MG TAB (Status = Active) TAKE ONE-HALF TABLET BY MOUTH EVERY DAY FOR HIGH CHOLESTEROL Rx# [id number] Last Released: 01/24/25 Qty/Days Supply: Rx Expiration Date: 01/25/26 Refills Remainin Indication: FOR HIGH CHOLESTEROL OUTPT BIKTARVY 50/200/25 TAB (Status = Active) TAKE 1 TABLET BY MOUTH ONCE DAILY Rx# [id number] Last Released: 01/21/25 Qty/Days Supply: Rx Expiration Date: 01/17/26 Refills Remainin Non-VA CHOLECALCIF 50MCG (D3-2,000UNIT) TAB TAKE ONE TABLET BY MOUTH EVERY DAY Medication prescribed by Non-VA provider. Non-VA OMEPRAZOLE 20MG EC CAP TAKE 1 CAPSULE BY MOUTH EVERY MORNING 30 MINUTES BEFORE BREAKFAST Patient wants to buy from Non-[place] pharmacy. Medication prescribed by Non-VA provider. SUPPLIES OUTPT TABLET CUTTER (PILL SPLITTER) (Status = Active) USE TABLET SPLITTER DIRECTED BY PROVIDER TO SPLIT TABLETS Rx# [id number] Last Released: 02/07/25 Qty/Days Supply: Rx Expiration Date: 05/08/25 Refills Remainin Indication: TAB SPLIT /es/ VADIM PARRA DPM POLICE COMMANDING OFFICER Signed: 02/20/2025 09:02 VADIM PARRA [place]
--- OUTSIDE RECORDS SUMMARY | 2025-02-25 10:06 | XMS_ITS | Patient Health Record ---
Author Organization [facility] Address [address] [place] [address] Care Team Providers Care Operational Assistant Name Role Phone EVERTONRUBENFELY Primary Care Provider Kolby Whitman [phone] Allergies Allergen (clinical drug ingredient) Drug/Non Drug Allergy documented on EMR Reaction Allergy Type Onset Date Status Sulfa Unknown Drug Allergy Active Reason For Referral No Information Medications Medication SIG (Take, Route, Frequency, Duration) Notes [...] capsule Orally Onc e a day Active Social History Tobacco Use: Social History Observation Description Date Details (start date - stop date) Former Smoker NA - NA Tobacco Use/Smoking Question Answer Notes Patient is [...] Never (0 point) Points 1 Interpretation Negative Section Notes: Nonsmoker > 20 yrs; occasion al beer Nonsmoker > 20 yrs; occasion al beer Problems Problem Type SNOMED Code ICD Code Onset Dates Problem Status W/U Status Risk Notes Problem 993086095 Encounter for screening for malignant neoplasm of colon (Z12.11) Active confirmed Problem 522104916 History of adenomatous polyp of colon (Z86.010) Active confirmed Problem Diverticular disease of colon (341702325) Diverticulosis of large intestine without perforation or abscess without bleeding (K57.30) Active confirmed Problem 897044319 Gastroesophageal reflux disease without esophagitis (K21.9) Active confirmed Problem 787498272 Preprocedural examination (Z01.818) Active confirmed Problem 477866789 Family history o f colon cancer (Z80.0) Active confirmed Plan Of Treatment Pending Test Test Name Order Date Pathology 06/29/2023 Future Test Test Name Order Date COLONOSCOPY 01/18/2017 COLONOSCOPY 03/29/2023 Insurance Providers Payer Name Payer Address Payer Phone Subscriber Number Group Number Insured Name Patient Relationship to Insured Coverage Start Date Coverage End Date [facility] [address] [place] [phone] [id number] SHEELA RAI Self - patient is the insured [facility] [address] [place] [address] [id number] SHEELA RAI Self - patient is the insured Medical (General) History Medical History History ICD Code Denies SC,DM,CVA,Lung disease,renal dise ase HIV since 08/1995--Dr. Sanchez [...]
--- OUTSIDE RECORDS SUMMARY | 2025-02-25 10:06 | XMS_ITS | Encounter Summary ---
Author Organization [facility] Address [address] [facility] [address] [place] [address] Phone Care Team Providers Care Dealer Card Room Name Role Phone Jonny Lin MD Primary Care Provider Encounter Details Date Type Department Care Team (Late st Contact Info) Description 07/27/2024 Documentation Only [facility] [address] [place] [address] Damari Cortez [address] [place] [address] Social History Tobacco Use Types Packs/Day Years Used Date Smoking Tobacco: Former Cigarettes Q uit: 08/29/1995 Smokeless Tobacco: Never Sex and Gender Information Value Date Recorded Sex Assigned at Not on file Legal Sex Male 9:51 AM EDT Gender Identity Not on file Sexual Orientation Not on file documented as of this encounter Plan of Treatment Upcoming Encounters Date Type Department Care Team (Late st Contact Info) Description 06/12/2025 1:30 PM EST Office Visit [facility] [address] [place] [address] Dilan Barnes MD [address] [place] [address] [place] [address] documented as of this encounter Visit Diagnoses Not on filedocumented in this encounter Care Teams Dealer Card Room Relationship Specialty Start Date End Date Jonny Lin MD [address] [place] [address] PCP - General Internal Medicine 08/13/20 documented as of this encounter
[2025-02-25 13:03] LABS: Appearance Urine Clear; Glucose Urine UA Negative (Negative); PH 5.5 (5.0-9.0); Specific Gravity - Urine 1.015 (1.005-1.025)
[2025-02-25 13:14] LABS: MANUAL DIFF FLAG NO
[2025-02-25 13:28] LABS: Hematocrit 43.8 % (42.0-52.0); Hemoglobin 15.6 g/dl (14.0-18.0); Imm Gran Abs Auto 0.04 X10*3/uL (0.00-0.03); Imm Gran Pct Auto 0.6 % (0.0-0.4); Lymphocytes Absolute Auto 2.3 X10*3/uL (1.2-4.9); Mean Corpuscular HGB Conc 35.6 g/dl (31.0-36.0); Mean Corpuscular Hemoglobin 32.2 pg (27.0-33.0); Mean Corpuscular Volume 90.3 fL (80.0-98.0); NRBC Abs Auto 0.000 X10*3/uL (0.0-0.012); NRBC Pct Auto 0.0 /100WBC (0.0-0.2); Platelet Count 142 X10*3/uL (160-400); Red Blood Count 4.85 X10*6/uL (4.60-5.80); White Blood Count 6.8 X10*3/uL (4.8-10.8)
[2025-02-25 14:06] LABS: Alanine Aminotransferase 25 U/L (0-40); Albumin Level 4.3 g/dL (3.5-5.0); Alkaline Phosphatase 127 U/L (39-117); Anion Gap 12 (12-20); Aspartate Amino Transferase 36 U/L (5-37); Blood Urea Nitrogen 15 mg/dL (9-16); Calcium 8.9 mg/dL (8.4-10.2); Carbon Dioxide 23 mmol/L (22-29); Chloride 112 mmol/L (96-108); Cholesterol 157 mg/dL (<200); Estimated Glomerular Filt Rate 55; HDL Cholesterol 29 mg/dL (>40); Potassium 3.9 mmol/L (3.3-5.1); Sodium 143 mmol/L (135-145); Total Protein 6.7 g/dL (6.5-8.0); Triglycerides 130 mg/dL (<150); Uric Acid 5.4 mg/dL (3.4-7.0)
== END 2025-02-25 09:35 | disposition home or self-care (01) ==
LOC: HO.HMGCLDS 09:34
PROVIDERS: PCP Nurse Practitioner Family; Visit Provider Nurse Practitioner Family
DX: E78.00 Pure hypercholesterolemia, unspecified (principal); M10.9 Gout, unspecified
CPT/HCPCS: 36415; 80053; 80061; 81003; 84443; 84550; 85025

== ENCOUNTER 2025-06-08 08:17 | Outpatient (REF) | payer OTHER, SELFPAY ==
[2025-06-08 08:33] LABS: MANUAL DIFF FLAG NO
[2025-06-08 09:20] LABS: Imm Gran Abs Auto 0.03 X10*3/uL (0.00-0.03); Imm Gran Pct Auto 0.4 % (0.0-0.4); NRBC Abs Auto 0.000 X10*3/uL (0.0-0.012); NRBC Pct Auto 0.0 /100WBC (0.0-0.2); PLT CLUMP 1; SCAN SMEAR FLAG 1
[2025-06-08 09:22] LABS: Hematocrit 43.2 % (42.0-52.0); Hemoglobin 15.3 g/dl (14.0-18.0); Lymphocytes Absolute Auto 2.1 X10*3/uL (1.2-4.9); Mean Corpuscular HGB Conc 35.4 g/dl (31.0-36.0); Mean Corpuscular Hemoglobin 32.1 pg (27.0-33.0); Mean Corpuscular Volume 90.8 fL (80.0-98.0); Red Blood Count 4.76 X10*6/uL (4.60-5.80)
[2025-06-08 09:26] LABS: White Blood Count 6.8 X10*3/uL (4.8-10.8)
[2025-06-08 09:41] LABS: Albumin Level 4.4 g/dL (3.5-5.0); Anion Gap 13 (12-20); Blood Urea Nitrogen 14 mg/dL (9-16); Calcium 9.2 mg/dL (8.4-10.2); Carbon Dioxide 22 mmol/L (22-29); Chloride 113 mmol/L (96-108); Potassium 4.4 mmol/L (3.3-5.1); Sodium 144 mmol/L (135-145)
[2025-06-08 09:56] LABS: Appearance Urine Clear; Glucose Urine UA Negative (Negative); PH 5.5 (5.0-9.0); Specific Gravity - Urine 1.015 (1.005-1.025)
[2025-06-08 10:24] LABS: Microalbum/Creatinine Ratio Ur 8.8 ug/mg cr (<30)
== END 2025-06-08 08:18 | disposition home or self-care (01) ==
LOC: HO.LAB 08:17
PROVIDERS: PCP Nurse Practitioner Family; Visit Provider Internal Medicine
DX: N18.31 Chronic kidney disease, stage 3a (principal)
CPT/HCPCS: 36415; 80069; 81001; 82043; 82306; 82570; 85025

== ENCOUNTER 2025-06-24 08:33 | Outpatient (REF) | payer OTHER, SELFPAY ==
--- OUTSIDE RECORDS SUMMARY | 2025-06-24 09:00 | XMS_ITS | Encounter Summary ---
Author Organization [facility] Address [address] [place] [address] Phone Care Team Providers Care Industrial Painter Name Role Phone Jonny Lin MD Primary Care Provider Encounter Details Date Type Department Care Team (Late st Contact Info) Description 04/03/2025 Documentation Only [facility] [address] [place] [address] Damari Cortez [address] [place] [phone] Social History Tobacco Use Types Packs/Day Years Used Date Smoking Tobacco: Former Cigarettes 0 Q uit: 08/29/1995 Smokeless Tobacco: Never Sex and Gender Information Value Date Recorded Sex Assigned at Not on file Legal Sex Male 9:51 AM EDT Gender Identity Not on file Sexual Orientation Not on file documented as of this encounter Plan of Treatment Upcoming Encounters Date Type Department Care Team (Late st Contact Info) Description 06/04/2026 2:15 PM EST Office Visit [facility] [address] [place] [address] Dilan Barnes MD [address] [place] [address] [place] [address] documented as of this encounter Visit Diagnoses Not on filedocumented in this encounter Care Teams Industrial Painter Relationship Specialty Start Date End Date Jonny Lin MD [address] [place], [place] PCP - General Internal Medicine 08/13/20 documented as of this encounter
--- OUTSIDE RECORDS SUMMARY | 2025-06-24 09:00 | XMS_ITS | Encounter Summary ---
Author Organization [facility] Address [address] [place] [address] Phone Care Team Providers Care Machine Brush Maker Name Role Phone Jonny Lin MD Primary Care Provider Encounter Details Date Type Department Care Team (Late st Contact Info) Description 01/03/2024 Documentation Only [facility] [address] [place] [address] Jenna Rodriguez [address] [place] [phone] Social History Tobacco Use Types Packs/Day Years [...] Visit [facility] [address] [place] [address] Dilan Barnes MD [address] [facility] [address] [place] [address] documented as of this encounter Visit Diagnoses Not on filedocumented in this encounter Care Teams Machine Brush Maker Relationship Specialty Start Date End Date Jonny Lin MD [address] [place], [place] PCP - General Internal Medicine 08/13/20 documented as of this encounter
--- OUTSIDE RECORDS SUMMARY | 2025-06-24 09:00 | XMS_ITS | Encounter Summary ---
Author Organization [facility] Address [address] [place] [address] Phone Care Team Providers Care Hot Saw Helper Name Role Phone Jonny Lin MD Primary Care Provider Encounter Details Date Type Department Care Team (Late st Contact Info) Description 05/25/2023 Documentation Only [facility] [address] [place] [address] Andi Awad MD [address] [place] [address] [place] [address] Social History Tobacco Use Types Packs/Day Years [...] Visit [facility] [address] [place] [address] Dilan Barnes MD [address] [place] [address] [place] [address] documented as of this encounter Visit Diagnoses Not on filedocumented in this encounter Care Teams Hot Saw Helper Relationship Specialty Start Date End Date Jonny Lin MD [address] [place] [address] PCP - General Internal Medicine 08/13/20 documented as of this encounter
--- OUTSIDE RECORDS SUMMARY | 2025-06-24 09:00 | XMS_ITS | Encounter Summary ---
Author Organization [facility] Address [address] [place] [address] Phone Care Team Providers Care Bowling Ball Weigher And Packer Name Role Phone Jonny Lin MD Primary Care Provider Encounter Details Date Type Department Care Team (Late st Contact Info) Description 07/27/2024 Documentation Only [facility] [address] [place] [address] Damari Cortez [address] [place] [phone] Social History Tobacco Use Types Packs/Day Years [...] Visit [facility] [address] [place] [address] Dilan Barnes MD [address] [place] [address] [place] [address] documented as of this encounter Visit Diagnoses Not on filedocumented in this encounter Care Teams Bowling Ball Weigher And Packer Relationship Specialty Start Date End Date Jonny Lin MD [address] [place], [place] PCP - General Internal Medicine 08/13/20 documented as of this encounter
--- OUTSIDE RECORDS SUMMARY | 2025-06-24 09:00 | XMS_ITS | Encounter Summary ---
Author Organization [facility] [place], Address [address] [place] [address] Phone Care Team Providers Care Aircraft Mechanic Name Role Phone Jonny Lin MD Primary Care Provider Encounter Details Date Type Department Care Team (Late st Contact Info) Description 05/27/2023 Documentation Only [facility] [address] [place] [address] Andi Awad MD [address] [place] [address] [place] [address] Social History Tobacco Use Types [...] Visit [facility] [address] [place] [address] Dilan Barnes MD [address] [place] [address] [place] [address] documented as of this encounter Visit Diagnoses Not on filedocumented in this encounter Care Teams Aircraft Mechanic Relationship Specialty Start Date End Date Jonny Lin MD [facility] [place] PCP - General Internal Medicine 08/13/20 documented as of this encounter
--- OUTSIDE RECORDS SUMMARY | 2025-06-24 09:00 | XMS_ITS | Encounter Summary ---
Author Organization [facility] [place], Address [address] [place] [address] Phone Care Team Providers Care Regulatory Technician Name Role Phone Jonny Lin MD Primary Care Provider Encounter Details Date Type Department Care Team (Late st Contact Info) Description 05/31/2023 Documentation Only [facility] [address] [place] [address] Andi Awad MD [address] [place] [address] [place] [address] Social History Tobacco Use Types [...] Visit [facility] [address] [place] [address] Dilan Barnes MD [address] [place] [address] [place] [address] documented as of this encounter Visit Diagnoses Not on filedocumented in this encounter Care Teams Regulatory Technician Relationship Specialty Start Date End Date Jonny Lin MD [facility] [place] PCP - General Internal Medicine 08/13/20 documented as of this encounter
--- OUTSIDE RECORDS SUMMARY | 2025-06-24 09:00 | XMS_ITS | Patient Health Record ---
Author Organization [facility] Address [address] [place] [address] Care Team Providers Care Regional Engagement Consultant Name Role Phone EVERTONRUBEN FELY Primary Care Provider Kolby Whitman [phone] Allergies Allergen (clinical drug ingredient) Drug/Non Drug Allergy documented on EMR Reaction Allergy Type Onset Date Status Sulfa Unknown Drug Allergy Active Reason For Referral No Information Medications Medication SIG (Take, Route, Frequency, Duration) Notes Start Date End Date Status Vitamin D3 50 MCG (1999) Capsule TAKE 1 CAPSULE BY MOUTH EVERY DAY Oral; Duration: 90 Active Biktarvy 50-200-25 MG Tablet TAKE 1 TABLET BY MOUTH DAILY Oral; Duration: 30 Active Allopurinol 300 MG Tablet Oral; Duration: 30 Active Atorvastatin Calcium 20 MG Tablet 1 tablet Orally Once a day Active Omeprazole 20 MG Capsule Delayed Release 1 capsule Orally Once a day Active Social History Tobacco Use: Social History Observation Description Date Details (start date - stop date) Former Smoker NA - NA Social History Drugs/Alcohol: Social Info Question Answer Notes Alcohol Screen Did you have a drink containing alcohol in the past year? Yes How often did you have a drink containing alcohol in the past year? Monthly or less (1 point) How many drinks did you have on a typical day when you were drinking in the past year? 1 or 2 drinks (0 point) How often did you have 6 or more drinks on one occasion in the past year? Never (0 point) Points 1 Interpretation Negative Tobacco Use: Social Info Question Answer Notes Tobacco Use/Smoking Patient is a former smoker When did you stop smoking? 1995 How long has it been since you last smoked? 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: Nonsmoker > 20 yrs; occasion al beer Nonsmoker > 20 yrs; occasion al beer Problems Problem Type SNOMED Code ICD Code Onset Dates Problem Status W/U Status Risk Notes Problem Screening for malignant neoplasm of colon (823013996) Encounter for screening for malignant neoplasm of colon (Z12.11) Active confirmed Problem History of adenomatous polyp of colon (028178582) History of adenomatous polyp of colon (Z86.010) Active confirmed Problem Diverticular disease of colon (543950661) Diverticulosis of large intestine without perforation or abscess without bleeding (K57.30) Active confirmed Problem Gastroesophageal reflux disease without esophagitis (922751419) Gastroesophageal reflux disease without esophagitis (K21.9) Active confirmed Problem Preprocedural examination (269371938448856) Preprocedural examination (Z01.818) Active confirmed Problem Family History of Cancer of Colon (Situation) (015425654) Family history of colon cancer (Z80.0) Active confirmed Plan Of Treatment Pending Test Test Name Order Date Pathology 06/29/2023 Future Test Test Name Order Date COLONOSCOPY 01/18/2017 COLONOSCOPY 03/29/2023 Insurance Providers Payer Name Payer Address Payer Phone Subscriber Number Group Number Insured Name Patient Relationship to Insured Coverage Start Date Coverage End Date [facility] [address] [place] [address] [id number] SHEELA RAI Self - patient is the insured [facility] [address] [place] [address] [id number] SHEELA RAI Self - patient is the insured Medical (General) History Medical History History ICD Code Denies MD,DM,CVA,Lung disease,renal dise ase HIV since 08/1995--Dr. Sanchez [...]
--- OUTSIDE RECORDS SUMMARY | 2025-06-24 09:00 | XMS_ITS | Clinical Summary ---
Author Organization [facility], Address [address] [place] [address] [place] [address] Phone Care Team Providers Care Forming Machine Upkeep Mechanic Helper Name Role Phone Jonny Lin MD Primary Care Provider Allergies Active Allergy Reactions Criticality Noted Date Comments Sulfacetamide Rash Low 04/01/2020 Medications albuterol HFA (PROVENTIL HFA;VENTOLIN HFA) 108 (90 Base) MCG/ACT inhaler INL 1 PUFF PO Q 4 H PRN 12/24/19 20 Active atorvastatin (LIPITOR) 20 MG tablet TK 1 T PO QD 12/30/19 20 Active Biktarvy 50-200-25 MG tablet TK 1 T PO QD 02/16/20 20 Active cholecalcifero l (VITAMIN D-3) 50 MCG (1999 [place]) capsule TK 1 C PO QD 02/02/20 20 Active Fluticasone-Sa lmeterol 232-14 MCG/ACT aerosol powder INL 1 PUFF PO BID 02/13/20 20 Active omeprazole (PriLOSEC) [address] capsule TK 1 C PO QD IN THE MORNING OES 01/19/20 20 Active cetirizine (ZyrTEC) 10 MG tablet TAKE 1 TABLET BY MOUTH EVERY DAY FOR ALLERGY SYMPTOMS 10/15/19 21 Active allopurinol (ZYLOPRIM) 300 MG tablet Take 1 tablet (300 mg total) by mouth 1 (one) time each day 90 tablet 3 06/17/20 25 Active allopurinol (ZYLOPRIM) 300 MG tablet TAKE 1 TABLET(300 MG) BY MOUTH 1 TIME EACH DAY 90 tablet 3 06/22/20 24 025 Discontinued allopurinol (ZYLOPRIM) 300 MG tablet TAKE 1 TABLET(300 MG) BY MOUTH 1 TIME EACH DAY 90 tablet 3 06/14/20 25 025 Discontinued(Re order (does not appear on AVS)) Active Problems Problem Noted Date Diagnosed Date Hypercholesterolemia 08/12/2020 HIV positive 08/12/2020 Gastroesophageal reflux disease 08/12/2020 Congenital renal calculi Overview (08/12/2020): December 2017 Encounters Date Type Department Care Team Description 06/17/2025 Refill [facility] [place] [phone] Jenna Rodriguez 06/14/2025 Refill [facility] [address] [place] [address] Dilan Barnes MD 06/12/2025 1:30 PM EST Office Visit [facility] [address] [place] [address] Dilan Barnes MD Stage 3a chronic kidney disease (HCC) (Primary Dx) 06/11/2025 Documentation Only [facility] [address] [place] [address] Jenna Rodriguez 06/07/2025 Orders Only [facility] [address] [place] [address] Jenna Rodriguez Stage 3a chronic kidney disease (HCC) (Primary Dx) 04/15/2025 Documentation Only [facility] [address] [place] [address] Damari Cortez 04/03/2025 Documentation Only [facility] [address] [place] [address] Damari Cortez from Last 3 Months Family History Medical History Relation Comments Diabetes Father Cancer Mother Heart disease Mother Hypertension Mother Relation Status Comments Father Mother Social History Tobacco Use Types Packs/Day Years Used Date Smoking Tobacco: Former Cigarettes 0 Q uit: 08/29/1995 Smokeless Tobacco: Never Sex and Gender Information Value Date Recorded Sex Assigned at Not on file Legal Sex Male 9:51 AM EDT Gender Identity Not on file Sexual Orientation Not on file Plan of Treatment Upcoming Encounters Date Type Department Care Team (Late st Contact Info) Description 06/04/2026 2:15 PM EST Office Visit [facility] [place], [address] [facility] [place] [address] Dilan Barnes MD [address] [facility] [place] [address] Health Maintenance Due Date Last Done Comments Colorectal Cancer Screening: Annual FOBT 02/18/2009 Colorectal Cancer Screening: Colonoscopy 02/18/2009 Colorectal Cancer Screening: Sigmoidoscopy 02/18/2009 Pneumococcal Vaccine: 50+ Years (3 of 3 - PCV20 or PCV21) 05/25/2022 01/24/2018, 05/25/2017 Influenza Vaccine (#1) 2025 07/05/2018 Pneumococcal Vaccine: Peds ( 0 to 5 Years) and At-Risk Patients (6 to 49 Years) Discontinued 01/24/2018, 05/25/2017 Hepatitis B Vaccine Aged Out No longe r eligible based on patient's age to complete this topic [place] [address] [place] [address] Regions 1,2,3 (VACCN) Care Teams Forming Machine Upkeep Mechanic Helper Relationship Specialty Start Date End Date Jonny Lin MD [address] [place] [address] PCP - General Internal Medicine 08/13/20
--- OUTSIDE RECORDS SUMMARY | 2025-06-24 09:01 | XMS_ITS | Encounter Summary ---
Author Organization [facility], Address [address] [place] [address] Phone Care Team Providers Care Bill Checker Name Role Phone Jonny Lin MD Primary Care Provider Reason for Visit * Reason Comments Med Refill Encounter Details Date Type Department Care Team (Late st Contact Info) Description 04/04/2023 Refill [facility] [address] [place] [address] Dilan Barnes MD [address] [facility] [place] [address] Social History Tobacco Use Types [...] Visit [facility], [address] [facility] [address] Dilan Barnes MD [address] [facility] [place] [address] documented as of this encounter Visit Diagnoses Not on filedocumented in this encounter Care Teams Bill Checker Relationship Specialty Start Date End Date Jonny Lin MD [address] [place] [address] PCP - General Internal Medicine 08/13/20 documented as of this encounter
--- OUTSIDE RECORDS SUMMARY | 2025-06-24 09:01 | XMS_ITS | Encounter Summary ---
Author Organization [facility] Address [address] [place] [address] Phone Care Team Providers Care Hogshead Filler Name Role Phone Jonny Lin MD Primary Care Provider Encounter Details Date Type Department Care Team (Late st Contact Info) Description 04/15/2025 Documentation Only [facility] [address] [place] [address] Damari Cortez [address] [place] [phone] Social History Tobacco Use Types Packs/Day Years [...] Visit [facility] [address] [place] [address] Dilan Barnes MD [address] [place] [address] [place] [address] documented as of this encounter Visit Diagnoses Not on filedocumented in this encounter Care Teams Hogshead Filler Relationship Specialty Start Date End Date Jonny Lin MD [address] [place], [place] PCP - General Internal Medicine 08/13/20 documented as of this encounter
--- OUTSIDE RECORDS SUMMARY | 2025-06-24 09:01 | XMS_ITS | Encounter Summary ---
Author Organization [facility], Address [address] [place] [address] Phone Care Team Providers Care Seismic Prospecting Observer Helper Name Role Phone Jonny Lin MD Primary Care Provider Reason for Visit * Reason Comments Med Refill Encounter Details Date Type Department Care Team (Late st Contact Info) Description 08/06/2022 Refill [facility] [address] [place] [address] Dilan Barnes MD [address] [facility] [place] [address] Social History Tobacco Use Types [...] Visit [facility] [place], [address] [facility] [place] [address] Dilan Barnes MD [address] [facility] [place] [address] documented as of this encounter Visit Diagnoses Not on filedocumented in this encounter Care Teams Seismic Prospecting Observer Helper Relationship Specialty Start Date End Date Jonny Lin MD [address] [place] [address] PCP - General Internal Medicine 08/13/20 documented as of this encounter
--- OUTSIDE RECORDS SUMMARY | 2025-06-24 09:01 | XMS_ITS | Encounter Summary ---
Author Organization [facility] Address [address] [place] [address] Phone Care Team Providers Care Mud Plant Operator Name Role Phone Jonny Lin MD Primary Care Provider Encounter Details Date Type Department Care Team (Late st Contact Info) Description 06/30/2022 Documentation Only [facility] [address] [place] [address] Dilan Barnes MD [address] [place] [address] [place] [address] Social History Tobacco Use Types [...] Visit [facility] [address] [place] [address] Dilan Barnes MD [address] [place] [address] [place] [address] documented as of this encounter Visit Diagnoses Not on filedocumented in this encounter Care Teams Mud Plant Operator Relationship Specialty Start Date End Date Jonny Lin MD [address] [place] [address] PCP - General Internal Medicine 08/13/20 documented as of this encounter
--- OUTSIDE RECORDS SUMMARY | 2025-06-24 09:01 | XMS_ITS | Encounter Summary ---
Author Organization [facility] Address [address] [place] [address] Phone Care Team Providers Care Car Tracer Name Role Phone Jonny Lin MD Primary Care Provider Encounter Details Date Type Department Care Team (Late st Contact Info) Description 06/11/2025 Documentation Only [facility] [address] [place] [address] Jenna Rodriguez [address] [place] [phone] Social History Tobacco Use Types Packs/Day Years [...] Visit [facility] [address] [place] [address] Dilan Barnes MD [address] [facility] [place] [address] documented as of this encounter Visit Diagnoses Not on filedocumented in this encounter Care Teams Car Tracer Relationship Specialty Start Date End Date Jonny Lin MD [address] [place], [place] PCP - General Internal Medicine 08/13/20 documented as of this encounter
[2025-06-24 09:59] LABS: Syphilis Screen Nonreactive (Nonreactive); ~HepC Num1 0.12 S/CO (0.00-0.79); ~Hepatitis C Antibody Nonreactive (Nonreactive)
[2025-06-27 13:23] LABS: HIV RNA PCR Qn Copies NOT DETECTED copies/mL (NOT DETECTED); HIV RNA PCR Qn Log Copies NOT DETECTED (NOT DETECTED)
[2025-06-28 10:33] LABS: Absolute CD3 Count 1541 cells/uL (840-3060); Absolute CD8 Count 486 cells/uL (180-1170); Percent CD3 Cells 75 % (57-85); Percent CD8 Cells 24 % (12-42)
== END 2025-06-24 08:34 | disposition home or self-care (01) ==
LOC: HO.LAB 08:33
PROVIDERS: PCP Nurse Practitioner Family; Visit Provider Internal Medicine
DX: Z11.59 Encounter for screening for other viral diseases (principal); B20 Human immunodeficiency virus [HIV] disease; Z20.2 Contact with and (suspected) exposure to infections with a predominantly sexual mode of transmission
CPT/HCPCS: 36415; 86359; 86360; 86780; 86803; 87536

== ENCOUNTER 2025-07-15 09:28 | Outpatient (AMB) | payer OTHER, SELFPAY ==
--- NOTE | 2025-07-15 09:21 | A.OFFVIS_ITS ---
Vital Signs 07/15/25 09:27 Height 5 ft 8 in Weight 178 lb BMI 27.1 BP 100/70 Blood Pressure Location Rt brachial Position Sitting Pulse 71 Pulse Source Pulse Oximeter Pulse Oximetry (%) 98 Oxygen Delivery Method Room Air Intake Visit Reasons: 6 Month HIV Allergies sulfacetamide (From Sulfacet-R) Allergy (Unknown, Verified 07/15/25 09:27) Rash sulfur (From Sulfacet-R) Allergy (Unknown, Verified 07/15/25 09:27) Rash HPI HPI 6 Month HIV: Details: His viral load is undetectable and CD4 count 1169 on 06/24/2025. He has chosen to work couple years longer to [facility] [place] [facility]. He has no issues with [employer]. He will get anal Pap at some time with [facility]. [facility]LY [facility], [facility] Medical History Elevated cholesterol Gout Diverticulosis GERD (gastroesophageal reflux disease) CKD (chronic kidney disease) HIV infection Surgical History History of rectal surgery History of dental surgery H/O colonoscopy Social History Housing: House Alcohol intake: former Patient Tobacco Use Status: Former Tobacco user e-Cigarette/Vaping Use: Never Used Second Hand Smoke Exposure: No service: Yes Current occupational status: employed Current occupation: [employer] Current occupational exposures/hazards: No Cognitive needs: No Hearing needs: No Vision needs: No Physical Exam Vital Signs: Last Vital Signs Pulse 71 07/15/25 09:27 BP 100/70 07/15/25 09:27 Pulse Ox 98 07/15/25 09:27 Oxygen Delivery Method Room Air 07/15/25 09:27 BMI result Body Mass Index 27.1 Const General: cooperative Orientation/consciousness: patient oriented x3 HEENT Head: Yes normal to inspection Mouth: Normal oral and palatal mucosa present Eyes General: appearance normal, both eyes and all related structures Pupils: Equal, round and reactive pupils present Resp Effort & Inspection: normal respiratory effort Cardio Rate: regular rate Rhythm: regular rhythm GI Palpation (GI): Soft to palpation and nontender General: Yes no CVA tenderness Back/Spine/Pelvis Back: no CVA tenderness Skin General skin exam: no rashes or lesions noted Neuro General: patient oriented x3 Cranial nerves: Yes CN's II-XII intact bilaterally and Yes Equal, round and reactive pupils present Extrem General: Yes normal to inspection Psych Appearance: grossly normal Assessment & Plan Assessment & Plan (1) HIV infection: Comment: He is doing well His viral load is undetectable Code(s): B20 - Human immunodeficiency virus [HIV] disease Category: Medical Plan: See patient back in six months. Biktarvy ordered Coding Level of Care Code Est Pt Level 3 (18265) Diagnoses HIV infection B20
[2025-07-15 09:27] VITALS: BP 100/70; PULSE 71; O2SAT 98; BMI 27.1
--- OUTSIDE RECORDS SUMMARY | 2025-07-15 10:46 | XMS_ITS | Encounter Summary ---
Author Organization [facility] [place], Address [address] [place] [address] Phone Care Team Providers Care Science Technicians Name Role Phone Jonny Lin MD Primary Care Provider Reason for Visit * Reason Comments Med Refill Encounter Details Date Type Department Care Team (Late st Contact Info) Description 08/06/2022 Refill [facility] [place] [address] [place] [address] Dilan Barnes MD [address] [facility] [place] [address] Social History Tobacco Use Types [...] Visit [facility] [place], [address] [facility] [address] [address] [place] [address] Dilan Barnes MD [address] [facility] [place] [address] documented as of this encounter Visit Diagnoses Not on filedocumented in this encounter Care Teams Science Technicians Relationship Specialty Start Date End Date Jonny Lin MD [address] [place] [address] PCP - General Internal Medicine 08/13/20 documented as of this encounter
--- OUTSIDE RECORDS SUMMARY | 2025-07-15 10:46 | XMS_ITS | Clinical Summary ---
Author Organization [facility] [place], Address [address] [place] [address] [place] [address] Phone Care Team Providers Care Pewter Caster Name Role Phone Jonny Lin MD Primary Care Provider Allergies Active Allergy Reactions Criticality Noted Date Comments Sulfacetamide Rash Low 04/01/2020 Medications albuterol HFA (PROVENTIL HFA;VENTOLIN HFA) 108 (90 Base) MCG/ACT inhaler INL 1 PUFF PO Q 4 H PRN 0 Active atorvastatin (LIPITOR) 20 MG tablet TK 1 T PO QD 0 Active Biktarvy 50-200-25 MG tablet TK 1 T PO QD 0 Active cholecalciferol (VITAMIN D-3) 50 MCG (1999 UT) capsule TK 1 C PO QD 0 Active Fluticasone-Stevenson meterol 232-14 MCG/ACT aerosol powder INL 1 PUFF PO BID 0 Active omeprazole (PriLOSEC) [address] capsule TK 1 C PO QD IN THE MORNING OES 0 Active cetirizine (ZyrTEC) 10 MG tablet TAKE 1 TABLET BY MOUTH EVERY DAY FOR ALLERGY SYMPTOMS 1 Active allopurinol (ZYLOPRIM) 300 MG tablet Take 1 tablet (300 mg total) by mouth 1 (one) time each day 90 tablet 3 5 Active allopurinol (ZYLOPRIM) 300 MG tablet TAKE 1 TABLET(300 MG) BY MOUTH 1 TIME EACH DAY 90 tablet 3 5 06/17/20 25 Discontinu ed(Reorder (does not appear on AVS)) Active Problems Problem Noted Date Diagnosed Date Hypercholesterolemia 08/12/2020 HIV positive 08/12/2020 Gastroesophageal reflux disease 08/12/2020 Congenital renal calculi Overview (08/12/2020): December 2017 Encounters Date Type Department Care Team Description 06/17/2025 Refill [facility] [place] [address] Jenna Rodriguez 06/14/2025 Refill [facility] [address] [place] [address] Dilan Barnes MD 06/12/2025 1:30 PM EST Office Visit [facility] [address] [place] [address] Dilan Barnes MD Stage 3a chronic kidney disease (HCC) (Primary Dx) 06/11/2025 Documentation Only [facility] [address] [place] [address] Jenna Rodriguez 06/07/2025 Orders Only [facility] [address] [place] [address] Jenna Rodriguez Stage 3a chronic kidney disease (HCC) (Primary Dx) 04/15/2025 Documentation Only [facility] [address] [place] [address] Damari Cortez from Last 3 Months Family [...] Visit [facility] [place], [address] [place] [address] Dilan Barnes MD [address] [facility] [place] [phone] Health Maintenance Due Date Last Done Comments [...] patient's age to complete this topic Insurance [facility] Regions 1,2,3 (VACCN) Care Teams Pewter Caster Relationship Specialty Start Date End Date Jonny Lin MD [address] [place], [place] PCP - General Internal Medicine 08/13/20
--- OUTSIDE RECORDS SUMMARY | 2025-07-15 10:46 | XMS_ITS | Encounter Summary ---
Author Organization [facility] Address [address] [place] [address] Phone Care Team Providers Care Drying Tumbler Operator Name Role Phone Jonny Lin MD Primary Care Provider Encounter Details Date Type Department Care Team (Late st Contact Info) Description 06/11/2025 Documentation Only [facility] [address] [place] [address] Jenna Rodriguez [address] [place] [phone] Social History Tobacco Use Types Packs/Day Years [...] Visit [facility] [address] [facility] [place] [address] Dialn Barnes MD [address] [facility] [place] [address] documented as of this encounter Visit Diagnoses Not on filedocumented in this encounter Care Teams Drying Tumbler Operator Relationship Specialty Start Date End Date Jonny Lin MD [address] [place], [place] PCP - General Internal Medicine 08/13/20 documented as of this encounter
--- OUTSIDE RECORDS SUMMARY | 2025-07-15 10:46 | XMS_ITS | Encounter Summary ---
Author Organization [facility] Address [address] [place] [address] Phone Care Team Providers Care Rn Pediatric Name Role Phone Jonny Lin MD Primary Care Provider Encounter Details Date Type Department Care Team (Late st Contact Info) Description 07/27/2024 Documentation Only [facility] [address] [place] [address] Damari Cortez [address] [place] [phone] Social History Tobacco Use Types Packs/Day Years [...] [facility] [address] [place] [address] Dilan Barnes MD [address] [place] [address] [place] [address] documented as of this encounter Visit Diagnoses Not on filedocumented in this encounter Care Teams Rn Pediatric Relationship Specialty Start Date End Date Jonny Lin MD [address] [place], [place] PCP - General Internal Medicine 08/13/20 documented as of this encounter
--- OUTSIDE RECORDS SUMMARY | 2025-07-15 10:46 | XMS_ITS | Encounter Summary ---
Author Organization [facility] Address [address] [place] [address] Phone Care Team Providers Care Aviation Operations Specialist Name Role Phone Jonny Lin MD Primary Care Provider Encounter Details Date Type Department Care Team (Late st Contact Info) Description 01/03/2024 Documentation Only [facility] [address] [place] [address] Jenna Rodriguez [address] [place] [phone] Social History Tobacco Use Types Packs/Day Years [...] Visit [facility] [address] [facility] [place] [address] Dilan Barnes MD [address] [facility] [place] [address] documented as of this encounter Visit Diagnoses Not on filedocumented in this encounter Care Teams Aviation Operations Specialist Relationship Specialty Start Date End Date Jonny Lin MD [address] [place], [place] PCP - General Internal Medicine 08/13/20 documented as of this encounter
--- OUTSIDE RECORDS SUMMARY | 2025-07-15 10:46 | XMS_ITS | Patient Health Record ---
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 > 20 yrs; occasion al beer Nonsmoker > 20 yrs; occasion al beer Problems Problem Type SNOMED Code ICD Code Onset Dates Problem Status W/U Status Risk Notes Problem Screening for malignant neoplasm of colon (044449161) Encounter for screening for malignant neoplasm of colon (Z12.11) Active confirmed Problem History of adenomatous polyp of colon (445975789) History of adenomatous polyp of colon (Z86.010) Active confirmed Problem Diverticular disease of colon (721788660) Diverticulosis of large intestine without perforation or abscess without bleeding (K57.30) Active confirmed Problem Gastroesophageal reflux disease without esophagitis (678325401) Gastroesophageal reflux disease without esophagitis (K21.9) Active confirmed Problem Preprocedural examination (933507893771202) Preprocedural examination (Z01.818) Active confirmed Problem Family History of Cancer of Colon (Situation) (491262229) Family history of colon cancer (Z80.0) Active confirmed Plan Of Treatment Pending Test Test Name Order Date Pathology 06/29/2023 Future Test Test Name Order Date COLONOSCOPY 01/18/2017 COLONOSCOPY 03/29/2023 Insurance Providers Payer Name Payer Address Payer Phone Subscriber Number Group Number Insured Name Patient Relationship to Insured Coverage Start Date Coverage End Date [facility] [address] [place] [phone] [id number] SHEELA RAI Self - patient is the insured [facility] [address] [place] [id number] SHEELA RAI Self - patient is the insured Medical (General) History Medical History History ICD Code Denies VT,DM,CVA,Lung disease,renal dise ase HIV since 08/1995--Dr. Sanchez [...]
--- OUTSIDE RECORDS SUMMARY | 2025-07-15 10:46 | XMS_ITS | Encounter Summary ---
Author Organization [facility] [place], Address [address] [place] [address] Phone Care Team Providers Care Wound/Ostomy Nurse Name Role Phone Jonny Lin MD Primary Care Provider Encounter Details Date Type Department Care Team (Late st Contact Info) Description 05/27/2023 Documentation Only [facility] Dr [address] V[address] [place] [address] Andi Awad MD [address] [place] [address] [place] [address] Social History Tobacco Use Types [...] Visit [facility] [address] [place] [address] Dilan Barnes MD [address] [place] [address] [place] [address] documented as of this encounter Visit Diagnoses Not on filedocumented in this encounter Care Teams Wound/Ostomy Nurse Relationship Specialty Start Date End Date Jonny Lin MD [facility] [place] PCP - General Internal Medicine 08/13/20 documented as of this encounter
--- OUTSIDE RECORDS SUMMARY | 2025-07-15 10:46 | XMS_ITS | Encounter Summary ---
Author Organization [facility] Address [address] [place] [address] Phone Care Team Providers Care Kiln Labourer Name Role Phone Jonny Lin MD Primary Care Provider Encounter Details Date Type Department Care Team (Late st Contact Info) Description 04/15/2025 Documentation Only [facility] [address] [place] [address] Damari Cortez [address] [place] [phone] Social History Tobacco Use Types Packs/Day Years [...] Visit [facility] [address] [place] [address] Dilan Barnes MD [address] [place] [address] [place] [address] documented as of this encounter Visit Diagnoses Not on filedocumented in this encounter Care Teams Kiln Labourer Relationship Specialty Start Date End Date Jonny Lin MD [address] [place], [place] PCP - General Internal Medicine 08/13/20 documented as of this encounter
--- OUTSIDE RECORDS SUMMARY | 2025-07-15 10:46 | XMS_ITS | Encounter Summary ---
Author Organization [facility] Address [address] [place] [address] Phone Care Team Providers Care Farm Reporter Name Role Phone Jonny Lin MD Primary Care Provider Encounter Details Date Type Department Care Team (Late st Contact Info) Description 04/03/2025 Documentation Only [facility] [address] [place] [address] Damari Cortez [address] [place] [phone] Social History Tobacco Use Types Packs/Day Years [...] [facility] [address] [place] [address] Dilan Barnes MD [address] [place] [address] [place] [address] documented as of this encounter Visit Diagnoses Not on filedocumented in this encounter Care Teams Farm Reporter Relationship Specialty Start Date End Date Jonny Lin MD [address] [place], [place] PCP - General Internal Medicine 08/13/20 documented as of this encounter
--- OUTSIDE RECORDS SUMMARY | 2025-07-15 10:46 | XMS_ITS | Encounter Summary ---
Author Organization [facility] Address [address] [place] [address] Phone Care Team Providers Care Lead Java Developer Architect Name Role Phone Jonny Lin MD Primary Care Provider Encounter Details Date Type Department Care Team (Late st Contact Info) Description 06/30/2022 Documentation Only [facility] [address] [place] [address] Dilan Barnes MD [address] [place] [address] [place] [address] Social History Tobacco Use Types [...] Visit [facility] [address] [place] [address] Dilan Barnes MD [address] [place] [address] [place] [address] documented as of this encounter Visit Diagnoses Not on filedocumented in this encounter Care Teams Lead Java Developer Architect Relationship Specialty Start Date End Date Jonny Lin MD [address] [place] [address] PCP - General Internal Medicine 08/13/20 documented as of this encounter
--- OUTSIDE RECORDS SUMMARY | 2025-07-15 10:46 | XMS_ITS | Encounter Summary ---
Author Organization [facility] [place], Address [address] [place] [address] Phone Care Team Providers Care Reduction Furnace Operator Helper Name Role Phone Jonny Lin MD Primary Care Provider Reason for Visit * Reason Comments Med Refill Encounter Details Date Type Department Care Team (Late st Contact Info) Description 04/04/2023 Refill [facility] [address] [place] [address] Dilan Barnes MD [address] [facility] [place] [address] Social History Tobacco Use Types [...] Visit [facility] [place], [address] [facility] [place] [address] Dilan Barnes MD [address] [facility] [place] [address] documented as of this encounter Visit Diagnoses Not on filedocumented in this encounter Care Teams Reduction Furnace Operator Helper Relationship Specialty Start Date End Date Jonny Lin MD [address] [place] [address] PCP - General Internal Medicine 08/13/20 documented as of this encounter
--- OUTSIDE RECORDS SUMMARY | 2025-07-15 10:46 | XMS_ITS | Encounter Summary ---
Author Organization [facility] [place], Address [address] [place] [address] Phone Care Team Providers Care Radio Performer Name Role Phone Jonny Lin MD Primary Care Provider Encounter Details Date Type Department Care Team (Late st Contact Info) Description 05/31/2023 Documentation Only [facility] Dr [address] V[address]AS [address] [place] [address] Andi Awad MD [address] [place] [address] [place] [address] Social History Tobacco Use Types [...] Visit [facility] [address] [place] [address] Dilan Barnes MD [address] [place] [address] [place] [address] documented as of this encounter Visit Diagnoses Not on filedocumented in this encounter Care Teams Radio Performer Relationship Specialty Start Date End Date [facility]ny Lin [facility] [place] PCP - General Internal Medicine 08/13/20 documented as of this encounter
--- OUTSIDE RECORDS SUMMARY | 2025-07-15 10:46 | XMS_ITS | Encounter Summary ---
Author Organization [facility] Address [address] [place] [address] Phone Care Team Providers Care Furnace Brazer Name Role Phone Jonny Lin MD Primary Care Provider Encounter Details Date Type Department Care Team (Late st Contact Info) Description 05/25/2023 Documentation Only [facility] [address] [place] [address] Andi Awad MD [address] [place] [address] [place] [address] Social History Tobacco Use Types [...] Visit [facility] [address] [place] [address] Dilan Barnes MD [address] [place] [address] [place] [address] documented as of this encounter Visit Diagnoses Not on filedocumented in this encounter Care Teams Furnace Brazer Relationship Specialty Start Date End Date Jonny Lin MD [address] [place] [address] PCP - General Internal Medicine 08/13/20 documented as of this encounter
== END 2025-07-15 10:23 | disposition home or self-care (01) ==
LOC: HO.HID 09:28
PROVIDERS: PCP Nurse Practitioner Family; Referring Provider Internal Medicine; Visit Provider Internal Medicine
DX: B20 Human immunodeficiency virus [HIV] disease (principal)
CPT/HCPCS: 99213

== ENCOUNTER → 2025-07-15 09:28 | Outpatient (BNVA) | payer OTHER, SELFPAY | PROVIDERS: PCP Nurse Practitioner Family; Visit Provider Internal Medicine | DX: B20 Human immunodeficiency virus [HIV] disease (principal) | CPT/HCPCS: 99212 ==

== ENCOUNTER 2025-07-22 09:23 | Outpatient (AMB) | payer OTHER, SELFPAY ==
[2025-07-22 09:25] VITALS: BP 104/68; PULSE 102; RESP 16; O2SAT 98; BMI 26.1
--- NOTE | 2025-07-22 09:25 | MHC.PC.OV ---
Vital Signs 07/22/25 09:25 07/22/25 09:38 Height 5 ft 8 in Weight 172 lb BMI 26.1 BP 104/68 Blood Pressure Location Lt brachial Position Sitting Respiration 16 Pulse 102 H 85 Pulse Source Pulse Oximeter Pulse Oximetry (%) 98 Oxygen Delivery Method Room Air Intake Visit Reasons: Annual PE Wedding Planning Internship Required: No Accompanied by: Self / Same As Patient Allergies sulfacetamide (From Sulfacet-R) Allergy (Unknown, Verified 07/22/25 09:28) Rash sulfur (From Sulfacet-R) Allergy (Unknown, Verified 07/22/25 09:28) Rash Medication List - Last Reconciled 07/22/25 by Buddy Deleon, [facility]- allopurinol 300 mg PO DAILY atorvastatin 20 mg PO DAILY 90 days ykiblkxql-sqnfdkwf-fwwslkk ala 50-200-25 mg (Biktarvy) 1 tab PO DAILY 30 days xxsfervbe-rrbrifcd-ssfsazm ala 50-200-25 mg (Biktarvy) 1 tab PO DAILY 30 days omeprazole 20 mg PO QAM Tobacco use date assessed: 07/22/25 Fall risk assessment: No Falls in past year Last assessed Fall Risk: 07/22/25 Dental Screening Dental Screen Date: 07/22/25 Did you have a dental visit in the last 12 months?: Yes Did you have a dental problem in the last 6 months where you did not have access to dental care?: No Was dental information given to patient?: Patient has dentist HPI Annual PE HPI Details History of Present Illness The patient is a 65 year old male presenting for a physical exam. He reports feeling quite well overall. The patient has a history of gout and is followed by nephrology for this condition. He takes allopurinol and denies any recent attacks. For hyperlipidemia, he is on atorvastatin. The patient also sees an infectious disease doctor and a cosmetic account coordinator on a regular basis. Health Maintenance - Patient presents for a physical exam. - He has regular follow-up with an infectious disease doctor, a cosmetic account coordinator, and a neurologist. Social History Review of Systems - Constitutional: Reports feeling well overall. - Cardiovascular: Denies chest pain. - Respiratory: Denies shortness of breath. - Gastrointestinal: Denies abdominal pain, blood in stool, constipation, or diarrhea. - Musculoskeletal: Denies recent gout attacks. - Psychiatric: Denies suicidal or homicidal ideation. Physical Exam General: Cooperative, healthy appearing, comfortable, no acute distress and well developed Orientation: Patient oriented x3 Limitations: No limitations Head: Normal to inspection Ears: Hearing grossly normal bilaterally, TMs were initially obscured by cerumen but were easily seen after ear lavage Nose: Normal external nose present Face and sinus: Normal facial exam Eyes: Appearance normal, both eyes and all related structures Neck: Normal visual inspection and Yes full ROM Respiratory: Normal respiratory effort and able to speak in complete sentences. Clear to auscultation bilaterally Cardiovascular: Regular rate and rhythm. Normal S1 and S2 GI: Normal to inspection. Soft to palpation and nontender : Testicles without masses/lesions and no hernias appreciated Skin: No rashes or lesions noted Neuro: Patient oriented x3 Extremities: Normal to inspection Results Plan 1. Gout, Unspecified The patient has a history of gout and is followed by neurology for this condition. He is stable on allopurinol and denies any recent attacks. A uric acid level will be obtained. 2. Hyperlipidemia, Unspecified The patient has a history of hyperlipidemia and is being treated with atorvastatin. He is doing well on this regimen. 3. Cerumen Impaction During the physical exam, the tympanic membranes were obscured by cerumen. An ear lavage was performed, which allowed for easy visualization of the tympanic membranes. 4. Encounter For General Adult Medical Examination Without Abnormal Findings The patient presented for a physical exam and is doing well overall. He will continue regular follow-up with his specialists, including infectious disease and nephrology. Discussion Notes I reviewed with the patient that he is doing well overall and his chronic conditions of gout and hyperlipidemia appear stable with his current medications, allopurinol and atorvastatin. I advised him to continue his regular follow-up with his specialists in infectious disease, nephrology, and neurology. During the examination, I noted cerumen obscuring his tympanic membranes and performed an ear lavage, after which the TMs were easily visualized. I informed him that a uric acid level would be checked as part of his labs. Patient Instructions - Continue taking all your medications as prescribed, including allopurinol for gout and atorvastatin for cholesterol. - Keep your regular follow-up appointments with your specialists for infectious disease, kidney care (nephrology), and neurology. - We will be checking your uric acid level with a blood test. [facility] Medical History (Reviewed 07/22/25 @ 09:34 by Buddy Deleon [facility]) Elevated cholesterol Gout Diverticulosis GERD (gastroesophageal reflux disease) CKD (chronic kidney disease) HIV infection Surgical History (Reviewed 07/22/25 @ 09:34 by Buddy Deleon [facility]) History of rectal surgery History of dental surgery H/O colonoscopy Social History (Reviewed 07/22/25 @ 09:34 by Buddy Deleon [facility]) Housing: House Alcohol intake: former Patient Tobacco Use Status: Former Tobacco user e-Cigarette/Vaping Use: Never Used Second Hand Smoke Exposure: No service: Yes Current occupational status: employed Current occupation: [employer] Current occupational exposures/hazards: No Cognitive needs: No Hearing needs: No Vision needs: No Questionnaire PHQ-9 Over the last 2 weeks, how often have you been bothered by any of the following problems? 1. Little interest or pleasure in doing things: not at all 2. Feeling down, depressed, or hopeless: not at all 3. Trouble falling or staying asleep, or sleeping too much: not at all 4. Feeling tired or having little energy: not at all 5. Poor appetite or overeating: not at all 6. Feeling bad about yourself - or that you are a failure or have let yourself or your family down: not at all 7. Trouble concentrating on things, such as reading the newspaper or watching television: not at all 8. Moving or speaking so slowly that other people could have noticed. Or the opposite - being so fidgety or restless that you have been moving around a lot more than usual: not at all 9. Thoughts that you would be better off or of hurting yourself in some way: not at all Total score: 0 Depression Screening Interpretation: Negative Depression Screening Done: Yes 78676 - PHQ-9 Billing: Yes Source: Developed by Drs. Kolby Castillo, Shanthi Hicks, Reece Kwan and colleagues, with an educational shashi from [employer]. Thrive Questionnaire Date Thrive assessed: 01/01/25 I am a: Patient What is your living situation today?: I have a steady place to live Within the past 12 months, did the food you bought not last and you didn't have the money to get more?: Never true Within the past 12 months, did you worry whether your food would run out before you got money to buy more?: Never true Do you have trouble paying for medicines?: No Do you have trouble getting transportation to medical appointments?: No Do you have trouble paying your heating and electricity bill?: No Do you have trouble taking care of your child, family member or friend?: No Do you have trouble with day-to-day activities such as bathing, preparing meals, shopping, managing finances, etc.?: No Are you currently unemployed and looking for a job?: No Are you interested in more education?: No Currently or been in a relationship where the following occur: No concerns reported THRIVE Score: 0 PAPITO-7 AMB Questionnaire PAPITO-7 Date PAPITO - 7 assessed: 01/08/25 Source: Developed by Drs. Kolby Castillo, Shanthi Hicks, Reece Kwan and colleagues, with an educational shashi from [employer]. Physical exam (Primary Care) Vital Signs: Last Vital Signs Pulse 102 H 07/22/25 09:25 Resp 16 07/22/25 09:25 BP 104/68 07/22/25 09:25 Pulse Ox 98 07/22/25 09:25 Oxygen Delivery Method Room Air 07/22/25 09:25 BMI result Body Mass Index 26.1 Tobacco/Smoking Status: Tobacco use Status Tobacco use date assessed 07/22/25 07/22/25 09:29 Patient Tobacco Use Status Former Tobacco user 07/22/25 09:29 e-Cigarette/Vaping Use Never Used 07/22/25 09:29 PHQ-9: PHQ-9 Score PHQ-9: Total score 0 07/22/25 09:31 Depression Screening Interpretation: Negative Thrive Assessment: Date of Thrive Assessment Date Thrive assessed 01/01/25 07/22/25 09:29 Currently or been in a relationship where the following occur: No concerns reported Office Procedures Cerumen Removal From which ear canal was the cerumen removed: bilateral Removal: irrigation Notes: patient tolerated procedure well, no complications and ear canal clear 65355-Hfz Irrigation/Lavage EKG 10374-Wgcaqhukkgkfyhgxs, Complete Coding Level of Care Code Est Pt Level 3 (74982) Est Pt Prev Care >65y(14982) Diagnoses Physical exam Z00.00 Screening PSA (prostate specific antigen) Z12.5 Gout M10.9 Bilateral impacted cerumen H61.23 Laterality: bilateral Elevated cholesterol E78.00 CPT Codes Office Procedure - CPT: 32224-Qfj Irrigation/Lavage ([id number]) EKG - CPT: 88192-Mdxawihdusxecdvfl, Complete ([id number]) Additional Codes PHQ-9 - 27920 - PHQ-9 Billing: Yes ([id number]) Assessment & Plan Assessment & Plan (1) Physical exam: Code(s): Z00.00 - Encounter for general adult medical examination without abnormal findings Category: Medical (2) Screening PSA (prostate specific antigen): Code(s): Z12.5 - Encounter for screening for malignant neoplasm of prostate Category: Medical (3) Gout: Code(s): M10.9 - Gout, unspecified Category: Medical (4) Impacted cerumen: Code(s): H61.20 - Impacted cerumen, unspecified ear Category: Medical Qualifiers: Laterality: bilateral Qualified Code(s): H61.23 - Impacted cerumen, bilateral (5) Elevated cholesterol: Code(s): E78.00 - Pure hypercholesterolemia, unspecified Category: Medical Plan . Orders: Orders TSH reflex Free T4 Today Z00.00 - Encounter for general adult medical examination without abnormal findings UA CC w/rflx Micro + Cult Today Z00.00 - Encounter for general adult medical examination without abnormal findings Lipid Panel Today Z00.00 - Encounter for general adult medical examination without abnormal findings Uric Acid Today M10.9 - Gout, unspecified Complete Blood Count Auto Diff Today Z00.00 - Encounter for general adult medical examination without abnormal findings Comprehensive Fulda. Panel Fast Today Z00.00 - Encounter for general adult medical examination without abnormal findings Prostate Specific Antigen Scr Today Z12.5 - Encounter for screening for malignant neoplasm of prostate AMB EKG-In Office Today Z00.00 - Encounter for general adult medical examination without abnormal findings
[2025-07-22 09:38] VITALS: PULSE 85
--- OUTSIDE RECORDS SUMMARY | 2025-07-22 09:51 | XMS_ITS | Encounter Summary ---
Author Organization [facility] Address [address] [place] [address] Phone Care Team Providers Care Dough Mixer Helper Name Role Phone Jonny Lin MD Primary Care Provider Encounter Details Date Type Department Care Team (Late st Contact Info) Description 04/03/2025 Documentation Only [facility] [address] [place] [address] Damari Cortez [address] [place] [phone] Social History Tobacco Use Types Packs/Day Years [...] Visit [facility] [address] [place] [address] Dilan Barnes MD [address] [place] [address] [place] [address] documented as of this encounter Visit Diagnoses Not on filedocumented in this encounter Care Teams Dough Mixer Helper Relationship Specialty Start Date End Date Jonny Lin MD [address] [place], [place] PCP - General Internal Medicine 08/13/20 documented as of this encounter
--- OUTSIDE RECORDS SUMMARY | 2025-07-22 09:51 | XMS_ITS | Encounter Summary ---
Author Organization [facility] [place], Address [address] [place] [address] Phone Care Team Providers Care Log Operations Coordinator Name Role Phone Jonny Lin MD Primary Care Provider Encounter Details Date Type Department Care Team (Late st Contact Info) Description 05/31/2023 Documentation Only [facility] [address] VARGAS [address] [place] [phone] Andi Awad MD [address] [place] [address] [place] [address] Social History Tobacco Use Types [...] Visit [facility] [address] [place] [address] Dilan Barnes MD [address] [place] [address] [place] [address] documented as of this encounter Visit Diagnoses Not on filedocumented in this encounter Care Teams Log Operations Coordinator Relationship Specialty Start Date End Date Jonny Lin MD [facility] [place] PCP - General Internal Medicine 08/13/20 documented as of this encounter
--- OUTSIDE RECORDS SUMMARY | 2025-07-22 09:51 | XMS_ITS | Clinical Summary ---
Author Organization [facility] [place], Address [address] [place] [address] [place] [address] Phone Care Team Providers Care Painter Helper Spray Name Role Phone Jonny Lin MD Primary Care Provider Allergies Active Allergy Reactions Criticality Noted Date Comments Sulfacetamide Rash Low 04/01/2020 Medications albuterol HFA (PROVENTIL HFA;VENTOLIN HFA) 108 (90 Base) MCG/ACT inhaler INL 1 PUFF PO Q 4 H PRN 12/24/2019 Active atorvastatin (LIPITOR) 20 MG tablet TK 1 T PO QD 12/30/2019 Active Biktarvy 50-200-25 MG tablet TK 1 T PO QD 02/16/2020 Active cholecalciferol (VITAMIN D-3) 50 MCG (1999 UT) capsule TK 1 C PO QD 02/02/2020 Acti ve Fluticasone-Stevenson meterol 232-14 MCG/ACT aerosol powder INL 1 PUFF PO BID 02/13/2020 Active omeprazole (PriLOSEC) [address] capsule TK 1 C PO QD IN THE MORNING OES 01/19/2020 Active cetirizine (ZyrTEC) 10 MG tablet TAKE 1 TABLET BY MOUTH EVERY DAY FOR ALLERGY SYMPTOMS 10/14/2020 Active allopurinol (ZYLOPRIM) 300 MG tablet Take 1 tablet (300 mg total) by mouth 1 (one) time each day 90 tablet 3 06/17/2025 Active Active Problems Problem Noted Date Diagnosed Date Hypercholesterolemia 08/12/2020 HIV positive 08/12/2020 Gastroesophageal reflux disease 08/12/2020 Congenital renal calculi Overview (08/12/2020): December 2017 Encounters Date Type Department Care Team Description 06/17/2025 Refill [facility] - [place] [phone] Jenna Rodriguez 06/14/2025 Refill [facility] [address] [place] [address] Dilan Barnes MD 06/12/2025 1:30 PM EST Office Visit [facility] [address] [place] [address] Dilan Barnes MD Stage 3a chronic kidney disease (HCC) (Primary Dx) 06/11/2025 Documentation Only [facility] [address] [place] [address] Jenna Rodriguez 06/07/2025 Orders Only [facility] [address] [place] [address] Jenna Rodriguez Stage 3a chronic kidney disease (HCC) (Primary Dx) from Last 3 Months Family History Medical [...] Visit [facility] [address] [place] [address] Dilan Barnes MD [address] [place] [address] [place] [phone] Health Maintenance Due Date Last Done Comments [...] patient's age to complete this topic Insurance [facility] Regions 1,2,3 (VACCN) Care Teams Painter Helper Spray Relationship Specialty Start Date End Date Jonny Lin MD [address] [place] [address] PCP - General Internal Medicine 08/13/20
--- OUTSIDE RECORDS SUMMARY | 2025-07-22 09:51 | XMS_ITS | Encounter Summary ---
Author Organization [facility] Address [address] [place] [address] Phone Care Team Providers Care Finishing Operator Name Role Phone Jonny Lin MD Primary Care Provider Encounter Details Date Type Department Care Team (Late st Contact Info) Description 01/03/2024 Documentation Only [facility] [address] [place] [address] Jenna Rodriguez [address] [place] [phone] Social History Tobacco Use Types Packs/Day Years [...] Visit [facility] [address] [place] [address] Dilan Barnes MD [address] [facility] [place] [address] documented as of this encounter Visit Diagnoses Not on filedocumented in this encounter Care Teams Finishing Operator Relationship Specialty Start Date End Date Jonyn Lin MD [address] [place], [place] PCP - General Internal Medicine 08/13/20 documented as of this encounter
--- OUTSIDE RECORDS SUMMARY | 2025-07-22 09:51 | XMS_ITS | Encounter Summary ---
Author Organization [facility] Address [address] [place] [address] Phone Care Team Providers Care Single Resource Boss Name Role Phone Jonny Lin MD Primary Care Provider Encounter Details Date Type Department Care Team (Late st Contact Info) Description 07/27/2024 Documentation Only [facility] [address] [place] [address] Damari Cortez [address] [place] [phone] Social History Tobacco Use Types Packs/Day Years [...] Visit [facility] [address] [place] [address] Dilan Barnes MD [address] [place] [address] [place] [address] documented as of this encounter Visit Diagnoses Not on filedocumented in this encounter Care Teams Single Resource Boss Relationship Specialty Start Date End Date Jonny Lin MD [address] [place], [place] PCP - General Internal Medicine 08/13/20 documented as of this encounter
--- OUTSIDE RECORDS SUMMARY | 2025-07-22 09:51 | XMS_ITS | Encounter Summary ---
Author Organization [facility] Address [address] [place] [address] Phone Care Team Providers Care Stock Worker And Deliverer Name Role Phone Jonny Lin MD Primary Care Provider Encounter Details Date Type Department Care Team (Late st Contact Info) Description 05/25/2023 Documentation Only [facility] [address] [place] [address] Andi Awad MD [address] [place] [address] [place] [address] Social History Tobacco Use Types [...] Visit [facility] [address] [place] [address] Dilan Barnes MD [address] [place] [address] [place] [address] documented as of this encounter Visit Diagnoses Not on filedocumented in this encounter Care Teams Stock Worker And Deliverer Relationship Specialty Start Date End Date Jonny Lin MD [address] [place] [address] PCP - General Internal Medicine 08/13/20 documented as of this encounter
--- OUTSIDE RECORDS SUMMARY | 2025-07-22 09:51 | XMS_ITS | Patient Health Record ---
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 > 20 yrs; occasion al beer Nonsmoker > 20 yrs; occasion al beer Problems Problem Type SNOMED Code ICD Code Onset Dates Problem Status W/U Status Risk Notes Problem Screening for malignant neoplasm of colon (183495729) Encounter for screening for malignant neoplasm of colon (Z12.11) Active confirmed Problem History of adenomatous polyp of colon (617380250) History of adenomatous polyp of colon (Z86.010) Active confirmed Problem Diverticular disease of colon (033928038) Diverticulosis of large intestine without perforation or abscess without bleeding (K57.30) Active confirmed Problem Gastroesophageal reflux disease without esophagitis (930612856) Gastroesophageal reflux disease without esophagitis (K21.9) Active confirmed Problem Preprocedural examination (051724501170041) Preprocedural examination (Z01.818) Active confirmed Problem Family History of Cancer of Colon (Situation) (978833356) Family history of colon cancer (Z80.0) Active confirmed Plan Of Treatment Pending Test Test Name Order Date Pathology 06/29/2023 Future Test Test Name Order Date COLONOSCOPY 01/18/2017 COLONOSCOPY 03/29/2023 Insurance Providers Payer Name Payer Address Payer Phone Subscriber Number Group Number Insured Name Patient Relationship to Insured Coverage Start Date Coverage End Date [facility] [address] [place] [address] [id number] SHEELA RAI Self - patient is the insured [facility] [address] [place] [id number] [phone] [id number] SHEELA RAI Self - patient is the insured Medical (General) History Medical History History ICD Code Denies CT,DM,CVA,Lung disease,renal dise ase HIV since 08/1995--Dr. Sanchez [...]
--- OUTSIDE RECORDS SUMMARY | 2025-07-22 09:51 | XMS_ITS | Encounter Summary ---
Author Organization [facility] [place], Address [address] [place] [address] Phone Care Team Providers Care Magnet Maker Name Role Phone Jonny Lin MD Primary Care Provider Encounter Details Date Type Department Care Team (Late st Contact Info) Description 05/27/2023 Documentation Only [facility] Dr [address]upama [address] VARGAS [address] [place] [phone] Andi Awad MD [address] [place] [address] [place] [address] Social History Tobacco Use Types [...] Visit [facility] [address] [place] [address] Dilan Barnes MD [address] [place] [address] [place] [address] documented as of this encounter Visit Diagnoses Not on filedocumented in this encounter Care Teams Magnet Maker Relationship Specialty Start Date End Date [facility]ny Lin MD [facility] [place] [place] PCP - General Internal Medicine 08/13/20 documented as of this encounter
--- OUTSIDE RECORDS SUMMARY | 2025-07-22 09:52 | XMS_ITS | Encounter Summary ---
Author Organization [facility] Address [address] [place] [address] Phone Care Team Providers Care Food Aide Name Role Phone Jonny Lin MD Primary Care Provider Encounter Details Date Type Department Care Team (Late st Contact Info) Description 04/15/2025 Documentation Only [facility] [address] [place] [address] Damari Cortez [address] [place] [phone] Social History Tobacco Use Types Packs/Day Years [...] Visit [facility] [address] [place] [address] Dilan Barnes MD [address] [place] [address] [place] [address] documented as of this encounter Visit Diagnoses Not on filedocumented in this encounter Care Teams Food Aide Relationship Specialty Start Date End Date Jonny Lin MD [address] [place], [place] PCP - General Internal Medicine 08/13/20 documented as of this encounter
--- OUTSIDE RECORDS SUMMARY | 2025-07-22 09:52 | XMS_ITS | Encounter Summary ---
Author Organization [facility] Address [address] [place] [address] Phone Care Team Providers Care Furniture Technician Name Role Phone Jonny Lin MD Primary Care Provider Encounter Details Date Type Department Care Team (Late st Contact Info) Description 06/11/2025 Documentation Only [facility] [address] [place] [address] Jenna Rodriguez [address] [place] [id number] Social History Tobacco Use Types Packs/Day Years [...] [facility] [address] [place] [address] Dilan Barnes MD [address] [place] [address] documented as of this encounter Visit Diagnoses Not on filedocumented in this encounter Care Teams Furniture Technician Relationship Specialty Start Date End Date Jonny Lin MD [address] [place], [place] PCP - General Internal Medicine 08/13/20 documented as of this encounter
--- OUTSIDE RECORDS SUMMARY | 2025-07-22 09:52 | XMS_ITS | Encounter Summary ---
Author Organization [facility], Address [address] [place] [address] Phone Care Team Providers Care Mechanical Operator Name Role Phone Jonny Lin MD Primary Care Provider Reason for Visit * Reason Comments Med Refill Encounter Details Date Type Department Care Team (Late st Contact Info) Description 04/04/2023 Refill [facility] [address] [place] [address] Dilan Barnes MD [address] [place] [address] Social History Tobacco Use Types [...] Visit [facility], [address] [place] [address] Dilan Barnes MD [address] [place] [address] documented as of this encounter Visit Diagnoses Not on filedocumented in this encounter Care Teams Mechanical Operator Relationship Specialty Start Date End Date Jonny Lin MD [address] [place] [address] PCP - General Internal Medicine 08/13/20 documented as of this encounter
--- OUTSIDE RECORDS SUMMARY | 2025-07-22 09:52 | XMS_ITS | Encounter Summary ---
Author Organization [facility], Address [address] [place] [address] Phone Care Team Providers Care Service Cashier Name Role Phone Jonny Lin MD Primary Care Provider Reason for Visit * Reason Comments Med Refill Encounter Details Date Type Department Care Team (Late st Contact Info) Description 08/06/2022 Refill [facility] [address] [place] [address] Dilan Barnes MD [address] [facility] [address] [place] [place] [address] Social History Tobacco Use Types [...] Visit [facility], [address] [place] [address] Dilan Barnes MD [address] [place] [address] documented as of this encounter Visit Diagnoses Not on filedocumented in this encounter Care Teams Service Cashier Relationship Specialty Start Date End Date Jonny Lin MD [address] [place] [address] PCP - General Internal Medicine 08/13/20 documented as of this encounter
--- OUTSIDE RECORDS SUMMARY | 2025-07-22 09:52 | XMS_ITS | Encounter Summary ---
Author Organization [facility] Address [address] [place] [address] Phone Care Team Providers Care Parent Coach Name Role Phone Jonny Lin MD Primary Care Provider Encounter Details Date Type Department Care Team (Late st Contact Info) Description 06/30/2022 Documentation Only [facility] [address] [place] [address] Dilan Barnes MD [address] [place] [address] [place] [address] Social History Tobacco Use Types [...] [facility] [address] [place] [address] Dilan Barnes MD [address] [place] [address] [place] [address] documented as of this encounter Visit Diagnoses Not on filedocumented in this encounter Care Teams Parent Coach Relationship Specialty Start Date End Date Jonny Lin MD [address] [place] [address] PCP - General Internal Medicine 08/13/20 documented as of this encounter
== END 2025-07-22 10:06 | disposition home or self-care (01) ==
LOC: HO.HMCC 09:24
PROVIDERS: PCP Nurse Practitioner Family; Visit Provider Nurse Practitioner Family
DX: Z00.00 Encounter for general adult medical examination without abnormal findings (principal); M10.9 Gout, unspecified; H61.23 Impacted cerumen, bilateral; E78.00 Pure hypercholesterolemia, unspecified; Z12.5 Encounter for screening for malignant neoplasm of prostate

== ENCOUNTER → 2025-07-22 09:23 | Outpatient (BNVA) | payer OTHER, SELFPAY | PROVIDERS: PCP Nurse Practitioner Family; Visit Provider Nurse Practitioner Family | DX: Z13.31 Encounter for screening for depression (principal); H61.23 Impacted cerumen, bilateral; Z00.00 Encounter for general adult medical examination without abnormal findings | CPT/HCPCS: 69209; 93005; 96127 ==